=== PATIENT | male | born 1980 | race Caucasian/White ===

== ENCOUNTER 2022-12-18 15:01 | Outpatient (OUT) | payer OTHER, SELFPAY ==
--- NOTE | 2022-12-18 15:08 | CT_ITS ---
The [address] [address] Patient Name: VINCE LUCIANO MRN: [id number] date: 1980 Sex: M Assigned Patient Location: [facility] Current Patient Location: [facility] Accession/Order Number: [id number] Exam Date: 12/18/2022 15:26 Report Date: 12/18/2022 15:49 At the request of: ROXY DRIVER Procedure: CT head/brain wo con EXAM: CT head/brain wo con HISTORY: Concussion S06.0X9A . The patient hit forehead on the pool ladder 3 days ago, now with confusion. COMPARISON: None. TECHNIQUE: Multi slice thin computed tomograms of the head were obtained without contrast enhancement, with sagittal and coronal reconstructions. Radiation reduction technique and algorithms were utilized during the study. FINDINGS: The ventricles are not enlarged, the lateral ventricles are relatively symmetric and the third ventricles in the midline. The sylvian fissures and cortical sulci are unremarkable. There is no evidence of an intracranial hemorrhage, mass lesion or apparent acute infarct. The cerebellum and visualized brainstem are intact. The paranasal sinuses are clear as visualized. The middle ears are aerated. The mastoid sinuses are clear. There is no apparent acute skull fracture. CT/CT head/brain wo con IMPRESSION: There is no evidence of an intracranial hemorrhage, mass lesion or apparent acute infarct. The sinuses are clear. There is no apparent skull fracture. If the patient's symptoms persist then further evaluation with an MRI study may be helpful. Electronically authenticated by: SIXTO SAMUEL Date: 12/18/2022 15:49
== END 2022-12-18 15:02 | disposition home or self-care (01) ==
PROVIDERS: PCP Family Medicine; Visit Provider Family Medicine
DX: S06.0X9A Concussion with loss of consciousness of unspecified duration, initial encounter (principal)
CPT/HCPCS: 70450

== ENCOUNTER 2023-03-14 | Outpatient (REF) | payer OTHER, SELFPAY | END 2023-03-14 00:01 | disposition home or self-care (01) | LOC: LAB | PROVIDERS: PCP Family Medicine; Visit Provider Surgery | DX: D48.5 Neoplasm of uncertain behavior of skin (principal) | CPT/HCPCS: 88305; 88341; 88342; 88360 ==

== ENCOUNTER 2023-11-01 13:50 | Outpatient (OUT) | payer OTHER, SELFPAY ==
--- NOTE | 2023-11-01 07:59 | V.VEINS.HP ---
Vital Signs 11/01/23 14:08 Height 6 ft 3 in Weight 105.233 kg BMI 29.0 BP 120/60 BP Location Left Brachial BP Position Sitting BP Cuff Size Adult BP Source Manual Cuff Respiration 16 Pulse 64 Pulse Source Monitor Pulse Oximetry (%) 98 Oxygen Delivery Method Room Air Comment The patient's blood pressure is elevated. Varicose Veins Patient is a 43 year old male in this day with c/o bilateral leg pain and edema along with a slow healing wound to right mid anterior lower leg lasting approximately 2 months. Patient is a past patient of ours and has been treated for varicose vein disease since the age 20. Patient has multiple treatments involving vein stripping, EVLT, and microfoam chemical ablation. Patient continue use of bilateral leg compression stockings for >10 years. . Jair Julien MD personally performed the services described in this documentation, as scribed by Tex Moralez RN in my presence and it is both accurate and complete. ITex RN, am scribing for, and in the presence of, Dr. Jair Ricardo and in the presence of the patient. . . thigh: bilateral (varicose veins bilateral legs), knee: bilateral, calf: bilateral, ankle: bilateral and shay: bilateral aching, burning and tender 5 1 year Worsened in recent months: Yes standing analgesics (Aleve), elevating extremities, compression stockings and exercise Reports heaviness, limb pain, edema and leg edema History of lower extremity trauma: No Superficial thrombophlebitis: No Family history of varicose veins: yes (family) Has patient had previous lower extremity venous surgery: Yes Patient has previously received the following treatment(s) for lower extremity varicose veins: Reports vein ablation, phlebectomy, sclerotherapy, foam therapy and laser therapy Does patient have a history of : not applicable Has patient had lower extremity venous scan with relux testing: Yes Support hose used: Yes (many years) Problems walking or doing physical activity: Yes How does it affect you: often has to stop, rest, and elevate legs due to pain Do you walk much: Yes Do you stand much: Yes Review of Systems ROS Narrative Jair Julien MD personally performed the services described in this documentation, as scribed by Tex Moralez RN in my presence and it is both accurate and complete. ITex RN, am scribing for, and in the presence of, Dr. Jair Ricardo and in the presence of the patient. Status of ROS 10 or more systems reviewed and unremarkable except as noted in history and below Cardiovascular Reports: edema Integumentary/Breast Reports: itching and changes in skin color Neurological Reports: numbness in extremities and weakness in extremities Hematologic/Lymphatic Reports: easy bruising PFSH PFSH Medical History (Updated 11/01/23 @ 14:30 by Tex Moralez) Varicose veins of bilateral lower extremities with pain ?I83.813 - Varicose veins of bilateral lower extremities with pain (ICD-10) Right hand fracture ?S62.91XA - Unspecified fracture of right wrist and hand, initial encounter for closed fracture (ICD-10) Cervical vertebral fusion ?M43.22 - Fusion of spine, cervical region (ICD-10) Surgical History (Updated 11/01/23 @ 15:11 by Tex Moralez) History of bladder surgery ?Z98.890 - Other specified postprocedural states (ICD-10) H/O varicose vein ligation ?Z98.890 - Other specified postprocedural states (ICD-10) ?Z86.79 - Personal history of other diseases of the circulatory system (ICD-10) Status post phlebectomy ?Z98.890 - Other specified postprocedural states (ICD-10) Family History (Updated 11/01/23 @ 14:41 by Tex Moralez) Mother Varicose veins of bilateral lower extremities with pain Family history of cancer Family history of hypertension Social History (Updated 11/01/23 @ 14:32 by Tex Moralez) Within the past year, how often did you have a drink containing alcohol: 2-4 times a month Smoking status: Never smoker Non-prescribed substance use: denies use Meds Home Medications and Allergies Home Medications ?Medication ?Instructions ?Recorded ?Confirmed ?Type bupropion HCl 150 mg 24 hr tablet, 150 mg PO DAILY 11/01/23 11/01/23 History extended release bupropion HCl 300 mg 24 hr tablet, 300 mg PO DAILY 11/01/23 11/01/23 History extended release calcium carb-ergocalciferol (vit tab PO 11/01/23 History D2) 600 mg calcium-200 unit tablet desvenlafaxine succinate 50 mg 50 mg PO DAILY 11/01/23 11/01/23 History tablet,extended release 24 hr (Pristiq) doxycycline hyclate 100 mg capsule 100 mg PO DAILY 11/01/23 11/01/23 History tamsulosin 0.4 mg capsule (Flomax) 0.4 mg PO Q24H 11/01/23 11/01/23 History topiramate 100 mg capsule,extended 100 mg PO DAILY 11/01/23 11/01/23 History release 24 hr Allergies Allergy/AdvReac Type Severity Reaction Status Date / Time morphine Allergy Seizure Verified 11/01/23 14:41 Exam Constitutional Documenting provider has reviewed patient's vital signs: yes Common normals: oriented x3 Cardio Peripheral pulses: dorsalis pedis pulses present Extremity Common normals: normal capillary refill General: edema Right lower extremity: lower leg Right lower leg: inspection and palpation Left lower extremity: lower leg Left lower leg: inspection and palpation Neuro Common normals: oriented x3 Results Additional Findings Additional findings: Bilateral leg reflux u/s reveals right SSV and AASV along perforating vein venous insufficiency along with associated dilation along with bilateral leg branch saphenous truncal varicosities. Jair Julien MD personally performed the services described in this documentation, as scribed by Tex Moralez RN in my presence and it is both accurate and complete. Tex Julien RN, am scribing for, and in the presence of, Dr. Jair Ricardo and in the presence of the patient. Assessment and Plan Assessment and Plan (1) Varicose veins of bilateral lower extremities with pain: Plan Patient to return for EVLT of right SSV and AASV and perofrating veins near wound right lower leg. Jair Julien MD personally performed the services described in this documentation, as scribed by Tex Moralez RN in my presence and it is both accurate and complete. Tex Julien RN, am scribing for, and in the presence of, Dr. Jair Ricardo and in the presence of the patient.
--- NOTE | 2023-11-01 08:01 | P.DS_ITS ---
Discharge Plan Discharge Disposition: Home, Self-Care Outpatient Diagnostics: VC Endovenous Ablation 1VeinRT (Routine) Timeframe: 1 Month Facility: [facility] - Location[facility] Ordered By: Jair Ricardo Follow Up Appointments: patient to return for EVLT once insurance approval Print Language: Setswana Discharge Date/Time: 11/01/23 16:00
[2023-11-01 14:08] VITALS: BP 120/60; PULSE 64; O2SAT 98; BMI 29.0
--- OUTSIDE RECORDS SUMMARY | 2023-11-01 14:09 | XMS_ITS | CCD ---
Author Organization [facility] Care Team Providers Care Can Cleaner Name Role Phone SHAI PLASENCIAIL Attending Unavailable ROXY DRIVER Referring Unavailable ROXY DRIVER Primary Care Unavailable EBRAHEIM, NEELAM Admitting Unavailable EBRAHEIM, NEELAM Surgeon Unavailable MA Procedure Practitioner Unavailab farnaz DRIVER ., DR RAMSEY Primary Care Unavailable HOY ., DR RAMSEY Admitting Unavailable HOY ., DR RAMSEY Attending Unavailable HOY ., DR RAMSEY Consulting Unavailable LISETH MUNROE Consulting Unavailable HOY ., DR RAMSEY Primary Care Unavailable HOY ., DR RAMSEY Admitting Unavailable HOY ., DR RAMSEY Attending Unavailable HOY ., DR RAMSEY Consulting Unavailable ZIEBER, DR IAN Quevedo Consulting Unavailable HOY ., DR RAMSEY Admitting Unavailable HOY ., DR RAMSEY Attending Unavailable HOY ., DR RAMSEY Consulting Unavailable HOY ., DR RAMSEY Primary Care Unavailable ZIEBER, DR IAN Quevedo Consulting Unavailable ZIEBER, DR IAN Quevedo Consulting Unavailable PAY ., DR WESLEY Admitting Unavailable PAY ., DR WESLEY Attending Unavailable HOY ., DR RAMSEY Primary Care Unavailable PAY ., DR WESLEY Consulting Unavailable ALEX .KIMBERLY Consulting UnavailRoxy Delgadillo Primary Care Physician Unallocated, Noms Provider Primary Care Provider Roxy Driver MD Primary Care Provider EMELY MAGALLANES Attending Unavailable RAFAEL WEEKS Referring Unavailable EMELY MAGALLANES Attending Unavailable MARGEERAFAEL C Referring Unavailable EMELY MAGALLANES Attending Unavailable RAFAEL WEEKS Referring Unavailable EMELY AMGALLANES Attending Unavailable MARGEERAFAEL Referring Unavailable EMELY MAGALLANES Attending Unavailable MARGEERAFAEL C Referring Unavailable EMELY MAGALLANES Attending Unavailable SKIE, RAFAEL C Referring Unavailable BLACKSTON, EMELY Attending Unavailable SKIE, RAFAEL C Referring Unavailable BLACKSTON, EMELY Attending Unavailable SKIE, RAFAEL C Referring Unavailable BLACKSTON, EMELY Attending Unavailable SKIE, RAFAEL C Referring Unavailable BLACKSTON, EMELY Attending Unavailable SKIE, RAFAEL C Referring Unavailable BLACKSTON, EMELY Attending Unavailable SKIE, RAFAEL C Referring Unavailable BLACKSTON, EMELY Attending Unavailable SKIE, RAFAEL C Referring Unavailable BLACKSTON, EMELY Attending Unavailable SKIE, RAFAEL C Referring Unavailable BLACKSTON, EMELY Attending Unavailable SKIE, RAFAEL C Referring Unavailable NILL, Riley Quevedo Attending Unavailable HoyRoxy Referring Unavailable NILL, Riley Quevedo Attending Unavailable NILL, Riley Quevedo Attending Unavailable Lul Zapata Attending Unavailable Laura, Clifford Attending Unavailable SKIE, RAFAEL Attending Unavailable SKIE, RAFAEL Admitting Unavailable SKIE, RAFAEL Attending Unavailable SKIE, RAFAEL Attending Unavailable SKIE, RAFAEL Referring Unavailable SKIE, RAFAEL Referring Unavailable SKIE, RAFAEL Referring Unavailable SKIE, RAFAEL Referring Unavailable SKIE, RAFAEL Referring Unavailable SKIE, RAFAEL Attending Unavailable SKIE, RAFAEL Attending Unavailable SKIE, RAFAEL Attending Unavailable SKIE, RAFAEL Attending Unavailable Roxy Driver MD Primary Care Provider [phone] NANDO PARKER Admitting Unavailable NANDO PARKER Attending Unavailable ROXY DRIVER Primary Care Unavailable ROXY DRIVER Primary Care Unavailable NANDO PARKER Referring Unavailable KEESHA CURTIS Attending Unavailable VILLA ROXY M Primary Care Unavailable ALMASSI, JESSICA Attending Unavailable ROXY DRIVER M Primary Care Unavailable KELLIE MEADOWSA Attending Unavailable ROXY DRIVER Primary Care Unavailable AMITA GEE Referring Unavailable HOROXY Santoyo M Primary Care Unavailable HOShandra ROXY M Primary Care Unavailable HOShandra ROXY M Primary Care Unavailable ROXY DRIVER M Primary Care Unavailable NANDO PARKER Attending Unavailable Allergies Allergy Classification Reported Allergen(s) Allergy Type Date of Onset Reaction(s) Facility (1 source) Ciprofloxacin; Translations: [CIPRO] Drug Allergy 9 [facility] (4 sources) Morphine; Translations: [MORPHINE] Drug Allergy 5 [facility] (15 sources) Cinnamon Preparation; Translations: [Cinnamon] Drug Allergy 2 Swelling [facility] (1 source) Coconut Flavor Allergy to substance 3 [facility] (11 sources) coconut allergenic extract; Translations: [COCONUT] Drug Allergy 2 Swelling [facility] (1 source) No Known Medication Allergies; Translations: [No Known Medication Allergies] Propensity to adverse reactions (disorder) [facility] Repository (1 source) Ciprofloxacin; Translations: [CIPROFLOXACIN] Drug Allergy 3 [facility] Rep[facility] NEGATED: Highlighted row has been ruled out! (1 source) Drug allergy [facility] [place] NEGATED: Highlighted row has been ruled out! (1 source) Drug allergy General [facility] Medications Current Medications Medication Drug Class(es) Dates Sig (Normalized) Sig (Original) acetaminophen 325 mg oral tablet (1 source) Start: 08-13-2023 End: 08-18-2023 take 2 tablets by mouth every six hours acetaminophen (TYLENOL) 325 mg tablet Take 2 tablets by mouth every 6 hours for 5 days. 40 tablet 0 08/13/2023 08/18/2023 Active acetaminophen 325 mg / HYDROcodone bitartrate 5 mg oral tablet (1 source) Opioid Agonist take 1 tablet by mouth every eight hours as needed HYDROcodone-acetami nophen (NORCO) 5-325 mg per tablet Take 1 tablet by mouth every 8 hours as needed for pain. 0 Active 24 hr buPROPion hydrochloride 150 mg extended release oral tablet (20 sources) Aminoketone Start: 02-24-2023 buPROPion XL (WELLBUTRIN XL) 150 mg 24 hr tablet Start: 02-24-2023 buPROPion XL ( WELLBUTRIN XL) 300 mg 24 hr tablet Start: 02-08-2023 take 1 tablet by leonides th once daily buPROPion XL (WELLBUTRIN XL) 150 mg 24 hr tablet Take 150 mg by mouth once daily. 0 02/24/2023 Active Start: 02-08-2023 take 1 tablet by leonides th once daily buPROPion XL (WELLBUTRIN XL) 300 mg 24 hr tablet Take 300 mg by mouth once daily. 0 02/24/2023 Active cephalexin 500 mg oral capsule (1 source) Cephalosporin Antibacterial Start: 08-13-2023 End: 08-15-2023 take 1 capsule by mouth three times daily cephALEXin (KEFLEX) 500 mg capsule Take 1 capsule by mouth three times a day for 2 days. 6 capsule 0 08/13/2023 08/15/2023 Active cetirizine hydrochloride 10 mg oral capsule (9 sources) Histamine-1 Receptor Antagonist take 1 capsule by mouth once daily Cetirizine 10 mg cap Take 10 mg by mouth once daily. 0 Active Comment on above: Take by mouth once d aily. cyclobenzaprine hydrochloride 5 mg oral tablet (1 source) Muscle Relaxant Start: 08-19-2022 cyclobenzaprine (Flexeril) 5 MG tablet Take 5 mg by mouth. 0 08/19/2022 Active 24 hr desvenlafaxine succinate 100 mg extended release oral tablet (1 source) Serotonin and Norepinephrine Reuptake Inhibitor desvenlafaxine (Pristiq) 100 MG 24 hr tablet docusate sodium 100 mg oral capsule (2 sources) Start: 08-13-2023 End: 09-12-2023 take 1 capsule by mouth twice daily docusate sodium (COLACE) 100 mg capsule Take 1 capsule by mouth two times a day. 60 capsule 0 08/13/2023 09/12/2023 Active Start: 05-17-2022 [facility] 1 capsule by [facility] morning docusate sodium (Colace) 100 MG capsule Take 100 mg by mouth in the morning and 100 mg before bedtime. 0 05/17/2022 Active doxycycline monohydrate 100 mg oral capsule (9 sources) Tetracycline-class Drug Start: 05-26-2022 take 1 capsule by mouth once daily doxycycline monohydrate (MONODOX) 100 mg capsule Take 100 mg by mouth once daily. 0 02/24/2023 Active ergocalciferol 1.25 mg oral capsule (8 sources) Provitamin D2 Compound Start: 07-03-2016 take 1 capsule by mouth every week ergocalciferol, vitamin D2, (DRISDOL) 50,000 unit capsule Take 1 capsule by mouth once each week. 4 capsule 3 07/03/2016 Active Comment on above: Take 1 capsule by [facility] once each week. naproxen 500 mg oral tablet (2 sources) Nonsteroidal Anti-inflammatory Drug Start: 08-19-2022 take 1 tablet by mouth twice daily as needed for pain naproxen 500 mg Tab 500 mg = 1 tab(s), Oral, BID, PRN for pain, # 20 tab(s), Refills(s) 0, Pharmacy: [facility]/pharmacy #[id number], 190.5, cm, 08/19/22 14:09:00 EDT, Height/Length Dosing, 105, kg, 08/19/22 14:09:00 EDT, Weight Dosing Start Date: 08/19/22 Status: Ordered phenazopyridine hydrochloride 200 mg oral tablet (1 source) Start: 08-13-2023 End: 08-16-2023 take 1 tablet by mouth three times daily, then take 1 tablet by mouth every hour phenazopyridine (PYRIDIUM) 200 mg tablet Take 1 tablet by mouth three times a day for 3 days. For urinary burning and discomfort. This will turn your urine bright orange. Take first dose 1 hour prior to coe removal. 9 tablet 0 08/13/2023 08/16/2023 Active SUMAtriptan 100 mg oral tablet (4 sources) Serotonin-1b and Serotonin-1d Receptor Agonist Start: 07-16-2023 take 1 tablet by mouth every two hours as needed SUMAtriptan (IMITREX) 100 mg tablet TAKE 1 TABLET BY MOUTH AT LEAST 2 HOURS BETWEEN DOSES NEEDED 0 07/16/2023 Active Start: 12-17-2022 take 1 tablet by leonides once daily Imitrex 100 mg Tab 100 mg = 1 tab(s), Oral, Daily, Refills(s) 0 Start Date: 12/17/22 Status: Ordered tamsulosin hydrochloride 0.4 mg oral capsule (11 sources) alpha-Adrenergic Issa Start: 05-26-2022 take 0.4 mg by mouth once daily tamsulosin (FLOMAX) 0.4 mg Take 0.4 mg by mouth once daily. 0 02/24/2023 Active tiZANidine 4 mg oral tablet (3 sources) Central alpha-2 Adrenergic Agonist Start: 02-08-2023 take 1 tablet by mouth three times daily tiZANidine 4 mg Tab 4 mg = 1 tab(s), Oral, TID, Refills(s) 0 Start Date: 02/08/23 Status: Ordered tiZANidine ([facility] flex) 4 MG tablet every 8 (eight) hours. 0 Active 24 hr topiramate 100 mg extended release oral capsule (10 sources) Start: 04-15-2019 take 1 capsule by mouth once daily Trokendi XR 100 mg oral capsule, extended release 100 mg = 1 cap(s), Oral, Daily Start Date: 04/15/19 Status: Ordered topiramate XR (T ROKENDI XR) 100 mg capsule Take 50 mg by mouth two times a day. 0 Active take 1 tablet by mouth twice frida ly Topiramate (TOPAMAX) 50 mg tablet Take 50 mg by mouth twice daily. 0 Active Comment on above: Take 50 mg by mouth twice daily. vitamin b12 0.5 mg oral tablet (8 sources) Vitamin B12 Start: 07-03-2016 take 1 tablet by mouth once daily cyanocobalamin (VITAMIN B-12) 500 mcg tab Take 1 tablet by mouth once daily. 30 tablet 5 07/03/2016 Active Comment on above: Take 1 tablet by leonides th once daily. Completed/Discontinued Medications Medication Drug Class(es) Dates Sig (Normalized) Sig (Original) [id number] 200 actuat albuterol 0.09 mg/actuat metered dose inhaler (7 sources) beta2-Adrenergic Agonist Start: 04-23-2023 End: 08-01-2023 take 2 puff(s) by inhalation every four hours as needed albuterol HFA (PROVENTIL HFA, VENTOLIN HFA) 90 mcg/actuation inhaler INHALE 2 PUFFS NEEDED EVERY 4 HOURS 0 04/23/2023 08/01/2023 Discontinued Comment on above: INHALE 2 PUFFS NE EDED EVERY 4 HOURS lidocaine hydrochloride 0.02 mg/mg topical gel (2 sources) Antiarrhythmic, Amide Local Anesthetic Start: 06-06-2023 End: 06-06-2023 lidocaine urojet 2 % 11 mL topical gel (GLYDO) phentermine hydrochloride 37.5 mg oral tablet (3 sources) Sympathomimetic Amine Anorectic Start: 06-08-2023 End: 08-01-2023 take 1 tablet by mouth before breakfast Phentermine HCl 37.5 mg tablet TAKE 1 TABLET BY MOUTH BEFORE BREAKFAST FOR 30 DAYS 0 06/08/2023 08/01/2023 Discontinued Start: 01-31-2023 take 1 tablet by leonides th once daily Adipex-P 37.5 mg Tab 37.5 mg = 1 tab(s), Oral, Daily, Refills(s) 0 Start Date: 01/31/23 Status: Ordered sulfamethoxazole 800 mg / trimethoprim 160 mg oral tablet (2 sources) Dihydrofolate Reductase Inhibitor Antibacterial, Sulfonamide Antimicrobial Start: 06-06-2023 End: 06-06-2023 sulfamethoxazole-trimethopri m 800-160 mg 1 tablet (BACTRIM DS) vortioxetine 20 mg oral tablet (7 sources) End: 08-01-2023 take 1 tablet by mouth once daily vortioxetine 20 mg tab Take by mouth once daily. 0 08/01/2023 Discontinued Comment on above: Take by mouth once d aily. Problems Active Problems Problem Classification Problem Date Documented Da te Episodic/Chronic Abdominal pain (4 sources) Left lower quadrant pain; Translations: [LEFT LOWER QUADRANT PAIN] Onset: 07-15-2022 Episodic Anxiety disorders (3 sources) Mixed anxiety and depressive disorder; Translations: [Anxiety disorder, unspecified] Onset: 08-01-2023 08-01-2023 Chronic Crushing injury or internal injury (4 sources) Crushing injury of right hand, initial encounter; Translations: [CRUSHING INJURY RIGHT HAND INITIAL] Onset: 05-05-2022 Episodic E Codes: Machinery (1 source) Contact with metalworking machines, initial encounter; Translations: [CONTACT METALWORKING MACHINES INIT] Onset: 05-09-2022 Episodic Genitourinary symptoms and ill-defined conditions (9 sources) Poor stream of urine; Translations: [Poor urinary stream] Onset: 05-02-2023 05-18-2023 Episodic Headache; including migraine (3 sources) Migraine; Translations: [Migraine, unspecified, not intractable, without status migrainosus] Onset: 08-01-2023 08-01-2023 Chronic Hyperplasia of prostate (7 sources) Benign prostatic hypertrophy with outflow obstruction; Translations: [Benign prostatic hyperplasia with lower urinary tract symptoms] Onset: 06-06-2023 06-06-2023 Chronic Immunizations and screening for infectious disease (1 source) Encounter for immunization; Translations: [ENCOUNTER FOR IMMUNIZATION] Onset: 05-09-2022 Episodic Intestinal obstruction without hernia (2 sources) Small bowel obstruction 04-15-2019 Episodic Neoplasms of unspecified nature or uncertain behavior (3 sources) Neoplasm of uncertain behavior of skin; Translations: [Neoplasm of uncertain behavior of skin] Onset: 02-13-2023 Episodic Noninfectious gastroenteritis (2 sources) Postprandial diarrhea 05-07-2019 Episodic Open wounds of extremities (2 sources) Laceration of upper limb; Translations: [Laceration of extensor muscle, fascia and tendon of right ring finger at wrist and hand level, initial encounter] Onset: 12-21-2022 05-04-2023 Episodic Other diseases of kidney and ureters (2 sources) Other obstructive and reflux uropathy; Translations: [BPH with obstruction/lower urinary tract symptoms] Onset: 06-06-2023 Episodic Other diseases of veins and lymphatics (2 sources) Varicocele 02-08-2023 Episodic Other lower respiratory disease (1 source) Dyspnea; Translations: [Dyspnea, unspecified] Onset: 04-09-2023 Episodic Other nutritional; endocrine; and metabolic disorders (2 sources) Overweight 02-13-2023 Episodic Other nutritional; endocrine; and metabolic disorders (2 sources) Overweight in adulthood with body mass index of 25 or more but less than 30 02-13-2023 Episodic Other upper respiratory disease (2 sources) Seasonal allergic rhinitis 02-08-2023 Chronic Residual codes; unclassified (3 sources) Current drinker; Translations: [Other specified health status] Onset: 08-01-2023 08-01-2023 Episodic Spondylosis; intervertebral disc disorders; other back problems (2 sources) Cervical disc disorder 02-08-2023 Chronic Spondylosis; intervertebral disc disorders; other back problems (2 sources) Cervical radiculopathy 02-08-2023 Episodic Unclassified (2 sources) Diverticulitis 02-08-2023 Urinary tract infections (1 source) Urinary tract infection, site not specified; Translations: [Urinary tract infection without hematuria, site unspecified] Onset: 08-01-2023 Episodic Past or Other Problems Problem Classification Problem Date Documented Da te Episodic/Chronic Fracture of upper limb (9 sources) Displaced fracture of middle phalanx of right ring finger, initial encounter for open fracture; Translations: [Open fracture of middle phalanx of ring finger] Onset: 05-09-2022 05-04-2023 Episodic Fracture of upper limb (2 sources) Displaced fracture of middle phalanx of left ring finger, initial encounter for open fracture; Translations: [Displaced fracture of middle phalanx of left ring finger, initial encounter for open fracture] Onset: 05-16-2022 Episodic Other injuries and conditions due to external causes (8 sources) Hematoma; Translations: [Other injury of unspecified body region, initial encounter] Onset: 05-25-2014 05-25-2014 Episodic Other screening for suspected conditions (not mental disorders or infectious disease) (13 sources) Abnormal radiologic findings on diagnostic imaging of renal pelvis, ureter, or bladder; Translations: [Patient encounter status] Onset: 05-25-2014 Episodic Residual codes; unclassified (2 sources) Pain, unspecified; Translations: [Pain, unspecified] Onset: 02-19-2023 Episodic Varicose veins of lower extremity (20 sources) Varicose veins of lower extremity; Translations: [Varicose veins of bilateral lower extremities with other complications] Onset: 06-11-2013 02-08-2023 Episodic Results Test Name Value Interpretation Reference Range Facility ANES POSTPROC EVALon 024 ANES POSTPROC EVAL HNO ID: [id number] Author: EVERETT JOHNSON IV, DO Service: Anesthesiology Author Type: Anesthesiologist Type: Anesthesia Postprocedure Evaluation Filed: 08/13/2023 15:21 Note Text: POST ANESTHESIA EVALUATION NOTE : 1980 Procedure Summary Date: 08/13/23 Room / Location: [facility] / OR Anesthesia Start: 1338 Anesthesia Stop: 1439 Procedure: LASER PROSTATECTOMY ~ GREEN LIGHT (Prostate) Diagnosis: BPH with obstruction/lower urinary tract symptoms Weak urinary stream (BPH with obstruction/lower urinary tract symptoms [N40.1, N13.8]) (Weak urinary stream [R39.12]) Surgeons: Nando Parker MD Responsible Provider: Everett Johnson IV, DO Anesthesia Type: general ASA Status: 3 Anesthesia Type: general Airway Type: LMA Last Vitals Vitals Value Taken Time BP 109/68 08/13/23 1515 Temp 36.3 ?C (97.3 ?F) 08/13/23 1435 Pulse 67 08/13/23 1519 Resp 14 08/13/23 1519 SpO2 98 % 08/13/23 1519 Vitals shown include unfiled device data. Post Anesthesia Patient Status Patient Evaluation: PACU. PACU/ICU Patient Condition: stable. Anticipated Disposition: inpatient floor planned admission. Neurological Status: aware and responsive. Pulmonary Status: breathing comfortably on room air Airway Control: returned to baseline unsupported. Cardiovascular Status: stable. Pain Management: clinically adequate - multimodal analgesia pain management approach Postoperative Hydration: acceptable. Intraoperative Events: no significant anesthesia events Post Operative Nausea/Vomiting Status: no significant post operative nausea or vomiting Recommendation: continue current plan of care and further care per PACU/ICU/floor team. Anesthesia Observations No Documentation SIGNATURE: Everett Johnson IV, DO PATIENT NAME: Vince Luciano DATE: August 13, 2023 TIME: 3:21 PM CSN: [id number] [facility] ANES PRE-OPon 08-13-2023 ANES PRE-OP HNO ID: [id number] Author: EVERETT JOHNSON IV, DO Service: Anesthesiology Author Type: Anesthesiologist Type: Anesthesia Preprocedure Evaluation Filed: 08/13/2023 10:53 Note Text: ANESTHESIOLOGY DAY OF SURGERY NOTE : 1980 Procedure Information Date/Time: 08/13/23 1215 Procedure: LASER PROSTATECTOMY ~ GREEN LIGHT (Prostate) Location: [facility] / OR Surgeons: Nando Parker MD Estimated body mass index is 29.13 kg/m? as calculated from the following: Height as of 08/01/23: 190.5 cm (6' 3 ). Weight as of this encounter: 105.7 kg (233 lb 0.4 oz). Most recent hematocrit and potassium results: Hematocrit 46.4 08/01/2023 Potassium 4.4 08/01/2023 Relevant Problems CARDIO (+) Migraines (+) Symptomatic spider varicose vein (+) Varicose veins of leg with pain (+) Varicose veins of lower extremities with other complications NEURO-PSYCH (+) Migraines I - PHYSICAL EVALUATION AIRWAY Patient intubated: No. Tracheostomy tube not present Mallampati: I. TM distance: >3 FB. Neck ROM: full ROM without neurological symptoms. Mouth opening: adequate. Short neck: no. Thick neck: no Lerner present: yes DENTAL Dental findings: teeth intact. II - ANESTHESIA PLAN ASA Score: 3 Anesthetic Plan: general Airway type: LMA The patient is not a current smoker. NPO Status: adequate Beta Issa Administration of chronic beta issa medication not planned. Monitoring Plan Monitoring plan: standard ASA. Post Procedure Analgesic Plan Postoperative analgesic plan: multimodal analgesia. Informed Consent Anesthetic risks, benefits, alternatives, personnel and consent discussed: yes. Patient / Responsible [employer] agrees to proceed: yes Patient / Surrogate agrees to blood products: Yes DNR status not reviewed with patient and/or family prior to surgery. Significant changes in the patient condition since the History and Physical, not otherwise documented in primary service progress note: no. Potential Anesthesia issues that may suggest increased risk of complications or contraindication to planned procedure: none. Discussed the possibility of lip / dental damage: yes Vitals Value Taken Time BP 123/74 08/13/23 1045 Pulse 76 08/13/23 1045 Resp 18 08/13/23 1045 Temp 36.5 ?C (97.7 ?F) 08/13/23 1045 SpO2 100 % 08/13/23 1045 Facility-Administered Medications as of 08/13/2023 Medication Dose Route Frequency acetaminophen 1,000 mg tab(s) (TYLENOL) 1,000 mg ORAL ONCE promethazine 12.5 mg tab(s) (PHENERGAN) 12.5 mg ORAL ONCE tobramycin 160 mg in sodium chloride 0.9 % 1,000 mL IRRIGATION ONCE Outpatient Medications as of 08/13/2023 Medication Sig HYDROcodone-acetaminop hen (NORCO) 5-325 mg per tablet Take 1 tablet by mouth every 8 hours as needed for pain. buPROPion XL (WELLBUTRIN XL) 300 mg 24 hr tablet Take 300 mg by mouth once daily. doxycycline monohydrate (MONODOX) 100 mg capsule Take 100 mg by mouth once daily. tamsulosin (FLOMAX) 0.4 mg Take 0.4 mg by mouth once daily. buPROPion XL (WELLBUTRIN XL) 150 mg 24 hr tablet Take 150 mg by mouth once daily. ergocalciferol, vitamin D2, (DRISDOL) 50,000 unit capsule Take 1 capsule by mouth once each week. cyanocobalamin (VITAMIN B-12) 500 mcg tab Take 1 tablet by mouth once daily. Cetirizine 10 mg cap Take 10 mg by mouth once daily. topiramate XR (TROKENDI XR) 100 mg capsule Take 50 mg by mouth two times a day. I have interviewed and examined the patient. I have reviewed the medical record and/or the pre-anesthesia evaluation, pertinent labs, and test results. This contains updated information obtained within 48 hours of Surgery/Procedure. SIGNATURE: Everett Johnson IV, DO PATIENT NAME: Vince Luciano DATE: August 13, 2023 TIME: 10:53 AM CSN: [id number] [facility] 08-13-2023 [facility] Telephone (GLQ) VINCE LUCIANO ([id number]) 1980 M Date Time Provider Department 08/13/23 NANDO PARKER GLQ During your visit today, we recorded the following information about you: Fiona Al 08/13/2023 11:53 AM Signed is calling regarding his [facility] papers, he is having surgery today. Please advise. Thanks Fiona Al 08/14/2023 12:09 PM Signed Paperwork has been faxed to employer. Thanks Patients notified also and patient scheduled for [address] Parker also. Thanks Allergies As of Date: 08/13/2023 Noted Allergy Reaction CINNAMON 08/02/2011 7 - Swelling COCONUT 08/02/2011 7 - Swelling Date Reviewed: 08/13/2023 Reviewed by: Nohelia Eason, RN - Fully Assessed Reason for Visit: [facility] Paperwork [[id number]] Prescriptions as of 08/14/2023 - HYDROcodone-acetaminop hen (NORCO) 5-325 mg per tablet Take 1 tablet by mouth every 8 hours as needed for pain. - acetaminophen (TYLENOL) 325 mg tablet Take 2 tablets by mouth every 6 hours for 5 days. - cephALEXin (KEFLEX) 500 mg capsule Take 1 capsule by mouth three times a day for 2 days. - phenazopyridine (PYRIDIUM) 200 mg tablet Take 1 tablet by mouth three times a day for 3 days. For urinary burning and discomfort. This will turn your urine bright orange. Take first dose 1 hour prior to coe removal. - docusate sodium (COLACE) 100 mg capsule Take 1 capsule by mouth two times a day. - SUMAtriptan (IMITREX) 100 mg tablet TAKE 1 TABLET BY MOUTH AT LEAST 2 HOURS BETWEEN DOSES NEEDED - buPROPion XL (WELLBUTRIN XL) 300 mg 24 hr tablet Take 300 mg by mouth once daily. - doxycycline monohydrate (MONODOX) 100 mg capsule Take 100 mg by mouth once daily. - tamsulosin (FLOMAX) 0.4 mg Take 0.4 mg by mouth once daily. - buPROPion XL (WELLBUTRIN XL) 150 mg 24 hr tablet Take 150 mg by mouth once daily. - ergocalciferol, vitamin D2, (DRISDOL) 50,000 unit capsule Take 1 capsule by mouth once each week. - cyanocobalamin (VITAMIN B-12) 500 mcg tab Take 1 tablet by mouth once daily. - Cetirizine 10 mg cap Take 10 mg by mouth once daily. - topiramate XR (TROKENDI XR) 100 mg capsule Take 50 mg by mouth two times a day. Meds Comments as of 07/24/2011: Patient verbally confirmed current medications. Marianela Griffin LPN 07/24/2011 Problem List As Of Date 08/13/2023 Noted Resolved Varicose veins of lower extremities with other *06/11/2013 Elevated partial thromboplastin time (PTT) [R79*05/25/2014 Hematoma [T14.8XXA] 05/25/2014 Symptomatic spider varicose vein [I83.899] 06/07/2015 Varicose veins of leg with pain [I83.819] 06/07/2015 Migraines [G43.909] 08/01/2023 Alcohol use [Z78.9] 08/01/2023 Anxiety and depression [F41.9, F32.A] 08/01/2023 BPH (benign prostatic hyperplasia) [N40.0] 08/01/2023 BPH with obstruction/lower urinary tract sympto*08/10/2023 Encounter Status:Closed by FIONA AL on 08/14/23 Normal [facility] HISTORY PHYSICALon HISTORY PHYSICAL HNO ID: [id number] Author: NANDO PARKER MD Service: Urology Author Type: Physician Type: H&P Filed: 08/13/2023 11:22 Note Text: UPDATED HISTORY AND PHYSICAL EXAMINATION SERVICE DATE: 08/13/2023 SERVICE TIME: 11:21 AM PHYSICAL EXAM MUST BE COMPLETED ON ADMISSION The History and Physical (completed in the past 30 days) has been reviewed and the patient has been examined. The contents accurately reflect the patient's condition with the following additions or revisions since the HANDP was completed. Examination indicates no changes. This HANDP can be found in the Electronic Medical Record dated 08/01/2023. SIGNATURE: Nando Parker MD, MS PATIENT NAME: Vince Luciano DATE: August 13, 2023 TIME: 11:21 AM [facility] NURSING PROGon 08-13-2023 NURSING PROG HNO ID: [id number] Author: NAHID WILBURN RN Service: ? Author Type: Registered Nurse Type: Nursing Progress Note Filed: 08/13/2023 14:50 Note Text: Other: Patient arrived from OR to PACU. Report done at BS. Assumed care of patient. Patient sedated arouses to verbal stimuli. Lungs clear on SFM 6 liters. Abdomen soft. Coe to traction for 45 minutes.Coe draining clear pink urine VSS. No signs of distress. Continue to monitor patient. [facility] OPERATIVE NOon 08-13-2023 OPERATIVE NO HNO ID: [id number] Author: NANDO PARKER MD Service: Urology Author Type: Physician Type: Operative Report Filed: 08/13/2023 14:35 Note Text: OPERATIVE/PROCEDURE REPORT LOG ID: [id number] SURGERY/PROCEDURE DATE: 08/13/2023 INCISION/PROCEDURE START TIME: 1:52 PM INCISION CLOSE/PROCEDURE END TIME: 2:23 PM SURGEON(S)/PROCEDURALI ST(S) AND REFINING SUPERVISOR(S): Surgeon(s) and Role: * Nando Parker MD - Primary SURGERY/PROCEDURE(S): 1) laser enucleation of the prostate 2) cystourethroscopy with dilation of urethral stricture 2) insertion of indwelling urethral catheter ANESTHESIA: General INDICATION(S): This is a 43 year old male with 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 He elected to pursue endoscopic surgical management of his condition. A fully informed consent for such was obtained. SURGERY/PROCEDURE DETAILS: The patient was brought to the operating room, at which point a preoperative huddle was performed confirming the proper patient, procedure, site, medications, allergies, equipment, and personnel were accounted for. Thereafter, general laryngeal mask airway anesthesia was introduced. The patient was then prepped with betadine solution and draped in the standard sterile fashion. Perioperative Cefazolin was given for antibiotic prophylaxis. A time out was then performed to confirm the information from the preoperative huddle. The urethral meatus was patent and did not require dilation for scope passage. The rigid cystourethroscope with continuous flow sheath was placed atraumatically into the urethra under direct vision and navigated endoscopically into the bladder. The urethra appeared normal with on wide caliber (approximately 20 Fr) thin bulbar stricture noted. This was gently dilated with scope manipulation and traversed easily thereafter. The prostate was inspected and demonstrated trilobar hypertrophy with occlusion of the urethral lumen and no intravesical lobe. The bladder neck was moderately hypertrophied and markedly elevated. There was a notable median bar. The bladder was inspected and no overt pathologies found. There was degenerated trabeculation, no cellules, and no diverticulae. Bilateral solitary ureteral orifices were both noted in orthotopic position. Photovaporization was initiated with low power (setting 80) on the left prostatic lobe and carried posteriorly around the bladder neck. Similar was repeated on the right lobe. The median bar was enucleated. The bladder neck was opened widely with additional vaporization at the 5 o'clock and 7 o'clock positions. Good elimination of prostatic tissue was observed. The anterolateral and posterolateral aspects of the resection bed were addressed with good tissue elimination. The laser was increased to 120 and 160 with further elimination of prostatic tissue achieved. The lateral lobes were enucleated. Finally, areas of residual adenoma were photovaporized and the resection bed given a smooth overall contour. The laser was set to 80 and the distal prostate, lateral to the varumontanum, was carefully vaporized. The tissues adjacent to the sphincter were preserved. Upon conclusion of this, an excellent surgical result was obtained with a clearly visualized lumen from the verumontanum to the trigone achieved. All enucleated tissue was evacuated from the bladder through the scope. Upon withdrawal of the scope, the urethral sphincter was confirmed visually to be intact, uninvolved in the areas of vaporization, and completely close to occlude the urethral lumen. All instilled irrigant remained and no leakage was observed. A Crede maneuver with the bladder filled produced a good urinary stream. A 22 slovenian Coude catheter was placed with return of clear effluent. The balloon was filled with 20 cc sterile water. Mild traction was applied and maintained as the patient was cleansed, placed back in the supine position, and awakened from anesthesia. He tolerated the procedure well. Transfer to the post-anesthesia care unit for further recovery was completed prior to relaxing catheter traction and discharge home. The procedure was performed by Dr. Parker with no resident assisting. PRE-OP/PRE-PROCEDURE DIAGNOSIS: BPH w Obstruction AND LUTS; Bladder Outlet Obstruction; Detrusor Underactivity / Hypotonicity POST-OP/POST-PROCEDURE DIAGNOSIS: Same ESTIMATED BLOOD LOSS: 5 cc SPECIMENS: None IMPLANTABLE DEVICES: None DRAINS: 22 Fr Coude (20 cc in balloon) COMPLICATIONS: None ACCIDENTAL PUNCTURES OR LACERATIONS: None SIGNATURE: Nando Parker MD, MS PATIENT NAME: Vince Luciano DATE: August 13, 2023 TIME: 2:31 PM Normal [facility] Bacteria Ur Culton 4 Bacteria identified Cx Nom (U) ORGANISM ID: 1 <10,000 CFU/ml Normal urogenital enrique Normal [facility] Comment on above: Performed By: #### 6 30-4 ####[facility] LABCLIA [id number] [place] [address] [place] CBC W Auto Differential pane l (Bld)on 08-01-2023 Basophils (Bld) [#/Vol] 10*3/uL Normal <0.11 [facility] Comment on above: Order Comment: Speci men Type: BLOOD SPECIMENOrdering Facility: [facility] Address: [address] [place] [address] Performed By: #### 5 7021-8 ####[facility] LABCLIA [id number] [place] [address] [place] Basophils/100 WBC (Bld) 0.4 % Normal [facility] Comment on above: Order Comment: Speci men Type: BLOOD SPECIMENOrdering Facility: [facility] Address: [address] [place] [address] Performed By: #### 5 7021-8 ####[facility] LABCLIA [id number] [place] [id number] [place] Differential cell count method Nom (Bld) Auto Normal [facility] Comment on above: Order Comment: Speci men Type: BLOOD SPECIMENOrdering Facility: [facility] Address: [address] [place] [address] Performed By: #### 5 7021-8 ####[facility] LABCLIA [id number] [place] [address] [place] Eosinophils (Bld) [#/Vol] 0.10 10*3/uL Normal <0.46 [facility] Comment on above: Order Comment: Speci men Type: BLOOD SPECIMENOrdering Facility: [facility] Address: [address] [place] [address] Performed By: #### 5 7021-8 ####[facility] LABCLIA [id number] [address] [place] Eosinophils/100 WBC (Bld) 1.8 % Normal [facility] Comment on above: Order Comment: Speci men Type: BLOOD SPECIMENOrdering Facility: [facility] Address: [address] [place] [address] Performed By: #### 5 7021-8 ####[facility] LABCLIA [id number] [address] [place] Erythrocyte distribution width (RBC) [Ratio] 11.9 % Normal 11.5-15.0 [facility] Comment on above: Order Comment: Speci men Type: BLOOD SPECIMENOrdering Facility: [facility] Address: [address] [place] [address] Performed By: #### 5 7021-8 ####[facility] LABCLIA [id number] [place] [id number] [place] Hematocrit (Bld) [Volume fraction] 46.4 % Normal 39.0-51.0 [facility] Comment on above: Order Comment: Speci men Type: BLOOD SPECIMENOrdering Facility: [facility] Address: [address] [place] [address] Performed By: #### 5 7021-8 ####[facility] LABCLIA [id number] [place] [address] [place] Hemoglobin (Bld) [Mass/Vol] 16.0 g/dL Normal 13.0-17.0 [facility] Comment on above: Order Comment: Speci men Type: BLOOD SPECIMENOrdering Facility: [facility] Address: [address] [place] [address] Performed By: #### 5 7021-8 ####[facility] LABCLIA [id number] [place] [address] [place] Immature granulocytes (Bld) [#/Vol] 10*3/uL Normal <0.10 [facility] Comment on above: Order Comment: Speci men Type: BLOOD SPECIMENOrdering Facility: [facility] Address: [address] [place] [address] Performed By: #### 5 7021-8 ####[facility] LABCLIA [id number] [place] [address] [place] Immature granulocytes/100 WBC (Bld) 0.2 % Normal [facility] Comment on above: Order Comment: Speci men Type: BLOOD SPECIMENOrdering Facility: [facility] Address: [address] [place] [address] Performed By: #### 5 7021-8 ####[facility] LABCLIA [id number] [place] [address] [place] Lymphocytes (Bld) [#/Vol] 1.01 10*3/uL Normal 1.00-4.00 [facility] Comment on above: Order Comment: Speci men Type: BLOOD SPECIMENOrdering Facility: [facility] Address: [address] [place] [address] Performed By: #### 5 7021-8 ####[facility] LABCLIA [id number] [address] [place] Lymphocytes/100 WBC (Bld) 18.6 % Normal [facility] Comment on above: Order Comment: Speci men Type: BLOOD SPECIMENOrdering Facility: [facility] Address: [address] [place] [address] Performed By: #### 5 7021-8 ####[facility] LABCLIA [id number] [address] MCH (RBC) [Entitic mass] 32.5 pg Normal 26.0-34.0 [facility] Comment on above: Order Comment: Speci men Type: BLOOD SPECIMENOrdering Facility: [facility] Address: [address] [place] [address] Performed By: #### 5 7021-8 ####[facility] LABCLIA [id number] [address] MCHC (RBC) [Mass/Vol] 34.5 g/dL Normal 30.5-36.0 [facility] Comment on above: Order Comment: Speci men Type: BLOOD SPECIMENOrdering Facility: [facility] Address: [address] [place] [address] Performed By: #### 5 7021-8 ####[facility] LABCLIA [id number] [address] [place] MCV (RBC) [Entitic vol] 94.1 fL Normal 80.0-100.0 [facility] Comment on above: Order Comment: Speci men Type: BLOOD SPECIMENOrdering Facility: [facility] Address: [address] [place] [address] Performed By: #### 5 7021-8 ####[facility] LABCLIA [id number] [address] Monocytes (Bld) [#/Vol] 0.44 10*3/uL Normal <0.87 [facility] Comment on above: Order Comment: Speci men Type: BLOOD SPECIMENOrdering Facility: [facility] Address: [address] [place] [address] Performed By: #### 5 7021-8 ####[facility] LABCLIA [id number] [address] [place] Monocytes/100 WBC (Bld) 8.1 % Normal [facility] Comment on above: Order Comment: Speci men Type: BLOOD SPECIMENOrdering Facility: [facility] Address: [address] [place] [address] Performed By: #### 5 7021-8 ####[facility] LABCLIA [id number] [place] [address] [place] Neutrophils (Bld) [#/Vol] 3.86 10*3/uL Normal 1.45-7.50 [facility] Comment on above: Order Comment: Speci men Type: BLOOD SPECIMENOrdering Facility: [facility] Address: [address] [place] [address] Performed By: #### 5 7021-8 ####[facility] LABCLIA [id number] [place] [address] [place] Neutrophils/100 WBC (Bld) 70.9 % Normal [facility] Comment on above: Order Comment: Speci men Type: BLOOD SPECIMENOrdering Facility: [facility] Address: [address] [place] [address] Performed By: #### 5 7021-8 ####[facility] LABCLIA [id number] [place] [address] [place] Nucleated RBC (Bld) [#/Vol] 10*3/uL Normal <0.01 [facility] Comment on above: Order Comment: Speci men Type: BLOOD SPECIMENOrdering Facility: [facility] Address: [address] [place] [address] Performed By: #### 5 7021-8 ####[facility] LABCLIA [id number] [place] [address] [place] Nucleated RBC/100 WBC (Bld) [Ratio] 0.0 /100 WBC Normal [facility] Comment on above: Order Comment: Speci men Type: BLOOD SPECIMENOrdering Facility: [facility] Address: [address] [place] [address] Performed By: #### 5 7021-8 ####[facility] LABCLIA [id number] [place] [address] [place] Platelet mean volume (Bld) [Entitic vol] 10.5 fL Normal 9.0-12.7 [facility] Comment on above: Order Comment: Speci men Type: BLOOD SPECIMENOrdering Facility: [facility] Address: [address] [place] [address] Performed By: #### 5 7021-8 ####[facility] LABCLIA [id number] [address] [place] Platelets (Bld) [#/Vol] 218 10*3/uL Normal 150-400 [facility] Comment on above: Order Comment: Speci men Type: BLOOD SPECIMENOrdering Facility: [facility] Address: [address] [place] [address] Performed By: #### 5 7021-8 ####[facility] LABCLIA [id number] [place] [address] [place] RBC (Bld) [#/Vol] 4.93 10*6/uL Normal 4.20-6.00 [facility] Comment on above: Order Comment: Speci men Type: BLOOD SPECIMENOrdering Facility: [facility] Address: [address] [place] [address] Performed By: #### 5 7021-8 ####[facility] LABCLIA [id number] [address] [place] WBC (Bld) [#/Vol] 5.44 10*3/uL Normal 3.70-11.00 [facility] Comment on above: Order Comment: Speci men Type: BLOOD SPECIMENOrdering Facility: [facility] Address: [address] [place] [address] Performed By: #### 5 7021-8 ####[facility] LABCLIA [id number] [place] [address] [place] Basophils (Bld) [#/Vol] [facility] Basophils/100 WBC (Bld) 0.4 % [facility] Differential cell count method Nom (Bld) Auto [facility] Eosinophils (Bld) [#/Vol] 0.10 10*3/uL [facility] Eosinophils/100 WBC (Bld) 1.8 % [facility] Erythrocyte distribution width (RBC) [Ratio] 11.9 % 11.5 - 15.0 % [facility] Hematocrit (Bld) [Volume fraction] 46.4 % 39.0 - 51.0 % [facility] Hemoglobin (Bld) [Mass/Vol] 16.0 g/dL 13.0 - 17.0 g/dL [facility] Immature granulocytes (Bld) [#/Vol] [facility] Immature granulocytes/100 WBC (Bld) 0.2 % [facility] Lymphocytes (Bld) [#/Vol] 1.01 10*3/uL [facility] Lymphocytes/100 WBC (Bld) 18.6 % [facility] MCH (RBC) [Entitic mass] 32.5 pg 26.0 - 34.0 pg [facility] MCHC (RBC) [Mass/Vol] 34.5 g/dL 30.5 - 36.0 g/dL [facility] MCV (RBC) [Entitic vol] 94.1 fL 80.0 - 100.0 fL [facility] Monocytes (Bld) [#/Vol] 0.44 10*3/uL [facility] Monocytes/100 WBC (Bld) 8.1 % [facility] Neutrophils (Bld) [#/Vol] 3.86 10*3/uL [facility] Neutrophils/100 WBC (Bld) 70.9 % [facility] Nucleated RBC (Bld) [#/Vol] [facility] Nucleated RBC/100 WBC (Bld) [Ratio] 0.0 % /100 WBC [facility] Platelet mean volume (Bld) [Entitic vol] 10.5 fL 9.0 - 12.7 fL [facility] Platelets (Bld) [#/Vol] 218 10*3/uL [facility] RBC (Bld) [#/Vol] 4.93 10*6/uL 4.20 - 6.0 0 m/uL [facility] WBC (Bld) [#/Vol] 5.44 10*3/uL [facility] Comprehensive metabolic 2000 panelon 08-01-2023 Albumin [Mass/Vol] 4.3 g/dL 3.9 - 4.9 g/dL [facility] ALP [Catalytic activity/Vol] 85 U/L 38 - 113 U/L [facility] ALT [Catalytic activity/Vol] 15 U/L 10 - 54 U/L [facility] Anion gap [Moles/Vol] 9 mmol/L 9 - 18 mmol/L [facility] AST [Catalytic activity/Vol] 27 U/L 14 - 40 U/L [facility] Bilirubin [Mass/Vol] 0.5 mg/dL 0.2 - 1 .3 mg/dL [facility] Calcium [Mass/Vol] 9.4 mg/dL 8.5 - 10. 2 mg/dL [facility] Chloride [Moles/Vol] 106 mmol/L High 97 - 10 5 mmol/L [facility] CO2 [Moles/Vol] 24 mmol/L 22 - 30 mmol/L [facility] Creatinine [Mass/Vol] 1.10 mg/dL 0.73 - 1.22 mg/dL [facility] GFR/1.73 sq M.predicted among non-blacks MDRD (S/P/Bld) [Vol rate/Area] 85 mL/min/{1.73_m2} - PINF [facility] Comment on above: Estimated Glomerular Filtration Rate (eGFR) is calculated using the 2020 CKD-EPI creatinine equation. This equation utilizes serum creatinine, sex, and age as parameters. The creatinine assay has traceable calibration to isotope dilution-mass spectrometry. Refer to KDIGO guidelines for clinical interpretation. In patients with unstable renal function, e.g. those with acute kidney injury, the eGFR may not accurately reflect actual GFR. Glucose [Mass/Vol] 94 mg/dL 74 - 99 mg/dL [facility] Comment on above: The [place] Di[employer] [place] Association (ADA) provides guidance for cutoff values for fasting glucose and random glucose. The ADA defines fasting as no caloric intake for at least 8 hours. Fasting plasma glucose results between 100 to 125 mg/dL indicate increased risk for diabetes (prediabetes). Fasting plasma glucose results greater than or equal to 126 mg/dL meet the criteria for diagnosis of diabetes. In the absence of unequivocal hyperglycemia, results should be confirmed by repeat testing. In a patient with classic symptoms of hyperglycemia or hyperglycemic crisis, random plasma glucose results greater than or equal to 200 mg/dL meet the criteria for diagnosis of diabetes. Reference: Standards of Medical Care in Diabetes 2016, [place] [employer]. Diabetes Care. 2016.39(Suppl 1). Interpretation and review of laboratory results Abnormal [facility] Potassium [Moles/Vol] 4.4 mmol/L 3.7 - 5.1 mmol/L [facility] Protein [Mass/Vol] 6.7 g/dL 6.3 - 8.0 g/dL [facility] Sodium [Moles/Vol] 139 mmol/L 136 - 144 mmol/L [facility] Urea nitrogen [Mass/Vol] 22 mg/dL 9 - 24 mg/dL [facility] Albumin [Mass/Vol] 4.3 g/dL Normal 3.9-4.9 [facility] Comment on above: Order Comment: Speci men Type: BLOOD SPECIMENOrdering Facility: [facility] Address: [address] [place] [address] Performed By: #### 2 4323-8 ####[facility] LABCLIA [id number] [place] [address] [place] ALP [Catalytic activity/Vol] 85 U/L Normal 38-113 [facility] Comment on above: Order Comment: Speci men Type: BLOOD SPECIMENOrdering Facility: [facility] Address: [address] [place] [address] Performed By: #### 2 4323-8 ####[facility] LABCLIA [id number] [place] [address] [place] ALT [Catalytic activity/Vol] 15 U/L Normal 10-54 [facility] Comment on above: Order Comment: Speci men Type: BLOOD SPECIMENOrdering Facility: [facility] Address: [address] [place] [id number] Performed By: #### 2 4323-8 ####[facility] LABCLIA [id number] [place] [id number] [place] Anion gap [Moles/Vol] 9 mmol/L Normal 9-18 [facility] Comment on above: Order Comment: Speci men Type: BLOOD SPECIMENOrdering Facility: [facility] Address: [address] [place] [address] Performed By: #### 2 4323-8 ####[facility] LABCLIA [id number] [place] [address] [place] AST [Catalytic activity/Vol] 27 U/L Normal 14-40 [facility] Comment on above: Order Comment: Speci men Type: BLOOD SPECIMENOrdering Facility: [facility] Address: [address] [place] [address] Performed By: #### 2 4323-8 ####[facility] LABCLIA [id number] [place] [address] [place] Bilirubin [Mass/Vol] 0.5 mg/dL Normal 0.2-1.3 [facility] Comment on above: Order Comment: Speci men Type: BLOOD SPECIMENOrdering Facility: [facility] Address: [address] [place], [place] [address] Performed By: #### 2 4323-8 ####[facility] LABCLIA [id number] [place] [id number] [place] Calcium [Mass/Vol] 9.4 mg/dL Normal 8.5-10.2 [facility] Comment on above: Order Comment: Speci men Type: BLOOD SPECIMENOrdering Facility: [facility] Address: [address] [place], [place] [address] Performed By: #### 2 4323-8 ####[facility] LABCLIA [id number] [place] [address] [place] Chloride [Moles/Vol] 106 mmol/L High 97-105 [facility] Comment on above: Order Comment: Speci men Type: BLOOD SPECIMENOrdering Facility: [facility] Address: [address] [place] [address] Performed By: #### 2 4323-8 ####[facility] LABCLIA [id number] [place] [address] [place] CO2 [Moles/Vol] 24 mmol/L Normal 22-30 [facility] Comment on above: Order Comment: Speci men Type: BLOOD SPECIMENOrdering Facility: [facility] Address: [address] [place] [address] Performed By: #### 2 4323-8 ####[facility] LABIA [id number] [place] [address] [place] Creatinine [Mass/Vol] 1.10 mg/dL Normal 0.73-1.22 [facility] Comment on above: Order Comment: Speci men Type: BLOOD SPECIMENOrdering Facility: [facility] Address: [address] [place] [address] Performed By: #### 2 4323-8 ####[facility] LABIA [id number] [place] [address] [place] Creatinine and Glomerular filtration rate.predicted panel (S/P/Bld) 85 mL/min/1.73m??? Normal >=60 [facility] Comment on above: Order Comment: Speci men Type: BLOOD SPECIMENOrdering Facility: [facility] Address: [address] [place] [address] Result Comment: Hanna mated Glomerular Filtration Rate (eGFR) is calculated using the 2020 CKD-EPI creatinine equation. This equation utilizes serum creatinine, sex, and age as parameters. The creatinine assay has traceable calibration to isotope dilution-mass spectrometry. Refer to KDIGO guidelines for clinical interpretation. In patients with unstable renal function, e.g. those with acute kidney injury, the eGFR may not accurately reflect actual GFR. Performed By: #### 2 4323-8 ####[facility] LABCLIA [id number] [address] [address] [place] Glucose [Mass/Vol] 94 mg/dL Normal 74-99 [facility] Comment on above: Order Comment: Speci men Type: BLOOD SPECIMENOrdering Facility: [facility] Address: [address] [place] [address] Result Comment: The [place] Diabetes Association (ADA) provides guidance for cutoff values for fasting glucose and random glucose. The ADA defines fasting as no caloric intake for at least 8 hours. Fasting plasma glucose results between 100 to 125 mg/dL indicate increased risk for diabetes (prediabetes). Fasting plasma glucose results greater than or equal to 126 mg/dL meet the criteria for diagnosis of diabetes. In the absence of unequivocal hyperglycemia, results should be confirmed by repeat testing. In a patient with classic symptoms of hyperglycemia or hyperglycemic crisis, random plasma glucose results greater than or equal to 200 mg/dL meet the criteria for diagnosis of diabetes. Reference: Standards of Medical Care in Diabetes 2016, [place] [employer] Association. Diabetes Care. 2016.39(Suppl 1). Performed By: #### 2 4323-8 ####[facility] LABCLIA [id number] [place] [address] [place] Potassium [Moles/Vol] 4.4 mmol/L Normal 3.7-5.1 [facility] Comment on above: Order Comment: Speci men Type: BLOOD SPECIMENOrdering Facility: [facility] Address: [address] [place], [place] [id number] Performed By: #### 2 4323-8 ####[facility] LABCLIA [id number] [address] [address] [place] Protein [Mass/Vol] 6.7 g/dL Normal 6.3-8.0 [facility] Comment on above: Order Comment: Speci men Type: BLOOD SPECIMENOrdering Facility: [facility] Address: [address] [place], [place] [id number] Performed By: #### 2 4323-8 ####[facility] LABCLIA [id number] [place] [address] [place] Sodium [Moles/Vol] 139 mmol/L Normal 136-144 [facility] Comment on above: Order Comment: Speci men Type: BLOOD SPECIMENOrdering Facility: [facility] Address: [address] [place] [address] Performed By: #### 2 4323-8 ####[facility] LABIA [id number] [place] [address] [place] Urea nitrogen [Mass/Vol] 22 mg/dL Normal 9-24 [facility] Comment on above: Order Comment: Speci men Type: BLOOD SPECIMENOrdering Facility: [facility] Address: [address] [place] [address] Performed By: #### 2 4323-8 ####[facility] [id number] [address] [place] ECG COMPLETEon 08-01-2023 ECG COMPLETE Ventricular Rate : 8 0 BPM Atrial Rate : 80 BPM P-R Interval : 148 ms QRS Duration : 86 ms Q-T Interval : 368 ms QTC Calculation(Bazett) : 424 ms Calculated P Amb[place] : 62 degrees Calculated R Amboy : 65 degrees Calculated T Amboy : 77 degrees NORMAL SINUS RHYTHM WITH SINUS ARRHYTHMIA NORMAL ECG Confirmed by MD BLACK QARAB ([id number]) on 08/02/2023 11:56:16 AM NAME : VINCE LUCIANO PID : [id number] : 1980 Gender : Male Race : ORD : [id number] Procedure Date : Aug 01 2023 10:27:08 Edit Date : Aug 02 2023 11:56:17 Diagnosis: NORMAL SINUS RHYTHM WITH SINUS ARRHYTHMIA NORMAL ECG Confirmed by MD BLACK QARAB ([id number]) on 08/02/2023 11:56:16 AM Test Reason : Location : 135 : [facility] Overread By : MD BLACK QARAB Edited By : MD BLACK QARAB Referred By : , Acquired by : Mitchel ANDREW Normal [facility] HISTORY PHYSICALon HISTORY PHYSICAL HNO ID: [id number] Author: AMITA GEE PA-C Service: ? Author Type: Physician Physical Damage Appraiser Type: H&P Filed: 08/03/2023 09:23 Note Text: HISTORY AND PHYSICAL EXAMINATION SERVICE DATE: 08/01/2023 SERVICE TIME: 11:09 AM PRIMARY CARE PHYSICIAN: Roxy Driver MD Assessment Patient has the following medical conditions which may affect heena-operative course: Migraines Assessment: Stable, managed with Imitrex PRN. Alcohol use Assessment: Drink daily, 3-6 beers/day. Denies withdrawal sx. CMP pending. Anxiety and depression Assessment: Stable, on Wellbutrin and Topamax. Crowder Activity Status Index: METS: Climb a flight of stairs or walk up a hill (5.50 METs) DASI Score: 5.5 Patient denies any chest pain or undue shortness of breath with the above physical activity. Clinical Frailty Scale: 3. Well, with treated comorbid disease STOP-Bang Score: Snores loudly Male patient Denies feeling tired, fatigued, or sleepy during the daytime Has not been observed to stop breathing or choking/gasping during sleep Denies having high blood pressure BMI less than or equal to 35 kg/m2 Patient 50 years old or younger Does not have a large neck STOP-Bang Score: 2 [id number] Score: Age: <65 Sex: male CHF history: No Hypertension history: No Stroke/TIA/thromboembo lism history: No Vascular disease history: No Diabetes history: No [id number] Score: 0 ANESTHESIA FINDINGS: Intubation History: No history of difficult intubation Significant Anesthesia Considerations: none Airway History: No history of difficult airway History of head/neck surgery that distorted airway, including mouth, neck, or their mobility (s/p cervical fusion (C5-6)) I - PHYSICAL EVALUATION AIRWAY Patient intubated: No. Tracheostomy tube not present Mallampati: III. TM distance: >3 FB. Neck ROM: full ROM without neurological symptoms. Mouth opening: adequate. Short neck: no. Thick neck: no Lerner present: yes (+goatee) Lip Bite Test: II Microretrognathia/Micr onagthia/Recessed Chin: No DENTAL Dental findings: teeth intact. II - ANESTHESIA PLAN Anesthetic Plan: other Anesthetic plan additional comments: *PACC/TCI - anesthesia choice. Beta Issa Monitoring Plan Post Procedure Analgesic Plan Prepared for Surgery: optimally prepared for surgery. CONSULTS: Patient does not require consults for optimization at this time Planned Anesthetic: other anesthesia choice The Following Tests/Procedures Have Been Initiated: Orders placed by surgeon/surgical service in [facility]. Orders Placed This Encounter Complete Blood Count and Differential Standing Status: Future Standing Expiration Date: 10/31/2023 BMP Standing Status: Future Standing Expiration Date: 10/31/2023 ECG (IN OFFICE) REASON FOR VISIT: Vince Luciano is a 43 year old male who is scheduled for Procedure(s): LASER PROSTATECTOMY ~ GREEN LIGHT (N/A) at the request of Nando Arechiga MD for consultation. My final recommendation will be communicated back to the requesting physician by way of shared medical record or letter. Subjective The patient has the following: ACTIVE PROBLEM LIST Varicose Veins of Lower Extremities With Other Complications Elevated Partial Thromboplastin Time (Ptt) Hematoma Symptomatic Spider Varicose Vein Varicose Veins of Leg With Pain Migraines Alcohol Use Anxiety and Depression Bph (Benign Prostatic Hyperplasia) COVID-19 Immunization Status Overdue - Covid-19 Vaccine ( season) Overdue since 12/01/2022 03/24/2021 Imm Admin: COVID-19 original vaccine, age 12+ yr, monovalent ([employer] - PURPLE TOP) 07/21/2020 Imm Admin: COVID-19 original vaccine, full dose, monovalent (MODERNA) 06/23/2020 Imm Admin: COVID-19 original vaccine, full dose, monovalent (MODERNA) Only the first 3 history entries have been loaded, but more history exists. CHIEF COMPLAINT: BPH HPI: Vince Luciano is a 43 year old male presenting for pre-anesthesia consultation. Pt has history of BPH and voiding dysfunction. C/o weak stream. Denies dysuria or gross hematuria. Above procedure recommended to manage symptoms. Procedure scheduled on 08/13/2023 at . REVIEW OF SYSTEMS: General: No weight loss, malaise or fevers. Neurological: Positive for: headaches (migraines - Imitrex PRN). Negative for: multiple sclerosis, Parkinson's disease, seizures, TIA and strokes. Respiratory: Positive for: tobacco use (quit 2004). Negative for: asthma, bronchitis, COPD, current cough, home oxygen, pneumonia within 6 weeks, URI < 2 weeks and obstructive sleep apnea. Cardiovascular: No history of HTN requiring medication, no history of angina, CHF, NH, cardiac surgery or stents. Denies rest pain, gangrene or revascularization/ampu tation for PVD. No history of cardiovascular symptoms or problems. GI: Positive for: irritable bowel syndrome (mixed, ?IBD, managed with diet) and ETOH >2 dri (more content not included)... Normal [facility] CNPNon 07-17-2023 CNPN Telephone (GLQ) VINCE LUCIANO ([id number]) 1980 M Date Time Provider Department 07/17/23 NANDO PARKER GLQ During your visit today, we recorded the following information about you: Fiona Al 07/17/2023 1:27 PM Signed The calls stating that he isn't sure if he asked or not when he was in at his last apt but for his surgery -- how long will he need off from work? He is scheduled for surgery on August 12. 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 Please advise. Thanks Rodríguez Allred RN 07/17/2023 2:44 PM Signed The is not listed as a POC in Epic, pts mother Norma Luciano is. Need to confirm with pt if this needs to be updated. Will send a My Chart message to the pt. Rodríguez Allred RN July 17, 2023 2:38 PM Allergies As of Date: 07/17/2023 Noted Allergy Reaction CINNAMON 08/02/2011 7 - Swelling COCONUT 08/02/2011 7 - Swelling Date Reviewed: 06/07/2023 Reviewed by: Nando Parker MD - Fully Assessed Reason for Visit: Patient Question [2347] Prescriptions as of 07/17/2023 - buPROPion XL (WELLBUTRIN XL) 300 mg 24 hr tablet - doxycycline monohydrate (MONODOX) 100 mg capsule - tamsulosin (FLOMAX) 0.4 mg - buPROPion XL (WELLBUTRIN XL) 150 mg 24 hr tablet - albuterol HFA (PROVENTIL HFA, VENTOLIN HFA) 90 mcg/actuation inhaler INHALE 2 PUFFS NEEDED EVERY 4 HOURS - ergocalciferol, vitamin D2, (DRISDOL) 50,000 unit capsule Take 1 capsule by mouth once each week. - cyanocobalamin (VITAMIN B-12) 500 mcg tab Take 1 tablet by mouth once daily. - vortioxetine 20 mg tab Take by mouth once daily. - Cetirizine 10 mg cap Take by mouth once daily. - Topiramate (TOPAMAX) 50 mg tablet Take 50 mg by mouth twice daily. Meds Comments as of 07/24/2011: Patient verbally confirmed current medications. Marianela Griffin LPN 07/24/2011 Problem List As Of Date 07/17/2023 Noted Resolved Varicose veins of lower extremities with other *06/11/2013 Elevated partial thromboplastin time (PTT) [R79*05/25/2014 Hematoma [T14.8XXA] 05/25/2014 Symptomatic spider varicose vein [I83.899] 06/07/2015 Varicose veins of leg with pain [I83.819] 06/07/2015 Encounter Status:Closed by RODRÍGUEZ ALLRED on 07/17/23 Normal [facility] Office Visiton 07-03-2023 Follow-up visit [id number] Vince Luciano 1980 M Date Provider Department Center 07/03/2023 [facility] ORTHO MPORTHO Family History Problem Relation Age of Onset Hypertension Mother Family Status - Relation Status Age at Mother Level of Service:26611 [place] OFFICE/OUTPATIENT ESTABLISHED LOW MDM 20 MIN Reason for Visit and Comments: Follow-up [819546] Normal [facility] CNNURSEon 06-06-2023 CNNURSE Nurse Visit (UROSMN) VINCE LUCIANO ([id number]) 1980 M Date Time Provider Department 06/06/23 2:00 PM [facility] UROSMN During your visit today, we recorded the following information about you: Fiona Patricio RN 06/06/2023 2:40 PM Signed [facility] URODYNAMICS LAB URODYNAMIC PROCEDURE NOTE ID Verified by: Fiona Patricio RN with name and birthdate. Procedure instructions reviewed with patient prior to procedure: Yes Currently experiencing pain: No 0 on a scale of 0 to 10 on a scale of 0-10. Does the patient have any concerns about safety in the home/falls?: Not at risk for falls Has the patient had 2 falls in the last year or 1 fall with injury or currently using assistive device (walker, cane, wheelchair, crutches): No What interventions were put in place to prevent falls during this visit: Increased observations by caregivers Has patient had any history of Mitral Valve prolapse: No MEDS:NONE Has patient had any history of prosthetics: No MEDS: NONE Latex allergy: No Iodine allergy: No Helpdesk Specialist offered:Patient declines B/O UA: YES Negative for leukocytes and negative for nitrates. UROFLOWMETRY Unable to void for uroflow. Cathed for: 300 ml. CYSTOMETROGRAM Subtracted:Yes Video: Yes EMG: Yes First Sensation: 288 ml Strong desire: 377 ml Max. capacity: 500 ml Maximum filling detrusor pressure 3 cm of water Detrusor overactivity associated with urge: No Detrusor overactivity associated with leakage: No Was patient assessed for VLPP / UPP No Leaks urine with valsalva /coughs: NA Lowest Leak point pressure: NA PRESSURE-FLOW VOIDING STUDY Did patient void with catheters in place Yes Voided: 91 ml voluntary Max Voiding Detrusor Pressure 42.7cm H2O P det @ Q max (Max Flow): 38.2 cm H2O Maximum Flow Rate: 5.7 ml/sec Average Flow Rate: 3.5 ml/sec Fluro time: see xray report Comments: Cysto to follow. Patient filled to capacity. Strong desire to void. Permission to void given. Unable to void. Continue to fill to aid void. Unable to void. Offered to stand to aid void - patient always sits to void. Small voluntary void. Pves pulled to aid void. Additional small void. Placed in bathroom for post test uroflow. UROFLOWMETRY post test Voided vol: 490 ml. Flow time: 47 sec. Q max: 16 ml/sec. Q av ml/sec. STUDY DETAILS: Was a uroflow done at some point during the study: No Was a cystometrogram performed: Yes Was a UPP/VLPP done: No Was an EMG done: Yes Was an intraabdominal pressure recorded with urethral catheter in: Yes Where were pressure catheters placed: Bladder and Rectum Was contrast instilled for radiologic evaluation: Yes, Cysto-conray 250 ccs utilized Please use Urodynamic Graph. Pt given verbal home going instructions. Pt states an understanding of instructions given. Nando Parker MD 06/10/2023 12:13 PM Addendum URODYNAMIC RESULTS: - volume: normal (500 cc) - compliance: normal - sensation: early - overactivity: none - incontinence: none - bladder contraction: reduced / absent during test - flow: minimal - void: minimal - residual: majority - emg: synergistic - conclusion: - detrusor underactivity - incomplete emptying - obstruction Radiologic Interpretation Patient Name - Vince Luciano Date - 06/06/23 Imaging exam - cystogram; voiding cystourethrogram Number of images saved - See Films Patient position - Sitting / Recumbent Radiologic Findings: 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 The bony and soft tissue structures are grossly normal. A catheter is in place. The bladder filled with contrast. The bladder is smooth-walled and has no diverticulae. There is no funneling or opening of the bladder neck with permission to void. The procedure is described in detail in the procedural note. Vergara findings - normal bladder, no funneling with voiding Reflux - no Diverticulae - no Extravasation of contrast - no Filling Defects - no Strictures / Narrowing - no / no urethral opacified IMPRESSION: Bladder outlet obstruction / lack of relaxation. Read by - Nando Parker MD, MS Nando Parker MD, MS Staff Department of Urology [facility] June 10, 2023 - 11:59 AM Referring Provider: NANDO PARKER [[id number]] Allergies As of Date: 06/06/2023 Noted Allergy Reaction CINNAMON 08/02/2011 7 - Swelling COCONUT 08/02/2011 7 - Swelling Date Reviewed: 06/06/2023 Reviewed by: Amita Chou RN - Fully Assessed Reason for Visit: Follow Up [171] Primary Visit Diagnosis:BPH with urinary obstruction [N40.1, N13.8] Prescriptions as of 06/10/2023 - buPROPion XL (WELLBUTRIN XL) 300 mg 24 hr tablet - doxycycline monohydrate (MONODOX) 100 mg capsule - tamsulosin (FLOMAX) 0.4 mg - buPROPion XL (WELLBUTRIN XL) 150 mg 24 hr tablet (more content not included)... Normal [facility] CNOVon 06-06-2023 CNOV Office Visit (UROSMN ) VINCE LUCIANO ([id number]) 1980 M Date Time Provider Department 06/06/23 3:00 PM NANDO PARKER During your visit today, we recorded the following information about you: Amita Chou RN 06/06/2023 3:47 PM Signed Actual procedure/procedure scheduled: Yes Performing provider/scheduled provider: Yes Patient was roomed in: Q9- 09 Helpdesk Specialist offered:Patient declines Patient arrived in the room at: 14:33 Patient ready for procedure: 15:12 The procedure started at ( Time Only): 15:18 The procedure ended at: 15:20 Trus: started at 15:22 Trus ended: 15:24 Was the procedure delayed: Yes: Provider late: Provider with other patient on Q9, Patient concerns, and Multi-procedure The patient left the procedure room at: 15:40 Amita Chou RN PRE PROCEDURE ASSESSMENT- Cysto Procedure Indication: Cystoscopy and TRUS Latex Allergy: No Allergies reviewed and updated. Yes Pre-Procedure Vital Signs: BP: 134/84 Pulse: 77 Heart valve replacement: No Joint replacement: No Back Office UA otained: yes PROCEDURE PREP-Cysto Patient ID with two(2)identifiers verified by: Amita Chou RN Pre-Procedure Antibiotics: Bactrim DS 160mg-800mg orally, given during visit: see MAR Patient Prep: Betadine Scrub to perineum and placement of Sterile Drape. COMPLETED Anesthetic Given:10 cc 2% Lidocaine jelly Amita Chou RN UNIVERSAL PROTOCOL / SAFETY CHECKLIST Procedure to be performed: Cystoscopy and TRUS Sign in Communication: Completed Time Out: Team Confirms the Correct Patient, Correct Procedure, Correct Site and Site Marking, Correct Position (if applicable). Sign Out Discussion: Completed Amita Chou RN POST PROCEDURE NURSE ASSESSMENT Present along with physician during procedure exam. Amita Chou RN Instruction sheet given and reviewed and patient verbalizes understanding: yes Post Procedure Antibiotic: none Current pain intensity is 0 on a 0-10 pain scale. 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 PRE PROCEDURE ASSESSMENT- TRUS Bx Procedure/Indication: Cystoscopy and TRUS Latex Allergy: No Allergies reviewed and updated Yes Do you currently have an infection: No Anticoagulant: No Back Office UA obtained: yes Eaten prior to procedure: No PROCEDURE PREP- TRUS BX Patient ID with two(2)identifiers verified by: Amita Chou RN Pre-Procedure Antibiotics: Bactrim DS 160mg-800mg orally, given during visit: see MAR Anesthetic given: Administered by MD - see Procedure Physician Note. UNIVERSAL PROTOCOL / SAFETY CHECKLIST Procedure to be performed: Cystoscopy and TRUS Sign in Communication: Completed Time Out: Team Confirms the Correct Patient, Correct Procedure, Correct Site and Site Marking, Correct Position (if applicable) Sign Out Discussion: Completed Amita Chou RN POST PROCEDURE NURSE ASSESSMENT Present along with physician during procedure exam. Amita Chou RN Instruction sheet given and reviewed and patient verbalizes understanding: yes Current pain intensity is 0 on a 0-10 pain scale. Post-Procedure Medications: none Amita Chou, RN Amita Chou RN 06/06/2023 3:36 PM Signed UNIVERSAL PROTOCOL / SAFETY CHECKLIST Procedure to be Performed: Cystoscopy/TRUS Sign In: A Moment of CARE was completed. Personnel directly involved with the procedure wore the appropriate PPE (Personal Protective Equipment). No special equipment needed. Patient/Surrogate Stated/Verified: PATIENT VERIFIED(optional for EMERGENT procedures): Patient name, Date of , Relevant allergies, and The intended procedure Time Out Communication: Intended patient and procedure match the source documents. Consent documented and matches the intended procedure. Relevant labs, photos, and/or imaging studies have been reviewed. No correct side/site applicable for marking and visibility. Medications required for procedure verified. Fire risk assessed and interventions discussed. No implant(s) inserted. Sign Out: SIGN OUT (optional for EMERGENT procedures): No specimen collected. All instruments, (more content not included)... Normal [facility] Prostate transrectalon [facility] CNPNon 05-23-2023 [facility] Telephone (GLQ) VINCE LUCIANO ([id number]) 1980 M Date Time Provider Department 05/23/23 NANDO PARKER GLJami During your visit today, we recorded the following information about you: Fiona Al 05/23/2023 4:06 PM Signed ----- Message from Nando Parker MD sent at 05/18/2023 5:39 PM EST ----- Regarding: Keesha Visit? Not sure of Keesha's VV capacity but can we get him setup with her for a VV some time in next few weeks? Visit Note: OAB - Bldr Hgne Goal being to assess for OAB and introduce him to bladder hygiene prior to his Urodynamics and Cysto with me at [facility] Gloria, Fiona Osborne 05/23/2023 4:07 PM Signed Message left for patient to call and scheduled virtual visit with Keesha to discuss OAB - Bldr Hgne. Thanks Fiona Al 05/25/2023 2:38 PM Signed Patient is scheduled for in office visit. Thanks Allergies As of Date: 05/23/2023 Noted Allergy Reaction CINNAMON 08/02/2011 7 - Swelling COCONUT 08/02/2011 7 - Swelling Date Reviewed: 05/02/2023 Reviewed by: Amita Chou, RN - Fully Assessed Reason for Visit: Appointment [186] Prescriptions as of 05/25/2023 - buPROPion XL (WELLBUTRIN XL) 300 mg 24 hr tablet - doxycycline monohydrate (MONODOX) 100 mg capsule - tamsulosin (FLOMAX) 0.4 mg - buPROPion XL (WELLBUTRIN XL) 150 mg 24 hr tablet - albuterol HFA (PROVENTIL HFA, VENTOLIN HFA) 90 mcg/actuation inhaler INHALE 2 PUFFS NEEDED EVERY 4 HOURS - ergocalciferol, vitamin D2, (DRISDOL) 50,000 unit capsule Take 1 capsule by mouth once each week. - cyanocobalamin (VITAMIN B-12) 500 mcg tab Take 1 tablet by mouth once daily. - vortioxetine 20 mg tab Take by mouth once daily. - Cetirizine 10 mg cap Take by mouth once daily. - Topiramate (TOPAMAX) 50 mg tablet Take 50 mg by mouth twice daily. Meds Comments as of 07/24/2011: Patient verbally confirmed current medications. Marianela Griffin LPN 07/24/2011 Problem List As Of Date 05/23/2023 Noted Resolved Varicose veins of lower extremities with other *06/11/2013 Elevated partial thromboplastin time (PTT) [R79*05/25/2014 Hematoma [T14.8XXA] 05/25/2014 Symptomatic spider varicose vein [I83.899] 06/07/2015 Varicose veins of leg with pain [I83.819] 06/07/2015 Encounter Status:Closed by FIONA AL on 05/25/23 Normal [facility] Bacteria Ur Culton 4 Bacteria identified Cx Nom (U) CULTURE, URINE: No growth (<100 CFU/ml) Normal [facility] Comment on above: Performed By: #### 6 30-4 ####[facility] LABOLMANIA [id number] [address] [place] CNOVon 05-02-2023 CNOV Office Visit (UROSMN ) VINCE LUCIANO ([id number]) 1980 M Date Time Provider Department 05/02/23 2:30 PM JESSICA MEADOWS UROSMN During your visit today, we recorded the following information about you: Amita Chou RN 05/02/2023 2:54 PM Addendum Actual procedure/procedure scheduled: Yes Performing provider/scheduled provider: Yes Patient was roomed in: Q9- 09 Helpdesk Specialist offered:Patient declines Patient arrived in the room at: 1416 Patient ready for procedure: 1427 The procedure started at ( Time Only): 1438 The procedure ended at: 1442 Was the procedure delayed: No The patient left the procedure room at: 1452 Amita Chou RN PRE PROCEDURE ASSESSMENT- Cysto Procedure Indication: Cystoscopy Latex Allergy: No Allergies reviewed and updated. Yes Pre-Procedure Vital Signs: BP: 132/62 Pulse: 80 Heart valve replacement: No Joint replacement: No Back Office UA otained: completed at office visit with afternoon PROCEDURE PREP-Cysto Patient ID with two(2)identifiers verified by: Amita Chou RN Pre-Procedure Antibiotics: None taken at home nor prior to procedure Patient Prep: Betadine Scrub to perineum and placement of Sterile Drape. COMPLETED Anesthetic Given:10 cc 2% Lidocaine jelly Amita Chou RN UNIVERSAL PROTOCOL / SAFETY CHECKLIST Procedure to be performed: Cystoscopy Sign in Communication: Completed Time Out: Team Confirms the Correct Patient, Correct Procedure, Correct Site and Site Marking, Correct Position (if applicable). Sign Out Discussion: Completed Amita Chou RN POST PROCEDURE NURSE ASSESSMENT Present along with physician during procedure exam. Amita Chou RN Instruction sheet given and reviewed and patient verbalizes understanding: yes Per Dr Meadows, urine collected during scope sent for urine culture Current pain intensity is 0 on a 0-10 pain scale. 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 Amita Chou RN 05/02/2023 2:53 PM Signed UNIVERSAL PROTOCOL / SAFETY CHECKLIST Procedure to be Performed: Cystoscopy Sign In: A Moment of CARE was completed. Personnel directly involved with the procedure wore the appropriate PPE (Personal Protective Equipment). No special equipment needed. Patient/Surrogate Stated/Verified: PATIENT VERIFIED(optional for EMERGENT procedures): Patient name, Date of , Relevant allergies, and The intended procedure Time Out Communication: Intended patient and procedure match the source documents. Consent documented and matches the intended procedure. Relevant labs, photos, and/or imaging studies have been reviewed. No correct side/site applicable for marking and visibility. No medications required for procedure. Fire risk assessed and interventions discussed. No implant(s) inserted. Sign Out: SIGN OUT (optional for EMERGENT procedures): All specimen containers correctly labeled. SASHA Reynaga Nima, MD 05/02/2023 4:17 PM Signed [place] [id number] AMBULATORY PROCEDURE NOTE NAME: Vince Luciano AGE: [age] year old CLINIC #: [id number] DATE: May 02, 2023 SURGEON: Jessica Meadows MD PROCEDURE: Cystoscopy ANESTHESIA: Lidocaine gel per urethra DIAGNOSIS: Obstructive voiding symptoms INDICATION: Initial evaluation for the above diagnosis FINDINGS: Tumor present: No Urethra: Normal Prostate: High bladder neck, ? PBNO Verumontanum: Open Urine cytology: Not sent PROCEDURE: After informed consent was obtained, the patient was taken to the endoscopy suite. A time out was performed where the patient and the procedure were identified in the presence of the Nursing and Surgical Staff. Patient was placed in supine position, prepped and draped in the standard sterile fashion. Lidocaine gel was placed per urethra for local anesthesia. Cystoscopy was then performed using a 17 F flexible cystoscope. Sterile technique was maintained throughout. Please refer to above for specific findings during this part of the procedure. After carefully and atraumatically inspecting the urethra, prostate, and b (more content not included)... Normal [facility] CNOV Office Visit (UROLMN ) VINCE LUCIANO ([id number]) 1980 M Date Time Provider Department 05/02/23 1:00 PM JESSICA MEADOWS UROLMN During your visit today, we recorded the following information about you: Weight 103.2 kg Jessica Meadows MD 05/03/2023 6:10 AM Signed [facility] NEW PATIENT HISTORY AND PHYSICAL EXAM PATIENT INFO: Vince Luciano 42 year old REFERRING M.D.: self PCP: Roxy Driver MD Consultation requested by self for an opinion regarding weak stream and my final recommendations will be communicated back to the requesting physician by way of shared medical record or letter via US mail. HPI 42 year old male w/h/o varicose veins, bowel obstructions, asthma referred for evaluation of weak stream. Had a CT scan locally (do not have records) and reports they commented on something abnormal with his bladder but he is unsure. Ongoing for 20 years, reports split stream that is very weak. Stream is better in the mornings but worsens as the day goes on. Flomax for 4-5 years without much improvement in symptoms. Hesitancy- yes Intermittency- yes Nocturia 1x nightly. Urgency- mostly at night. UTI/STI/prostatitis hx- no Saddle injury- denies Irritants- coffee in AM, diet root beer. SF Koolaid. Minimal water. Urinary retention- no Denies gross hematuria or dysuria. Variocele repair 17 years ago. Reports multiple surgeries requiring catheters but he never required catheter for extended period of time. PATHOLOGY: N/a LAB: Creatinine Date Value Ref Range Status 07/03/2016 1.05 0.73 - 1.22 mg/dL Final No results found for: PSA No results found for: COLOR , CLARITY , UGLUC , UBILI , UKET , SPGR , UHB , UPH , UPROT , UROBILINOGEN , NITRITES , LEUKEST IMAGING: N/a ALLERGIES: ALLERGIES Allergen Reactions Cinnamon Swelling Coconut Swelling Morphine Unknown MEDICATIONS: ergocalciferol, vitamin D2, (DRISDOL) 50,000 unit capsule Take 1 capsule by mouth once each week. cyanocobalamin (VITAMIN B-12) 500 mcg tab Take 1 tablet by mouth once daily. vortioxetine 20 mg tab Take by mouth once daily. Cetirizine 10 mg cap Take by mouth once daily. Topiramate (TOPAMAX) 50 mg tablet Take 50 mg by mouth twice daily. HISTORIES PAST MEDICAL HISTORY Diagnosis Date Bowel obstruction (HCC) 2014 Prolonged hospitalization Chronic cholecystitis Gallbladder sludge Varicose vein of leg FAMILY HISTORY Problem Relation Age of Onset other (pancreatic cancer [Other]) Maternal Grandmother Colon Cancer Paternal Grandmother PAST SURGICAL HISTORY Procedure Laterality Date BOWEL RESECTION HX 2007, 2014 SBO, CARLOS CHOLECYSTECTOMY HX 2014 EXCIS VARICOCEL,ABD APRCH+FIX HERNIA EXCISE VARICOCELE INGUINAL HERNIA REPAIR HX PAST SURGICAL HISTORY OF lasik eye PAST SURGICAL HISTORY OF bilateral vein ligations SOCIAL HISTORY Social History Tobacco Use Smoking status: Former Packs/day: 1.00 Years: 3.00 Additional pack years: 0.00 Total pack years: 3.00 Types: Cigarettes Quit date: 04/02/2004 Years since quittin.0 Smokeless tobacco: Former Types: Chew Quit date: 04/02/2004 Substance Use Topics Alcohol use: Yes Alcohol/week: 2.0 standard drinks of alcohol Types: 2 Cans of Beer (12oz) per week Comment: occasional Drug use: No REVIEW OF SYSTEMS General: No weight loss, malaise or fevers. Gastrointestinal: No nausea, vomiting, or diarrhea Genitourinary: See HPI The remainder of the ROS was reviewed and was negative. PHYSICAL EXAMINATION BP (P) 117/77 (BP Site: Left Arm, BP Position: Sitting, BP Cuff Size: Regular Adult) Wt 103.2 kg (227 lb 8.2 oz) BMI 27.69 kg/m? Constitutional: Well appearing, alert, in no acute distress, and well-hydrated, well nourished Gastrointestinal: non-distended Genitourinary: MALE EXAM: Rectal Exam: Prostate: symmetrical, nontender, w/o nodules. Fiona Alvarez APRN.[facility]YS CODER ASSESSMENT AND PLAN: Chronic obstructive voiding symptoms Recommended cystoscopy for further evaluation, this was performed and showed no evidence of stricture but did show a high, somewhat tight bladder neck raising the question of primary bladder neck obstruction. He has been on flomax for years without benefit. I have recommended video urodynamic testing for further evaluation and follow-up with one of our voiding dysfunction specialists to follow. He had opportunity to ask questions which were answered to his satisfaction and is in agreement with proceeding with the plan as outlined above. I spent a total of 45 minutes on the date of the service which included preparing to see the patient, [id number] patient care, completing clinical documentation, obtaining and/or reviewing separately obtained history, counseling and educating the patient/family/caregiv er, and care coordinati (more content not included)... Normal [facility] URINALYSIS, REFLEX MICROSCOP ICon 05-02-2023 Bilirubin Ql (U) Negative Normal Negative [facility] Comment on above: Order Comment: Speci men Type: URINE SPECIMENOrdering Facility: [facility] Address: [address] [place] [address] Performed By: #### L [id number] ####[facility] LABCLIA [id number] [place] [address] [place] Clarity (Unsp spec) Cloudy Abnormal Clear [facility] Comment on above: Order Comment: Speci men Type: URINE SPECIMENOrdering Facility: [facility] Address: [address] [place] [address] Performed By: #### L [id number] ####[facility] LABCLIA [id number] [place] [address] [place] Color (U) Light Yellow Normal Yellow [facility] Comment on above: Order Comment: Speci men Type: URINE SPECIMENOrdering Facility: [facility] Address: [address] [place] [address] Performed By: #### L [id number] ####[facility] LABCLIA [id number] [place] [address] [place] Glucose Test strip (U) [Mass/Vol] Negative Normal Trace, Negative [facility] Comment on above: Order Comment: Speci men Type: URINE SPECIMENOrdering Facility: [facility] Address: [address] [place] [address] Performed By: #### L [id number] ####[facility] LABCLIA [id number] [place] [address] [place] Hemoglobin Ql (U) Negative Normal Negative, Trace [facility] Comment on above: Order Comment: Speci men Type: URINE SPECIMENOrdering Facility: [facility] Address: [address] [place] [address] Performed By: #### L [id number] ####[facility] LABCLIA [id number] [place] [address] [place] Ketones Ql (U) Negative Normal Negative, Trace [facility] Comment on above: Order Comment: Speci men Type: URINE SPECIMENOrdering Facility: [facility] Address: [address] [place] [address] Performed By: #### L [id number] ####[facility] LABCLIA [id number] [place] [address] [place] Leukocyte esterase Test strip Ql (U) Negative Normal Negative, 25 Bella/uL [facility] Comment on above: Order Comment: Speci men Type: URINE SPECIMENOrdering Facility: [facility] Address: [address] [place] [address] Performed By: #### L [id number] ####[facility] LABCLIA [id number] [place] [address] [place] Nitrite Ql (U) Negative Normal Negative [facility] Comment on above: Order Comment: Speci men Type: URINE SPECIMENOrdering Facility: [facility] Address: [address] [place] [address] Performed By: #### L [id number] ####[facility] LABCLIA [id number] [place] [address] [place] pH (U) 6.5 [pH] Normal 5.0-8.0 [facility] Comment on above: Order Comment: Speci men Type: URINE SPECIMENOrdering Facility: [facility] Address: [address] [place] [address] Performed By: #### L [id number] ####[facility] LABIA [id number] [place] [address] [place] Protein (U) [Mass/Vol] Negative Normal Trace, Negative [facility] Comment on above: Order Comment: Speci men Type: URINE SPECIMENOrdering Facility: [facility] Address: [address] [place] [address] Performed By: #### L [id number] ####[facility] LABIA [id number] [place] [address] [place] Specific gravity (U) [Rel density] 1.016 Normal 1.005-1.030 [facility] Comment on above: Order Comment: Speci men Type: URINE SPECIMENOrdering Facility: [facility] Address: [address] [place] [address] Performed By: #### L [id number] ####[facility] LABIA [id number] [place] [address] [place] Urobilinogen Ql (U) Negative Normal Negative [facility] Comment on above: Order Comment: Speci men Type: URINE SPECIMENOrdering Facility: [facility] Address: [address] [place] [address] Performed By: #### L [id number] ####[facility] LABCLIA [id number] [facility] [id number] [address] [place] Bilirubin Ql (U) Negative Negative [facility] Clarity (Unsp spec) Cloudy Abnormal Clear [facility] Color (U) Light Yellow Yellow [facility] Glucose Test strip (U) [Mass/Vol] Negative Trace, Negative [facility] Hemoglobin Ql (U) Negative Negative, Trace [facility] Ketones Ql (U) Negative Negative, Trace [facility] Leukocyte esterase Test strip Ql (U) Negative Negative, 25 Bella/uL [facility] Nitrite Ql (U) Negative Negative [facility] pH (U) 6.5 [pH] 5.0 - 8.0 [facility] Protein (U) [Mass/Vol] Negative Trace, Negative [facility] Specific gravity (U) [Rel density] 1.016 1.005 - 1.030 [facility] Urobilinogen Ql (U) Negative Negative [facility] Follow-Upon 04-11-2023 Follow-Up [id number] Vince Luciano 1980 M Date Provider Department Center 04/11/2023 RAFAEL MONTANEZ MP ORTHO MPORTHO Family History Problem Relation Age of Onset Hypertension Mother Family Status - Relation Status Age at Mother Level of Service:15434 [place] POSTOP FOLLOW UP VISIT RELATED TO ORIGINAL PX Reason for Visit and Comments: Follow-up [881564] Pain [136] Normal [facility] Discharge Instructionson Discharge Instructions [id number] Normal [facility] XR Chest Single Viewon 04-10 XR Chest Single View Exam Date/Time: 04/09/2023 18:27 EST Reason for Exam: Chest pain Report IMPRESSION: There are no acute cardiopulmonary changes. CLINICAL HISTORY: Chest pain EXAMINATION: XR Chest Single View COMPARISON: FINDINGS: The cardiomediastinal silhouette is unremarkable. The lungs are free of infiltrates effusions or consolidations. There are no acute osseous changes. Ordering Provider: Clifford Sanchez FINAL REPORT Dictated: 04/10/2023 7:52 am Tony Ochoa MD, V. Signed (Electronic Signature): 04/10/2023 7:52 am Signed by: Tony Ochoa MD, V. Transcribed by: RASHID Technologist: ED Technical Comments Radiation Dose: Ka,r in mGy = na DAP = na Normal [facility] Auto Diffon 04-09-2023 Basophils/100 WBC (Bld) 0.7 % Normal 0.0-2.0 [facility] Comment on above: Order Comment: Order Added by Discern Expert. Performed By: #### 2 024887, 38609118, 42749793, 73604253, 38245146, 3465086, 7715229, 83653276, 9510595, 1268610, 6251278 ####[facility] [address] [place] [address] Basophils/Leukocytes Auto (Bld) [Pure # fraction] 0.0 E9/L Normal 0.0-0.2 [facility] Comment on above: Order Comment: Order Added by Discern Expert. Performed By: #### 2 580145, 92491253, 94121763, 20704173, 05348538, 8160369, 8262372, 83232603, 5080887, 5796204, 9940275 ####[place] [address] [place] [address] Eosinophils/100 WBC (Bld) 1.0 % Normal 0.0-8.0 [facility] Comment on above: Order Comment: Order Added by Discern Expert. Performed By: #### 2 664578, 40495982, 91197335, 19664279, 49044181, 2455116, 4874300, 94051614, 7337512, 9260529, 6450915 ####[place] [address] [place] [address] Eosinophils/Leukocyte s Auto (Bld) [Pure # fraction] 0.1 E9/L Normal 0.0-0.5 [facility] Comment on above: Order Comment: Order Added by Discern Expert. Performed By: #### 2 738268, 37280080, 09092132, 99734159, 47185595, 5635998, 2807917, 24666298, 3714533, 5802084, 2113822 ####[facility] [address] [place] [address] Lymphocytes/100 WBC (Bld) 24.5 % Normal 14.0-50.0 [facility] Comment on above: Order Comment: Order Added by Discern Expert. Performed By: #### 2 660252, 18293430, 72613103, 36456017, 24285317, 2070843, 4994733, 19592439, 3532177, 3635463, 9869168 ####[place] [address] [place] [address] Lymphocytes/Leukocyte s Auto (Bld) [Pure # fraction] 1.4 E9/L Normal 1.0-4.0 [facility] Comment on above: Order Comment: Order Added by Discern Expert. Performed By: #### 2 691928, 87801306, 09909430, 94686889, 60124295, 8003378, 4473088, 76351560, 1629526, 2519628, 1861043 ####[place] [address] [place] [address] Monocytes/100 WBC (Bld) 8.2 % Normal 4.0-14.0 [facility] Comment on above: Order Comment: Order Added by Discern Expert. Performed By: #### 2 070325, 30326782, 90822248, 50880585, 42796954, 8088633, 0561804, 33609855, 9847599, 7795935, 4879818 ####[facility] [address] [place] [address] Monocytes/Leukocytes Auto (Bld) [Pure # fraction] 0.5 E9/L Normal 0.2-1.0 [facility] Comment on above: Order Comment: Order Added by Discern Expert. Performed By: #### 2 720641, 64935937, 27959016, 88293094, 70528747, 4110710, 6878696, 10620378, 8603095, 0268656, 6325721 ####[facility] [address] [place] [address] Neutrophils/100 WBC (Bld) 65.6 % Normal 36.0-75.0 [facility] Comment on above: Order Comment: Order Added by Discern Expert. Performed By: #### 2 168586, 24961113, 32752907, 67535232, 58060969, 3956606, 4201877, 77015699, 1006104, 2484449, 6436433 ####[facility] [address] [place] [address] Neutrophils/Leukocyte s Auto (Bld) [Pure # fraction] 3.9 E9/L Normal 2.0-7.5 [facility] Comment on above: Order Comment: Order Added by Discern Expert. Performed By: #### 2 694476, 85838006, 09230423, 18308067, 51637124, 8194457, 6142031, 31390705, 8745837, 5665322, 1539523 ####[facility] [address] [place] [address] BMPon 04-09-2023 Anion gap [Moles/Vol] 13 mmol/L Normal 6-16 [facility] Comment on above: Performed By: #### 2 776478, 11027702, 29742746, 07406839, 97551997, 9652930, 8060627, 91489694, 8118441, 7338089, 9587159 ####[facility] [address] [place] [address] BUN/Creat Ratio 14 No Units Normal 10-20 [facility] Comment on above: Performed By: #### 2 522788, 66701257, 40829727, 77134811, 79127149, 8903985, 6271603, 37654169, 3253452, 1089905, 9409024 ####[facility] [address] [place] [address] Calcium [Mass/Vol] 9.2 mg/dL Normal 8.9-11.1 [facility] Comment on above: Performed By: #### 2 320972, 23163224, 23639807, 95902140, 27735498, 5396697, 9287846, 92375312, 8478374, 4395545, 2130019 ####[facility] [address] [place] [address] Chloride [Moles/Vol] 106 mmol/L Normal 101-111 [facility] Comment on above: Performed By: #### 2 930187, 52922335, 79980172, 56434030, 47612239, 6494665, 8802739, 48892467, 5441310, 0721938, 4781628 ####[facility] [address] [place] [address] CO2 [Moles/Vol] 22 mmol/L Normal 21-31 [facility] Comment on above: Performed By: #### 2 287683, 82710780, 70067464, 68667961, 80820389, 4888879, 3133328, 93394840, 6455618, 9114663, 5476195 ####[facility] [address] [place] [address] Creatinine [Mass/Vol] 1.1 mg/dL Normal 0.5-1.3 [facility] Comment on above: Performed By: #### 2 127916, 62534749, 60880966, 71660504, 75822947, 3544929, 9259786, 55176535, 4016605, 3727123, 8531095 ####[facility] [address] [place] [address] Glucose [Mass/Vol] 86 mg/dL Normal 55-199 [facility] Comment on above: Performed By: #### 2 828458, 77325156, 23051202, 64355018, 92527386, 4790254, 9250943, 42468016, 5193635, 8820907, 4426052 ####[facility] [address] [place] [address] Potassium [Moles/Vol] 3.2 mmol/L Low 3.5-5.3 [facility] Comment on above: Performed By: #### 2 400827, 60481417, 78928718, 53244783, 01268061, 8568081, 6743560, 67686027, 8094496, 9869754, 5765786 ####[facility] [address] [place] [address] Sodium [Moles/Vol] 138 mmol/L Normal 135-145 [facility] Comment on above: Performed By: #### 2 227318, 74716550, 01248002, 65814463, 53028609, 1259127, 4881180, 77901744, 9672525, 0069678, 0375206 ####[facility] [address] [place] [address] Urea nitrogen [Mass/Vol] 15 mg/dL Normal 5-21 [facility] Comment on above: Performed By: #### 2 763092, 17310050, 80931118, 65550668, 55631166, 7680787, 3742079, 74350159, 7635441, 3209526, 9419138 ####[facility] [address] [place] [address] BNPon 04-09-2023 Int Ctr BNP Pass Normal [facility] Comment on above: Performed By: #### 2 459215, 83244162, 21059400, 34392428, 95167898, 6500718, 0530983, 48307764, 5853250, 5098517, 2278997 ####[facility] [address] [place] [address] Natriuretic peptide B (Bld) [Mass/Vol] 9 pg/mL Normal 5-80 [facility] Comment on above: Performed By: #### 2 633566, 24114210, 56725820, 48375199, 08523766, 6550856, 3961626, 31021097, 6714633, 2350434, 8236963 ####[facility] [address] [place] [address] CBC w/ Auto Diffon 4 Erythrocyte distribution width (RBC) [Ratio] 12.9 % Normal 10.9-14.2 [facility] Comment on above: Performed By: #### 2 461748, 35440711, 75294559, 19838330, 92541677, 1050884, 8138973, 92511029, 5475321, 5542659, 4982880 ####[facility] [address] [place] [address] Hematocrit (Bld) [Volume fraction] 43.1 % Normal 37.7-49.0 [facility] Comment on above: Performed By: #### 2 150437, 37511037, 76943852, 51994508, 57300721, 0113252, 0185885, 06740188, 8870336, 2369448, 8753546 ####[facility] [address] [place] [address] Hemoglobin (Bld) [Mass/Vol] 14.7 g/dL Normal 13.5-17.5 [facility] Comment on above: Performed By: #### 2 609118, 56507779, 32388778, 28432333, 34335792, 0260345, 6235440, 81568374, 1099170, 3236975, 6888475 ####[facility] [address] [place] [address] MCH (RBC) [Entitic mass] 32.2 pg Normal 27.0-34.0 [facility] Comment on above: Performed By: #### 2 229082, 81504114, 72944852, 69228730, 82870739, 5065081, 5767269, 59935698, 4579784, 8045030, 2377160 ####[facility] [address] [place] [address] MCHC (RBC) [Mass/Vol] 34.2 g/dL Normal 31.4-36.0 [facility] Comment on above: Performed By: #### 2 376744, 68805558, 76985748, 41208378, 28712967, 1444393, 2442190, 04175191, 9127507, 5810594, 7918670 ####[place] [address] [place] [address] MCV (RBC) [Entitic vol] 94.2 fL Normal 80.0-100.0 [facility] Comment on above: Performed By: #### 2 378654, 14606781, 86301445, 58506868, 40666454, 0702878, [id number], [id number], [id number], [id number], [id number] ####[address] [place] [address] Platelet mean volume (Bld) [Entitic vol] 8.8 fL Normal 6.4-10.8 [facility] Comment on above: Performed By: #### 2 [id number], [id number], [id number], [id number], [id number], 2366519, 9586701, [id number], 6451417, 6745107, [id number] ####[address] [address] Platelets (Bld) [#/Vol] 198.0 E9/L Normal 150.0-500.0 [facility] Comment on above: Performed By: #### 2 [id number], [id number], [id number], [id number], [id number], 9944678, 9788104, [id number], 9049385, 0045925, 1390644 ####[address] [address] RBC (Bld) [#/Vol] 4.6 E12/L Normal 4.3-5.9 [facility] Comment on above: Performed By: #### 2 457393, [id number], [id number], 73499587, [id number], 6198670, 1650589, 53377761, 7105622, 4813967, 8162547 ####[address] [place] [address] WBC corrected for nucl RBC Auto (Bld) [#/Vol] 5.9 E9/L Normal 4.0-11.0 [facility] Comment on above: Performed By: #### 2 135161, [id number], [id number], [id number], [id number], 1088422, 6866738, 25166808, 3052559, 5236206, 5885717 ####[facility] [address] [place] [address] CHEMISTRYOrdered By: SYSTEM SYSTEM on 04-09-2023 Albumin [Mass/Vol] 4.3 g/dL Normal 3.3 - 5.0 gm/dL Remisol Chem Albumin/Globulin [Mass ratio] 2.2 {ratio} Normal 1.1 - 2.2 Remisol Chem Alk Phos 60 [iU]/d Normal 21 - 98 Int._Unit/L Remisol Chem ALT 11 [iU]/d Normal 6 - 46 Int._Unit/L Remisol Chem Anion gap [Moles/Vol] 13 mmol/L Normal 6 - 16 mEq/L R emisol Chem AST 15 [iU]/d Normal 5 - 43 Int._Unit/L Remisol Chem Bili Direct 0.1 mg/dL Normal 0.0 - 0.4 mg/dL Remisol Chem Bili Indirect 0.5 mg/dL Normal 0.1 - 0.9 mg/dL Remisol Chem Bili Total 0.6 mg/dL Normal 0.0 - 1.1 mg/dL Remisol Chem Calcium [Mass/Vol] 9.2 mg/dL Normal 8.9 - 11. 1 mg/dL Remisol Chem Chloride [Moles/Vol] 106 mmol/L Normal 101 - 1 11 mmol/L Remisol Chem CO2 [Moles/Vol] 22 mmol/L Normal 21 - 31 mmol/L Remisol Chem Creatinine [Mass/Vol] 1.1 mg/dL Normal 0.5 - 1.3 mg/dL Remisol Chem eGFR mL/min/1.73 m2 Normal >=59mL/min/1 .73 m2 Remisol Chem Globulin (S) [Mass/Vol] 2.0 g/dL Normal 1.4 - 4.0 gm/dL Remisol Chem Glucose [Mass/Vol] 86 mg/dL Normal 55 - 199 mg/dL Remisol Chem Lipase Lvl 21 unit/L Normal 13 - 58 unit/L Remisol Chem Magnesium [Mass/Vol] 1.9 mg/dL Normal 1.3 - 2 .4 mg/dL Remisol Chem Potassium [Moles/Vol] 3.2 mmol/L Low 3.5 - 5.3 mmol/L Remisol Chem Protein [Mass/Vol] 6.3 g/dL Normal 6.0 - 7.8 gm/dL Remisol Chem Sodium [Moles/Vol] 138 mmol/L Normal 135 - 145 mmol/L Remisol Chem Troponin 2.60 pg/mL Low 15.90 - 38.40 pg/mL [facility] Comment on above: Interpretive Data: T he 95% CI (Confidence Interval) PPV (Positive Predictive Value) for myocardial infarction in females is 38 pg/mL, in males 51 pg/mL. The results should be used in conjunction with clinical conditions of myocardial infarction. (Access High Sensitivity Troponin I Instructions For Use, Lindsay Broadbent, October 2017) TSH Qn 2.67 m[IU]/L Normal 0.34 - 5.60 mcIU/mL Remisol Chem Urea nitrogen [Mass/Vol] 15 mg/dL Normal 5 - 21 mg/dL Remisol Chem Urea nitrogen/Creatinine [Mass ratio] 14 mg/mg Normal 10 - 20 Remisol Chem CHEMISTRYOrdered By: Leticia Morales on 04-09-2023 Natriuretic peptide B (Bld) [Mass/Vol] 9 pg/mL Normal 5 - 80 pg/mL [facility] HemeManSS COAGULATIONOrdered By: Lyndsay Aparicio on 04-09-2023 aPTT Coag (PPP) [Time] 32.3 s Normal 25.1 - 36.5 second(s) [facility] Comment on above: Interpretive Data: P arameter 15 days - 4 weeks 1 - 5 months 6 - 11 months 1 - 5 years 6 - 10 years 11 - 17 years PTT Mean: 35.4 (27.6-45.6) Mean: 33.5 (24.8-40.7) Mean: 32.4 (25.1-40.7) Mean: 31.6 (24.0-39.2) Mean: 31.6 (26.9-38.7) Mean: 31.0 (24.6-38.4) Pediatric Reference ranges were obtained from a study by kale Mcknight al. prepared from 1437 samples obtained at 7 different centers using the same coagulation reagent and instrumentation as [facility]. Currently there are no coagulation studies available worldwide for children to 14 days, and no normal ranges. Heparin therapeutic range (represented by Anti-Factor Xa activity of 0.2 - 0.4 U/mL) corresponds to PTT of 56.6 - 109.0 sec. INR Coag (PPP) [Relative time] 1.0 {INR} Invalid Interpretation Code [facility] Comment on above: Interpretive Data: I NR results are specifically intended to assess patients stabilized on long-term Anticoagulation therapy suggested INR s Less Intensive Anticoagulation 2.0 3.0 Conventional Range 3.0 4.5 PT Coag (PPP) [Time] 10.9 s Normal 9.4 - 1 2.5 second(s) [facility] Comment on above: Interpretive Data: 1 5 days - 4 weeks 1 - 5 months 6 -11 months 1 5 years 6 10 years 11 -17 years Mean: 11.2 (9.5 12.6) Mean: 11.0 (9.7 12.8) Mean: 11.0 (9.8 13.0) Mean: 11.3 (9.9 13.4) Mean: 11.7 (10.0 14.6) Mean: 11.8 (10.0 - 14.1) Pediatric Reference ranges were obtained from a study by Galen Macias et al. prepared from 1437 samples obtained at 7 different centers using the same coagulation reagent and instrumentation as [facility]. Currently there are no coagulation studies available worldwide for children to 14 days, and no normal ranges. CT Abdomen/Pelvis w/ Contras ton 04-09-2023 CT Abdomen/Pelvis w/ Contrast Exam Date/Time: 04/09/2023 19:14 EST Reason for Exam: Abdominal pain, acute, nonlocalized;Other (please specify) Report IMPRESSION: No acute process in the abdomen/pelvis. EXAMINATION: CT Abdomen/Pelvis w/ Contrast HISTORY: Abdominal pain, acute, nonlocalized. TECHNIQUE: CT of the abdomen and pelvis was performed using standard technique with intravenous contrast, scanning from just above the dome of the diaphragm to the symphysis pubis. Including delayed images through the kidneys. Including sagittal and coronal reconstructions on both phases. All CT scans at this facility use dose modulation, iterative reconstruction, and/or weight based dosing when appropriate to reduce radiation dose to as low as reasonably achievable. COMPARISON: None. RESULT: Liver: Diffuse hepatic steatosis without focal hepatic lesion. Biliary: Cholecystectomy. Pancreas: No mass or duct dilation. Spleen: No mass or splenomegaly. Adrenals: No mass. Kidneys: No calculus or hydronephrosis. No suspicious renal lesions. Subcentimeter lesion(s) that are too small to characterize but likely benign. Delayed phase imaging with normal excreted contrast in the renal collecting system, ureters, and bladder. GI tract: No bowel dilation. Feces throughout the colon, limiting evaluation. No evidence for diverticulitis or appendicitis. Lymph nodes: No abdominal or pelvic lymphadenopathy. Mesentery/Peritoneum/R etroperitoneum: No ascites or mass. Vasculature: The celiac axis and SMA are patent. The portal vein and branches, Report splenic vein, SMV, and hepatic veins are patent. No abdominal aortic or iliac artery aneurysm. Pelvis: No significant free fluid. Bladder unremarkable. Surgical clips bilateral inguinal regions. Bones: No acute osseous findings. Soft tissues: Unremarkable. Lower thorax: A chest CT performed will be reported separately. Ordering Provider: Clifford Sanchez FINAL REPORT Dictated: 04/09/2023 7:22 pm Oscar Salinas MD Signed (Electronic Signature): 04/09/2023 7:22 pm Signed by: Oscar Salinas MD Transcribed by: RASHID Technologist: ED Technical Comments GFR (mL/min/1/73m2) >60 Contrast: Isovue 370 Contrast amount in ml's: 100 Rectal Contrast Given? No Normal [facility] CTA Cheston 04-09-2023 CTA Chest Exam Date/Time: 04/09/2023 19:14 EST Reason for Exam: Pulmonary embolism (PE) suspected, high prob;Other (please specify) Report IMPRESSION: No CT evidence of acute pulmonary embolism or other acute process in the thorax. EXAMINATION: CHEST CT WITH CONTRAST (PULMONARY EMBOLISM PROTOCOL) CLINICAL HISTORY: Pulmonary embolism (PE) suspected, high prob source of breath for a couple weeks. Technique: Spiral CTA acquisition of the chest from the thoracic inlet to the upper abdomen following IV contrast. Including MIP reconstructions in coronal plane. Other sagittal and coronal reconstructions. Contrast: IV administration of 100 ml Isovue [address] scans at this facility use dose modulation, iterative reconstruction, and/or weight based dosing when appropriate to reduce radiation dose to as low as reasonably achievable. Comparison: CT chest 08/19/2022. RESULT: Evaluation for thromboembolic disease: No evidence for thromboembolic disease in the main, lobar, segmental, and visualized subsegmental pulmonary arteries. No evidence for right heart strain. Lung parenchyma and pleura: Central airways are patent. No consolidation. No suspicious pulmonary nodules. No pleural effusion. No pneumothorax. Dependent atelectasis. Thoracic inlet, heart, and mediastinum: Visualized thyroid unremarkable. No axillary, mediastinal, or hilar lymphadenopathy. Normal thoracic aorta. Normal pulmonary artery size. Normal heart size. No coronary artery calcifications. No pericardial effusion or thickening. Esophagus nondilated. Bones: No acute osseous findings. No destructive osseous lesions. Soft tissues: Unremarkable. Upper abdomen: See concurrently performed and separately dictated CT. Report Ordering Provider: Clifford Sanchez FINAL REPORT Dictated: 04/09/2023 7:18 pm Oscar Salinas MD Signed (Electronic Signature): 04/09/2023 7:18 pm Signed by: Oscar Salinas MD Transcribed by: RASHID Technologist: ED Technical Comments GFR (mL/min/1/73m2) >60 Contrast: Isovue 370 Contrast amount in ml's: 100 Normal [facility] Consent for Treatmenton Consent for Treatment [id number] Normal [facility] ED Clinical Summaryon 2023 ED Clinical Summary [id number] ED Clinical Summary Person Information Name: VINCE LUCIANO/New_Kayden Age: 42 Years : 1980 Sex: Male Language: Kittitian PCP: Roxy Driver MD Marital Status: Visit Id: Visit Reason: Shortness of breath; SOB Speciality: Acuity: 3 Enc Type: Emergency Med Service: Emergency Arrival: 04/09/2023 17:49:59 Discharge: 04/09/2023 19:45:37 LOS: 000 01:56 Checkin: 04/09/2023 17:49:59 Checkout: 04/09/2023 19:45:37 Dispo Type: Home (Routine DC) EVENTS: Event Name Event Status Request Date/Time Start Date/Time Complete Date/Time Arrive Complete 04/09/2023 17:49:59 04/09/2023 17:49:59 04/09/2023 17:49:59 Document Home Meds Request 04/09/2023 17:49:59 Triage Complete 04/09/2023 17:49:59 04/09/2023 17:58:58 04/09/2023 17:58:58 EKG Complete 04/09/2023 17:55:18 04/09/2023 17:59:46 Bed Assign Complete 04/09/2023 17:55:27 04/09/2023 17:55:27 04/09/2023 17:55:27 Dr Exam Complete 04/09/2023 17:55:27 04/09/2023 18:01:52 04/09/2023 18:01:52 RN Exam Complete 04/09/2023 17:55:27 04/09/2023 18:04:12 04/09/2023 18:04:12 Registration Complete 04/09/2023 17:56:52 04/09/2023 17:56:52 04/09/2023 17:56:52 Reg Complete Request 04/09/2023 17:56:52 Reg Bed Request Complete 04/09/2023 17:56:52 04/09/2023 17:56:52 04/09/2023 17:56:52 Registration Request 04/09/2023 18:01:52 Pending Labs Request 04/09/2023 18:10:10 Lab Complete 04/09/2023 18:10:10 04/09/2023 18:50:24 Urine Collect Complete 04/09/2023 18:10:10 04/09/2023 18:37:18 Patient Care Request 04/09/2023 18:10:10 RT Request 04/09/2023 18:10:10 X-Ray Complete 04/09/2023 18:10:10 04/09/2023 18:16:27 04/09/2023 18:27:35 Pending Labs Complete 04/09/2023 18:18:13 04/09/2023 18:18:13 04/09/2023 18:40:06 Lab Complete 04/09/2023 18:18:13 04/09/2023 18:18:13 04/09/2023 18:40:06 Pending Labs Complete 04/09/2023 18:18:49 04/09/2023 18:18:49 04/09/2023 18:18:50 Pending Labs Complete 04/09/2023 18:25:08 04/09/2023 18:25:08 04/09/2023 18:25:17 Lab Complete 04/09/2023 18:25:08 04/09/2023 18:25:08 04/09/2023 18:25:17 Wet Read Complete 04/09/2023 18:27:35 04/09/2023 18:35:39 04/09/2023 18:35:39 CT Complete 04/09/2023 18:47:34 04/09/2023 18:53:04 04/09/2023 19:14:41 Dr Exam Complete 04/09/2023 19:00:38 04/09/2023 19:00:38 04/09/2023 19:00:38 Discharge Complete 04/09/2023 19:35:18 04/09/2023 19:45:42 04/09/2023 19:45:42 Transfer Complete 04/09/2023 19:45:42 04/09/2023 19:45:42 04/09/2023 19:45:42 ADDRESS: [address] [place] [id number] [facility] DOC NOTES: Addendum by Weston Smith DO on April 09, 2023 19:37:22 EST MEDICAL INFORMATION: Prescriptions Given: Medications to Continue with No Changes Other Medications buPROPion (buPROPion 300 mg/24 hours ER Tab) 1 Tablets By Mouth every day. 1 Unknown, 0 Refill(s). buPROPion (Wellbutrin XL 150 mg/24 hours Tab-ER) 1 Tablets By Mouth every day. with 300mg tab. naproxen (naproxen 500 mg Tab) 1 Tablets By Mouth 2 times a day as needed for pain. Refills: 0. phentermine (Adipex-P 37.5 mg Tab) 1 Tablets By Mouth every day. sumatriptan (Imitrex 100 mg Tab) 1 Tablets By Mouth every day. tamsulosin (tamsulosin 0.4 mg Cap) 1 Capsules By Mouth every day. 1 Unknown, 0 Refill(s). tizanidine (tiZANidine 4 mg Tab) 1 Tablets By Mouth 3 times a day. topiramate (Trokendi XR 100 mg oral capsule, extended release) 1 Capsules By Mouth every day. PATIENT EDUCATION INFORMATION: Instructions: Shortness of Breath, Adult, Boui-ea-Dgjk Follow up: With: Address: When: Roxy Driver [address] [place] [address], [facility] [address] [place] [id number] Business () In 3 days 04/12/2023 Comments: Keep a log of when you get short of breath and follow-up with your doctor. Continue taking your medications as prescribed. Please return to the ED for any new or worsening symptoms. DIAGNOSIS: Dyspnea Normal [facility] ED Note-Physicianon 04-09-19 ED Note-Physician Basic Information Time Seen: Clifford Sanchez DO 04/09/2023 18:01 Chief Complaint pt presents with SOB for 1 to 2 weeks that increases with ambualtion and activity. History of Present Illness 42 male presents emergency department with shortness of breath. Patient states that he has been having exertional dyspnea over the last 1 to 2 weeks getting progressively worse. He denies any chest pain with this he is never had anything like this before denies any cardiac or pulmonary history. He denies any pain with this no pain in the chest or abdomen no pain or swelling into his legs. He does have a feeling of some generalized malaise. He also states has been having a little bit of urinary frequency he does take Flomax on a daily basis and states that when he is urinating he feels even just urination can make him short of breath. He also does state that he has this exertional shortness of breath. He has had prior surgery in his abdomen including appendectomy cholecystectomy and exploratory surgery for obstruction but reports no difficulty with nausea vomiting diarrhea or constipation. No other aggravating or relieving factors no other associated symptoms no other prior treatments or complaints. Family: Reviewed and noncontributory Social: lives at home Review of systems negative unless otherwise specified in the HPI. Physical Exam Vitals & Measurements T: 36.8 ?C(Oral) HR: 85(Peripheral) RR: 16 BP: 132/89 SpO2: 96% HT: 190 cm WT: 104.7 kg BMI: 29 General: The patient appears well and in no apparent distress. Patient is resting comfortably on cart. Skin: Warm, dry, no pallor noted. Head: Normocephalic, atraumatic Neck: No JVD Eye: PERRLA, EOMI ENT: Moist mucus membranes Cardiovascular: Regular rate normal peripheral perfusion Respiratory: No respiratory distress no accessory muscle use no obvious audible wheezing Chest Wall: no deformity Musculoskeletal: normal ROM, no deformity, no swelling GI: Soft no obvious distention. No rebound or rigidity. No guarding. No tenderness. Neurological: A&O moves all extremities equal strength and symmetry Psychiatric: Cooperative and appropriate Medical Decision Making Workup in the ER has been ordered and results are pending. Ultimately patient is signed out to the oncoming physician for final disposition and treatment plan. Assessment/Plan Dyspnea (R06.00: Dyspnea, unspecified) Orders: Automated Diff B-Type Natriuretic Peptide Basic Metabolic Panel CBC w/ Auto Diff ECG 12 Lead Adult ED Cardiac Monitoring eGFR Extra SST Tube Hepatic Function Panel Lipase Level Magnesium Level Oxygen Saturation Oxygen Therapy PT & PTT Saline Lock Insert Troponin 0 Hr. Troponin 3 Hr. Troponin 6 Hr. Troponin 9 Hr. 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 Medications Inpatient No active inpatient medications Home Adipex-P 37.5 mg Tab, 37.5 mg= 1 tab(s), Oral, Daily buPROPion 300 mg/24 hours ER Tab, 300 mg= 1 tab(s), Oral, Daily Imitrex 100 mg Tab, 100 mg= 1 tab(s), Oral, Daily naproxen 500 mg Tab, 500 mg= 1 tab(s), Oral, BID, PRN tamsulosin 0.4 mg Cap, 0.4 mg= 1 cap(s), Oral, Daily tiZANidine 4 mg Tab, 4 mg= 1 tab(s), Oral, TID Trokendi XR 100 mg oral capsule, extended release, 100 mg= 1 cap(s), Oral, Daily Wellbutrin XL 150 mg/24 hours Tab-ER, 150 mg= 1 tab(s), Oral, Daily Allergies Cinnamon No Known Medication Allergies Social History Alcohol - Denies Alcohol Use, 04/15/2019 Substance Abuse - Denies Substance Abuse, 04/15/2019 Tobacco Never (less than 100 in lifetime) Tobacco Use:. Never Smokeless Tobacco Use:., 05/07/2019 Family History Family history is negative Lab Results No qualifying data available. Diagnostic Results No qualifying data available. EKG Results EC04/09/23: SINUS RHYTHM MODERATE INTRAVENTRICULAR CONDUCTION DELAY [110+ ms QRS DURATION] BORDERLINE ECG Signed By: Clifford Sanchez DO 04/09/2023 18:01:47 Patient signed out to me pending CT imaging. Patient CT imaging unremarkable. Discussed findings with patient with recommendation to follow-up with his primary care doctor. He is understanding with this is comfortable with this plan. He is to return to the ED for any new or worsening symptoms. Normal [facility] Comment on above: Result Comment: Elec tronically Signed By: Weston Smith DO\.lucas\Date and Time Signed: 04/09/23 19:38 EST ED Patient Education Noteon 04-09-2023 ED Patient Education Note Pulmonary Medicine Shortness of Breath, Adult Shortness of breath means you have trouble breathing. Shortness of breath could be a sign of a medical problem. Follow these instructions at home: Pollution ? Do not smoke or use any products that contain nicotine or tobacco. If you need help quitting, ask your doctor. ? Avoid things that can make it harder to breathe, such as: ? Smoke of all kinds. This includes smoke from campfires or forest fires. Do not smoke or allow others to smoke in your home. ? Mold. ? Dust. ? Air pollution. ? Chemical smells. ? Things that can give you an allergic reaction (allergens) if you have allergies. ? Keep your living space clean. Use products that help remove mold and dust. General instructions ? Watch for any changes in your symptoms. ? Take hfte-kwl-rfrqlci and prescription medicines only as told by your doctor. This includes oxygen therapy and inhaled medicines. ? Rest as needed. ? Return to your normal activities when your doctor says that it is safe. ? Keep all follow-up visits. Contact a doctor if: ? Your condition does not get better as soon as expected. ? You have a hard time doing your normal activities, even after you rest. ? You have new symptoms. ? You cannot walk up stairs. ? You cannot exercise the way you normally do. Get help right away if: ? Your shortness of breath gets worse. ? You have trouble breathing when you are resting. ? You feel light-headed or you faint. ? You have a cough that is not helped by medicines. ? You cough up blood. ? You have pain with breathing. ? You have pain in your chest, arms, shoulders, or belly (abdomen). ? You have a fever. These symptoms may be an emergency. Get help right away. Call 911. ? Do not wait to see if the symptoms will go away. ? Do not drive yourself to the hospital. Summary ? Shortness of breath is when you have trouble breathing enough air. It can be a sign of a medical problem. ? Avoid things that make it hard for you to breathe, such as smoking, pollution, mold, and dust. ? Watch for any changes in your symptoms. Contact your doctor if you do not get better or you get worse. This information is not intended to replace advice given to you by your health care provider. Make sure you discuss any questions you have with your health care provider. Document Revised: 11/05/2021 Document Reviewed: 11/05/2021 [employer] Patient Education ? 2022 [employer] Normal [facility] ED Patient Summaryon 024 ED Patient Summary (Inserted Image. Unable to display[address] [address] Patient Discharge Instructions Person Information Name: VINCE LUCIANO Age: 42 Years Arrival Date: 04/09/2023 17:49:59 Discharge Diagnosis: Dyspnea Primary Care Physician: Roxy Driver MD Provider Information Primary Provider: Clifford Sanchez DO Advanced Supervisor Poultry Processing:None The exam and treatment you received in the Emergency Department were for an urgent problem and are not intended as complete care. It is important that you follow up with a doctor, nurse practitioner, or physician?s assistant plant control operator for ongoing care. If your symptoms become worse or you do not improve as expected and you are unable to reach your usual health care provider, you should return to the Emergency Department. We are available 24 hours a day. VINCE LUCIANO has been given the following list of patient education materials, prescriptions and follow-up instructions: Follow-up Instructions: With: Address: When: Roxy Mclainshandra [address] [place] [address], [facility] [place] [address] Business (1) In 3 days 04/12/2023 Comments: Keep a log of when you get short of breath and follow-up with your doctor. Continue taking your medications as prescribed. Please return to the ED for any new or worsening symptoms. In the event that this physician does not participate in your insurance network, please consult with your insurance company to find a nearby participating provider. Patient Education Materials: Shortness of Breath, Adult, Emcc-bs-Jqix A MESSAGE TO ALL PATIENTS REGARDING OPIOIDS PRESCRIPTION OPIOIDS: WHAT YOU NEED TO KNOW Prescription opioids can be used to help relieve cdjjlnxy-bs-ddkcib pain and are often prescribed following a surgery or injury, or for certain health conditions. These medications can be an important part of the treatment but also come with serious risks. It is important to work with your healthcare provider to make sure you are getting the safest, most effective care. WHAT ARE THE RISKS AND SIDE EFFECTS OF OPIOID USE? Prescription opioids carry serious risks of addiction and overdose, especially with prolonged use. An opioid overdose, often marked by slowed breathing, can cause sudden . The use of prescription opioids can have a number of side effects as well, even when taken as directed: ? Tolerance?meaning you might need to take more of the medication for the same pain relief ? Physical dependence?meaning you have symptoms of withdrawal when a medication is stopped ? Increased sensitivity to pain ? Constipation ? Nausea, vomiting, and dry mouth ? Sleepiness and dizziness ? Confusion ? Depression ? Low levels of testosterone that can result in lower sex drive, energy, and strength ? Itching and sweating RISKS ARE GREATER WITH: ? History of drug misuse, substance use disorder, or overdose ? Mental health conditions (such as depression or anxiety) ? Sleep apnea ? Older age (65 years and older) ? Avoid alcohol while taking prescription opioids. Also, unless specifically advised by your health care provider, medications to avoid include: ? Benzodiazepines (such as Xanax or Valium) ? Muscle relaxants (such as Soma or Flexeril) ? Hypnotics (such as Ambien or Lunesta) ? Other prescription opioids KNOW YOUR OPTIONS Talk to your health care provider about ways to manage your pain that don?t involve prescription opioids. Some of these options may actually work better and have fewer risks and side effects. Options may include: ? Pain relievers such as acetaminophen, ibuprofen, and naproxen ? Some medication that are also used for depression or seizures ? Physical therapy and exercise ? Cognitive behavioral therapy, a psychological, goal-directed approach, in which patients learn how to modify physical, behavioral, and emotional triggers of pain and stress. IF YOU ARE PRESCRIBED OPIOIDS FOR PAIN: ? Never take opioids in greater amounts or more often than prescribed. ? Follow up with your primary health care provider. o Work together to create a plan on how to manage your pain. o Talk about ways to help manage your pain that don?t involve prescription opioids. o Talk about any and all concerns and side effects. ? Help prevent misuse and abuse o Never sell or share prescription opioids. o Never use another person?s prescription opioids. ? Store prescription opioids in a secure place and out of reach of others (this may include visitors, children, friends, and family). ? Safely dispose of unused prescription opioids: Find your community drug take-back program or your pharmacy mail-back program, or flush them down the toilet, following guidance from the Food and Drug Administration (www.fda.gov/Drugs/Res ourcesForYou). ? Visit www.cdc.gov/drugoverdo se to learn about the risks of opioids abuse and overdose. ? (more content not included)... Normal [facility] HEMATOLOGYOrdered By: SYSTEM SYSTEM on 04-09-2023 Basophils/100 WBC (Bld) 0.7 % Normal 0.0 - 2.0 % [facility] HemeAutoSS Basophils/Leukocytes Auto (Bld) [Pure # fraction] 0.0 E9/L Normal 0.0 - 0.2 E9/L [facility] HemeAutoSS Eosinophils/100 WBC (Bld) 1.0 % Normal 0.0 - 8.0 % [facility] HemeAutoSS Eosinophils/Leukocyte s Auto (Bld) [Pure # fraction] 0.1 E9/L Normal 0.0 - 0.5 E9/L [facility] HemeAutoSS Lymphocytes/100 WBC (Bld) 24.5 % Normal 14.0 - 50.0 % [facility] HemeAutoSS Lymphocytes/Leukocyte s Auto (Bld) [Pure # fraction] 1.4 E9/L Normal 1.0 - 4.0 E9/L [facility] HemeAutoSS Monocytes/100 WBC (Bld) 8.2 % Normal 4.0 - 14.0 % [facility] HemeAutoSS Monocytes/Leukocytes Auto (Bld) [Pure # fraction] 0.5 E9/L Normal 0.2 - 1.0 E9/L [facility] HemeAutoSS Neutrophils/100 WBC (Bld) 65.6 % Normal 36.0 - 75.0 % [facility] HemeAutoSS Neutrophils/Leukocyte s Auto (Bld) [Pure # fraction] 3.9 E9/L Normal 2.0 - 7.5 E9/L [facility] HemeAutoSS HEMATOLOGYOrdered By: Naseem See on 04-09-2023 Erythrocyte distribution width (RBC) [Ratio] 12.9 % Normal 10.9 - 14.2 % [facility] HemeAutoSS Hematocrit (Bld) [Volume fraction] 43.1 % Normal 37.7 - 49.0 % [facility] HemeAutoSS Hemoglobin (Bld) [Mass/Vol] 14.7 g/dL Normal 13.5 - 17.5 gm/dL [facility] HemeAutoSS MCH (RBC) [Entitic mass] 32.2 pg Normal 27.0 - 34.0 pg [facility] HemeAutoSS MCHC (RBC) [Mass/Vol] 34.2 g/dL Normal 31.4 - 36.0 gm/dL [facility] HemeAutoSS MCV (RBC) [Entitic vol] 94.2 fL Normal 80.0 - 100.0 fL [facility] HemeAutoSS Platelet mean volume (Bld) [Entitic vol] 8.8 fL Normal 6.4 - 10.8 fL [facility] HemeAutoSS Platelets (Bld) [#/Vol] 198.0 E9/L Normal 150.0 - 500.0 E9/L [facility] HemeAutoSS RBC (Bld) [#/Vol] 4.6 E12/L Normal 4.3 - 5.9 E12/L [facility] HemeAutoSS WBC corrected for nucl RBC Auto (Bld) [#/Vol] 5.9 E9/L Normal 4.0 - 11.0 E9/L [facility] HemeAutoSS Hep Func Panelon 04-09-2023 Albumin [Mass/Vol] 4.3 g/dL Normal 3.3-5.0 [facility] Comment on above: Performed By: #### 2 005388, [id number], 59065770, 09667369, 66419460, 8834205, 2501015, 72859209, 6312101, 9598437, 6071141 ####[facility] [address] [place] [address] Albumin/Globulin [Mass ratio] 2.2 {ratio} Normal 1.1-2.2 [facility] Comment on above: Performed By: #### 2 049604, 81764560, 99618443, 16702522, 81114830, 5819331, 0178229, 44541474, 7150032, 6599309, 7641770 ####[facility] [address] [place] [address] Alk Phos 60 Int._Unit/L Normal 21-98 [facility] Comment on above: Performed By: #### 2 129362, 33133880, 61012058, 14560104, 14834957, 6261404, 0433671, 15071345, 2338381, 4246037, 1790458 ####[facility] [address] [place] [address] ALT 11 Int._Unit/L Normal 6-46 [facility] Comment on above: Performed By: #### 2 483263, 43520424, 69246115, 80326987, 96968500, 1037549, 5302847, 41914333, 8032136, 6746907, 7089553 ####[facility] [address] [place] [address] AST 15 Int._Unit/L Normal 5-43 [facility] Comment on above: Performed By: #### 2 904886, 00552424, 97011932, 86710121, 19983783, 3756660, 7851702, 49887125, 2716879, 1347728, 5786014 ####[address] [place] [address] Bili Direct 0.1 mg/dL Normal 0.0-0.4 [facility] Comment on above: Performed By: #### 2 446303, 95536109, 37442849, 69897870, 27860377, 8381541, 1098068, 86290697, 9644287, 2546646, 2600831 ####[facility] [address] [place] [address] Bili Indirect 0.5 mg/dL Normal 0.1-0.9 [facility] Comment on above: Performed By: #### 2 405407, 36466745, 42258757, 23834454, 32851935, 7799135, 4492734, 14509913, 7434833, 1620560, 8348415 ####[facility] [address] [place] [address] Bili Total 0.6 mg/dL Normal 0.0-1.1 [facility] Comment on above: Performed By: #### 2 570035, 71004159, 93431730, 77311834, 88450502, 8344185, 6161509, 61644028, 4658878, 1279141, 8399255 ####[facility] [address] [place] [address] Globulin (S) [Mass/Vol] 2.0 g/dL Normal 1.4-4.0 [facility] Comment on above: Performed By: #### 2 430392, 75450130, 77646060, 53164345, 26603018, 1157528, 3996439, 12332434, 5315136, 5000912, 3784006 ####[facility] [address] [place] [address] Protein [Mass/Vol] 6.3 g/dL Normal 6.0-7.8 [facility] Comment on above: Performed By: #### 2 319398, 14187679, 34410523, 51088848, 97137000, 1208727, 9582530, 71780432, 8140555, 0780785, 2193514 ####[facility] [address] [place] [address] Lipase Levelon 04-09-2023 Lipase Lvl 21 unit/L Normal 13-58 [facility] Comment on above: Performed By: #### 2 064594, 44133254, 63476408, 02768202, 04533129, 6606207, 1344404, 68620680, 3482934, 0948359, 3961688 ####[facility] [address] [place] [address] Magnesiumon 04-09-2023 Magnesium [Mass/Vol] 1.9 mg/dL Normal 1.3-2.4 [facility] Comment on above: Performed By: #### 2 846570, 89354212, 65674424, 52421263, 49664954, 6822538, 9177324, 25457029, 6343565, 5460505, 3296047 ####[facility] [address] [place] [address] PT & PTTon 04-09-2023 aPTT Coag (PPP) [Time] 32.3 second(s) Normal 25.1-36.5 [facility] Comment on above: Result Comment: Para meter 15 days - 4 weeks 1 - 5 months 6 - 11 months 1 - 5 years 6 - 10 years 11 - 17 years PTT Mean: 35.4 (27.6-45.6) Mean: 33.5 (24.8-40.7) Mean: 32.4 (25.1-40.7) Mean: 31.6 (24.0-39.2) Mean: 31.6 (26.9-38.7) Mean: 31.0 (24.6-38.4) Pediatric Reference ranges were obtained from a study by Galen Macias et al. prepared from 1437 samples obtained at 7 different centers using the same coagulation reagent and instrumentation as [facility]. Currently there are no coagulation studies available worldwide for children to 14 days, and no normal ranges. Heparin therapeutic range (represented by Anti-Factor Xa activity of 0.2 - 0.4 U/mL) corresponds to PTT of 56.6 - 109.0 sec. Performed By: #### 2 275094, 31869097, 82922489, 62860666, 45829314, 5252758, 5839693, 60890275, 9238535, 6856527, 8155355 ####[facility] [address] [place] [address] INR Coag (PPP) [Relative time] 1.0 {INR} Invalid Interpretation Code [facility] Comment on above: Result Comment: INR results are specifically intended to assess patients stabilized on long-term Anticoagulation therapy suggested INR?s ?Less Intensive Anticoagulation? 2.0 ? 3.0 Conventional Range 3.0 ? 4.5 Performed By: #### 2 041390, 42748067, 89727928, 78472849, 07015831, 6974402, 3086015, 79228675, 6505419, 2876144, 2663362 ####[facility] [address] [place] [address] PT Coag (PPP) [Time] 10.9 second(s) Normal 9.4-12.5 [facility] Comment on above: Result Comment: 15 d ays - 4 weeks 1 - 5 months 6 -11 months 1 ? 5 years 6 ? 10 years 11 -17 years Mean: 11.2 (9.5 ? 12.6) Mean: 11.0 (9.7 ? 12.8) Mean: 11.0 (9.8 ? 13.0) Mean: 11.3 (9.9 ? 13.4) Mean: 11.7 (10.0 ? 14.6) Mean: 11.8 (10.0 - 14.1) Pediatric Reference ranges were obtained from a study by Galen Macias et al. prepared from 1437 samples obtained at 7 different centers using the same coagulation reagent and instrumentation as [facility]. Currently there are no coagulation studies available worldwide for children to 14 days, and no normal ranges. Performed By: #### 2 076194, 22788020, 04236422, 18544845, 72694085, 3233763, 7641507, 56058491, 3090317, 8066840, 9770426 ####[facility] [address] [place] [address] TSH With T4fr Reflexon 04-09 TSH Qn 2.67 m[IU]/L Normal 0.34-5.60 [facility] Comment on above: Performed By: #### 2 301443, 89761816, 55549202, 44565476, 37168062, 2771951, 9830139, 13309288, 6193013, 8973786, 6302305 ####[facility] [address] [place] [address] Troponin 0 Hr.on 04-09-2023 Troponin 2.60 pg/mL Low 15.90-38.40 [facility] Comment on above: Result Comment: The 95% CI (Confidence Interval) PPV (Positive Predictive Value) for myocardial infarction in females is 38 pg/mL, in males 51 pg/mL. The results should be used in conjunction with clinical conditions of myocardial infarction. (Access High Sensitivity Troponin I Instructions For Use, Lindsay Broadbent, October 2017) Performed By: #### 2 381974, 82409382, 88325568, 19434295, 90780671, 0710665, 4730603, 65363969, 4984315, 2280079, 3219351 ####[facility] [address] [place] [address] UA With Cult Reflexon 2023 Bilirubin Ql (U) Negative Normal Negative [facility] Comment on above: Performed By: #### 1 1497270 ####[address] [place] [address] Clarity (U) CLEAR Normal Clear [facility] Comment on above: Performed By: #### 1 6512477 ####[address] [address] Color (U) YELLOW Normal Yellow [facility] Comment on above: Performed By: #### 1 5093377 ####[address] [address] Epithelial cells.squamous LM.HPF (Urine sed) [#/Area] 0-2 Normal 0-2 [facility] Comment on above: Performed By: #### 1 5791197 ####[address] [address] Glucose Test strip (U) [Mass/Vol] Negative Normal Negative [facility] Comment on above: Performed By: #### 1 3135945 ####[address] [address] Hemoglobin Ql (U) Negative Normal Negative [facility] Comment on above: Performed By: #### 1 5820930 ####[address] [address] Ketones (U) [Mass/Vol] Negative Normal Negative [facility] Comment on above: Performed By: #### 1 8747461 ####[address] [address] [place].plasma/Lithiu m.RBC (Bld) [Mass ratio] 0-3 Normal 0-3 [facility] Comment on above: Performed By: #### 1 3034844 ####[address] [address] Nitrite Ql (U) Negative Normal Negative [facility] Comment on above: Performed By: #### 1 4738630 ####[address] [address] pH (U) 5.5 [pH] Invalid Interpretation Code 5.0-9.0 [facility] Comment on above: Performed By: #### 1 5343034 ####[facility] [address] [place] [address] Protein (U) [Mass/Vol] Negative Normal Negative [facility] Comment on above: Performed By: #### 1 7566748 ####[address] [address] Specific gravity (U) [Rel density] <=1.005 Invalid Interpretation Code 1.005-1.030 [facility] Comment on above: Performed By: #### 1 8175864 ####[address] [address] Type of Urine collection method Clean Catch Normal [facility] Comment on above: Performed By: #### 1 8341397 ####[address] [address] Urobilinogen Qn (U) 0.2 {Rachel'U}/dL Normal 0.0-1.0 [facility] Comment on above: Performed By: #### 1 0235436 ####[facility] [address] [place] [address] WBC Auto Ql (U) Negative Normal Negative [facility] Comment on above: Performed By: #### 1 0268937 ####[facility] [address] [place] [address] WBC LM.HPF (Urine sed) [#/Area] 0-5 Normal 0-5 [facility] Comment on above: Performed By: #### 1 0088325 ####[facility] [address] [place] [address] URINALYSISOrdered By: Farhana Aparicio on 04-09-2023 Bilirubin Ql (U) Negative (04/09/23 6:20 PM) Normal Negative [facility] UA Auto SS Clarity (U) Clear (04/09/23 6:20 PM) Normal Clear [facility] UA Auto SS Color (U) Yellow (04/09/23 6:20 PM) Normal Yellow [facility] UA Auto SS Epithelial cells.squamous LM.HPF (Urine sed) [#/Area] 0-2 /HPF Normal 0-2/HPF [facility] UA Aut o SS Glucose Test strip (U) [Mass/Vol] Negative (04/09/23 6:20 PM) Normal Negative [facility] UA Auto SS Hemoglobin Ql (U) Negative (04/09/23 6:20 PM) Normal Negative [facility] UA Auto SS Ketones (U) [Mass/Vol] Negative (04/09/23 6:20 PM) Normal Negative [facility] UA Auto SS [place].plasma/Lithiu m.RBC (Bld) [Mass ratio] 0-3 /HPF Normal 0-3/HPF [facility] UA Auto SS Nitrite Ql (U) Negative (04/09/23 6:20 PM) Normal Negative [facility] UA Auto SS pH (U) 5.5 *NA* (04/09/23 6:20 PM) Invalid Interpretation Code 5.0 - 9.0 [facility] UA Auto SS Protein (U) [Mass/Vol] Negative (04/09/23 6:20 PM) Normal Negative [facility] UA Auto SS Specific gravity (U) [Rel density] <=1.005 *NA* (04/09/23 6:20 PM) Invalid Interpretation Code 1.005 - 1.030 [facility] UA Auto SS UA Spec Desc Clean Catch (04/09/23 6:20 PM) Normal [facility] UA Auto SS Urobilinogen Qn (U) 0.1726800 {Rachel'U}/dL Normal 0.0 - 1.0 EU/dL [facility] UA Auto SS WBC Auto Ql (U) Negative (04/09/23 6:20 PM) Normal Negative [facility] UA Auto SS WBC LM.HPF (Urine sed) [#/Area] 0-5 /HPF Normal 0-5/HPF [facility] UA Auto SS eGFRon 04-09-2023 GFR/1.73 sq M.predicted among non-blacks MDRD (S/P/Bld) [Vol rate/Area] mL/min/{1.73_m2} Normal >=59 [facility] Comment on above: Order Comment: Order added by Discern Expert. 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 Your Care Team Attending Physician - JENNIFER YOU, Riley Quevedo Primary Care Physician - Villa YOU, Roxy This Is Your Medications List buPROPion (Wellbutrin XL 150 mg/24 hours Tab-ER) buPROPion (buPROPion 300 mg/24 hours ER Tab) naproxen (naproxen 500 mg Tab) phentermine (Adipex-P 37.5 mg Tab) sumatriptan (Imitrex 100 mg Tab) tamsulosin (tamsulosin 0.4 mg Cap) tizanidine (tiZANidine 4 mg Tab) topiramate (Trokendi XR 100 mg oral capsule, extended release) Procedures Performed Excision of lesion of skin (03/14/2023), Colonoscopy (04/30/2019), Appendectomy, Cholecystectomy, Exploratory laparotomy, Fracture of hand, History of cervical spine fusion, History of vein surgery. Medications What How Much When Instructions Unchanged buPROPion (buPROPion 300 mg/ 24 hours ER Tab) 1 Tablets By Mouth Every day 1 Unknown, 0 Refill(s) Unchanged buPROPion (Wellbutrin XL 150 mg/ 24 hours Tab-ER) 1 Tablets By Mouth Every day with 300mg tab Unchanged naproxen (naproxen 500 mg Tab) 1 Tablets By Mouth 2 times a day as needed for for pain Unchanged phentermine (Adipex-P 37.5 mg Tab) 1 Tablets By Mouth Every day Unchanged sumatriptan (Imitrex 100 mg Tab) 1 Tablets By Mouth Every day Unchanged tamsulosin (tamsulosin 0.4 mg Cap) 1 Capsules By Mouth Every day 1 Unknown, 0 Refill(s) Unchanged tizanidine (tiZANidine 4 mg Tab) 1 Tablets By Mouth 3 times a day Unchanged topiramate (Trokendi XR 100 mg oral capsule, extended release) 1 Capsules By Mouth Every day Allergies Cinnamon No Known Medication Allergies Problems Ongoing - Any problem that you are currently receiving treatment for. 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 Small bowel obstruction Patient Survey You may receive a survey via text or e-mail asking about your office visit. Please share your experience with us by completing your survey. We appreciate your feedback and thank you for choosing us for your care. Normal [facility] General Surgery Office/Clini c Noteon 03-20-2023 General Surgery Office/Clinic Note Chief Complaint f/u in office excisional biopsy HPI Staff 6 day post operative follow up post in-office excisional biopsy forehead. Denies discomfort, bleeding or drainage. Sutures intact. History of Present Illness 6 days s/p excisional biopsy right forehead nodule; pathology pending. doing well, denies pain or drainage from incision. Review of Systems ROS - Provider Constitutional: no fever, no sweats, no weight loss. Eyes: no glasses, no blurred vision, no visual loss. ENMT: no dentures, no hoarseness, no swallowing difficulties, no hearing loss, no ear infection(s), no nose bleeds. Cardiovascular: normal blood pressure, no chest pain, regular heartbeat, no heart murmur. Respiratory: no shortness of breath, no cough, no asthma, no wheezing. Gastrointestinal: no nausea, no vomiting, no diarrhea, no constipation, no blood in stool, no change in bowel habits, no abdominal pain, no hepatitis. Genitourinary: no kidney stones, no urine infection, no dysuria. Musculoskeletal: no pain, no weakness. Skin: no changing moles, no rash, no skin lumps. Neurologic: no seizures, no epilepsy, no headache. Psychiatric: no emotional or psychiatric problem. Heme/Lymph: no bleeding problems, no anemia, no blood clots, no transfusions. Allergy/Immunologic: no swollen lymph nodes/glands, no IV drug abuse. Other: Additional ROS info: Except as noted in the above Review of Systems and in the History of Present Illness, all other systems have been reviewed and are negative or noncontributory. Physical Exam skin: incision healing well, no erythema or drainage, no ecchymosis. Assessment/Plan 1. 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 Medications Adipex-P 37.5 mg Tab, 37.5 mg= 1 tab(s), Oral, Daily buPROPion 300 mg/24 hours ER Tab, 300 mg= 1 tab(s), Oral, Daily Imitrex 100 mg Tab, 100 mg= 1 tab(s), Oral, Daily naproxen 500 mg Tab, 500 mg= 1 tab(s), Oral, BID, PRN tamsulosin 0.4 mg Cap, 0.4 mg= 1 cap(s), Oral, Daily tiZANidine 4 mg Tab, 4 mg= 1 tab(s), Oral, TID Trokendi XR 100 mg oral capsule, extended release, 100 mg= 1 cap(s), Oral, Daily Wellbutrin XL 150 mg/24 hours Tab-ER, 150 mg= 1 tab(s), Oral, Daily Allergies Cinnamon No Known Medication Allergies Social History Alcohol - Denies Alcohol Use, 04/15/2019 Substance Abuse - Denies Substance Abuse, 04/15/2019 Tobacco Never (less than 100 in lifetime) Tobacco Use:. Never Smokeless Tobacco Use:., 05/07/2019 Family History Family history is negative Immunizations Vaccine Date Status Comments influenza virus vaccine, inactivated - Not Given Patient Refuses influenza, unspecified formulation 01/04/2022 Recorded SARS-CoV-2 (COVID-19) mRNA BNT-162b2 vax 03/24/2021 Recorded SARS-CoV-2 (COVID-19) mRNA-1273 vaccine 07/21/2020 Recorded SARS-CoV-2 (COVID-19) mRNA-1273 vaccine 06/23/2020 Recorded influenza virus vaccine, live, trivalent - Not Given Patient Refuses Normal [facility] Comment on above: Result Comment: Elec tronically Signed By: Riley RODRIGUEZ MD\.br\Date and Time Signed: 03/20/23 16:33 EST Ambulatory Visit Summaryon 1 05-15-2022 Ambulatory Visit Summary VINCE LUCIANO :1980 Visit Date:03/14/2023 Ambulatory Visit Instructions Your Diagnosis 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 Your Care Team Attending Physician - Riley RODRIGUEZ MD Primary Care Physician - Roxy Driver MD This Is Your Medications List Contact prescribing physician if questions or concerns buPROPion (Wellbutrin XL 150 mg/24 hours Tab-ER) buPROPion (buPROPion 300 mg/24 hours ER Tab) naproxen (naproxen 500 mg Tab) phentermine (Adipex-P 37.5 mg Tab) sumatriptan (Imitrex 100 mg Tab) tamsulosin (tamsulosin 0.4 mg Cap) tizanidine (tiZANidine 4 mg Tab) topiramate (Trokendi XR 100 mg oral capsule, extended release) Procedures Performed Colonoscopy (04/30/2019), Appendectomy, Cholecystectomy, Exploratory laparotomy, Fracture of hand, History of cervical spine fusion, History of vein surgery. What to do next Scheduled Follow-Up Appointments Sunday 4:00 PM EST With: Riley RODRIGUEZ MD Where: General Surgery Jennifer/Parker Rincon Normal [facility] General Surgery Office/Clini c Noteon 03-14-2023 General Surgery Office/Clinic Note Chief Complaint in-office excisional biopsy HPI Staff Presents for in-office excisional biopsy forehead. History of Present Illness here for excisional biopsy right forehead lesion; no change since recent evaluation. Review of Systems ROS - Provider Constitutional: no fever, no sweats, no weight loss. Eyes: no glasses, no blurred vision, no visual loss. ENMT: no dentures, no hoarseness, no swallowing difficulties, no hearing loss, no ear infection(s), no nose bleeds. Cardiovascular: normal blood pressure, no chest pain, regular heartbeat, no heart murmur. Respiratory: no shortness of breath, no cough, no asthma, no wheezing. Gastrointestinal: no nausea, no vomiting, no diarrhea, no constipation, no blood in stool, no change in bowel habits, no abdominal pain, no hepatitis. Genitourinary: no kidney stones, no urine infection, no dysuria. Musculoskeletal: no pain, no weakness. Skin: no changing moles, no rash, yes skin lumps. Neurologic: no seizures, no epilepsy, no headache. Psychiatric: no emotional or psychiatric problem. Heme/Lymph: no bleeding problems, no anemia, no blood clots, no transfusions. Allergy/Immunologic: no swollen lymph nodes/glands, no IV drug abuse. Other: Additional ROS info: Except as noted in the above Review of Systems and in the History of Present Illness, all other systems have been reviewed and are negative or noncontributory. Physical Exam skin: 4 mm raised lesion right mid forehead. Procedure patient brought to the procedure room, placed in supine position, area prepped and draped in sterile fashion; anesthetized with 1 % lidocaine; lesion excised in elliptical fashion down to subcutaneous fat; closed with interrupted 5-0 nylon sutures, total length 5 mm; tolerated well; ebl < 3 ml; sterile dressing applied. Assessment/Plan 1. 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 Medications Adipex-P 37.5 mg Tab, 37.5 mg= 1 tab(s), Oral, Daily buPROPion 300 mg/24 hours ER Tab, 300 mg= 1 tab(s), Oral, Daily Imitrex 100 mg Tab, 100 mg= 1 tab(s), Oral, Daily naproxen 500 mg Tab, 500 mg= 1 tab(s), Oral, BID, PRN tamsulosin 0.4 mg Cap, 0.4 mg= 1 cap(s), Oral, Daily tiZANidine 4 mg Tab, 4 mg= 1 tab(s), Oral, TID Trokendi XR 100 mg oral capsule, extended release, 100 mg= 1 cap(s), Oral, Daily Wellbutrin XL 150 mg/24 hours Tab-ER, 150 mg= 1 tab(s), Oral, Daily Allergies Cinnamon No Known Medication Allergies Social History Alcohol - Denies Alcohol Use, 04/15/2019 Substance Abuse - Denies Substance Abuse, 04/15/2019 Tobacco Never (less than 100 in lifetime) Tobacco Use:. Never Smokeless Tobacco Use:., 05/07/2019 Family History Family history is negative Immunizations Vaccine Date Status Comments influenza virus vaccine, inactivated - Not Given Patient Refuses influenza, unspecified formulation 01/04/2022 Recorded SARS-CoV-2 (COVID-19) mRNA BNT-162b2 vax 03/24/2021 Recorded SARS-CoV-2 (COVID-19) mRNA-1273 vaccine 07/21/2020 Recorded SARS-CoV-2 (COVID-19) mRNA-1273 vaccine 06/23/2020 Recorded influenza virus vaccine, live, trivalent - Not Given Patient Refuses [facility] Comment on above: Result Comment: Elec tronically Signed By: JENNIFER YOU, Riley Quevedo\gina\Date and Time Signed: 03/14/23 15:23 EST Office Visiton 03-07-2023 Follow-up visit [id number] [place],Vince 1980 M Date Provider Department Center 03/07/2023 RAFAEL MONTANEZ MP ORTHO MPORTHO Family History Problem Relation Age of Onset Hypertension Mother Family Status - Relation Status Age at Mother Level of Service:67214 MA POSTOP FOLLOW UP VISIT RELATED TO ORIGINAL PX Reason for Visit and Comments: Follow-up [[id number]] [facility] 36on 03-05-2023 36 We will address this when patient comes into office this week. [facility] 36on 03-01-2023 36 Please let me know what you would like to have the patient start on therapy and I will get the new order sent over [facility] 36on 02-27-2023 36 Physical therapist stated that they have occupational therapy available. If the doctor wants it can he resubmit for it. Also referral stated requested treatment was per protocol. If dr has specific protocol can that be faxed as well. Fax number [phone] [facility] [place], [facility] Telephoneon 02-20-2023 Telephone [phone] Vince Lucinao 1980 M Date Provider Department Center 02/20/2023 Carlos Alberto6-MARY WALLACE MP ORTHO MPORTHO Family History Problem Relation Age of Onset Hypertension Mother Family Status - Relation Status Age at Mother [facility] HPon 02-19-2023 HP H&P reviewed. The patient was examined and there are no changes to the H&P. [facility] NURSNOTEon 02-19-2023 NURSNOTE 50ml propofol pulled by francisco Kwan rn and given to SHERRY Cuevas. 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 He had a very comminuted open fracture of the middle phalanx from a crush injury. This was treated with a reduction and pinning. After healed he has a deformity where the ring finger crosses over the small. This was bothersome to him. I thought that a rotational osteotomy was indicated to correct the deformity. He is brought to the operating room today for that purpose. The risks and benefits of the procedure were explained prior to surgery, and with good understanding it is agreed to proceed. Procedure: the patient was brought to the operating room and placed on the table in the supine position. An axillary block had been administered per the anesthesia service in the holding area. A tourniquet is placed around the proximal right arm. He is given preoperative antibiotics and the right upper extremity is prepped and draped out in a sterile fashion. To begin the procedure, after standard timeout, the arm is exsanguinated with an Esmarch bandage and the tourniquet is inflated to 250 mmHg. Using a 15 blade, I made a dorsal longitudinal incision over the middle phalanx. He has a previous scar which we incorporated. Skin flaps were sharply elevated off of the extensor mechanism. Once we have the skin mobilized the extensor was opened up longitudinally in the midline. We retracted both directions to expose the middle phalanx. I selected a plate from the [employer] hand set that fit the best. This is the plate that is designed for rotational deformities. I marked out the level of our contact. 2 mini Hohmann retractors were placed around the middle phalanx to protect the soft tissues and a transverse osteotomy was made with a saw. Bony edges were cleaned up a bit. We positioned our plate by placing a cortical screw in the distal end of first plate in place. We then rotated the finger so is pretty close to where I thought it needed me and put 1 cortical screw transverse sliding proximal. We then brought C-arm in and checked the plate position. I checked the rotation and the finger comes down so that its the distal pole of the scaphoid and when I made a fist passively there is no deformity and perfectly between the long and small fingers. We went back dorsally and filled the remaining holes with locking of cortical screws. Final AP and lateral x-rays were obtained. It looks like 1 screw was long but I cannot feel it volarly with a freer elevator and I do not feel it at all but I passively flex the DIP joint. I elected to leave the screw. Wound was irrigated thoroughly with normal saline solution. The extensor is closed with [id number] sutures of 4-0 Vicryl and the skin with 5-0 Novafil. A sterile dressing of Xeroform gauze, 4 x 4 2 inch Evie and an Mauricio bandage was applied. We wrapped the long and ring fingers together to allow for early protected range of motion. The tourniquet is released and the drapes are removed. His arm is placed into a sling because of the regional block. He is brought to the recovery area in stable condition, having tolerated the procedure well. Estimate Blood Loss: Minimal Total IV Fluids: Per anesthesia record Specimens: No specimens collected Implants: Implants Type Name Action Serial No. 1.2/1.5 TRILOCK ROTATION PLATE Implanted 1.5X7MM CORTICAL SCREW Implanted [id number] COERTICAL SCREW Implanted 1.5X11MM LOCKING SCREW Implanted 1.5X12MM LOCKING SCREW Implanted 1.5X13MM LOCKING SCREW Used, Not Implanted 1.5X 14MM LOCKING SCREW Used, Not Implanted Complications: None Disposition: PACU Condition: stable Rafael Weeks MD Normal [facility] POCT GLUCOSE METER UNSOLICIT ED RESULTSon 02-19-2023 Glucose [Mass/Vol] 85 mg/dL Normal 70-105 [facility] Comment on above: Order Comment: Waive d Testing in the ED is performed under the ED CLIA certificate #[id number]. Result Comment: dhol as Performed By: #### L [id number] ####[facility] ([facility])[address] [place] [address] Facesheeton 02-14-2023 Facesheet [id number]. 00TIFF [facility] Ambulatory Visit Summaryon 04-15-2022 Ambulatory Visit Summary VINCE LUCIANO :1980 Visit Date:02/13/2023 Ambulatory Visit Instructions Your Care Team Attending Physician - Riley RODRIGUEZ MD Primary Care Physician - Roxy Driver MD Referring Physician - Roxy Driver MD This Is Your Medications List Contact prescribing physician if questions or concerns buPROPion (Wellbutrin XL 150 mg/24 hours Tab-ER) buPROPion (buPROPion 300 mg/24 hours ER Tab) naproxen (naproxen 500 mg Tab) phentermine (Adipex-P 37.5 mg Tab) sumatriptan (Imitrex 100 mg Tab) tamsulosin (tamsulosin 0.4 mg Cap) tizanidine (tiZANidine 4 mg Tab) topiramate (Trokendi XR 100 mg oral capsule, extended release) Procedures Performed Colonoscopy (04/30/2019), Appendectomy, Cholecystectomy, Exploratory laparotomy, Fracture of hand, History of cervical spine fusion, History of vein surgery. Discharge Vitals Heart Rate (Peripheral) 70 Respiratory Rate 16 Blood Pressure 124/80 Height 190 cm Height 75 in Weight 105 kg Weight 231 lb BMI 29.09 What to do next Scheduled Follow-Up Appointments Sunday 3:00 PM EST With: Riley RODRIGUEZ MD Where: General Surgery Jennifer/Parker Rincon [facility] Orders Onlyon 02-05-2023 Orders Only [id number] [place] 1980 M Date Provider Department Center 02/05/2023 803-SHANDA THOMAS MP [facility] Family History Problem Relation Age of Onset Hypertension Mother Family Status - Relation Status Age at Mother [facility] Physician Referralon 023 Physician Referral [id number] 0TIFF [facility] Physician Referral [id number] 0TIFF [facility] Follow-Upon 01-30-2023 Follow-Up [id number] Vince Luciano 1980 M Date Provider Department Center 01/30/2023 RAFAEL MONTANEZ MP [facility] Family History Problem Relation Age of Onset Hypertension Mother Family Status - Relation Status Age at Mother Level of Service:43645 MA OFFICE/OUTPATIENT ESTABLISHED LOW MDM 20-29 MIN Reason for Visit and Comments: Follow-up [[id number]] Normal [facility] HPon 01-30-2023 HP Orthopedic Surgery Subjective 05/17/2022 Ring Finger Irrigation and Debridement - Right and Open reduction percutaneous fixation of proximal phalanx, ring finger - Right 01/30/23 Since his last visit patient's been participating in physical therapy and feels his range of motion has not improved. 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 Patient has some decrease sensation both radial and ulnar aspects of the digit. 11/07/22 42-year-old male who presents for follow-up of of right open reduction and pin fixation of ring finger P2. In the interim, patient reports that he has been doing overall well. However, he states that he still lacks the ability to make a complete full fist. 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 Denies any pain. Denies any erythema or drainage from surgical site. No numbness or tingling to the right hand. 08/02/22 42-year-old male presenting today roughly 10 weeks status post surgery as noted above. Patient reports minimal pain to his right hand ring finger. He is able to use his right hand for different activities, although he does say it is slightly weaker. Patient History Past Surgical History: Procedure Laterality Date FINGER FRACTURE SURGERY NECK SURGERY Past Medical History: Diagnosis Date Known health problems: none Objective Exam: - Incision clean, dry, and intact. No drainage or erythema -At rest, in regards to his right hand ring finger, he is able to fully extend his PIP he has good flexion of the PIP joint of about 90 degrees with flexion of the DIP is only 5 to 10 degrees. His passive range of motion is slightly better than his active motion but his cascade is altered as his ring finger deviates laterally and scissors with his small finger. -With active range of motion of his fingers the patient has roughly 1 cm from the tip of his ring finger to his palm. with passive flexion, he is able to reach the tip of his ring finger to his palm. - Sensation grossly intact distally - Brisk capillary refill Assessment/Plan Vince Luciano is a 42 y.o. RHD male s/p Ring Finger Irrigation and Debridement - Right and Open reduction percutaneous fixation of middle phalanx, ring finger - Right (05/17/2022) -C9 for osteotomy of his right ring finger middle phalanx to correct his deformity as a sequelae of his fracture of his right ring finger middle phalanx Mian Long MD Orthopedic Surgery Resident Orthopedic Surgery Pager: [phone] 01/30/23 3:29 PM By using the attestations below, the signing clinician agrees that I have read and verify that the documentation has been personally reviewed by me and ensure that the documentation accurately reflects the encounter. GC: I personally saw this patient on the day of the encounter, performed the vergara portion(s) of the service and participated in the management and confirm the resident's documentation. Please note there may be an additional personal documentation from me. Normal [facility] 36on 12-06-2022 36 Order was put in and is going to be faxed not Normal [facility] Follow-Upon 11-07-2022 Follow-Up [id number] Vince Luciano 1980 M Date Provider Department Center 11/07/2022 RAFAEL MONTANEZ MP ORTHO MPORTHO Family History Problem Relation Age of Onset Hypertension Mother Family Status - Relation Status Age at Mother Level of Service:65853 MA OFFICE/OUTPATIENT ESTABLISHED LOW [facility] 20-29 MIN Reason for Visit and Comments: Follow-up [[id number]] [facility] ED Note-Physicianon 08-21-19 23 ED Note-Physician Basic Information Time Seen: Lul Zapata DO 08/19/2022 14:11 Chief Complaint Pt was helping shovel, felt a pop in his right front rib/abdomen. Hard to breathe. No s/s distess noted. History of Present Illness 42-year-old male to the emergency department chief complaint of right-sided lower rib pain. Patient reports that he was helping shovel felt a click/pop in his right sided lateral ribs. He reports significant pain in the area. He reports it hurts to take a deep breath. Denies any other injuries. He reports he is otherwise healthy. Review of Systems A 10 point review of systems is negative except as noted above. Medical and Surgical History: Reviewed and noted Social history: Lives at home Tobacco: Denies Physical Exam Vitals & Measurements T: 36.6 ?C(Oral) HR: 80(Peripheral) RR: 16 BP: 123/75 SpO2: 98% HT: 190.5 cm WT: 105 kg BMI: 28.93 VITALS: I have reviewed the triage vital signs. GENERAL: Well developed, well appearing adult in no acute distress. NEURO: Alert and oriented. Moves all extremities. Face is symmetric and expressive. EYES: PERRL. No scleral icterus or conjunctival injection. No discharge. HENT: Normocephalic, atraumatic. Hearing is grossly intact. Nares grossly patent and without discharge. Mucous membranes moist. NECK: No JVD. Patient moves neck without restriction. CARDIO: Rhythm regular. Normal rate. No murmur, rub, or gallop. Pulses equal bilaterally in the upper and lower extremity. No lower extremity edema. Mild tenderness to the right lower lateral ribs. PULM: Lungs clear to auscultation in all beltran. No wheezes, rales, or rhonchi. No conversational dyspnea. No splinting, stridor, or accessory muscle use. GI/: Abdomen is soft and non-tender. Normoactive bowel sounds. EXTREMITIES: Symmetric muscle bulk. No joint swelling. No clubbing, cyanosis, or deformity. SKIN: Warm and dry. Normal turgor. No rash or lesions appreciated. PSYCH: Mood, affect, and interaction is appropriate to the setting. Medical Decision Making Well-appearing 42-year-old male to the emergency department chief complaint of right-sided rib pain after feeling a pop while shoveling. Vital stable, the patient is afebrile. CT scan of the chest is ordered to evaluate for rib fracture, pneumothorax. We will also obtain an EKG. Pain medication is ordered for the patient. CT scan is without acute findings. Patient's pain is moderately controlled. Second round of pain control is ordered and the patient did have some relief. Discussed expected course of suspected intercostal muscle strain/costochondritis . Prescription were sent to the patient's pharmacy. Return precautions were discussed. All questions were answered. The patient was discharged home. Assessment/Plan Rib pain (R07.81: Pleurodynia) Ordered: oxycodone, 5 mg = 1 cap(s), Oral, q6hr, PRN Pain 8-10, # 16 cap(s), Refills(s) 0, Pharmacy: [facility]/pharmacy #[id number], 190.5, cm, 08/19/22 14:09:00 EDT, Height/Length Dosing, 105, kg, 08/19/22 14:09:00 EDT, Weight Dosing Orders: acetaminophen, 650 mg = 2 tab(s), Tab, Oral, Once, Stop date 08/19/22 14:19:00 EDT, STAT, Start date 08/19/22 14:19:00 EDT, 08/19/22 14:19:00 EDT cyclobenzaprine, 5 mg = 1 tab(s), Oral, TID, PRN Muscle pain, # 15 tab(s), Refills(s) 0, Pharmacy: [facility]/pharmacy #[id number], 190.5, cm, 08/19/22 14:09:00 EDT, Height/Length Dosing, 105, kg, 08/19/22 14:09:00 EDT, Weight Dosing ibuprofen, 600 mg = 1 tab(s), Tab, Oral, Once, Stop date 08/19/22 14:18:00 EDT, STAT, Start date 08/19/22 14:18:00 EDT, 08/19/22 14:18:00 EDT ketorolac, 30 mg = 1 mL, Injection, IntraMuscular, Once, Stop date 08/19/22 15:33:00 EDT, STAT, Start date 08/19/22 15:33:00 EDT, 08/19/22 15:33:00 EDT lidocaine topical, 1 patch(es), Patch, TransDermal, Once, Stop date 08/19/22 15:34:00 EDT, STAT, Start date 08/19/22 15:34:00 EDT lidocaine topical, 1 patch(es), Topical, Daily Pain, 7 pad(s), Refill(s) 0, apply 12 hours on and 12 hours off daily, [facility]/pharmacy #[id number], 190.5, cm, 08/19/22 14:09:00 EDT, Height/Length Dosing, 105, kg, 08/19/22 14:09:00 EDT, Weight Dosing morphine, 2 mg = 1 mL, Injection, IntraMuscular, Once, Stop date 08/19/22 15:33:00 EDT, STAT, Start date 08/19/22 15:33:00 EDT, 08/19/22 15:33:00 EDT naproxen, 500 mg = 1 tab(s), Oral, BID, PRN for pain, # 20 tab(s), Refills(s) 0, Pharmacy: [facility]/pharmacy #[id number], 190.5, cm, 08/19/22 14:09:00 EDT, Height/Length Dosing, 105, kg, 08/19/22 14:09:00 EDT, Weight Dosing oxycodone, 10 mg = 2 tab(s), Tab, Oral, Once, Stop date 08/19/22 14:18:00 EDT, STAT, Start date 08/19/22 14:18:00 EDT, 08/19/22 14:18:[address] Chest w/o Contrast ECG 12 Lead Adult Medications Administered Given ketorolac 30 mg/mL Inj 1 mL, 30 mg, IntraMuscular Lidoderm 5% Patch, 1 patch(es), TransDermal morphine 2 mg/mL Inj, 2 mg, IntraMuscular oxyCODONE 5 mg Tab, 10 mg, Oral Tylenol 325 mg Tab, 650 mg, Oral Disposition Plan Patient Discharge Condition Stable Discharge Disposition Home Discharge Prescription (more content not included)... [facility] Comment on above: Result Comment: Elec tronically Signed By: Lul Zapata DO\.br\Date and Time Signed: 08/20/22 07:[address] Chest w/o Contraston 05-2 CT Chest w/o Contrast Exam Date/Time: 08/19/2022 14:42 EDT Reason for Exam: pain, trauma, right lowe ribs;Other (please specify) Report IMPRESSION: No acute osseous findings or other acute process in the thorax. EXAMINATION: CT Chest w/o Contrast HISTORY: [place] popping sensation while shoveling. Difficulty breathing. TECHNIQUE: Spiral CT acquisition of the chest from the thoracic inlet to the upper abdomen. Dedicated sagittal and coronal reconstructions. Contrast: None. All CT scans at this facility use dose modulation, iterative reconstruction, and/or weight based dosing when appropriate to reduce radiation dose to as low as reasonably achievable. COMPARISON: None. RESULT: Lung parenchyma and pleura: Central airways grossly patent. No focal consolidation. No pleural effusion. No pneumothorax. Dependent atelectasis. Thoracic inlet, heart, and mediastinum: Visualized thyroid unremarkable. No axillary, mediastinal, or hilar lymphadenopathy. Normal thoracic aorta. Normal pulmonary artery size. Normal heart size. No coronary artery calcifications. No pericardial effusion or thickening. Esophagus nondilated. Bones: No acute osseous findings. No destructive osseous lesions. No evidence for acute displaced rib fracture. Partially imaged postsurgical changes within the cervical spine. Soft tissues: Unremarkable. Upper abdomen: No acute abnormality in the imaged upper abdomen. Cholecystectomy. Ordering Provider: Lul Zapata FINAL REPORT Dictated: 08/19/2022 2:48 pm Oscar Salinas MD Signed (Electronic Signature): 08/19/2022 2:48 pm Signed by: Oscar Salinas MD Transcribed by: RASHID Technologist: CORY [facility] Consent for Treatmenton 08-01 Consent for Treatment [id number] 0CD:127 [facility] Discharge Instructionson Discharge Instructions [id number]. [id number]:127 [facility] ED Clinical Summaryon 2022 ED Clinical Summary [place] [id number] ED Clinical Summary Person Information Name: VINCE LUCIANO/[facility] Age: 42 Years : 1980 Sex: Male Language: Kittitian PCP: Roxy Driver MD Marital Status: Phone: [phone] Visit Id: Visit Reason: Rib/trunk pain-swelling; BACK PAIN Speciality: Acuity: 4 Enc Type: Emergency Med Service: Emergency Arrival: 08/19/2022 14:00:20 Discharge: 08/19/2022 16:14:37 LOS: 000 02:14 Checkin: 08/19/2022 14:00:20 Checkout: 08/19/2022 16:14:37 Dispo Type: Home (Routine DC) EVENTS: Event Name Event Status Request Date/Time Start Date/Time Complete Date/Time Arrive Complete 08/19/2022 14:00:20 08/19/2022 14:00:20 08/19/2022 14:00:20 Document Home Meds Request 08/19/2022 14:00:20 Triage Complete 08/19/2022 14:00:20 08/19/2022 14:09:37 08/19/2022 14:09:37 Bed Assign Complete 08/19/2022 14:02:40 08/19/2022 14:02:40 08/19/2022 14:02:40 Dr Exam Complete 08/19/2022 14:02:40 08/19/2022 14:11:41 08/19/2022 14:11:41 RN Exam Complete 08/19/2022 14:02:40 08/19/2022 14:10:43 08/19/2022 14:10:43 Registration Complete 08/19/2022 14:11:41 08/19/2022 14:58:32 08/19/2022 14:58:32 CT Complete 08/19/2022 14:15:14 08/19/2022 14:30:44 08/19/2022 14:42:40 EKG Complete 08/19/2022 14:15:14 08/19/2022 14:33:02 Meds Admin Complete 08/19/2022 14:19:01 08/19/2022 14:26:55 Meds Admin Complete 08/19/2022 14:19:22 08/19/2022 14:25:36 Reg Complete Request 08/19/2022 14:58:32 Discharge Complete 08/19/2022 15:29:52 08/19/2022 16:14:43 08/19/2022 16:14:43 Meds Admin Complete 08/19/2022 15:34:32 08/19/2022 15:59:53 Transfer Complete 08/19/2022 16:14:43 08/19/2022 16:14:43 08/19/2022 16:14:43 ADDRESS: [address] [place] [phone] PHYS DOC NOTES: MEDICAL INFORMATION: Prescriptions Given: New Medications [facility]/pharmacy #[id number], [address] [place], [place] [phone], [phone] cyclobenzaprine (cyclobenzaprine 5 mg Tab) 1 Tablets By Mouth 3 times a day as needed Muscle pain. Refills: 0. lidocaine topical (Lidoderm 5% Patch) 1 Patches Topical every day as needed Pain. apply 12 hours on and 12 hours off daily. Refills: 0. naproxen (naproxen 500 mg Tab) 1 Tablets By Mouth 2 times a day as needed for pain. Refills: 0. oxycodone (oxyCODONE 5 mg Cap) 1 Capsules By Mouth every 6 hours as needed Pain 8-10. Refills: 0. Medications to Continue with No Changes Other Medications cetirizine (cetirizine 10 mg oral capsule) 1 Capsules By Mouth every day as needed for allergy symptoms. desvenlafaxine (Pristiq 100 mg Tab-ER) 1 Tablets By Mouth every day. topiramate (Trokendi XR 100 mg oral capsule, extended release) 1 Capsules By Mouth every day. PATIENT EDUCATION INFORMATION: Instructions: Rib Contusion Follow up: With: Address: When: Roxy Driver [address] [place] [address], [address] [place] [id number] Flutter (1) In 3 days 08/22/2022 Comments: Call the office of your primary care doctor to arrange for follow-up within the above-stated timeframe. Follow-up with your primary care doctor about this ED visit. You should review your labs, imaging, and diagnoses from this ED visit with your primary care physician. There are occasionally non-emergent findings that require additional follow-up after your ED visit. If you were prescribed medications you should discuss possible side-effects and drug interactions with your pharmacist. Call 911 or go to the nearest Emergency Department if you develop any new or worsening symptoms. Seek immediate medical attention if you develop: worsening chest pain, new chest pain, nausea, vomiting, weakness, numbness, tingling, excessive sweating, shortness of breath, difficulty breathing, loss of motion in your arms or legs, or any new or worsening symptoms. DIAGNOSIS: Rib pain Normal [facility] ED Patient Education Noteon 08-19-2022 ED Patient Education Note Orthopedics Rib Contusion A rib contusion is a deep bruise on the rib area. Contusions are the result of a blunt trauma that causes bleeding and injury to the tissues under the skin. A rib contusion may involve bruising of the ribs and of the skin and muscles in the area. The skin over the contusion may turn blue, purple, or yellow. Minor injuries result in a painless contusion. More severe contusions may be painful and swollen for a few weeks. What are the causes? This condition is usually caused by a hard, direct hit to an area of the body. This often occurs while playing contact sports. What are the signs or symptoms? Symptoms of this condition include: ? Swelling and redness of the injured area. ? Discoloration of the injured area. ? Tenderness and soreness of the injured area. ? Pain with or without movement. ? Pain when breathing in. How is this diagnosed? This condition may be diagnosed based on: ? Your symptoms and medical history. ? A physical exam. ? Imaging tests?such as an X-ray, CT scan, or MRI?to determine if there were internal injuries or broken bones (fractures). How is this treated? This condition may be treated with: ? Rest. This is often the best treatment for a rib contusion. ? Ice packs. This reduces swelling and inflammation. ? Deep-breathing exercises. These may be recommended to reduce the risk for lung collapse and pneumonia. ? Medicines. Yrzk-hpa-gmdyria or prescription medicines may be given to control pain. ? Injection of a numbing medicine around the nerve near your injury (nerve block). Follow these instructions at home: Medicines ? Take fius-tnk-ywvzlfv and prescription medicines only as told by your health care provider. ? Ask your health care provider if the medicine prescribed to you: ? Requires you to avoid driving or using machinery. ? Can cause constipation. You may need to take these actions to prevent or treat constipation: ? Drink enough fluid to keep your urine pale yellow. ? Take nzlz-qur-cdcozkf or prescription medicines. ? Eat foods that are high in fiber, such as beans, whole grains, and fresh fruits and vegetables. ? Limit foods that are high in fat and processed sugars, such as fried or sweet foods. Managing pain, stiffness, and swelling If directed, put ice on the injured area. To do this: ? Put ice in a plastic bag. ? Place a towel between your skin and the bag. ? Leave the ice on for 20 minutes, 2?3 times a day. ? Remove the ice if your skin turns bright red. This is very important. If you cannot feel pain, heat, or cold, you have a greater risk of damage to the area. Activity ? Rest the injured area. ? Avoid strenuous activity and any activities or movements that cause pain. Be careful during activities, and avoid bumping the injured area. ? Do not lift anything that is heavier than 5 lb (2.3 kg), or the limit that you are told, until your health care provider says that it is safe. General instructions ? Do not use any products that contain nicotine or tobacco, such as cigarettes, e-cigarettes, and chewing tobacco. These can delay healing. If you need help quitting, ask your health care provider. ? Do deep-breathing exercises as told by your health care provider. ? If you were given an incentive spirometer, use it every 1?2 hours while you are awake, or as recommended by your health care provider. This device measures how well you are filling your lungs with each breath. ? Keep all follow-up visits. This is important. Contact a health care provider if you have: ? Increased bruising or swelling. ? Pain that is not controlled with treatment. ? A fever. Get help right away if you: ? Have difficulty breathing or shortness of breath. ? Develop a continual cough, or you cough up thick or bloody mucus from your lungs (sputum). ? Feel nauseous or you vomit. ? Have pain in your abdomen. These symptoms may represent a serious problem that is an emergency. Do not wait to see if the symptoms will go away. Get medical help right away. Call your local emergency services (911 in the [place] Do not drive yourself to the hospital. Summary ? A rib contusion is a deep bruise on your rib area. Contusions are the result of a blunt trauma that causes bleeding and injury to the tissues under the skin. ? The skin over the contusion may turn blue, purple, or yellow. Minor injuries may cause a painless contusion. More severe contusions may be painful and swollen for a few weeks. ? Rest the injured area. Avoid strenuous activity and any activities or movements that cause pain. This information is not intended to replace advice given to you by your health care provider. Make sure you discuss any questions you have with your health care provider. Document Revised: 06/23/2020 Document Reviewed: 06/23/2020 Elsevier Patient Education ? 2022 [employer] Normal [facility] ED Patient Summaryon 023 ED Patient Summary [place] [id number] Patient Discharge Instructions Person Information Name: VINCE LUCIANO Age: 42 Years Arrival Date: 08/19/2022 14:00:20 Discharge Diagnosis: Rib pain Primary Care Physician: Roxy Driver MD Provider Information Primary Provider: Lul Zapata DO Advanced Supervisor Poultry Processing:None The exam and treatment you received in the Emergency Department were for an urgent problem and are not intended as complete care. It is important that you follow up with a doctor, nurse practitioner, or physician?s assistant plant control operator for ongoing care. If your symptoms become worse or you do not improve as expected and you are unable to reach your usual health care provider, you should return to the Emergency Department. We are available 24 hours a day. MUSTAPHA VINCE Clifton has been given the following list of patient education materials, prescriptions and follow-up instructions: Follow-up Instructions: With: Address: When: Roxy Driver [facility] [place] [id number] Business (1) In 3 days 08/22/2022 Comments: Call the office of your primary care doctor to arrange for follow-up within the above-stated timeframe. Follow-up with your primary care doctor about this ED visit. You should review your labs, imaging, and diagnoses from this ED visit with your primary care physician. There are occasionally non-emergent findings that require additional follow-up after your ED visit. If you were prescribed medications you should discuss possible side-effects and drug interactions with your pharmacist. Call 911 or go to the nearest Emergency Department if you develop any new or worsening symptoms. Seek immediate medical attention if you develop: worsening chest pain, new chest pain, nausea, vomiting, weakness, numbness, tingling, excessive sweating, shortness of breath, difficulty breathing, loss of motion in your arms or legs, or any new or worsening symptoms. In the event that this physician does not participate in your insurance network, please consult with your insurance company to find a nearby participating provider. Patient Education Materials: Rib Contusion A MESSAGE TO ALL PATIENTS REGARDING OPIOIDS PRESCRIPTION OPIOIDS: WHAT YOU NEED TO KNOW Prescription opioids can be used to help relieve wnamoygq-uz-lozmej pain and are often prescribed following a surgery or injury, or for certain health conditions. These medications can be an important part of the treatment but also come with serious risks. It is important to work with your healthcare provider to make sure you are getting the safest, most effective care. WHAT ARE THE RISKS AND SIDE EFFECTS OF OPIOID USE? Prescription opioids carry serious risks of addiction and overdose, especially with prolonged use. An opioid overdose, often marked by slowed breathing, can cause sudden . The use of prescription opioids can have a number of side effects as well, even when taken as directed: ? Tolerance?meaning you might need to take more of the medication for the same pain relief ? Physical dependence?meaning you have symptoms of withdrawal when a medication is stopped ? Increased sensitivity to pain ? Constipation ? Nausea, vomiting, and dry mouth ? Sleepiness and dizziness ? Confusion ? Depression ? Low levels of testosterone that can result in lower sex drive, energy, and strength ? Itching and sweating RISKS ARE GREATER WITH: ? History of drug misuse, substance use disorder, or overdose ? Mental health conditions (such as depression or anxiety) ? Sleep apnea ? Older age (65 years and older) ? Avoid alcohol while taking prescription opioids. Also, unless specifically advised by your health care provider, medications to avoid include: ? Benzodiazepines (such as Xanax or Valium) ? Muscle relaxants (such as Soma or Flexeril) ? Hypnotics (such as Ambien or Lunesta) ? Other prescription opioids KNOW YOUR OPTIONS Talk to your health care provider about ways to manage your pain that don?t involve prescription opioids. Some of these options may actually work better and have fewer risks and side effects. Options may include: ? Pain relievers such as acetaminophen, ibuprofen, and naproxen ? Some medication that are also used for depression or seizures ? Physical therapy and exercise ? Cognitive behavioral therapy, a psychological, goal-directed approach, in which patients learn how to modify physical, behavioral, and emotional triggers of pain and stress. IF YOU ARE PRESCRIBED OPIOIDS FOR PAIN: ? Never take opioids in greater amounts or more often than prescribed. ? Follow up with your primary health care provider. o Work together to create a plan on how to manage your pain. o Talk about ways to help manage your pain that don?t involve prescription opioids. o Talk about any (more content not included)... Normal [facility] Follow-Upon 08-02-2022 Follow-Up [id number] Vince Luciano 1980 M Date Provider Department Center 08/02/2022 RAFAEL MONTANEZ MP ORTHO MPORTHO Family History Problem Relation Age of Onset Hypertension Mother Family Status - Relation Status Age at Mother Level of Service:20642 [place] OFFICE/OUTPATIENT ESTABLISHED LOW MDM 20-29 MIN (GC) Reason for Visit and Comments: Follow-up [684122] Normal [facility] US KIDNEYS BLADDERon 07-25- 023 US KIDNEYS BLADDER EXAMINATION: US KIDNEYS BLADDER HISTORY: Structure of wall of urinary bladder COMPARISON: CT abdomen pelvis 07/15/2022 TECHNIQUE: Ultrasound examination was performed of the kidneys and urinary bladder. FINDINGS: RIGHT KIDNEY: No evidence of pelvocaliectasis, mass, or calculi. Normal renal cortical parenchymal echogenicity. Color Doppler demonstrates blood flow within the kidney. Kidney: 10.9 x 6.4 x 6.7 cm LEFT KIDNEY: No evidence of pelvocaliectasis, mass, or calculi. Normal renal cortical parenchymal echogenicity. Color Doppler demonstrates blood flow within the kidney. Kidney: 11.2 x 6.4 x 6.1 cm BLADDER: No visible wall thickening, mass, or calculi. Post void residual: 17 mL URETERAL JETS: Visualized bilaterally. IMPRESSION: 1. Normal ultrasound appearance of the kidneys. 2. Normal ultrasound appearance of the urinary bladder. 3. Small amount of residual urine following voiding, 17 mL. Electronically authenticated by: IAN ROMAN Date: 2022-07-25 17:41 Normal [facility] CT ABD/PELV W CONon 07-16-[address] ABD/PELV W CON EXAM: CT scan of the abdomen and pelvis using 100 mL of IV iodinated contrast. Oral contrast. Dose reduction technique used: Automated exposure control and/or adjustment of the mA and/or kV according to patient size and/or use of iterative reconstruction technique. REASON FOR EXAM: Left lower quadrant pain COMPARISON: None FINDINGS: Cholecystectomy. Diffuse bladder wall thickening. Negative appendix. No free intraperitoneal air. No free fluid in the abdomen or pelvis. No dilated or thickened loops of small bowel or colon. No hydronephrosis or obstructing renal or ureteral calculi. Liver, pancreas, spleen, bilateral kidneys, and bilateral adrenal glands are otherwise unremarkable. No lymphadenopathy in the abdomen or pelvis. Remainder unremarkable. IMPRESSION: 1. Bladder wall thickening may represent chronic outlet obstruction versus cystitis, correlate clinically. 2. Otherwise, no acute abnormalities in the abdomen or pelvis. Electronically authenticated by: LISETH MUNROE Date: 2022-07-15 08:54 Normal [facility] XR ABD FLAT UP_PA [place] 06-20 XR ABD FLAT UP_PA CH EXAMINATION: XR ABD FLAT UP_PA CH HISTORY: Left lower quadrant pain COMPARISON: XR chest 03/28/2019 FINDINGS: LUNGS: No infiltrate, pneumothorax, or pleural effusion. MEDIASTINUM: No abnormal widening. BOWEL GAS PATTERN: Non-obstructed. FREE AIR: None. CALCIFICATIONS: Left pelvic calcifications favoring phleboliths. BONES: No fracture or visible bone lesion. OTHER: Right upper quadrant surgical clips from cholecystectomy. Bilateral inguinal surgical clips suggesting hernia repairs. IMPRESSION: 1. No acute cardiopulmonary process. 2. Normal bowel gas pattern. No suspicious abdominal findings. Electronically authenticated by: IAN ROMAN Date: 2022-06-20 10:28 Normal [facility] CERVICAL SP AP&LT OR 2-3 VWS on 06-02-2020 CERVICAL SP AP&LT OR 2-3 VWS STUDY: CERVICAL SP AP LT OR 2-3 VWS; 06/02/2020 9:49 am INDICATION: PAIN. COMPARISON: 05/12/2020 ACCESSION NUMBER(S): [id number] ORDERING CLINICIAN: Kalyan Torres FINDINGS: Anterior metallic fusion hardware with metallic interbody grafts extending from C5-C7 appear unchanged. No new fracture, subluxation, or disc height loss. IMPRESSION: Unchanged postoperative appearance of the cervical spine. Normal [facility] CERVICAL SP AP&LT OR 2-3 VWS on 05-12-2020 CERVICAL SP AP&LT OR 2-3 VWS STUDY: CERVICAL SP AP LT OR 2-3 VWS; 05/12/2020 10:14 am INDICATION: PAIN. COMPARISON: 04/14/2020 ACCESSION NUMBER(S): [id number] ORDERING CLINICIAN: Kalyan Torres FINDINGS: Anterior metallic fusion hardware with interbody grafts extending from C5-C7 appear unchanged. No new fracture, subluxation, or disc height loss. IMPRESSION: Unchanged postoperative appearance of the cervical spine. Normal [facility] CERVICAL SP AP&LT OR 2-3 VWS on 04-14-2020 CERVICAL SP AP&LT OR 2-3 VWS STUDY: CERVICAL SP AP LT OR 2-3 VWS; 04/14/2020 10:33 am INDICATION: PAIN. COMPARISON: 01/13/2020 ACCESSION NUMBER(S): [id number] ORDERING CLINICIAN: Kalyan Torres FINDINGS: Interval placement of anterior metallic fusion hardware with metallic interbody grafts from C5-C7. No new fracture, subluxation, or disc height loss otherwise seen. No spondylolisthesis. Slight reversal the cervical lordosis. Mild prevertebral soft tissue swelling. IMPRESSION: Interval anterior fusion C5-C7. Mild postoperative prevertebral soft tissue swelling. Normal [facility] Anesthesia Noteon 04-02-2020 Anesthesia Note [facility] Patient: VINCE LUCIANO [address] [place] [address] MR#: [id number] ANESTHESIA NOTE : Service Date: 04/02/20921 Post-anesthesia Note Note Patient assessed post operatively for the following: [x ] Respiratory function, including respiratory rate, airway patency and oxygen saturation [x ] Cardiovascular function, including pulse rate and blood pressure [x ] Mental status [x ] Temperature [x ] Pain [x ] Nausea and vomiting [x ] Postoperative hydration [x ] No Visual Changes Due to the following condition(s) additional monitoring may be necessary: [ ] [x ] No apparent anesthesia complications noted. [ ] Status as per pre-op Electronically Signed eSign Date and Time Richard Mayfield 04/02/20922 Ian Giordano MD Normal [facility] BASIC MET PANELon 04-02-2020 Anion gap [Moles/Vol] 11 mmol/L Normal 6-18 [facility] Comment on above: Order Comment: CBN: [place]: MAIN Performed By: #### L 500.95712, L500.85663 ####Test performed at: [place] [address] Calcium [Mass/Vol] 9.0 mg/dL Normal 8.5-10.1 [facility] Comment on above: Order Comment: CBN: [facility]: MAIN Performed By: #### L 500.99940, L500.97144 ####Test performed at: [place] [address] Chloride [Moles/Vol] 108 mmol/L High 98-107 [facility] Comment on above: Order Comment: CBN: [place]: MAIN Performed By: #### L 500.99301, L500.54252 ####Test performed at: [address] [address] CO2 [Moles/Vol] 24 mmol/L Normal 21-32 [facility] Comment on above: Order Comment: CBN: [place]: MAIN Performed By: #### L 500.48515, L500.02370 ####Test performed at: [address] [address] Creatinine [Mass/Vol] 0.934 mg/dL Normal 0.700-1.300 [facility] Comment on above: Order Comment: CBN: [place]: MAIN Performed By: #### L 500.72772, L500.04156 ####Test performed at: [address] [address] Glucose [Mass/Vol] 121 mg/dL High 70-99 [facility] Comment on above: Order Comment: CBN: [facility]: MAIN Result Comment: Fast ing GLUCOSE reference range has been updated per (ADA) [place] [employer]'s recommendation. 06/25/2018 Performed By: #### L 500.17668, L500.53877 ####Test performed at: [address] [address] OSM 289 mosm/kg Normal 270-300 [facility] Comment on above: Order Comment: CBN: [place]: MAIN Performed By: #### L 500.28646, L500.18454 ####Test performed at: [address] [address] Potassium [Moles/Vol] 4.2 mmol/L Normal 3.5-5.1 [facility] Comment on above: Order Comment: CBN: [facility]: MAIN Performed By: #### L 500.63389, L500.79089 ####Test performed at: [address] [address] Sodium [Moles/Vol] 139 mmol/L Normal 136-145 [facility] Comment on above: Order Comment: CBN: [place]: MAIN Performed By: #### L 500.72985, L500.20736 ####Test performed at: [address] [address] Urea nitrogen [Mass/Vol] 11 mg/dL Normal 7-18 [facility] Comment on above: Order Comment: CBN: [facility]: MAIN Performed By: #### L 500.48969, L500.00188 ####Test performed at: [address] [address] CBC W/DIFFon 04-02-2020 BASO ABS 0.0 K/uL Normal 0.0-0.2 [facility] Comment on above: Order Comment: CBN: [facility]: MAIN Performed By: #### L 200.52286 ####Test performed at: [address] [address] Basophils/100 WBC (Bld) 0.1 % Normal [facility] Comment on above: Order Comment: CBN: [facility]: MAIN Performed By: #### L 200.39383 ####Test performed at: [address] [address] EOS ABS 0.0 K/uL Normal 0.0-0.5 [facility] Comment on above: Order Comment: CBN: [facility]: MAIN Performed By: #### L 200.35996 ####Test performed at: [address] [address] Eosinophils/100 WBC (Bld) 0.0 % Normal [facility] Comment on above: Order Comment: CBN: [facility]: MAIN Performed By: #### L 200.96850 ####Test performed at: [address] [address] Erythrocyte distribution width (RBC) [Ratio] 11.7 % Normal 11.5-14.5 [facility] Comment on above: Order Comment: CBN: [facility]: MAIN Performed By: #### L 200.81144 ####Test performed at: [place] [address] Hematocrit (Bld) [Volume fraction] 42.8 % Normal 39.0-55.0 [facility] Comment on above: Order Comment: CBN: [facility]: MAIN Performed By: #### L 200.41874 ####Test performed at: [place] [address] Hemoglobin (Bld) [Mass/Vol] 14.7 g/dL Normal 14.0-16.5 [facility] Comment on above: Order Comment: CBN: [facility]: MAIN Performed By: #### L 200.97493 ####Test performed at: [place] [address] IG % 0.3 % Normal [facility] Comment on above: Order Comment: CBN: [facility]: MAIN Performed By: #### L 200.05396 ####Test performed at: [place] [address] IG ABS 0.03 K/uL Normal 0-0.05 [facility] Comment on above: Order Comment: CBN: [facility]: MAIN Performed By: #### L 200.92489 ####Test performed at: [place] [address] Lymphocytes (Bld) [#/Vol] 0.7 10*3/uL Low 1.2-3.5 [facility] Comment on above: Order Comment: CBN: [facility]: MAIN Performed By: #### L 200.26275 ####Test performed at: [address] [address] Lymphocytes/100 WBC (Bld) 7.2 % Normal [facility] Comment on above: Order Comment: CBN: [place]: MAIN Performed By: #### L 200.08852 ####Test performed at: [address] [address] MCH (RBC) [Entitic mass] 31.8 pg Normal 25.4-34.6 [facility] Comment on above: Order Comment: CBN: [place]: MAIN Performed By: #### L 200.29045 ####Test performed at: [address] [address] MCHC (RBC) [Mass/Vol] 34.3 g/dL Normal 31.5-36.5 [facility] Comment on above: Order Comment: CBN: [place]: MAIN Performed By: #### L 200.33470 ####Test performed at: [address] [address] MCV (RBC) [Entitic vol] 92.6 fL Normal 80.0-100.0 [facility] Comment on above: Order Comment: CBN: [place]: MAIN Performed By: #### L 200.22452 ####Test performed at: [address] [address] MONO ABS 0.4 K/uL Normal 0.0-1.0 [facility] Comment on above: Order Comment: CBN: [facility]: MAIN Performed By: #### L 200.43986 ####Test performed at: [address] [address] Monocytes/100 WBC (Bld) 4.3 % Normal [facility] Comment on above: Order Comment: CBN: [place]: MAIN Performed By: #### L 200.88790 ####Test performed at: [address] [address] NEUTROPHIL ABS 8.1 K/uL High 1.4-6.6 [facility] Comment on above: Order Comment: CBN: [place]: MAIN Performed By: #### L 200.26152 ####Test performed at: [address] [address] Neutrophils/100 WBC (Bld) 88.1 % Normal [facility] Comment on above: Order Comment: CBN: [facility]: MAIN Performed By: #### L 200.03536 ####Test performed at: [place] [address] NRBC # 0.000 K/uL Normal 0-0.012 [facility] Comment on above: Order Comment: CBN: [facility]: MAIN Performed By: #### L 200.69859 ####Test performed at: [address] [address] NRBC % 0.0 /100 WBC Normal 0-0.2 [facility] Comment on above: Order Comment: CBN: [place]: MAIN Performed By: #### L 200.80639 ####Test performed at: [address] [address] Platelet mean volume (Bld) [Entitic vol] 11.3 fL Normal 8.7-12.4 [facility] Comment on above: Order Comment: CBN: [facility]: MAIN Performed By: #### L 200.13691 ####Test performed at: [address] [address] Platelets (Bld) [#/Vol] 209 10*3/uL Normal 140-440 [facility] Comment on above: Order Comment: CBN: [facility]: MAIN Performed By: #### L 200.50343 ####Test performed at: [address] [address] RBC (Bld) [#/Vol] 4.62 10*6/uL Normal 3.5-5.5 [facility] Comment on above: Order Comment: CBN: [place]: MAIN Performed By: #### L 200.91829 ####Test performed at: [address] [address] WBC (Bld) [#/Vol] 9.2 10*3/uL Normal 3.9-11.0 [facility] Comment on above: Order Comment: CBN: [place]: MAIN Performed By: #### L 200.99345 ####Test performed at: [place] [address] GFR ESTIMATEon 04-02-2020 IF AMER > 60 Normal > 60 [facility] Comment on above: Order Comment: CBN: [place]: MAIN Result Comment: eGFR (Estimated GFR) Units of measure:mL/min/1.73 meters sq. *CALCULATION REVISED 01/19/2015;IDMS-traceable MDRD equation eGFR is derived from the reexpressed MDRD Study equation using the following parameters: serum creatinine, age, gender and race. An eGFR<60 mL/min/1.73m2 for >3 months is consistent with chronic kidney disease. Refer to KDOQI guidelines for clinical interpretation. Performed By: #### L 500.78196, L500.39381 ####Test performed at: [place] [address] IF non-AFR AMER > 60 Normal > 60 [facility] Comment on above: Order Comment: CBN: [place]: MAIN Performed By: #### L 500.09839, L500.69994 ####Test performed at: [place] [address] Internal Med Progress Noteon 04-02-2020 Internal Med Progress Note [facility] Patient: VINCE LUCIANO [address] [place] [address] [id number] [id number] PROGRESS NOTE - Internal Medicine : 79 Service Date: 04/02/20 0657 Subjective Primary Resident: Heather Mack After Hours Call: [phone] Red Team Summary of Stay 39 yr old gentleman POD1 C5,6 and C6,C7 with PMHx of Depression, chronic neck pain, and acne. Patient is seen and examined this morning. He is ambulating and using the incentive spirometry, with 5/5 motor power upper extremities no numbness. He denies chest pain, dyspnea, and pain is 5-6/10. Events since last encounter uneventful Subjective Patient is seen and examined this morning. He is doing very well. His pain is less, and he inquired about possibility of discharge. General Denies Chills, Denies Night sweats, Denies Fatigue, Denies Malaise HEENT Denies Head Aches, Denies Visual Changes, Denies Ear Pain, Denies Dysphasia, Denies Sinus Congestion, Denies Post Nasal Drip, Denies Sore Throat Pulmonary Denies Dyspnea, Denies Cough, Denies Pleuritic Chest Pain Cardiovascular Denies Chest Pain, Denies Palpitations, Denies Orthnopnea, Denies Paroxysmal Noc. Dyspnea, Denies Edema, Denies Lt Headedness Gastrointestinal Denies Nausea, Denies Vomiting, Denies Abdominal Pain, Denies Diarrhea, Denies Constipation Genitourinary Denies Dysuria, Denies Frequency, Denies Incontinence, Denies Hematuria Musculoskeletal Neck Pain, Denies Back Pain, Denies Hand Pain, Denies Leg Pain Neurological Denies Weakness, Denies Numbness, Denies Incoordination, Denies Change in Speech, Denies Confusion, Denies Seizures Objective Exam Vitals and I/O Vital Signs Verdana 4d Result Date Time Pulse Ox 94 04/02 08 B/P 121/71 04/02 08 O2 Delivery ROOM AIR 04/02 804 Temp 36.6 04/02 804 Pulse 84 04/02 08 Resp 20 04/02 08 Intake AND Output Verdana 4d 04/02 2300 04/01 2300 Intake Total 1480 480 Output Total 3 1630 Balance 1477 -1150 Intake, IV 650 Intake, Oral 830 480 Number 0 owel ovements Output, 30 rainage put, Urine 3 1600 atient 118 kg eight Weight PREADMISSION TESTING WGT easurement ethod General Appearance Alert, Oriented X3, Cooperative, No Acute Distress HEENT Atraumatic, PERRLA, EOMI, Mucous Membr. 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 Plan: Incentive spirometry Ambulation and PT Pain control; no longer requiring #Depression Pristiq 100 mg PO OD (still unavailable) Topamax 100mg PO OD Plan: resume #OA, chronic neck pain prn lioresal #Hx Acne Doxycycline prn #DVT prophylaxis PCDs Ambulation #Disposition Likely discharge today Will follow up on labs this morning and will reconvene with surgery Be sure to note changes Be sure to note changes DVT Prophylaxis PCDs *Attending Attestation Attending Attestation Attending Attestation All pertinent elements of history and physical exam were confirmed by me. Agree with above documentation. The [resident's, PA's, OCC THERAPY ASST's] assessment and plan reflect my input. Discussed with documenting provider and patient. Plan is as outlined above. [address]. Electronically Signed eSign Date and Time Kortney Mack RES, Donald E. MD 04/02/20 1311 Normal [facility] OT Therapy Recommendationson 04-02-2020 OT Therapy Recommendations [facility] Patient: VINCE LUCIANO [address] [place] [address] MR#: [id number] OT THERAPY RECOMMENDATIONS : 79 Service Date: 04/02/20 1257 Therapy Recommendations Therapy Recommendations Recommendations Occupational therapy eval complete. No skilled OT indicated. Recommend home with family assist. D/C OT services. Electronically Signed eSign Date and Time FeeCherelle OT 04/02/20 1257 Normal [facility] Orthopedic Progress Noteon 0 - Orthopedic Progress Note [facility] Patient: VINCE LUCIANO [address] [place] [address] MR#: [id number] PROGRESS NOTE - Orthopedic : 79 Service Date: 04/02/20 1218 Objective Exam General Appearance Alert, Oriented X3, Cooperative, No Acute Distress HEENT PERRLA Lungs Clear to Auscultation Neck Supple Cardiovascular Regular Rate Abdomen Normal Bowel Sounds, Soft, No Tenderness Extremities No Edema, Normal Pulses Skin No Rashes, No Breakdown, No Significant Lesion Neurological Normal Gait, Normal Speech, Strength at 5/5 X4 Ext, Normal Tone, Sensation Intact Psych/Mental Status Mental Status NL Other Physical Findings Laboratory Tests Last 24 Hrs 04/02 0818 Chemistry Sodium (136 - 145 mmol/L) 139 Potassium (3.5 - 5.1 mmol/L) 4.2 Chloride (98 - 107 mmol/L) 108 H Carbon Dioxide (21 - 32 mmol/L) 24 Anion Gap (6 - 18) 11 mg/dL) 11 Creatinine (0.700 - 1.300 mg/dL) 0.934 Est GFR ( Amer) (> 60) > 60 Est GFR (Non-Af Amer) (> 60) > 60 Glucose (70 - 99 mg/dL) 121 H Calculated Osmolality (270 - 300 mosm/kg) 289 Calcium (8.5 - 10.1 mg/dL) 9.0 ematology WBC (3.9 - 11.0 K/uL) 9.2 RBC (3.5 - 5.5 M/uL) 4.62 Hgb (14.0 - 16.5 g/dL) 14.7 Hct (39.0 - 55.0 %) 42.8 MCV (80.0 - 100.0 fL) 92.6 MCH (25.4 - 34.6 pg) 31.8 (31.5 - 36.5 g/dL) 34.3 RDW (11.5 - 14.5 %) 11.7 Plt Count (140 - 440 K/uL) 209 MPV (8.7 - 12.4 fL) 11.3 Immature Gran % (Auto) (%) 0.3 Neut % (Auto) (%) 88.1 Lymph % (Auto) (%) 7.2 [place] % (Auto) (%) 4.3 Eos % (Auto) (%) 0.0 Baso % (Auto) (%) 0.1 Neut # (Auto) (1.4 - 6.6 K/uL) 8.1 H Lymph # (Auto) (1.2 - 3.5 K/uL) 0.7 L [place] # (Auto) (0.0 - 1.0 K/uL) 0.4 Eos # (Auto) (0.0 - 0.5 K/uL) 0.0 0.2 K/uL) 0.0 Immature Gran # (Auto) (0 - 0.05 K/uL) 0.03 Nucleated RBC % (0 - 0.2 /100 WBC) 0.0 Nucleated RBCs # (0 - 0.012 K/uL) 0.000 Vital Signs Verdana 4d Result Date Time B/P 121/71 04/02 0853 Pulse 84 04/02 0853 Pulse Ox 94 04/02 0805 O2 Delivery ROOM AIR 04/02 0805 Temp 36.6 04/02 0805 Resp 20 04/02 0805 Intake AND Output Verdana 4d 04/02 2300 04/01 2300 Intake Total 1480 480 Total 3 1630 alance 1477 -1150 Intake, IV 650 Intake, Oral 830 480 Number 0 owel ovements Output, 30 rainage Output, Urine 3 1600 Patient 118 kg eight Weight PREADMISSION TESTING WGT easurement ethod MINIMAL POST OP PAIN. DENIES NUMBNESS AND TINGLING. PATIENT STATES IMPROVEMENT TO PAIN IN NECK. STRENGTH WNL. DRESSING TO ANTERIOR NECK REMOVED INCISION WELL APPROXIMATED WITH DERMABOND GLUE. NO DRAINAGE. DRAIN WAS ACCIDENTLY PULLED OUT LAST NIGHT BY PATIENT. CERVICAL COLLAR MAINTAINED. DISCHARGE INSTRUCTIONS DISCUSSED PATIENT STATED UNDERSTANDING. Assessment and Plan - ICD10 Assessment D/C HOME TODAY FOLLOW UP WITH DR TORRES IN 2 WEEKS Electronically Signed eSign Date and Time Fawn Alegria RN 04/02/20 1221 Kalyan Torres MD Normal [facility] PT Therapy Recommendationson 04-02-2020 aPTT Coag (Sapna) [Time] [facility] Patient: VINCE LUCIANO [address] [id number] MR#: [id number] PT THERAPY RECOMMENDATIONS : 79 Service Date: 04/02/20 0848 Therapy Recommendations Therapy Recommendations Recommendations PT evaluation completed. Recommend d/c home with family assist. No further acute PT needs at this time. Electronically Signed eSign Date and Time Clara Montague PT 04/02/20 0849 Normal [facility] z OT Inpatient Discharge Not jarret 04-02-2020 z OT Inpatient Discharge Note [facility] Patient: VINCE LUCIANO [address] [id number] MR#: [id number] OT INPATIENT DISCHARGE NOTE : 79 Service Date: 04/02/20 1319 z OT HPI Discharge Note Total number of visits 1 Date of Discharge 04/02/20 Start of Care Date 04/02/20 z OT Inpatient AP Discharge Treatment Neuromuscular Reeducation, Therapeutic Exercise, Therapeutic Activity, Patient Education, Self Care/ADL Training, HEP Equipment Issued None Treatment Goals Achieved: Yes Plan Discharge from OT DC Recommendations Home-No Home Health Care, Family Assistance OT Status: DISCHARGED Electronically Signed eSign Date and Time Cherelle Manzanares OT 04/02/20 1320 Normal [facility] z OT Inpatient Evaluationon 04-02-2020 z OT Inpatient Evaluation [facility] Patient: VINCE LUCIANO [address] [address] MR#: [id number] OT INPATIENT EVALUATION : 79 Inpatient OT HPI Date of Service 04/02/20 Time In: 1048 Time Out: 1110 Total Treatment Time (Mins) 22 Visit Reason HERNIATED CERVICAL DISC W/ RADICULOPATHY Surgery Type/Date ACDF C5-7, 04/01/2020. Referral Date 04/01/20 Tx Diagnosis: CERVICALGIA Insurance Name [facility] Hospital Course POD#1. RN cleared pt. to participate. Pt. supine in bed and agreeable to participate. 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 Past Medical/Social History Problem List Medical Problems Cervical radiculopathy Herniated cervical intervertebral disc Living Arrangements Home Lives With Family Steps to Enter House 2 Stairs Inside House 0 Bedroom Location 1st Floor Bathroom Location 1st Floor Shower Walk in, Tub Functional Level Mod I-I ADLs, IADLs, AND mobility. Denies falls. 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 Objective Vital Signs Comments Precautions Cervical Collar, Cervical spine precautions Vital Signs Comments VSS Pain Scale 4 Pain Character Ache, Sore Pain Location surgical site Comments RN aware and pt. being medicated as per MD orders Equipment Peripheral IV Orientation Person, Place, Time, Situation Behavior Cooperative Sensation Intact to Light Touch Tone Within Functional Limits Hand Dominance Right Coordination Fine Motor Coordination Within Functional Limits Gross Motor Coordination Within Functional Limits Coordination Within Functional Limits Opposition Intact Proprioception Within Normal Limits ROM RUE ROM Within Functional Limits LUE ROM Within Functional Limits Comments Good return post op UE HEP 10x1 all planes. Strength RUE Strength Within Normal Limits LUE Strength Within Normal Limits Comments Bilateral upper extremities WFLs for participation in management of ADLs and functional mobility tasks. 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 Outcome Measures Lew Score Lew Score Response Value Feeding Independent 10 Bathing Independent 5 Grooming Independent 5 Dressing Independent 10 Bowels Continent 10 Bladder Continent 10 Toilet Independent 10 Back) Independent 15 obility (On Level Surfaces) Independent 15 Stairs Independent 10 Total 100 AM-PAC Inpt Daily Activity AM-PAC Inpt Daily Activity Response Value Lower Body Clothing None 4 Bathing None 4 Toileting None 4 Upper Body Clothing None 4 Personal Grooming None 4 Eating Meals None 4 Total 24 Comments 0% disability based on the Lew Index ADL Function ADL Function Upper Body Dressing Modified Independent Lower Body Dressing Modified Independent Toileting Modified Independent Feeding Independent Grooming Independent Comments Patient instructed in and performed lower body dressing/ADLs via modified techniques: good return demo'd. 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 ambulating in room without device >50'. Good safety and balance throughout. Static Sitting Balance Good Dynamic Sitting Balance Good Static Standing Balance Good Dynamic Standing Balance Good Treatment Additional Minutes of Tx Performed 10 Remained in Bed All Needs Within Reach Yes Assessment/Plan for Inpt OT DC Recommendations Home-No Home Health Care, Family Assistance Topic #1 Rehabilitation Techniques Teaching Method: WRITTEN MATERIALS Teaching Method: VERBAL EXPLANATION Teaching Method: TEACHBACK Outcome: VERBALIZED/ADEQ TEACHBACK Rehab Potential Excellent Treatment Tolerance Excellent Assessment Patient does not demonstrate additional need for skilled OT services at this time. Patient Stated Goal: n/a Goals discussed with: Patient Frequency of Therapy Eval Only Patient Status DISCHARGED Eval Completed Yes Eval Complexity Low Complexity Treatment Performed Yes Electronically Signed eSign Date and Time Cherelle Manzanares OT 04/02/20 1319 Normal [facility] z PT Inpatient Discharge Not jarret 04-02-2020 z PT Inpatient Discharge Note [facility] Patient: VINCE LUCIANO [address] [id number] MR#: [id number] PT INPATIENT DISCHARGE NOTE : 79 Service Date: 04/02/20 0902 z PT Inpt. HPI Discharge Note Discharge Time 0902 Total number of visits 1 Medical Diagnosis/ICD Code herniated cervical disc with radiculopathy Date of Discharge 04/02/20 Start of Care Date 04/02/20 Final Date of Care 04/02/20 z PT Inpatient AP Discharge Treatment: Therapeutic Activity, Patient Education, Therapeutic Exercise, HEP Plan Follow up w/ Physician, Discharge from PT Discharge Recommendations Home-No Home Health Care (family A) PT Status: DISCHARGED Electronically Signed eSign Date and Time Clara Montague PT 04/02/20 0903 Normal [facility] z PT Inpatient Evaluationon 04-02-2020 z PT Inpatient Evaluation [facility] Patient: VINCE LUCIANO [address] [id number] MR#: [id number] PT INPATIENT EVALUATION : 79 Service Date: 04/02/20 0850 Inpatient PT HPI Date of Service 04/02/20 Time In: 0755 Time Out: 0823 Total Treatment Time (Mins) 28 Room Number 614 Visit Reason HERNIATED CERVICAL DISC W/ RADICULOPATHY Surgery Type: ACDF C5-6, 6-7 with cages and plate Surgery Date: 04/01/20 Referral Date 04/01/20 Tx Diagnosis: CERVICALGIA Insurance Name [employer] Hospital Course Patient is a 39 y/o male s/p above procedure. PT consulted for eval/treat. Hard cervical collar on throughout session. Patient up ad lissette ambulating in hallway upon arrival to floor, agreeable to eval. Past Medical/Social History Living Arrangements Home ([place] 2 steps to enter, R Rail) Lives With Family Mobility Aids None Functional Level Patient reports Chang with adls/iadls as tolerated due to high pain level prior to procedure. Patient denies use of assistive device or falls. 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 Spouse available to assist upon d/c. Objective Vital Signs HR 82 BP 121/71 Pain Pain Scale 5 Pain Character Ache, Throbbing Pain Location Neck Precautions Cervical (hard collar) Static Sitting Balance Within Functional Limits Dynamic Sitting Balance Within Functional Limits Static Standing Balance Within Functional Limits Dynamic Standing Balance Within Functional Limits Orientation Person, Place, Time, Situation Behavior Cooperative Sensation Within Functional Limits (denies numbness/tingling) Endurance Good Posture Within Functional Limits, Rounded Shoulders, 6'3 260# Wound/Skin Visible skin and dressing clean, dry and intact, small ulceration on R toe addressed by RN while in room Gross Motor Coordination Within Functional Limits ROM RUE ROM: WITHIN FUNCTIONAL LIMITS LUE ROM: WITHIN FUNCTIONAL LIMITS RLE ROM: WITHIN FUNCTIONAL LIMITS LLE ROM: WITHIN FUNCTIONAL LIMITS Strength RUE Strength: WITHIN FUNCTIONAL LIMITS LUE Strength: WITHIN FUNCTIONAL LIMITS RLE Strength: WITHIN FUNCTIONAL LIMITS LLE Strength: WITHIN FUNCTIONAL LIMITS Comments as demonstrated with functional mobility Outcome Measures AM-PAC Inpatient Mobility AM-PAC Inpatient Mobility Response Value Turn Back/Side While Flat WO Bedrails None 4 Move From Lying to Side of Bed WO Bedrails None 4 Move To/From Bed to Chair None 4 Stand Up From Chair Using Arms None 4 Walk in Hospital Room None 4 limb 3-5 Steps W Railing None 4 otal 24 Mobility Transfers Supine to Sit Modified Independent Sit to Supine Modified Independent Sit to Stand Modified Independent Stand to Sit Modified Independent Weight Bearing Full Weight Bearing Comments Patient demos good log roll technique with head of bed elevated. STS completed with min UE assist and good form. Patient has an adjustable bed at home to replicate. Gait Patient ambulated Modified Independently With Assistive Device None For (Feet) 100 x 2 Comments Patient demonstrates steady recipropcal pattern with good B heeel strike, decreased arm swing and upright posture. No unsteadiness or instability noted. Stairs Steps Up 2 Inch Steps 7 Steps Down 2 Inch Steps 7 Device Right Handrail Pattern Non-Reciprocating Assistance Required With Supervision Comments Good form noted. Demo and verbal instruction provided prior to attempt with good return demo. Treatment Additional Minutes of Tx Performed 10 Remained in Edge of Bed (eating breakfast) All Needs Within Reach Yes Comments Education on precautions, importance of mobility, antiemoblics, stair management therex x 10 BLE: ankle pumps, quad sets, heel sides, glute sets Assessment/Plan for Inpt PT Discharge Recommendations Home-No Home Health Care (family A prn) Topic #1 See above / role of PT, d/c rec Teaching Method: TEACHBACK Teaching Method: RETURN DEMONSTRATION Outcome: VERBALIZED/ADEQ TEACHBACK Problems Decreased ROM, Pain Treatment Tolerance Good Assessment Patient has no acute physical therapy needs at this time, DC from acute physical therapy. Performing all transfers, gait, and stair navigation at MOD I level or greater. Verbalizing understanding of HEP/Precautions. Patient Stated Goal: n/a Patient Status DISCHARGED Eval Completed Yes Eval Complexity Low Treatment Performed Yes Electronically Signed eSign Date and Time Clara Montague PT 04/02/20 0902 Normal [facility] Internal Medicine Consultati onon 04-01-2020 Internal Medicine Consultation [facility] Patient: VINCE LUCIANO [address] [place] [address] MR#: [id number] CONSULTATION - Internal Medicine : 79 Service Date: 04/01/20 1134 History of Present Illness HPI 39 yr old gentleman POD0 C5,6 and C6,C7 with PMHx of Depression. chronic neck pain, and acne. Patient is seen and examined in PACU, vitally stable with 5/5 motor power upper extremities, clear lungs. He denies discomfort, chest pain, and dyspnea. Patient denies numbness as well. Her is conversing comfortably. Medical/Surgical History Past Medical History Transfusion Status CONSERVATION Allergies/Home Medications Allergies Coded Allergies: CINNAMON (Severe, MOUTH SWELLS 04/01/20) COCONUT (Severe, MOUTH SWELLS 04/01/20) MORPHINE (03/05/20) Reconcile Medications Scheduled Medications Baclofen * (Lioresal *) 10 MG TABLET 10 MG PO DAILY, Ref 0 (Reported) TAKE TOMORROW Entered as Reported by MARIANA BERMUDEZ on 04/01/20621 Last Action: Edited on 04/02/20 1230 by DEMETRIUS PATEL Cetirizine HCl (Zyrtec) 10 MG CAPSULE 10 MG PO DAILY, Ref 0 (Reported) NEXT DOSE TOMORROW Entered as Reported by MARIANA BERMUDEZ on 04/01/20622 Last Action: Edited on 04/02/20 1229 by DEMETRIUS PATEL Desvenlafaxine Succinate * (Pristiq *) 100 MG TAB.SR.24H 100 MG PO DAILY, Ref 0 ( Reported) NEXT DOSE TOMORROW Entered as Reported by MARIANA BERMUDEZ on 04/01/20622 Last Action: Edited on 04/02/20 1230 by DEMETRIUS PATEL Docusate Sodium * (Colace *) 100 MG CAPSULE 100 MG PO BID STOOL SOFTNER, Ref 0 ( Reported) OVER THE COUNTER Entered as Reported by FAWN ALEGRIA on 04/02/20 1032 Last Action: Edited on 04/02/20 1230 by DEMETRIUS PATEL Topiramate (Trokendi XR) 100 MG CAP.ER.24H 100 MG PO DAILY, Ref 0 (Reported) NEXT DOSE TOMORROW Entered as Reported by MARIANA BERMUDEZ on 04/01/20621 Last Action: Edited on 04/02/20 1230 by DEMETRIUS PATEL Scheduled PRN Medications Doxycycline Hyclate * (Vibramycin *) 100 MG CAPSULE 100 MG PO PRN PRN SKIN, Ref 0 ( Reported) Entered as Reported by MARIANA BERMUDEZ on 04/01/20622 Last Action: No Recorded Action oxyCODONE HCl 5mg AND Acetaminophen 325mg * (Percocet 5mg/325mg Tablet *) 1 EACH TABLET 1 EACH PO Q4PRN PRN Moderate Pain #42, Ref 0 (Reported) Entered as Reported by FAWN ALEGRIA on 04/02/20 1032 Last Action: No Recorded Action Review of Systems Review of Systems Constitutional Denies: Fever, Fatigue, Chills, Malaise, Sick Contacts, Sweats, Weight Loss, Recent Illness. EENT Denies: Sore Throat, Dental Problems, Dysphagia, Odynophagia, Nasal Congestion, Nasal Drainage, Hearing Loss. Cardiovascular Denies: Chest Pain, Pain on Exertion, Dyspnea on Exertion, Orthopnea, Paroxysmal Nocturnal Dsyp, Palpitations, Syncope, Leg Swelling, Nocturia. Pulmonary Denies: Pleuritic Chest Pain, Dyspnea, Cough, Sputum, Hemoptysis, Wheezing. GI Denies: Abdominal Pain, Nausea, Vomiting, Diarrhea, Constipation, Loss of Appetite, Melena , Tenesmus. Denies: Dysuria, Hematuria, Hesitancy, Urgency, Urinary Incontinence. Physical Exam Vital Signs Vital Signs Vital Signs Verdana 4d Result Date Time Pulse Ox 100 04/01 618 B/P 120/66 04/01 618 Temp 37.7 04/01 618 Pulse 77 04/01 618 Resp 20 04/01 618 Appearance Appearance Appears well, Awake Cm: 190.50 [id number] BMI 32.6 Patient is Obese Pain Scale 0 Neck Neck Normal inspection, No JVD, Supple, Neck collar in place HEENT HEENT Head atraumatic, Eyes normal inspection, PERRLA, Hearing grossly normal Respiratory Respiratory Lungs sound clear, Respirations non-labored, Symmetrical expansion CVS Cardiovascular Rate WNL, Rhythm regular, Normal heart sounds Neuro * Document results of Cranial Nerve Asmt for all pts. Neurological Alert, Oriented x 3, No motor deficit, No sensory deficit Abdomen/Pelvis Abdomen Bowel sounds present, Abdomen soft, Non-tender, No distension Extremity Extremity Normal appearance, Full ROM, Sensation intact, Motor Intact, PCDs in place Assessment/Plan Assessment and Plan #POD 0 ACDF C5-6, C6-7 Surgery was uncomplicated Drain in place No coe VSS, CCO3 CTA GBAE, RRR nl S1S2 no rubs no murmurs, 5/5 motor exam, +pp Patient denies pain. Plan: Incentive spirometry Ambulation and PT Pain control: prn dilaudid for now #Depression Pristiq 100 mg PO OD (unavailable at pharmacy, willinform to get it with her) Topamax 100mg PO OD Plan: resume #OA, chronic neck pain prn lioresal #Hx Acne Doxycycline prn #DVT prophylaxis PCDs *Attending Attestation Attending Attestation Attending Attestation All pertinent elements of history and physical exam were confirmed by me. Agree with above documentation. The [resident's, PA's, OCC THERAPY ASST's] assessment and plan reflect my input. Discussed with documenting provider and patient. Plan is as outlined above. Electronically Signed eSign Date and Time Kortney Mack RES, Abdul Res Eghobamien, Donald E. MD 04/02/20 1311 Normal [facility] OPERATIVE REPORTon 0 OPERATIVE REPORT NAME: VINCE LUCIANO MR#: [id number] SURGEON: Kalyan Torres MD DATE OF SURGERY: 04/01/2020 OPERATIVE REPORT PREOPERATIVE DIAGNOSIS: Herniated cervical disk with radiculopathy. POSTOPERATIVE DIAGNOSIS: Herniated cervical disk with radiculopathy. PROCEDURE: Anterior cervical diskectomy and interbody fusion, C5-C6 and C6-7 with trabecular metal cages and plate and neuromonitoring. DESCRIPTION OF PROCEDURE: The patient were supine after anesthesia, the patient was positioned with the neck gently extended over a roll. Pre and post positioning neuromonitoring were performed with no change. Multimodality intraoperative neurophysiological monitoring was continuously carried out with an on-upstream biomanufacturing technician and remote physician and never to safeguard the patient. All intraoperative monitoring studies were performed under real-time position supervision via Internet communication allowing continuous or immediate contact between the interpreting physician and the surgeon. Intraoperative monitoring included the following modalities, SSEP, MEP, EMG, EEG, TEMG, and train of 4. No significant changes were seen. No sustained EMG changes were seen and all data was within normal limits throughout the case. The neck was prepped and draped in the usual fashion. The incision was planned using C-arm. A transverse incision was made on the right in the skin folds with sharp dissection subcutaneous tissues. Flaps were elevated above the platysma. The platysma was opened longitudinally and dissection was carried down between the sternocleidomastoid and the strap muscles and between the trachea, esophagus, the carotid sheath. The prespinous fascia was dissected and a needle was placed in the center between the longus colli muscles at the C6-C7 disk and x-ray confirmed. This was marked for rotation and distraction pins were placed in the bodies of C6 and C7 using C-arm as guidance. The medial border of the longus colli muscles were coagulated and retracted. The anterior anulus was sharply excised. Thorough diskectomy was performed with curettes and pituitary rongeurs. The bony endplates were taken down with a bur to punctate bleeding bone. The anterior osteophytes were removed with a bur as well. Posteriorly, the osteophytes were removed with cup curettes and #1 Kerrison rongeur. The PLL and posterior osteophytes were taken down with a #1 Kerrison rongeur. Bilateral foraminotomies were performed with a #1 Kerrison rongeur. After thorough posterior decompression, the epidural space was palpated with a micro nerve hook. The foramina were patent and appeared that all posterior compressive pathology had been removed. Final shaping was performed with the ginger. This was a trial to the 7 mm high x 15 x 15, which gave excellent [facility] PT NAME: VINCE LUCIANO MR#: [id number] [address] [place] [address] ACCT: [id number] : 78 OPERATIVE REPORT fit and fill. The implant was then selected packed with OsteoAMP and the interspace was irrigated with saline Betadine solution and a thin layer of FloSeal was left posteriorly for coagulation. The implant was gently tapped into position and checked using C-arm in AP and lateral planes and found to be in excellent position. The distraction pin was then removed from from the C7 body. The hole filled with FloSeal. This was then placed into the C5 body in the center for rotation and x-ray confirmed position. The medial borders of the longus colli muscles at the C5-6 disk were coagulated and retracted. The anterior anulus was excised and thorough diskectomy performed with curettes and pituitary rongeurs. The anterior osteophytes were taken down with a bur as were the bony endplates to punctate bleeding bone. Posteriorly, the osteophytes were removed with cup curettes and #1 Kerrison rongeur. The posterior anulus was taken down with a #1 Kerrison rongeurs and bilateral foraminotomies performed with a #1 Kerrison rongeur. After thorough decompression, the epidural space was palpated with a micro nerve hook. Both foramina were quite patent and appeared that all posterior compressive pathology had been removed. Final endplate shaping was then performed and this was trialed to the same 7 x 15 x 15 with which gave excellent fit and fill. The interspace was irrigated saline Betadine solution and a thin layer of FloSeal was left posteriorly for coagulation. The implant was packed with the osteo and gently tapped into position using C-arm as guidance. X-ray confirmed excellent position. The distraction pins were removed and the holes filled with FloSeal. The plate was then selected and contoured and applied to the anterior spine. The holes were drilled and filled with appropriate length screws. Final x-ray confirmed excellent alignment of the all implants and excellent position of all implants. The screw lengths were good. The spine was then irrigated with saline Betadine solution. A thin layer of FloSeal was left anterior to the plate for coagulation. A silastic drain was left deep in the wound exiting through separate stab incision. The platysma was loosely tacked together with Vicryl suture. The skin and subcutaneous tissues were closed in the usual manner. Dressings were applied. The patient was woken taken recovery room in excellent condition. There were no complications and again there were no changes on the neuro monitoring. KALYAN TORRES MD [facility]/[id number] CC: National neuromonitoring services E/S: Kalyan Torres MD 04/08/[address] [facility] PT NAME: VINCE LUCIANO MR#: [id number] [address] [place] [address] ACCT: [id number] : 78 OPERATIVE REPORT Normal [facility] CERVICAL SP AP&LAT OR 2-3 VW Son 03-31-2020 CERVICAL SP AP&LAT OR 2-3 VWS Exam: Fluoroscopy cervical spine Clinical History: ACDF C5-C6,C6-C7 Comparison: None. Findings: Intraoperative fluoroscopic images demonstrate placement of anterior fusion hardware from C5-C7. Impression: As above Dictated: 04/01/20 1231 REPORT SIGNATURE ON FILE04/01/20(1231) Reported By: SHELLEY KITCHEN Signed By: SHELLEY KITCHEN Normal [facility] CORONAVIRUSon 03-29-2020 CORONAVIRUS Methodology: PCR Negative results do not preclude SARS-CoV-2 infection and should not be used as the sole basis for patient management decisions. Negative results must be combined with clinical observations, patient history, and epidemiological information. False-negative results may occur if the viruses are present at a level that is below the analytical sensitivity of the assay or if the virus has genomic mutations, insertions, deletions, or rearrangements or if performed very early in the course of illness. Results may be affected by the quality of the sample collected. Simplexa COVID-19 Direct is only for use under the Food and Drug Administration's Emergency Use Authorization. The Simplexa COVID-19 Direct Letter of Authorization, along with the authorized Fact Sheet for Healthcare Providers, the authorized Fact Sheet for Patients, and authorized labeling are available on the FDA website: https://www.fda.gov/Oh dicalDevices/Safety/ EmergencySituations/uc t223161.htm COVID-19 Negative for COVID-19 (SARS-CoV-2 RNA) Normal [facility] Comment on above: Order Comment: CBN: YES Mildred: MAIN COVID Testing: PRE-OP/PROCEDURE SCREEN Comment: 04/01 AGE at Spec MAXWELL 39 Report age at specimen MAXWELL? Y First test: UNKNOWN Employed in Healthcare: NO Symptomatic as defined by CDC: NO Hospitalized for COVID-19? NO ICU: NO Resident in a Congregated Care Setting: NO Order Date: 03/29/20 : Not Performed By: #### M 400.08182 #### Test performed at: [place] [address] CONSULTATION REPORTon 2019 CONSULTATION REPORT NAME: VINCE LUCIANO Elodia MR#: [id number] WIRE COMMUNICATIONS ENGINEER: Nayan Ham MD DATE OF CONSULTATION: 03/15/2020 CONSULTATION HISTORY OF PRESENT ILLNESS: Mr. Luciano is a 39-year-old gentleman and I have been consulted by Dr. Torres for preop clearance before undergoing surgery for C5-C6 and C6-C7 disk herniation. I had seen him actually on February 16 for the same thing and cleared him for surgery, but unfortunately the surgeon had to postpone the surgery and the surgery is being done on March 23 and nothing has changed in the last month. He has had a small bowel obstruction 3 years ago. He has had vein strippings. He has no problems with anesthesia. He has good functional capacity. He denies fevers, chills, nausea, vomiting, diarrhea, or constipation. No blood in the stools or black stools. All the blood work was done on February 16, which is within acceptable limits. PAST HISTORY: Significant for depression and chronic neck pain. SOCIAL HISTORY: Denies smoking no major use of alcohol or drugs. ALLERGIES: To morphine, coconut, and cinnamon MEDICATION: Pristiq 100 mg daily, Topamax 100 mg daily, doxycycline as needed gabapentin and baclofen. PHYSICAL EXAMINATION: VITAL SIGNS: He is 6 feet 4 inches tall, 269 pounds 97.3, 75, 16, 120/80. HEENT: Atraumatic head pupils are equal, reactive. Oral mucosa is normal. NECK: Supple. He has chronic neck pain. LUNGS: Clear. HEART: S1, S2 present. Regular rate and rhythm. ABDOMEN: Soft, nontender. Bowel sounds are present. BACK: He has C5-C7 disk herniation radiating to the right upper extremity. NEURO: He is awake, alert, oriented x3. Cranial nerves, motor, sensory, reflexes are within normal limits. Lab data are within acceptable limits. IMPRESSION: 1. Preop clearance for C5-C7 disk herniation surgery. 2. History of depression and acne. PLANS: I reviewed his labs. They are within acceptable limits and he has good functional capacity. Surgical risk is mild to moderate and he is cleared. His functional capacity is good. He has had blood work done recently which [facility] PT NAME: VINCE LUCIANO MR#: [id number] [address] [place] [address] ACCT: [id number] : 78 CONSULTATION are within acceptable limits. The only thing he needs it is another COVID test which he is going for it on March 19. He is cleared for anesthesia with acceptable risk without any further workup. Thank you for the courtesy of this consultation. NAYAN HAM MD MS/MODL/[id number] E/S: Nayan Ham MD 03/16/[address] [facility] PT NAME: VINCE LUCIANO MR#: [id number] [address] [place] [address] ACCT: [id number] : 78 CONSULTATION Normal [facility] CORONAVIRUSon 03-05-2020 CORONAVIRUS Methodology: PCR Negative results do not preclude SARS-CoV-2 infection and should not be used as the sole basis for patient management decisions. Negative results must be combined with clinical observations, patient history, and epidemiological information. False-negative results may occur if the viruses are present at a level that is below the analytical sensitivity of the assay or if the virus has genomic mutations, insertions, deletions, or rearrangements or if performed very early in the course of illness. Results may be affected by the quality of the sample collected. Simplexa COVID-19 Direct is only for use under the Food and Drug Administration's Emergency Use Authorization. The Simplexa COVID-19 Direct Letter of Authorization, along with the authorized Fact Sheet for Healthcare Providers, the authorized Fact Sheet for Patients, and authorized labeling are available on the FDA website: https://www.fda.gov/Me dicalDevices/Safety/ EmergencySituations/uc e617477.htm COVID-19 Negative for COVID-19 (SARS-CoV-2 RNA) Normal [facility] Comment on above: Order Comment: CBN: YES Mildred: MAIN AGE at Spec MAXWELL 39 First test: UNKNOWN Employed in Healthcare: NO Symptomatic as defined by CDC: NO Hospitalized for COVID-19? NO ICU: NO Resident in a Congregated Care Setting: NO Order Date: 03/05/20 : Not Comment: 03/08 COVID Testing: PRE-OP/PROCEDURE SCREEN Performed By: #### M 400.65605 #### Test performed at: [address] [address] BASIC MET PANELon 02-17-2020 Anion gap [Moles/Vol] 10 mmol/L Normal 6-18 [facility] Comment on above: Order Comment: CBN: YES Mildred: MAIN Performed By: #### L 500.59527, L500.21007 #### Test performed at: [address] [address] Calcium [Mass/Vol] 9.3 mg/dL Normal 8.5-10.1 [facility] Comment on above: Order Comment: CBN: YES Mildred: MAIN Performed By: #### L 500.12760, L500.59976 #### Test performed at: [address] [address] Chloride [Moles/Vol] 112 mmol/L High 98-107 [facility] Comment on above: Order Comment: CBN: YES [place]: MAIN Performed By: #### L 500.87564, L500.75549 #### Test performed at: [address] [address] CO2 [Moles/Vol] 24 mmol/L Normal 21-32 [facility] Comment on above: Order Comment: CBN: YES Mildred: MAIN Performed By: #### L 500.99895, L500.48166 #### Test performed at: [address] [address] Creatinine [Mass/Vol] 1.090 mg/dL Normal 0.700-1.300 [facility] Comment on above: Order Comment: CBN: YES Mildred: MAIN Performed By: #### L 500.37945, L500.06640 #### Test performed at: [address] [address] Glucose [Mass/Vol] 86 mg/dL Normal 70-99 [facility] Comment on above: Order Comment: CBN: YES Mildred: MAIN Result Comment: Fast ing GLUCOSE reference range has been updated per (ADA) [place] [employer]'s recommendation. 06/25/2018 Performed By: #### L 500.31398, L500.90807 #### Test performed at: [address] [address] OSM 297 mosm/kg Normal 270-300 [facility] Comment on above: Order Comment: CBN: YES Mildred: MAIN Performed By: #### L 500.67145, L500.42296 #### Test performed at: [address] [address] Potassium [Moles/Vol] 4.4 mmol/L Normal 3.5-5.1 [facility] Comment on above: Order Comment: CBN: YES Mild[place]: MAIN Performed By: #### L 500.87602, L500.69599 #### Test performed at: [address] [address] Sodium [Moles/Vol] 142 mmol/L Normal 136-145 [facility] Comment on above: Order Comment: CBN: YES [place]: MAIN Performed By: #### L 500.75478, L500.36121 #### Test performed at: [address] [address] Urea nitrogen [Mass/Vol] 22 mg/dL High 7-18 [facility] Comment on above: Order Comment: CBN: YES [place]: MAIN Performed By: #### L 500.65952, L500.17906 #### Test performed at: [address] [address] CBC W/DIFFon 02-17-2020 BASO ABS 0.0 K/uL Normal 0.0-0.2 [facility] Comment on above: Order Comment: CBN: YES Mild[place]: MAIN Performed By: #### L 200.24829 #### Test performed at: [address] [address] Basophils/100 WBC (Bld) 0.6 % Normal [facility] Comment on above: Order Comment: CBN: YES [place]: MAIN Performed By: #### L 200.21132 #### Test performed at: [address] [address] EOS ABS 0.2 K/uL Normal 0.0-0.5 [facility] Comment on above: Order Comment: CBN: YES [place]: MAIN Performed By: #### L 200.58705 #### Test performed at: [address] [address] Eosinophils/100 WBC (Bld) 3.6 % Normal [facility] Comment on above: Order Comment: CBN: YES Mildred: MAIN Performed By: #### L 200.37915 #### Test performed at: [address] [address] Erythrocyte distribution width (RBC) [Ratio] 12.6 % Normal 11.5-14.5 [facility] Comment on above: Order Comment: CBN: YES Mildred: MAIN Performed By: #### L 200.11487 #### Test performed at: [address] [address] Hematocrit (Bld) [Volume fraction] 45.4 % Normal 39.0-55.0 [facility] Comment on above: Order Comment: CBN: YES Mildred: MAIN Performed By: #### L 200.56383 #### Test performed at: [address] [address] Hemoglobin (Bld) [Mass/Vol] 15.4 g/dL Normal 14.0-16.5 [facility] Comment on above: Order Comment: CBN: YES Mild[facility]: MAIN Performed By: #### L 200.42912 #### Test performed at: [address] [address] IG % 0.5 % Normal [facility] Comment on above: Order Comment: CBN: YES [place]: MAIN Performed By: #### L 200.36641 #### Test performed at: [address] [address] IG ABS 0.03 K/uL Normal 0-0.05 [facility] Comment on above: Order Comment: CBN: YES Mild[place]: MAIN Performed By: #### L 200.14760 #### Test performed at: [address] [address] Lymphocytes (Bld) [#/Vol] 1.1 10*3/uL Low 1.2-3.5 [facility] Comment on above: Order Comment: CBN: YES Mildred: MAIN Performed By: #### L 200.07564 #### Test performed at: [address] [address] Lymphocytes/100 WBC (Bld) 17.2 % Normal [facility] Comment on above: Order Comment: CBN: YES Mildred: MAIN Performed By: #### L 200.64773 #### Test performed at: [address] [address] MCH (RBC) [Entitic mass] 32.0 pg Normal 25.4-34.6 [facility] Comment on above: Order Comment: CBN: YES Mildred: MAIN Performed By: #### L 200.29450 #### Test performed at: [address] [address] MCHC (RBC) [Mass/Vol] 33.9 g/dL Normal 31.5-36.5 [facility] Comment on above: Order Comment: CBN: YES Mildred: MAIN Performed By: #### L 200.56351 #### Test performed at: [address] [address] MCV (RBC) [Entitic vol] 94.4 fL Normal 80.0-100.0 [facility] Comment on above: Order Comment: CBN: YES Mildred: MAIN Performed By: #### L 200.80887 #### Test performed at: [address] [address] MONO ABS 0.5 K/uL Normal 0.0-1.0 [facility] Comment on above: Order Comment: CBN: YES Mild[facility]: MAIN Performed By: #### L 200.15742 #### Test performed at: [address] [address] Monocytes/100 WBC (Bld) 7.6 % Normal [facility] Comment on above: Order Comment: CBN: YES Mildred: MAIN Performed By: #### L 200.74416 #### Test performed at: [address] [address] NEUTROPHIL ABS 4.3 K/uL Normal 1.4-6.6 [facility] Comment on above: Order Comment: CBN: YES Mildred: MAIN Performed By: #### L 200.44917 #### Test performed at: [address] [address] Neutrophils/100 WBC (Bld) 70.5 % Normal [facility] Comment on above: Order Comment: CBN: YES Mildred: MAIN Performed By: #### L 200.30041 #### Test performed at: [address] [address] NRBC # 0.000 K/uL Normal 0-0.012 [facility] Comment on above: Order Comment: CBN: YES Mildred: MAIN Performed By: #### L 200.84180 #### Test performed at: [address] [address] NRBC % 0.0 /100 WBC Normal 0-0.2 [facility] Comment on above: Order Comment: CBN: YES Mildred: MAIN Performed By: #### L 200.06946 #### Test performed at: [address] [address] Platelet mean volume (Bld) [Entitic vol] 11.7 fL Normal 8.7-12.4 [facility] Comment on above: Order Comment: CBN: YES Mildred: MAIN Performed By: #### L 200.03921 #### Test performed at: [address] [address] Platelets (Bld) [#/Vol] 213 10*3/uL Normal 140-440 [facility] Comment on above: Order Comment: CBN: YES Mildred: MAIN Performed By: #### L 200.23541 #### Test performed at: [address] [address] RBC (Bld) [#/Vol] 4.81 10*6/uL Normal 3.5-5.5 [facility] Comment on above: Order Comment: CBN: YES Mildred: MAIN Performed By: #### L 200.45155 #### Test performed at: [address] [address] WBC (Bld) [#/Vol] 6.2 10*3/uL Normal 3.9-11.0 [facility] Comment on above: Order Comment: CBN: YES Mildred: MAIN Performed By: #### L 200.27602 #### Test performed at: [address] [address] CONSULTATION REPORTon 2019 CONSULTATION REPORT NAME: VINCE LUCIANO MR#: [id number] WIRE COMMUNICATIONS ENGINEER: Nayan Ham MD DATE OF CONSULTATION: 02/17/2020 CONSULTATION HISTORY OF PRESENT ILLNESS: Mr. Luciano is a 39-year-old gentleman and I have been consulted by Dr. Ta for preop clearance before undergoing surgery for C5-C6 and C6-C7 disk herniation. He had a small bowel obstruction 3 years ago and he has had a lot of vein strippings. No problems with anesthesia and good functional capacity. No fevers, chills, nausea, vomiting, diarrhea, or constipation. No blood in the stools or black stools. PAST HISTORY: Significant for depression, some acne and chronic neck pain. SOCIAL HISTORY: Denies smoking. No major use of alcohol or drugs. ALLERGIES: To morphine, coconut, and cinnamon. MEDICATION LIST: Pristiq 100 mg daily, Topamax XR 100 mg daily, doxycycline for acne whenever it breaks out, gabapentin and baclofen for pain. PHYSICAL EXAMINATION: VITAL SIGNS: He is 6 feet 3 inches tall, 260 pounds pulse ox is 98% on room air, 97.3, 75, 16, 126/80. HEENT: Atraumatic head. Pupils are equal, reactive. Oral mucosa is normal. No pallor. NECK: Supple. BACK: He has C5-C6 and C6-C7 disk herniation radiating to the right hand. LUNGS: Clear. HEART: S1, S2 present. Regular rate and rhythm. No murmurs. ABDOMEN: Soft. He has had bowel obstruction surgery done. Bowel sounds are present. NEURO: He is awake, alert, oriented x3. Cranial nerves, motor, sensory, reflexes are normal. He has had stripping of the veins in the legs. No major edema noted. LAB DATA: Pending. IMPRESSION: 1. Preop clearance for C-spine 5 to C7 disk herniation surgery. 2. Depression. 3. Acne. PLANS: I am going to do a CBC and a BMP and his functional capacity is good. Surgical risk is mild to minimal and he is cleared for anesthesia pending [facility] PT NAME: VINCE LUCIANO MR#: [id number] [address] [place] [address] ACCT: [id number] : 78 CONSULTATION these labs with acceptable risk. Thank you for the courtesy of this consultation. NAYAN HAM MD MS/MODL/[id number] E/S: Nayan Ham MD 02/17/[address] [facility] PT NAME: VINCE LUCIANO MR#: [id number] [address] [place] [address] ACCT: [id number] : 78 CONSULTATION Normal [facility] GFR ESTIMATEon 02-17-2020 IF AMER > 60 Normal > 60 [facility] Comment on above: Order Comment: CBN: YES Mildred: MAIN Result Comment: eGFR (Estimated GFR) Units of measure:mL/min/1.73 meters sq. *CALCULATION REVISED 01/19/2015;IDMS-traceable MDRD equation eGFR is derived from the reexpressed MDRD Study equation using the following parameters: serum creatinine, age, gender and race. An eGFR<60 mL/min/1.73m2 for >3 months is consistent with chronic kidney disease. Refer to KDOQI guidelines for clinical interpretation. Performed By: #### L 500.67149, L500.88189 #### Test performed at: [place] [address] IF non-AFR AMER > 60 Normal > 60 [facility] Comment on above: Order Comment: CBN: YES Mildred: MAIN Performed By: #### L 500.02754, L500.13252 #### Test performed at: [place] [address] PROTIMEon 02-17-2020 INR Coag (PPP) [Relative time] 0.96 {INR} Normal 0.00-1.20 [facility] Comment on above: Order Comment: CBN: YES Mildred: MAIN List patient's anticoagulants for PT: NONE SPECIFIED Result Comment: Kevin mmended therapeutic range is an INR of 2.0-3.0 except for prevention of recurrent acute NH and mechanical prosthetic heart valve where an INR of 2.5-3.5 is recommended. Performed By: #### L 300.70276 #### Test performed at: [address] [address] PT Coag (PPP) [Time] 10.3 s Normal 9.0-12.7 [facility] Comment on above: Order Comment: CBN: YES Mildred: MAIN List patient's anticoagulants for PT: NONE SPECIFIED Performed By: #### L 300.68126 #### Test performed at: [address] [address] CERV SP W OBL/FLEX/EXT 6 OR >on 01-13-2020 CERV SP W OBL/FLEX/EXT 6 OR > STUDY: CERV SP W OBL/FLEX/EXT 6 OR > ; 01/13/2020 9:48 am INDICATION: PAIN. COMPARISON: None. ACCESSION NUMBER(S): [id number] ORDERING CLINICIAN: Kalyan Torrse FINDINGS: Mild disc height loss C5-6. The remaining disc heights are maintained. No fracture or subluxation. No spondylolisthesis. No instability on flexion or extension. Disc height loss anteriorly increases at C5-6 and C6-7 on flexion. No significant osseous foraminal stenosis is seen. IMPRESSION: Lower cervical degenerative disc disease without dynamic instability. Normal [facility] FINGER RIGHT MIN 2 VWSon FINGER RIGHT MIN 2 VWS [facility] Department of Radiology [address] [place] [id number] ======== Patient Name: VINCE LUCIANO : 1980 Sex: M Age: Race: White Pt. Location: Patient Status: O Ordered Date: 09/09/2018 10:40:00 AM Completed Date: 09/09/2018 10:49 AM Requesting Provider: JONATHAN RHODES Attending Provider: JONATHAN RHODES Report Copy To: ROXY DRIVER Signs & Symptoms: S62.634B Disp fx of distal phalanx of r rng fngr, init for opn fx I10 History: [facility] Comments: , , , Ordering Provider - JONATHAN RHODES PA-C , Exam: FINGER RIGHT MIN 2 VWS ======== FINGER RIGHT MIN 2 VWS 09/09/2018 10:49 AM EDT SIGNS AND SYMPTOMS: S62.634B Disp fx of distal phalanx of r rng fngr, init for opn fx I10 TECHNOLOGIST COMMENTS: surgery to right fourth digit 1 week ago. ortho follow up QUESTION FOR THE RADIOLOGIST: , , , Ordering Provider - JONATHAN RHODES PA-C , PROTOCOL: AP,Lateral and Oblique views were obtained. COMPARISON: September 02, 2018 FINDINGS: Soft tissues: Soft tissue injury and metallic densities along the fingertip of the fourth finger Bones: Comminuted tuft fracture Joints: DIP joint is intact IMPRESSION: Fingertip injury including comminuted tuft fracture and metallic densities of ring finger Electronically signed by:Xochilt Oliveira. Transcribed by: [email or web address], User Resident: Electronically Signed by: XOCHILT OLIVEIRA @ 09/09/2018 02:22 PM Normal [facility] Comment on above: Order Comment: , , = ========= , Ordering Provider - JONATHAN RHODES PA-C , Operative Reporton 9 Operative Report MR#: [id number] S [facility] Pt. Name: Vince Luciano Room #: 6AB Discharge Date: Birthdate: 1980 OPERATIVE REPORT DATE OF SURGERY: 09/02/2018 SURGEON: Neelam Plasencia M.D. ASSISTANTS: 1. Lani Hannah M.D. 2. Radha Cannon M.D. PREOPERATIVE DIAGNOSIS: Right ring finger open fracture with nail bed injury. POSTOPERATIVE DIAGNOSIS: Right ring finger open fracture with nail bed injury. PROCEDURE PERFORMED: 1. Irrigation and debridement of open fracture. 2. Removal of nail plate. 3. Repair of nail bed. DRAINS: None. SPECIMENS: None. IMPLANTS: None. INDICATIONS FOR PROCEDURE: The patient is a 38-year-old male, who presented to the clinic today after sustaining a work-related injury in which his right ring finger was crushed by a 100-pound press at work. The patient was initially seen by the Occupational Health at his facility and was transferred to the [facility] for further management of his injuries. Risks, benefits, and alternatives were discussed with the patient in clinic, who elected to proceed with surgical intervention. PROCEDURE IN DETAIL: The patient was met in the preoperative holding area where the operative site was marked by the attending physician. Informed consent was reviewed and appropriate. The patient was taken back to the operating room where he was placed supine on the operating table. Preoperative antibiotics were administered in the form of IV Ancef. MAC anesthesia was induced. We began by administering a digital block to the right ring finger consisting of a 50:50 mix of 1% lidocaine without epinephrine and 0.5% bupivacaine. The right upper extremity was then sterilely prepped and draped in the usual fashion. Operative time-out was performed. We began by removal of the nail plate. It was noted that there was significant adherence of the distal nail bed to the nail plate, which was unable to be salvaged. We began by removing the 4 previous sutures that had been placed at the outside facility. We then thoroughly irrigated the wounds with Betadine as well as normal saline. We then used a 3-0 Vicryl in order to suture the volar pulp to a proper position more radially. We used Metzenbaum scissors to debride any unhealthy tissue and did make a small cut in the tissue between the 2 wounds in order to further advance the underlying pulp. We placed several sutures in the pulp in order to tack this down and then began repair of the skin and the nail bed using 5-0 chromic suture in an interrupted fashion. After completion of the nailbed repair, we then placed Adaptic under the nail fold using the chromic gut. The wounds and the nail were dressed with bacitracin ointment, followed by Xeroform, 4x4s, Kerlix, and an Mauricio bandage. The patient was awoken from anesthesia and was transferred to the PACU in stable condition. POSTOPERATIVE INSTRUCTIONS: The patient will keep his dressing on, clean, dry, and intact until followup in clinic approximately 1 week. He may use his right hand for everyday activities such as eating and dressing. However, should avoid lifting, pushing, pulling with his right hand. He should remain off work until followup in clinic. He will be given script for antibiotics to take until followup. He will follow up in clinic in [address] Plasencia was present for all critical portions of the case and was otherwise immediately available to assist. Electronically Signed by: Neelam Plasencia M.D. 09/05/2018 12:59 P Neelam Plasencia M.D. I was present for the vergara and critical portions and I was otherwise immediately available to assist. Date Dict: 09/02/2018/09:12 P/Radha Cannon MD Date Trans: 09/03/2018 04:40 A/joselin PIKE_JN:[id number] cc: Roxy Driver M.D. [address], [facility] [address] Normal [facility] FINGER RIGHT MIN 2 Son FINGER RIGHT MIN 2 VWS [facility] Department of Radiology [address] [place] [address] ======== Patient Name: VINCE LUCIANO : 1980 Sex: M Age: Race: White Pt. Location: OUTP Patient Status: O Ordered Date: 09/02/2018 5:20:00 PM Completed Date: 09/02/2018 08:17 PM Requesting Provider: NEELAM PLASENCIA Attending Provider: NEELAM PLASENCIA Report Copy To: Signs & Symptoms: RT RING FINGER POSSIBLE PINNING History: RT RING FINGER POSSIBLE PINNING Comments: RT RING FINGER POSSIBLE PINNING Exam: FINGER RIGHT MIN 2 VWS ======== FINGER RIGHT MIN 2 VWS 09/02/2018 8:17 PM EDT SIGNS AND SYMPTOMS: RT RING FINGER POSSIBLE PINNING TECHNOLOGIST COMMENTS: 2 secs of fluoro used by Dr Plasencia QUESTION FOR THE RADIOLOGIST: RT RING FINGER POSSIBLE PINNING PROTOCOL: AP,Lateral and Oblique views were obtained. COMPARISON: None FINDINGS: Soft tissues: Bones: Joints: IMPRESSION: Documentation Electronically signed by:Xochilt Oliveira. Transcribed by: [email or web address], User Resident: Electronically Signed by: XOCHILT OLIVEIRA @ 09/03/2018 01:00 PM Normal [facility] Comment on above: Order Comment: RT RI NG FINGER POSSIBLE PINNING POC GLUCOSE LABon 09-02-2018 Glucose [Mass/Vol] 75 mg/dL Normal 70-100 [facility] Comment on above: Performed By: #### 8 [id number] #### [address] Vital Signs Date Time Vital Sign Value Performing Clinician Facility 08-01-2023 11:18040 Body height 190.5 cm Pacc 2 Work Phone: [facility] 08-01-2023 11:18040 Body mass index (BMI) [Ratio] 28.38 kg/m2 Pacc 2 Work Phone: [facility] 08-01-2023 11:180400 Body temperature 97.9 [degF] Pacc 2 Work Phone: [facility] 08-01-2023 11:18-0400 Body weight 103 kg Pacc 2 Work Phone: [facility] 08-01-2023 11:18-0400 Diastolic blood pressure 74 mm[Hg] Pacc 2 Work Phone: [facility] 08-01-2023 11:18-0400 Heart rate 85 /min Pacc 2 Work Phone: [facility] 08-01-2023 11:18-0400 SaO2% (BldA) [Mass fraction] 98 % Pacc 2 Work Phone: [facility] 08-01-2023 11:18-0400 Systolic blood pressure 112 mm[Hg] Pacc 2 Work Phone: [facility] 04-09-2023 19:44-0500 Body temperature 97.88 [degF] Clifford Sanchez [facility] 04-09-2023 19:44-0500 Diastolic blood pressure 85 mm[Hg] Clifford Sanchez [facility] 04-09-2023 19:44-0500 Heart rate 85 /min Clifford Sanchez [facility] 04-09-2023 19:44-0500 Mean blood pressure 95 mm[Hg] Clifford Sanchez [facility] 04-09-2023 19:44-0500 Respiratory rate 17 /min Clifford Sanchez [facility] 04-09-2023 19:44-0500 SaO2% (BldA) [Mass fraction] 97 % Clifford Sanchez [facility] 04-09-2023 19:44-0500 Systolic blood pressure 115 mm[Hg] Clifford Sanchez [facility] 04-09-2023 18:41-0500 Diastolic blood pressure 82 mm[Hg] Clifford Sanchez [facility] 04-09-2023 18:41-0500 Heart rate 81 /min Clifford Sanchez [facility] 04-09-2023 18:41-0500 Mean blood pressure 94 mm[Hg] Clifford Sanchez [facility] 04-09-2023 18:41-0500 Respiratory rate 18 /min Clifford Collazoe [facility] 04-09-2023 18:41-0500 SaO2% (BldA) [Mass fraction] 96 % Clifford Sanchez [facility] 04-09-2023 18:41-0500 Systolic blood pressure 117 mm[Hg] Clifford Sanchez [facility] 04-09-2023 17:56-0500 Body temperature 98.24 [degF] Clifford Sanchez [facility] 04-09-2023 17:56-0500 Diastolic blood pressure 89 mm[Hg] Clifford Sacnhez [facility] 04-09-2023 17:56-0500 Heart rate 85 /min Clifford Sanchez [facility] 04-09-2023 17:56-0500 Respiratory rate 16 /min Clifford Sanchez [facility] 04-09-2023 17:56-0500 SaO2% (BldA) [Mass fraction] 96 % Clifford Sanchez [facility] 04-09-2023 17:56-0500 Systolic blood pressure 132 mm[Hg] Clifford Sanchez [facility] 02-13-2023 15:50-0500 Blood Pressure Location Riley NAMRATAL [facility] [place] 02-13-2023 15:50-0500 Diastolic blood pressure 80 mm[Hg] Riley OTTL [facility] 02-13-2023 15:50-0500 Heart rate 70 /min Riley NILL [facility] [place] 02-13-2023 15:50-0500 Respiratory rate 16 /min Riley NILL [facility] [place] 02-13-2023 15:50-0500 Systolic blood pressure 124 mm[Hg] Riley NILL [facility] [place] Encounters Encounter Date Encounter Type Care Provider Facility Start: 08-13-2023 Telephone encounter [facility] on above[facility] F[facility]A Paperwork Start: 08-13-2023 End: 08-13-2023 ambulatory NANDO PARKER Facility:[facility] Start: 08-01-2023 Encounter for other preprocedural examination [facility]Y [facility] Start: 08-01-2023 End: 08-02-2023 ambulatory AMITA GERARD Facility:[facility] Start: 08-01-2023 End: 08-01-2023 Admission to establishment [place] [id number] Work Phone: Pre Anesthesia Start: 08-01-2023 End: 08-01-2023 Anesthesia consultation [place] [address] Work Phone: Pre Anesthesia Comment on above: Preoperative examina tion (Primary Dx); Migraine without status migrainosus, not intractable, unspecified migraine type; Alcohol use; Anxiety and depression Start: 08-01-2023 End: 08-01-2023 Preprocedural examination done [place] [id number] Work Phone: [facility] Work Phone: Start: 07-31-2023 End: 07-31-2023 ambulatory ROXY DRIVER Facility:[facility] Start: 07-17-2023 Telephone encounter Nando sandhu MD Work Phone: [facility] Urological & Comment on above: Patient Question Start: 07-03-2023 End: 07-04-2023 ambulatory [facility] Start: 06-06-2023 End: 06-07-2023 ambulatory ROXY DRIVER Facility:[facility] Start: 06-06-2023 End: 06-06-2023 Patient encounter procedure Nando Parker MD Work Phone: Urology Comment on above: Weak urinary stream (Primary Dx); BPH with obstruction/lower urinary tract symptoms; Urinary frequency; Voiding dysfunction Start: 06-06-2023 End: 06-06-2023 Nursing evaluation of patient and report [facility] Comment on above: BPH with urinary obs truction (Primary Dx) Start: 06-05-2023 End: 06-05-2023 ambulatory KEESHA CURTIS Facility:[facility] Start: 05-23-2023 Telephone encounter Nando sandhu MD Work Phone: [facility] Urological & Comment on above: Appointment Start: 05-18-2023 Orders Only Nando Grullon Work Phone: Urology Comment on above: Weak urinary stream (Primary Dx) Start: 05-04-2023 End: 05-05-2023 ambulatory EMELY MAGALLANES Not Available Start: 05-04-2023 End: 05-04-2023 ambulatory Emely Magallanes OT Work Phone: [facility] Comment on above: Laceration of extens or muscle, fascia and tendon of right ring finger at wrist and hand level, initial encounter (Primary Dx); Open displaced fracture of middle phalanx of right ring finger, initial encounter Start: 05-02-2023 End: 05-03-2023 ambulatory Jessica Meadows MD Work Phone: Urology Start: 04-30-2023 End: 04-30-2023 ambulatory EMELY MAGALLANES Not Available Start: 04-26-2023 End: 04-26-2023 ambulatory EMELY MAGALLANES Not Available Start: 04-23-2023 End: 04-23-2023 ambulatory EMELY MAGALLANES Not Available Start: 04-20-2023 End: 04-21-2023 ambulatory EMELY MAGALLANES Not Available Start: 04-13-2023 End: 04-14-2023 ambulatory EMELY MAGALLANES Not Available Start: 04-11-2023 End: 04-12-2023 ambulatory [facility] Start: 04-10-2023 End: 04-11-2023 ambulatory EMELY MAGALLANES Not Available Start: 04-09-2023 End: 04-09-2023 Emergency department patient visit Clifford Sanchez Facility:[facility] Start: 04-09-2023 End: 04-09-2023 Emergency department patient visit Clifford Sanchez [facility] Start: 04-06-2023 End: 04-07-2023 ambulatory EMELY MAGALLANES Not Available Start: 04-03-2023 End: 04-03-2023 ambulatory EMELY MAGALLANES Not Available Start: 03-21-2023 End: 03-21-2023 ambulatory EMELY MAGALLANES Not Available Start: 03-20-2023 End: 03-21-2023 ambulatory Riley RODRIGUEZ Facility:[facility] Start: 03-19-2023 End: 03-19-2023 ambulatory EMELY MAGALLANES Not Available Start: 03-14-2023 End: 03-15-2023 ambulatory EMELY MAGALLANES Not Available Start: 03-12-2023 End: 03-12-2023 ambulatory MEELY MAGALLANES Not Available Start: 03-08-2023 End: 03-08-2023 ambulatory EMELY MAGALLANES Not Available Start: 03-07-2023 ambulatory [facility] Start: 02-19-2023 End: 02-20-2023 ambulatory [facility] Start: 02-13-2023 End: 02-14-2023 ambulatory Roxy Driver Facility:[facility] Start: 02-13-2023 End: 02-13-2023 Patient encounter procedure Riley RODRIGUEZ [facility] Start: 01-30-2023 End: 01-31-2023 ambulatory [facility] Start: 11-07-2022 End: 11-07-2022 ambulatory [facility] Start: 08-19-2022 End: 08-19-2022 Emergency department patient visit Lul Zapata Facility:[facility] Start: 08-02-2022 End: 08-03-2022 ambulatory [facility] Start: 07-25-2022 End: 07-26-[address] ROXY DRIVER . Facility: Start: 07-15-2022 End: 07-16-[address] ROXY DRIVER . Facility: Start: 06-19-2022 End: 06-20-[address] ROXY DRIVER . Facility: Start: 05-05-2022 End: 05-05-[address] IAN ROMAN Facility: Start: 09-02-2018 End: 09-03-2018 Patient encounter procedure NEELAM EBZAID Facility:[facility] Procedures Date Procedure Procedure Detail Performing Clinician Start: 06-06-2023 Us transrct prstate vol brachytx plnning spx Nando Parker MD Work Phone: Start: 05-02-2023 Urnls dip stick/tabl et rgnt auto w/o microscopy Bulk Order Provider Start: 03-14-2023 Excision of lesion of skin Clifford Sanchez Comment on above: forehead Start: 11-07-2022 Follow-up visit Follow-up RAFAEL WEEKS Start: 04-30-2019 Colonoscopy Riley SANDHU Start: 09-02-2018 ANESTH LOWER ARM SURGERY NEELAM PLASENCIA Start: 09-02-2018 KESHIA SKIN BONE AT FX SITE NEELAM EBRAHEIM Start: 09-02-2018 Repair nail bed NEELAM GIL Appendectomy Riley OTTL Cholecystectomy Riley RODRIGUEZ Exploratory laparotomy Arnoldo brenda RODRIGUEZ Fracture of hand (disorder) Riley RODRIGUEZ History of cervical spine fusion Riley RODRIGUEZ History of surgical procedure on vein Riley RODRIGUEZ Plan of Treatment Date Care Activity Detail Author Start: 05-05-2032 Urine microalbumin profile DTaP,Tdap,Td Vaccine (2 - Tdap) [facility] Start: 12-27-2023 End: 12-27-2023 Patient encounter procedure 12/27/2023 8:15 AM EDT Office Visit Urology [address] [address] Nando Parker MD [address] [place] [address] UroFlow & PVR - 08/13/2023 [facility] Urology Comment on above: UroFlow & PVR - 08/13/2023 PVP Start: 12-02-2023 Influenza vaccination Influenza Vaccine (Season Ended) [facility] Start: 08-23-2023 End: 08-23-2023 Follow-up encounter 08/23/2023 7:15 AM EDT [facility] [address] [address] Nando Parker MD [address] [place] [address] follow up after UDS per cc chart Urology Comment on above: follow up after UDS per cc chart Start: 08-13-2023 End: 08-13-2023 Admission to same day surgery center 08/13/2023 11:30 AM EDT - 08/13/2023 1:00 PM EDT Surgery [facility] [address] [place] [address] Nando Parker MD [address] [place] [address] LASER PROSTATECTOMY ~ GREEN LIGHT [facility] Comment on above: LASER PROSTATECTOMY ~ GREEN LIGHT Start: 08-13-2023 End: 08-13-2023 Laser vaporization of prostate for urine flow LASER PROSTATECTOMY ~ GREEN LIGHT BPH with obstruction/lower urinary tract symptoms Weak urinary stream 08/13/2023 11:30 AM EDT [facility] OR Start: 08-13-2023 Subsequent hospital visit by physician 08/13/2023 11:30 AM EDT Hospital Encounter [facility] [address] [place] [address] Nando Parker MD [address] [place] [address] BPH with obstruction/lower urinary tract symptoms [N40.1, N13.8], Weak urinary stream [R39.12] [facility] Comment on above: BPH with obstruction/lower urinary tract symptoms [N40.1, N13.8], Weak urinary stream [R39.12] Start: 04-02-2023 Behavioral Health Screening Behavioral Health Screening [facility] Start: 04-02-2023 Depression Assessment Depression Assessment [facility] Start: 12-01-2022 Covid-19 Vaccine ( season) Covid-19 Vaccine ( season) [facility] Start: 12-01-2022 Influenza vaccination Influenza Vaccine (#1) [facility] Start: 06-30-2014 Lipid panel Lipid Screening [facility] Start: 06-30-1998 Hepatitis B Vaccine (1 of 3 - 19+ 3-dose series) Hepatitis B Vaccine (1 of 3 - 19+ 3-dose series) [facility] Start: 06-30-1997 Hepatitis C screening Hepatitis C Screening [facility] Start: 06-30-1997 HIV screening HIV Screening [facility] Start: 1980 Hepatitis B Vaccine (1 of 3 - 3-dose series) Hepatitis B Vaccine (1 of 3 - 3-dose series) [facility] CYSTO DIAGNOSTIC CYSTO DIAGNOSTI C Procedures Routine Weak urinary stream Ordered: 05/18/2023 [facility] Work Phone: Comment on above: Ordered: 05/18/2023 ECG COMPLETE ECG COMPLETE ECG Routine Preoperative examination Ordered: 08/01/2023 [facility] Work Phone: Comment on above: Ordered: 08/01/2023 FLUROURODYNAMICS WITH EMG FLUROU RODYNAMICS WITH EMG Procedures Routine Weak urinary stream Ordered: 05/18/2023 [facility] Work Phone: Comment on above: Ordered: 05/18/2023 [facility] Immunizations Immunization Date Immunization Notes Care Provider Fa andersonemil 01-04-2022 influenza, unspecified formulation Riley OTTL [facility] [place] 01-04-2022 influenza virus vaccine, unspecified formulation Emely Magallanes OT Work Phone: [facility] 03-24-2021 SARS-CoV-2 (COVID-19 ) mRNA BNT-162b2 vax Riley OTTL [facility] [place] 07-21-2020 SARS-CoV-2 (COVID-19 ) mRNA-1273 vaccine Riley OTTL [facility] [place] 06-23-2020 SARS-CoV-2 (COVID-19 ) mRNA-1273 vaccine Riley OTTL [facility] NEGATED: Highlighted row has not occurred!02-13-2023 influenza virus vaccine, unspecified formulation Riley OTTL [facility] [place] NEGATED: Highlighted row has not occurred!04-15-2019 influenza virus vaccine, live, attenuated, for intranasal use Riley RODRIGUEZ [facility] [place] Payers Date Payer Category Payer Unknown [id number] 2021 Unknown [id number] 2021 Unknown [id number] 1979 Unknown [id number] 2.16.8 40.1.414046.3.579.2.647 1979 Unknown [id number] 2.16.84 0.1.609168.3.579.2.593 1979 Unknown [id number] 2.16.84 0.1.996938.3.579.2.593 1979 Unknown [id number] 2.16.84 0.1.303116.3.579.2.593 1979 Unknown [id number] 2.16.84 0.1.132734.3.579.2.593 1979 Unknown [id number] 2.16.84 0.1.824629.3.579.2.1258 1979 Unknown [id number] 2.16.84 0.1.164257.3.579.2.9 1979 Unknown [id number] 2.16.84 0.1.037106.3.579.2.1258 1979 Unknown [id number] 2.16.84 0.1.109154.3.579.2.1258 1979 Unknown [id number] 2.16.84 0.1.326985.3.579.2.1258 1979 Unknown [id number] 2.16.84 0.1.189562.3.579.2.1258 1979 Unknown [id number] 2.16.84 0.1.032315.3.579.2.1258 1979 Unknown [id number] 2.16.84 0.1.897491.3.579.2.1258 1979 Unknown [id number] 2.16.84 0.1.134074.3.579.2.1258 1979 Unknown [id number] 2.16.84 0.1.508420.3.579.2.1258 1979 Unknown [id number] 2.16.84 0.1.586547.3.579.2.1258 1979 Unknown [id number] 2.16.84 0.1.417379.3.579.2.1258 1979 Unknown [id number] 2.16.84 0.1.534237.3.579.2.1258 1979 Unknown [id number] 2.16.84 0.1.230202.3.579.2.1258 1979 Unknown [id number] 2.16.84 0.1.134026.3.579.2.1258 1979 Unknown [id number] 2.16.84 0.1.204872.3.579.2.9 1979 Unknown [id number] 2.16.84 0.1.743149.3.579.2.1258 1979 Unknown [id number] 2.16.84 0.1.321668.3.579.2.1258 1979 Unknown [id number] 2.16.84 0.1.959963.3.579.2.1258 1979 Unknown [id number] 2.16.84 0.1.383817.3.579.2.1258 1979 Unknown [id number] 2.16.84 0.1.220473.3.579.2.1258 1979 Unknown [id number] 2.16.84 0.1.305168.3.579.2.1258 1979 Unknown [id number] 2.16840 .1.624402.3.579.2.1258 1979 Unknown [id number] 2.16.840 .1.498199.3.579.2.1258 1979 Unknown [id number] 2.16.840 .1.761763.3.579.2.1258 1979 Unknown [id number] 2.16.840 .1.015755.3.579.2.1258 1979 Unknown [id number] 2.16840 .1.406321.3.579.2.1258 1979 Unknown [id number] 2.16.840 .1.740416.3.579.2.1258 1979 Unknown [id number] 2.16.840 .1.370724.3.579.2.1258 1979 Unknown [id number] 2.16.840 .1.019286.3.579.2.1258 1979 Unknown [id number] 2.16.840 .1.786736.3.579.2.1258 1979 Unknown [id number] 2.16.840 .1.440408.3.579.2.9 1979 Unknown [id number] 2.16.840 .1.386961.3.579.2.1258 1979 Unknown [id number] 2.16.840 .1.691602.3.579.2.9 1979 Unknown [id number] 2.16.840 .1.284834.3.579.2.1258 1979 Unknown [id number] 2.16.840 .1.866063.3.579.2.1258 1979 Unknown [id number] 2.16.840 .1.199651.3.579.2.1258 1979 Unknown [id number] 2.16.840 .1.095586.3.579.2.9 1979 Unknown [id number] 2.16.8 40.1.898021.3.579.2.7 1979 Unknown [id number] 2.16.8 40.1.488830.3.579.2.7 1979 Unknown [id number] 2.16.8 40.1.339511.3.579.2.7 1979 Unknown [id number] 2.16.8 40.1.757718.3.579.2.7 1979 Unknown [id number] 2.16.8 40.1.461293.3.579.2.727 1959 Unknown [id number] 1959 Unknown [id number] Worker's Compensation [id number] Social History Date Type Detail Facility Start: 05-07-2019 End: 01-15-2023 Tobacco smoking status Never smoked tobacco (finding) [facility] Tobacco smoking status Never [facility] Start: 01-15-2023 End: 05-02-2023 Sex Assigned At Male [facility] Start: 01-15-2023 Tobacco use and exposure Smokeless tobacco non-user [facility] Start: 06-19-2016 End: 01-15-2023 Alcohol intake Current drinker of alcohol (finding) [facility] Start: 01-15-2023 End: 05-02-2023 History of Social function [facility] Start: 12-21-2022 Alcohol Comment caffeine: 2-3 cups per day [facility] Start: 1980 Sex Assigned At Male [facility] Start: 12-19-2022 Gender identity Identifies as male gender (finding) [facility] Start: 12-19-2022 Sexual orientation Heterosexual (finding) [facility] Start: 07-24-2011 Tobacco smoking status NHIS Ex-smoker [facility] End: 04-02-2004 History of tobacco use Current smoker [facility] End: 04-02-2004 History of tobacco use Cigarette Smoker [facility] Start: 07-24-2011 Tobacco use and exposure Former smokeless tobacco user [facility] End: 04-02-2004 History of tobacco use Chews Tobacco [facility] Start: 1980 Sex Assigned At Not on file [facility] Start: 08-01-2023 Alcohol intake Ex-drinker (finding) [facility] Start: 08-01-2023 Alcohol Comment daily - 3-6 beers/night [facility] Functional Status Date Assessment Result Facility 04-09-2023 Functional Status N/A [facility] 02-13-2023 Functional Status N/A [facility] Clinical Notes 05-05-2022 to 08-14-2023 Telephone Encounter - Fiona Al - 08/14/2023 12:06 PM EDTTelephone Encounter - Fiona Al - 08/14/2023 12:06 PM EDTPatient Amita Rubio PA-C - 08/01/2023 11:10 AM EDT Note Date & Type Note Facility 08-14-2023 Telephone encounter Note Paperwork has been faxed to employer. Thanks Patients notified also and patient scheduled for [address] Elena vences. Thanks [facility] 08-14-2023 Miscellaneous Notes Paperwork has been faxed to employer. Thanks Patients notified also and patient scheduled for [address] Parker also. Thanks is calling regarding his FMLA papers, he is having surgery today. Please advise. Thanks documented in this encounter 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 and patient Staffing CAA: Naomy Amador AA Performed by: anesthesiologist and CAA Indications and Patient Condition Indications for airway management: anesthesia Preoxygenated: yes anesthesia circuit Method: asleep Cricoid Pressure: No Manual In-Line Stabilization: No Difficult Mask: No Final Airway Details Final airway type: supraglottic airway Number of attempts at approach: 1 Ventilation between attempts: none Final Supraglottic Airway: i-gel Size 5 Seal Adequate: yes Failed airway: no Unrecognized esophageal intubation: no Airway not difficult SIGNATURE: CARA Chong PATIENT NAME: Vince Luciano DATE: August 13, 2023 TIME: 2:13 PM CSN: [id number] [facility] 08-13-2023 Telephone encounter Note is calling regarding his FMLA papers, he is having surgery today. Please advise. Thanks [facility] 08-01-2023 Instructions Amita Gee PA-C - 08/01/2023 11:15 AM EDT PATIENT PREOPERATIVE INSTRUCTIONS [facility]: [phone] -- [address] [address]. Please read below carefully for your personalized instructions. Arrival Time for Surgery: -You will receive a call from [facility] the afternoon before surgery after 2:30 pm (or Sunday for Sunday surgery) for a scheduled arrival time. - If you have not heard by 4 pm, please contact [facility] at [phone]. Dietary Restrictions: - No solid food after midnight. - You may have 12 ounces of clear liquids (water, clear juices such as apple juice or gatorade, carbonated beverages, clear tea, black coffee, jello) until 2 hours before scheduled arrival at facility. - Do not drink any alcohol after midnight the night before your surgery. Medications: Unless instructed differently below, stay on all of your medications until your surgery. If you start any new medications after today's visit, please contact your surgeon. Pre-Surgery Med Instructions Medication Instructions SUMAtriptan (IMITREX) 100 mg tablet Do not take the day of surgery buPROPion XL (WELLBUTRIN XL) 300 mg 24 hr tablet Take the day of surgery with a small sip of water doxycycline monohydrate (MONODOX) 100 mg capsule Do not take the day of surgery tamsulosin (FLOMAX) 0.4 mg Take the day of surgery with a small sip of water buPROPion XL (WELLBUTRIN XL) 150 mg 24 hr tablet Take the day of surgery with a small sip of water albuterol HFA (PROVENTIL HFA, VENTOLIN HFA) 90 mcg/actuation inhaler Use inhaler day of surgery if needed. Cetirizine 10 mg cap Do not take the day of surgery Topiramate (TOPAMAX) 50 mg tablet Take the day of surgery with a small sip of water If you take any medications for erectile dysfunction-Cialis (Tadalafil), Levitra, Staxyn (Vardenafil) Viagra (Sildenenafil please do not take these for 48 hours before surgery. Blood Thinning Medications: - Stop NSAIDS (Ibuprofen, Advil, Aleve, Motrin, Celebrex, Mobic, etc.) 7 days before surgery, as directed by your surgeon. - Stop Aspirin 7 days before surgery, as directed by your surgeon. - Stop Vitamin E, ALL multi-vitamins, herbals and dietary supplements 7 days before surgery. - You may take Tylenol (Acetaminophen) or any of your pain medications that do not contain aspirin or NSAIDS as needed. Important Reminders: - If you use CPAP/BIPAP, bring the machine with you to the surgery center. - If you are prescribed inhalers for breathing, continue using them. - Candy, mints, and tobacco products are NOT permitted the morning of surgery. - Hearing aids, dentures and glasses may be worn the morning of surgery. - NO jewelry, body piercings, makeup, hairpins or contacts are to be worn the day of surgery. If you develop symptoms such as a fever, cold, or flu, or have other changes to your health within TWO DAYS of scheduled surgery or the morning of surgery, please contact the surgery center above. Personal Belongings: -Please have photo ID and insurance cards. -If you do not have a copy of advance directives on file with us, please bring a copy with you on the day of surgery. - Leave ALL valuables and money at home or with family members. For Outpatient Procedures: - YOU MUST HAVE A RESPONSIBLE DOPE HOUSE OPERATOR HELPER TAKE YOU HOME. A WAREHOUSE PULLER OR PERFORMANCE MANAGER CANNOT BE MADE A RESPONSIBLE DOPE HOUSE OPERATOR HELPER. - We recommend that a responsible person stays with you overnight to take care of you. - You cannot stay in a hotel alone after outpatient surgery. You will not be permitted to have your surgery, if you do not have someone to take care of you. Please be aware that emergency situations arise, which may delay or change your surgical time. If this happens, we will notify you as soon as possible and regret any inconvenience. If you already have an Advance Directive, please fax a copy to [phone] or email to for it to be added to your chart. If you do not have an Advance Directive, you can find the appropriate form and more information at [email or web address]. We recommend that you complete the Advance Directive form found on the website and bring it with you the day of your surgery. It can be witnessed and scanned into your chart that day. documented in this encounter [facility] 08-01-2023 History and physical note HISTORY AND PHYSICAL EXAMINATION SERVICE DATE: 08/01/2023 SERVICE TIME: 11:09 AM PRIMARY CARE PHYSICIAN: Roxy Driver MD Assessment Patient has the following medical conditions which may affect heena-operative course: Migraines Assessment: Stable, managed with Imitrex PRN. Alcohol use Assessment: Drink daily, 3-6 beers/day. Denies withdrawal sx. CMP pending. Anxiety and depression Assessment: Stable, on Wellbutrin and Topamax. Crowder Activity Status Index: METS: Climb a flight of stairs or walk up a hill (5.50 METs) DASI Score: 5.5 Patient denies any chest pain or undue shortness of breath with the above physical activity. Clinical Frailty Scale: 3. Well, with treated comorbid disease STOP-Bang Score: Snores loudly Male patient Denies feeling tired, fatigued, or sleepy during the daytime Has not been observed to stop breathing or choking/gasping during sleep Denies having high blood pressure BMI less than or equal to 35 kg/m^2 Patient 50 years old or younger Does not have a large neck STOP-Bang Score: 2 [id number] Score: Age: <65 Sex: male CHF history: No Hypertension history: No Stroke/TIA/thromboembolism history: No Vascular disease history: No Diabetes history: No [id number] Score: 0 ANESTHESIA FINDINGS: Intubation History: No history of difficult intubation Significant Anesthesia Considerations: none Airway History: No history of difficult airway History of head/neck surgery that distorted airway, including mouth, neck, or their mobility (s/p cervical fusion (C5-6)) I - PHYSICAL EVALUATION AIRWAY Patient intubated: No. Tracheostomy tube not present Mallampati: III. TM distance: >3 FB. Neck ROM: full ROM without neurological symptoms. Mouth opening: adequate. Short neck: no. Thick neck: no Lerner present: yes (+goatee) Lip Bite Test: II Microretrognathia/Micronagthia/R ecessed Chin: No DENTAL Dental findings: teeth intact. II - ANESTHESIA PLAN Anesthetic Plan: other Anesthetic plan additional comments: *PACC/TCI - anesthesia choice. Beta Issa Monitoring Plan Post Procedure Analgesic Plan Prepared for Surgery: optimally prepared for surgery, pending [see comment]. LABS and ECG. CONSULTS: Patient does not require consults for optimization at this time Planned Anesthetic: other anesthesia choice The Following Tests/Procedures Have Been Initiated: Orders placed by surgeon/surgical service in [facility]. Orders Placed This Encounter Complete Blood Count and Differential Standing Status: Future Standing Expiration Date: 10/31/2023 BMP Standing Status: Future Standing Expiration Date: 10/31/2023 ECG (IN OFFICE) REASON FOR VISIT: Vince Luciano is a 43 year old male who is scheduled for Procedure(s): LASER PROSTATECTOMY ~ GREEN LIGHT (N/A) at the request of Nando Arechiga MD for consultation. My final recommendation will be communicated back to the requesting physician by way of shared medical record or letter. Subjective The patient has the following: ACTIVE PROBLEM LIST Varicose Veins of Lower Extremities With Other Complications Elevated Partial Thromboplastin Time (Ptt) Hematoma Symptomatic Spider Varicose Vein Varicose Veins of Leg With Pain Migraines Alcohol Use Anxiety and Depression Bph (Benign Prostatic Hyperplasia) COVID-19 Immunization Status Overdue - Covid-19 Vaccine () Overdue since 12/01/2022 03/24/2021 Imm Admin: COVID-19 original vaccine, age 12+ yr, monovalent ([employer] - PURPLE TOP) 07/21/2020 Imm Admin: COVID-19 original vaccine, full dose, monovalent (MODERNA) 06/23/2020 Imm Admin: COVID-19 original vaccine, full dose, monovalent (MODERNA) Only the first 3 history entries have been loaded, but more history exists. CHIEF COMPLAINT: BPH HPI: Vince Luciano is a 43 year old male presenting for pre-anesthesia consultation. Pt has history of BPH and voiding dysfunction. C/o weak stream. Denies dysuria or gross hematuria. Above procedure recommended to manage symptoms. Procedure scheduled on 08/13/2023 at . REVIEW OF SYSTEMS: General: No weight loss, malaise or fevers. Neurological: Positive for: headaches (migraines - Imitrex PRN). Negative for: multiple sclerosis, Parkinson's disease, seizures, TIA and strokes. Respiratory: Positive for: tobacco use (quit 2004). Negative for: asthma, bronchitis, COPD, current cough, home oxygen, pneumonia within 6 weeks, URI < 2 weeks and obstructive sleep apnea. Cardiovascular: No history of HTN requiring medication, no history of angina, CHF, NH, cardiac surgery or stents. Denies rest pain, gangrene or revascularization/amputation for PVD. No history of cardiovascular symptoms or problems. GI: Positive for: irritable bowel syndrome (mixed, ?IBD, managed with diet) and ETOH >2 drinks/day (3-6 beers daily, denies withdrawal sx) Negative for: hepatitis, inflammatory bowel disease and liver disease. : See HPI. Negative for: dysuria, frequent urination, hematuria, renal failure and urinary tract infection. Endocrine: No history of diabetes. Has not taken steroids within the past 30 days. No history of endocrinological symptoms or problems. Hematology: No history of bleeding or clotting disorder. Patient is not taking anti-coagulation or platelet medications. No history of hematological symptoms or problems. Oncology: No history of CA metastasis, chemo within 30 days, or radiotherapy within 90 days. No history of oncological symptoms or problems. Psych: Positive for: anxiety and depression. Musculoskeletal: +Neck pain Negative for: swelling. Skin: +Chronic folliculitis - on doxycycline Negative for: lesions and rash. PAST MEDICAL HISTORY Diagnosis Date Bowel obstruction (HCC) 2015 Prolonged hospitalization Chronic cholecystitis Gallbladder sludge Varicose vein of leg PAST SURGICAL HISTORY Procedure Laterality Date BOWEL RESECTION HX 2007, 2014 SBO, CARLOS CHOLECYSTECTOMY HX 04/02/2014 EXC VARICOCELE/LIGATION SPERMATIC VEINS SPX EXC VARICOCELE/LIGATION VEINS W/HERNIA RPR INGUINAL HERNIA REPAIR HX PAST SURGICAL HISTORY OF lasik eye PAST SURGICAL HISTORY OF bilateral vein ligations PAST SURGICAL HISTORY OF 2019 cervical fusion PAST SURGICAL HISTORY OF R hand ring finger - multiple surgeries for fracture and tendon laceration 2022 & 2023 FAMILY HISTORY Problem Relation Age of Onset other (pancreatic cancer [Other]) Maternal Grandmother Colon Cancer Paternal Grandmother Anesthesia Problems No Family History Social History Tobacco Use Smoking status: Former Packs/day: 1.00 Years: 3.00 Additional pack years: 0.00 Total pack years: 3.00 Types: Cigarettes Quit date: 04/02/2004 Years since quittin.3 Smokeless tobacco: Former Types: Chew Quit date: 04/02/2004 Substance Use Topics Alcohol use: Not Currently Comment: daily - 3-6 beers/night Drug use: Not Currently Prior to Admission medications as of 08/01/23 1134 Medication Sig Last Dose Taking SUMAtriptan (IMITREX) 100 mg tablet TAKE 1 TABLET BY MOUTH AT LEAST 2 HOURS BETWEEN DOSES NEEDED Taking Yes buPROPion XL (WELLBUTRIN XL) 300 mg 24 hr tablet Take 300 mg by mouth once daily. Taking Yes doxycycline monohydrate (MONODOX) 100 mg capsule Take 100 mg by mouth once daily. Taking Yes tamsulosin (FLOMAX) 0.4 mg Take 0.4 mg by mouth once daily. Taking Yes buPROPion XL (WELLBUTRIN XL) 150 mg 24 hr tablet Take 150 mg by mouth once daily. Taking Yes ergocalciferol, vitamin D2, (DRISDOL) 50,000 unit capsule Take 1 capsule by mouth once each week. Taking Yes cyanocobalamin (VITAMIN B-12) 500 mcg tab Take 1 tablet by mouth once daily. Taking Yes Cetirizine 10 mg cap Take 10 mg by mouth once daily. Taking Yes topiramate XR (TROKENDI XR) 100 mg capsule Take 50 mg by mouth two times a day. Taking Yes Medication Comments documented by Marianela Griffin LPN on 07/24/2011 at 1200. Patient verbally confirmed current medications. Marianela Griffin LPN 07/24/2011 ALLERGIES Allergen Reactions Cinnamon Swelling Coconut Swelling Objective PHYSICAL EXAM: General: alert and oriented and healthy appearance. Pertinent negatives noted - not distressed. Skin: normal color, no rash or lesions. HEENT: EOM intact and pupils equal round. Pertinent negatives noted - no carotid bruit. Cardiovascular: regular rate and rhythm, normal S1 and S2, no rub, murmurs, or gallop. Pulse characterized as regular.No radial pulse abnormalities. Respiratory: normal breath sounds, no wheezes or crackles. Abdomen: bowel sounds present. Pertinent negatives noted - not distended. Extremities: no deformity, no edema or tenderness, no joint swelling or clubbing. Neurological: normal cognition and motor skills. Gait normal. No weakness or sensory deficit. PAIN ASSESSMENT: VITALS: BP 112/74 Pulse 85 Temp (Src) 97.9 (Temporal) Ht 6' 3 (1.91m) Wt 227 lb 1.2 oz (103.0kg) SpO2 98% BMI 28.38 kg/(m^2). Diagnostic tests reviewed for today's visit: Lab Value Units Date High Low HB No results within date range. HCT No results within date range. WBC No results within date range. PLT No results within date range. NA No results within date range. K No results within date range. GLUC No results within date range. BUN No results within date range. CREAT No results within date range. PTSEC No results within date range. INR No results within date range. APTT No results within date range. ALT No results within date range. AST No results within date range. TBILI No results within date range. TSH No results within date range. Lab Value Units Date High Low HCGQT No results within date range. UHCG No results within date range. HCG, BODY* No results within date range. Lab Value Units Date High Low ABORHD No results within date range. ABSCREEN No results within date range. Hemoglobin A1C (%) Date Value 07/03/2016 5.4 No results found for this or any previous visit (from the past 8760 hour(s)). No results found for this or any previous visit (from the past 76685 hour(s)). Instructions Given to Patient: Instructions located in the after visit summary. Patient given verbal and written preop instructions and voices comprehension and compliance. SIGNATURE: Amita Gee PA-C PATIENT NAME: Vince Luciano DATE: 08/01/2023 TIME: 11:09 AM PAGER/CONTACT #: T [facility] 08-01-2023 History and physical note HISTORY AND PHYSICAL EXAMINATION SERVICE DATE: 08/01/2023 SERVICE TIME: 11:09 AM PRIMARY CARE PHYSICIAN: Roxy Driver MD Assessment Patient has the following medical conditions which may affect heena-operative course: Migraines Assessment: Stable, managed with Imitrex PRN. Alcohol use Assessment: Drink daily, 3-6 beers/day. Denies withdrawal sx. CMP pending. Anxiety and depression Assessment: Stable, on Wellbutrin and Topamax. Crowder Activity Status Index: METS: Climb a flight of stairs or walk up a hill (5.50 METs) DASI Score: 5.5 Patient denies any chest pain or undue shortness of breath with the above physical activity. Clinical Frailty Scale: 3. Well, with treated comorbid disease STOP-Bang Score: Snores loudly Male patient Denies feeling tired, fatigued, or sleepy during the daytime Has not been observed to stop breathing or choking/gasping during sleep Denies having high blood pressure BMI less than or equal to 35 kg/m^2 Patient 50 years old or younger Does not have a large neck STOP-Bang Score: 2 [id number] Score: Age: <65 Sex: male CHF history: No Hypertension history: No Stroke/TIA/thromboembolism history: No Vascular disease history: No Diabetes history: No [id number] Score: 0 ANESTHESIA FINDINGS: Intubation History: No history of difficult intubation Significant Anesthesia Considerations: none Airway History: No history of difficult airway History of head/neck surgery that distorted airway, including mouth, neck, or their mobility (s/p cervical fusion (C5-6)) I - PHYSICAL EVALUATION AIRWAY Patient intubated: No. Tracheostomy tube not present Mallampati: III. TM distance: >3 FB. Neck ROM: full ROM without neurological symptoms. Mouth opening: adequate. Short neck: no. Thick neck: no Lerner present: yes (+goatee) Lip Bite Test: II Microretrognathia/Micronagthia/R ecessed Chin: No DENTAL Dental findings: teeth intact. II - ANESTHESIA PLAN Anesthetic Plan: other Anesthetic plan additional comments: *PACC/TCI - anesthesia choice. Beta Issa Monitoring Plan Post Procedure Analgesic Plan Prepared for Surgery: optimally prepared for surgery, pending [see comment]. LABS and ECG. CONSULTS: Patient does not require consults for optimization at this time Planned Anesthetic: other anesthesia choice The Following Tests/Procedures Have Been Initiated: Orders placed by surgeon/surgical service in [facility]. Orders Placed This Encounter Complete Blood Count and Differential Standing Status: Future Standing Expiration Date: 10/31/2023 BMP Standing Status: Future Standing Expiration Date: 10/31/2023 ECG (IN OFFICE) REASON FOR VISIT: Vince Luciano is a 43 year old male who is scheduled for Procedure(s): LASER PROSTATECTOMY ~ GREEN LIGHT (N/A) at the request of Nando Arechiga MD for consultation. My final recommendation will be communicated back to the requesting physician by way of shared medical record or letter. Subjective The patient has the following: ACTIVE PROBLEM LIST Varicose Veins of Lower Extremities With Other Complications Elevated Partial Thromboplastin Time (Ptt) Hematoma Symptomatic Spider Varicose Vein Varicose Veins of Leg With Pain Migraines Alcohol Use Anxiety and Depression Bph (Benign Prostatic Hyperplasia) COVID-19 Immunization Status Overdue - Covid-19 Vaccine () Overdue since 12/01/2022 03/24/2021 Imm Admin: COVID-19 original vaccine, age 12+ yr, monovalent ([employer] - PURPLE TOP) 07/21/2020 Imm Admin: COVID-19 original vaccine, full dose, monovalent (MODERNA) 06/23/2020 Imm Admin: COVID-19 original vaccine, full dose, monovalent (MODERNA) Only the first 3 history entries have been loaded, but more history exists. CHIEF COMPLAINT: BPH HPI: Vince Luciano is a 43 year old male presenting for pre-anesthesia consultation. Pt has history of BPH and voiding dysfunction. C/o weak stream. Denies dysuria or gross hematuria. Above procedure recommended to manage symptoms. Procedure scheduled on 08/13/2023 at . REVIEW OF SYSTEMS: General: No weight loss, malaise or fevers. Neurological: Positive for: headaches (migraines - Imitrex PRN). Negative for: multiple sclerosis, Parkinson's disease, seizures, TIA and strokes. Respiratory: Positive for: tobacco use (quit 2004). Negative for: asthma, bronchitis, COPD, current cough, home oxygen, pneumonia within 6 weeks, URI < 2 weeks and obstructive sleep apnea. Cardiovascular: No history of HTN requiring medication, no history of angina, CHF, NH, cardiac surgery or stents. Denies rest pain, gangrene or revascularization/amputation for PVD. No history of cardiovascular symptoms or problems. GI: Positive for: irritable bowel syndrome (mixed, ?IBD, managed with diet) and ETOH >2 drinks/day (3-6 beers daily, denies withdrawal sx) Negative for: hepatitis, inflammatory bowel disease and liver disease. : See HPI. Negative for: dysuria, frequent urination, hematuria, renal failure and urinary tract infection. Endocrine: No history of diabetes. Has not taken steroids within the past 30 days. No history of endocrinological symptoms or problems. Hematology: No history of bleeding or clotting disorder. Patient is not taking anti-coagulation or platelet medications. No history of hematological symptoms or problems. Oncology: No history of CA metastasis, chemo within 30 days, or radiotherapy within 90 days. No history of oncological symptoms or problems. Psych: Positive for: anxiety and depression. Musculoskeletal: +Neck pain Negative for: swelling. Skin: +Chronic folliculitis - on doxycycline Negative for: lesions and rash. PAST MEDICAL HISTORY Diagnosis Date Bowel obstruction (HCC) 2014 Prolonged hospitalization Chronic cholecystitis Gallbladder sludge Varicose vein of leg PAST SURGICAL HISTORY Procedure Laterality Date BOWEL RESECTION HX 2007, 2014 SBO, CARLOS CHOLECYSTECTOMY HX 04/02/2014 EXC VARICOCELE/LIGATION SPERMATIC VEINS SPX EXC VARICOCELE/LIGATION VEINS W/HERNIA RPR INGUINAL HERNIA REPAIR HX PAST SURGICAL HISTORY OF lasik eye PAST SURGICAL HISTORY OF bilateral vein ligations PAST SURGICAL HISTORY OF 2019 cervical fusion PAST SURGICAL HISTORY OF R hand ring finger - multiple surgeries for fracture and tendon laceration 2022 & 2023 FAMILY HISTORY Problem Relation Age of Onset other (pancreatic cancer [Other]) Maternal Grandmother Colon Cancer Paternal Grandmother Anesthesia Problems No Family History Social History Tobacco Use Smoking status: Former Packs/day: 1.00 Years: 3.00 Additional pack years: 0.00 Total pack years: 3.00 Types: Cigarettes Quit date: 04/02/2004 Years since quittin.3 Smokeless tobacco: Former Types: Chew Quit date: 04/02/2004 Substance Use Topics Alcohol use: Not Currently Comment: daily - 3-6 beers/night Drug use: Not Currently Prior to Admission medications as of 08/01/23 1134 Medication Sig Last Dose Taking SUMAtriptan (IMITREX) 100 mg tablet TAKE 1 TABLET BY MOUTH AT LEAST 2 HOURS BETWEEN DOSES NEEDED Taking Yes buPROPion XL (WELLBUTRIN XL) 300 mg 24 hr tablet Take 300 mg by mouth once daily. Taking Yes doxycycline monohydrate (MONODOX) 100 mg capsule Take 100 mg by mouth once daily. Taking Yes tamsulosin (FLOMAX) 0.4 mg Take 0.4 mg by mouth once daily. Taking Yes buPROPion XL (WELLBUTRIN XL) 150 mg 24 hr tablet Take 150 mg by mouth once daily. Taking Yes ergocalciferol, vitamin D2, (DRISDOL) 50,000 unit capsule Take 1 capsule by mouth once each week. Taking Yes cyanocobalamin (VITAMIN B-12) 500 mcg tab Take 1 tablet by mouth once daily. Taking Yes Cetirizine 10 mg cap Take 10 mg by mouth once daily. Taking Yes topiramate XR (TROKENDI XR) 100 mg capsule Take 50 mg by mouth two times a day. Taking Yes Medication Comments documented by Marianela Griffin LPN on 07/24/2011 at 1200. Patient verbally confirmed current medications. Marianela Griffin LPN 07/24/2011 ALLERGIES Allergen Reactions Cinnamon Swelling Coconut Swelling Objective PHYSICAL EXAM: General: alert and oriented and healthy appearance. Pertinent negatives noted - not distressed. Skin: normal color, no rash or lesions. HEENT: EOM intact and pupils equal round. Pertinent negatives noted - no carotid bruit. Cardiovascular: regular rate and rhythm, normal S1 and S2, no rub, murmurs, or gallop. Pulse characterized as regular.No radial pulse abnormalities. Respiratory: normal breath sounds, no wheezes or crackles. Abdomen: bowel sounds present. Pertinent negatives noted - not distended. Extremities: no deformity, no edema or tenderness, no joint swelling or clubbing. Neurological: normal cognition and motor skills. Gait normal. No weakness or sensory deficit. PAIN ASSESSMENT: VITALS: BP 112/74 Pulse 85 Temp (Src) 97.9 (Temporal) Ht 6' 3 (1.91m) Wt 227 lb 1.2 oz (103.0kg) SpO2 98% BMI 28.38 kg/(m^2). Diagnostic tests reviewed for today's visit: Lab Value Units Date High Low HB No results within date range. HCT No results within date range. WBC No results within date range. PLT No results within date range. NA No results within date range. K No results within date range. GLUC No results within date range. BUN No results within date range. CREAT No results within date range. PTSEC No results within date range. INR No results within date range. APTT No results within date range. ALT No results within date range. AST No results within date range. TBILI No results within date range. TSH No results within date range. Lab Value Units Date High Low HCGQT No results within date range. UHCG No results within date range. HCG, BODY* No results within date range. Lab Value Units Date High Low ABORHD No results within date range. ABSCREEN No results within date range. Hemoglobin A1C (%) Date Value 07/03/2016 5.4 No results found for this or any previous visit (from the past 8760 hour(s)). No results found for this or any previous visit (from the past 45889 hour(s)). Instructions Given to Patient: Instructions located in the after visit summary. Patient given verbal and written preop instructions and voices comprehension and compliance. SIGNATURE: Amita Gee PA-C PATIENT NAME: Vince Luciano DATE: 08/01/2023 TIME: 11:09 AM PAGER/CONTACT #: documented in this encounter [facility] 07-17-2023 Miscellaneous Notes The is not listed as a POC in [employer], pts mother Norma Luciano is. Need to confirm with pt if this needs to be updated. Will send a [employer] Chart message to the pt. Rodríguez Allred RN July 17, 2023 2:38 PM The calls stating that he isn't sure if he asked or not when he was in at his last apt but for his surgery -- how long will he need off from work? He is scheduled for surgery on August 12. 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 Please advise. Thanks documented in this encounter [facility] 07-03-2023 Note Orthopedic Surgery 02/19/2023 Ring Finger Middle Phalanx Osteotomy - Right Vince Luciano comes in for a post-operative visit after having a right ring P2 osteotomy done on 02/19/2023. Today he is doing well and has no unexpected complaints. He is working and doing well. Physical Exam: The incision site is healing well. There is no erythema, drainage or signs of infection. Tenderness is mild and localized to the surgical site. Sensation is present to light touch. Range of motion is appropriate for this time. He has 0 to 80 degrees at the PIP joint of the ring finger and 0-20 at the DIP joint. There is no active extension at the DIP but only passive motion. She he is able to reach his fingertips to the palm, but is while short of a clenched fist. Assessment: Vince Luciano is a 43 y.o. year old male with Open displaced fracture of middle phalanx of right ring finger with malunion, subsequent encounter Plan: I think he is doing really well at this point in time. Organ to let him go for about 4 months. He is working full duty currently. In 4 months we will repeat an x-ray and if his motion is not significantly improved we may discuss taking the plate out to gain DIP flexion. [facility] 06-10-2023 Note HNO ID: [id number] Author: NANDO PARKER MD Service: ? Author Type: Physician Type: Progress Notes Filed: 06/10/2023 12:13 Note Text: URODYNAMIC RESULTS: - volume: normal (500 cc) - compliance: normal - sensation: early - overactivity: none - incontinence: none - bladder contraction: reduced / absent during test - flow: minimal - void: minimal - residual: majority - emg: synergistic - conclusion: - detrusor underactivity - incomplete emptying - obstruction Radiologic Interpretation Patient Name - Vince Luciano Date - 06/06/23 Imaging exam - cystogram; voiding cystourethrogram Number of images saved - See Films Patient position - Sitting / Recumbent Radiologic Findings: 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 The bony and soft tissue structures are grossly normal. A catheter is in place. The bladder filled with contrast. The bladder is smooth-walled and has no diverticulae. There is no funneling or opening of the bladder neck with permission to void. The procedure is described in detail in the procedural note. Vergara findings - normal bladder, no funneling with voiding Reflux - no Diverticulae - no Extravasation of contrast - no Filling Defects - no Strictures / Narrowing - no / no urethral opacified IMPRESSION: Bladder outlet obstruction / lack of relaxation. Read by - Nando Parker MD, MS Nando Parker MD, MS Staff Department of Urology [facility] June 10, 2023 - 11:59 AM [facility] 06-07-2023 Note HNO ID: [id number] Author: NANDO PARKER MD Service: ? Author Type: Physician Type: Progress Notes Filed: 06/07/2023 08:13 Note Text: NEW PATIENT Here for BPH assessment. Had visit yesterday regarding bladder hygiene. Lifelong weaker stream, now very bothersome. Suspect bladder neck obstruction versus dysfunctional voiding and/or pelvic floor dysfunction. FLEXIBLE CYSTOURETHROSCOPY UROLOGY OUTPATIENT PROCEDURE NOTE UNIVERSAL PROTOCOL AND SAFETY CHECKLIST Sign In The History and Physical Exam was reviewed and is unchanged from the last office visit. Primary Diagnosis: BPH w Obstruction AND LUTS; Weak Urinary Stream; Urinary Frequency Informed Consent Discussed: Yes - Risks, benefits, alternatives and personnel discussed with patient who consents to proceed. Sign in Communication: Completed Time Out Team Confirms the Correct Patient, Correct Procedure (Cystoscopy), Correct Site (Site Marking Not Applicable), and Correct Position. Audible Time Out: YES Affirmation of Time Out: YES PHYSICIAN NOTE: FLEXIBLE CYSTOURETHROSCOPY PROCEDURE DATE: June 07, 2023 FINDINGS Urethra: Normal Sphincter: Normal / Coapted Prostate: Enlarged Occlusive Lateral Lobes / Moderate Median Bar Bladder Neck: Circumferential Protrusion Urothelium: normal appearing, no evidence of tumor, no erythema, no foreign body Trabeculation: Mild Inflammation: None Diverticulum: None Ureteral Orifices: normal appearing, orthotopic position, clear efflux bilaterally Trigone: normal appearing Procedure: Flexible cystoscopy Surgeon/Proceduralist: Nando Parker Anesthesia: Lidocaine Gel Procedure Details: In the cystoscopy suite, the patient was placed in the supine position, prepped, and draped in the usual manner. Lidocaine gel was placed per urethra for local anasthesia. Bactrim heena-procedural antibiotics were given. Cystourethroscopy was performed using a flexible scope. Sterile technique was maintained throughout. The urethra, prostate, and bladder were inspected in their entirety. Specific findings from the procedure are detailed in the corresponding section of this note. The cystoscope was carefully removed. The patient tolerated the procedure well. He was subsequently discharged in good condition. Complications: None Estimated Blood Loss: None Preoperative diagnosis: BPH w Obstruction AND LUTS; Weak Urinary Stream; Urinary Frequency Postoperative diagnosis: Same Disposition / Plan: proceed to TRUS sizing TRANSRECTAL ULTRASOUND OF PROSTATE UROLOGY OUTPATIENT PROCEDURE NOTE UNIVERSAL PROTOCOL AND SAFETY CHECKLIST Sign In The History and Physical Exam was reviewed and is unchanged from the last office visit. Primary Diagnosis: BPH w Obstruction AND LUTS Informed Consent Discussed: Yes. Risks, benefits, alternatives and personnel discussed with patient who consents to proceed. Sign in Communication: Completed Time Out Team Confirms the Correct Patient, Correct Procedure (TRUS Only), Correct Site (Site Marking Not Applicable), and Correct Position. Audible Time Out: YES Affirmation of Time Out: YES PHYSICIAN NOTE: TRANSRECTAL ULTRASOUND OF THE PROSTATE PROCEDURE DATE: June 07, 2023 The patient was placed in the lateral decubitus position. Digital rectal exam showed increased rectal / pelvic floor tone but no trigger points. The prostate was benign. The ultrasound probe was placed into the rectum and the prostate visualized. The prostate was visualized in sagittal and transverse planes and no hypoechoic lesion identified. The total prostate volume was 44 cc Complications: None Sign Out Details of Procedure: Listed Above Sign Out Discussion: Completed Follow-up: - urodynamics with no bladder neck funneling - enlarged occlusive prostate - recommend BPH option that can help bladder neck: TURP or PVP - will proceed with PVP and reviewed RBAOC and recovery - likely need to focus on bladder hygiene afterward for frequency - may need PFPT after surgery pending response - all questions answered, will schedule Nando Parker MD, MS Staff Department of Urology [facility] June 07, 2023 - 8:09 AM [facility] 06-07-2023 History of Present illness Narrative NEW PATIENT Here for BPH assessment. Had visit yesterday regarding bladder hygiene. Lifelong weaker stream, now very bothersome. Suspect bladder neck obstruction versus dysfunctional voiding and/or pelvic floor dysfunction. FLEXIBLE CYSTOURETHROSCOPY UROLOGY OUTPATIENT PROCEDURE NOTE UNIVERSAL PROTOCOL AND SAFETY CHECKLIST Sign In The History and Physical Exam was reviewed and is unchanged from the last office visit. Primary Diagnosis: BPH w Obstruction & LUTS; Weak Urinary Stream; Urinary Frequency Informed Consent Discussed: Yes - Risks, benefits, alternatives and personnel discussed with patient who consents to proceed. Sign in Communication: Completed Time Out Team Confirms the Correct Patient, Correct Procedure (Cystoscopy), Correct Site (Site Marking Not Applicable), and Correct Position. Audible Time Out: YES Affirmation of Time Out: YES PHYSICIAN NOTE: FLEXIBLE CYSTOURETHROSCOPY PROCEDURE DATE: June 07, 2023 FINDINGS Urethra: Normal Sphincter: Normal / Coapted Prostate: Enlarged Occlusive Lateral Lobes / Moderate Median Bar Bladder Neck: Circumferential Protrusion Urothelium: normal appearing, no evidence of tumor, no erythema, no foreign body Trabeculation: Mild Inflammation: None Diverticulum: None Ureteral Orifices: normal appearing, orthotopic position, clear efflux bilaterally Trigone: normal appearing Procedure: Flexible cystoscopy Surgeon/Proceduralist: Nando Parker Anesthesia: Lidocaine Gel Procedure Details: In the cystoscopy suite, the patient was placed in the supine position, prepped, and draped in the usual manner. Lidocaine gel was placed per urethra for local anasthesia. Bactrim heena-procedural antibiotics were given. Cystourethroscopy was performed using a flexible scope. Sterile technique was maintained throughout. The urethra, prostate, and bladder were inspected in their entirety. Specific findings from the procedure are detailed in the corresponding section of this note. The cystoscope was carefully removed. The patient tolerated the procedure well. He was subsequently discharged in good condition. Complications: None Estimated Blood Loss: None Preoperative diagnosis: BPH w Obstruction & LUTS; Weak Urinary Stream; Urinary Frequency Postoperative diagnosis: Same Disposition / Plan: proceed to TRUS sizing TRANSRECTAL ULTRASOUND OF PROSTATE UROLOGY OUTPATIENT PROCEDURE NOTE UNIVERSAL PROTOCOL AND SAFETY CHECKLIST Sign In The History and Physical Exam was reviewed and is unchanged from the last office visit. Primary Diagnosis: BPH w Obstruction & LUTS Informed Consent Discussed: Yes. Risks, benefits, alternatives and personnel discussed with patient who consents to proceed. Sign in Communication: Completed Time Out Team Confirms the Correct Patient, Correct Procedure (TRUS Only), Correct Site (Site Marking Not Applicable), and Correct Position. Audible Time Out: YES Affirmation of Time Out: YES PHYSICIAN NOTE: TRANSRECTAL ULTRASOUND OF THE PROSTATE PROCEDURE DATE: June 07, 2023 The patient was placed in the lateral decubitus position. Digital rectal exam showed increased rectal / pelvic floor tone but no trigger points. The prostate was benign. The ultrasound probe was placed into the rectum and the prostate visualized. The prostate was visualized in sagittal and transverse planes and no hypoechoic lesion identified. The total prostate volume was 44 cc Complications: None Sign Out Details of Procedure: Listed Above Sign Out Discussion: Completed Follow-up: - urodynamics with no bladder neck funneling - enlarged occlusive prostate - recommend BPH option that can help bladder neck: TURP or PVP - will proceed with PVP and reviewed RBAOC and recovery - likely need to focus on bladder hygiene afterward for frequency - may need PFPT after surgery pending response - all questions answered, will schedule Nando Parker MD, MS Staff Department of Urology [facility] June 07, 2023 - 8:09 AM UNIVERSAL PROTOCOL / SAFETY CHECKLIST Procedure to be Performed: Cystoscopy/TRUS Sign In: A Moment of CARE was completed. Personnel directly involved with the procedure wore the appropriate PPE (Personal Protective Equipment). No special equipment needed. Patient/Surrogate Stated/Verified: PATIENT VERIFIED(optional for EMERGENT procedures): Patient name, Date of , Relevant allergies, and The intended procedure Time Out Communication: Intended patient and procedure match the source documents. Consent documented and matches the intended procedure. Relevant labs, photos, and/or imaging studies have been reviewed. No correct side/site applicable for marking and visibility. Medications required for procedure verified. Fire risk assessed and interventions discussed. No implant(s) inserted. Sign Out: SIGN OUT (optional for EMERGENT procedures): No specimen collected. All instruments, equipment, possible retained foreign bodies accounted for. Post-procedure follow-up management communicated and Plan of Care Visit completed when applicable. Amita Chou RN documented in this encounter [facility] 06-06-2023 Note HNO ID: [id number] Author: AMITA CHOU RN Service: ? Author Type: Registered Nurse Type: Progress Notes Filed: 06/06/2023 15:36 Note Text: UNIVERSAL PROTOCOL / SAFETY CHECKLIST Procedure to be Performed: Cystoscopy/TRUS Sign In: A Moment of CARE was completed. Personnel directly involved with the procedure wore the appropriate PPE (Personal Protective Equipment). No special equipment needed. Patient/Surrogate Stated/Verified: PATIENT VERIFIED(optional for EMERGENT procedures): Patient name, Date of , Relevant allergies, and The intended procedure Time Out Communication: Intended patient and procedure match the source documents. Consent documented and matches the intended procedure. Relevant labs, photos, and/or imaging studies have been reviewed. No correct side/site applicable for marking and visibility. Medications required for procedure verified. Fire risk assessed and interventions discussed. No implant(s) inserted. Sign Out: SIGN OUT (optional for EMERGENT procedures): No specimen collected. All instruments, equipment, possible retained foreign bodies accounted for. Post-procedure follow-up management communicated and Plan of Care Visit completed when applicable. Amita Chou RN [facility] 06-06-2023 Nurse Note Actual procedure/procedure scheduled: Yes Performing provider/scheduled provider: Yes Patient was roomed in: Q9- 09 Helpdesk Specialist offered:Patient declines Patient arrived in the room at: 14:33 Patient ready for procedure: 15:12 The procedure started at ( Time Only): 15:18 The procedure ended at: 15:20 Trus: started at 15:22 Trus ended: 15:24 Was the procedure delayed: Yes: Provider late: Provider with other patient on Q9, Patient concerns, and Multi-procedure The patient left the procedure room at: 15:40 Amita Chou RN PRE PROCEDURE ASSESSMENT- Cysto Procedure Indication: Cystoscopy and TRUS Latex Allergy: No Allergies reviewed and updated. Yes Pre-Procedure Vital Signs: BP: 134/84 Pulse: 77 Heart valve replacement: No Joint replacement: No Back Office UA otained: yes PROCEDURE PREP-Cysto Patient ID with two(2)identifiers verified by: Amita Chou RN Pre-Procedure Antibiotics: Bactrim DS 160mg-800mg orally, given during visit: see MAR Patient Prep: Betadine Scrub to perineum and placement of Sterile Drape. COMPLETED Anesthetic Given:10 cc 2% Lidocaine jelly Amita Chou RN UNIVERSAL PROTOCOL / SAFETY CHECKLIST Procedure to be performed: Cystoscopy and TRUS Sign in Communication: Completed Time Out: Team Confirms the Correct Patient, Correct Procedure, Correct Site and Site Marking, Correct Position (if applicable). Sign Out Discussion: Completed Amita Chou RN POST PROCEDURE NURSE ASSESSMENT Present along with physician during procedure exam. Amita Chou RN Instruction sheet given and reviewed and patient verbalizes understanding: yes Post Procedure Antibiotic: none Current pain intensity is 0 on a 0-10 pain scale. 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 PRE PROCEDURE ASSESSMENT- TRUS Bx Procedure/Indication: Cystoscopy and TRUS Latex Allergy: No Allergies reviewed and updated Yes Do you currently have an infection: No Anticoagulant: No Back Office UA obtained: yes Eaten prior to procedure: No PROCEDURE PREP- TRUS BX Patient ID with two(2)identifiers verified by: Amita Chou RN Pre-Procedure Antibiotics: Bactrim DS 160mg-800mg orally, given during visit: see MAR Anesthetic given: Administered by MD - see Procedure Physician Note. UNIVERSAL PROTOCOL / SAFETY CHECKLIST Procedure to be performed: Cystoscopy and TRUS Sign in Communication: Completed Time Out: Team Confirms the Correct Patient, Correct Procedure, Correct Site and Site Marking, Correct Position (if applicable) Sign Out Discussion: Completed Amita Chou RN POST PROCEDURE NURSE ASSESSMENT Present along with physician during procedure exam. Amita Chou RN Instruction sheet given and reviewed and patient verbalizes understanding: yes Current pain intensity is 0 on a 0-10 pain scale. Post-Procedure Medications: none Amita Chou RN documented in this encounter [facility] 06-06-2023 Nurse Note [facility] URODYNAMICS LAB URODYNAMIC PROCEDURE NOTE ID Verified by: Fiona Patricio RN with name and birthdate. Procedure instructions reviewed with patient prior to procedure: Yes Currently experiencing pain: No 0 on a scale of 0 to 10 on a scale of 0-10. Does the patient have any concerns about safety in the home/falls?: Not at risk for falls Has the patient had 2 falls in the last year or 1 fall with injury or currently using assistive device (walker, cane, wheelchair, crutches): No What interventions were put in place to prevent falls during this visit: Increased observations by caregivers Has patient had any history of Mitral Valve prolapse: No MEDS:NONE Has patient had any history of prosthetics: No MEDS: NONE Latex allergy: No Iodine allergy: No Helpdesk Specialist offered:Patient declines B/O UA: YES Negative for leukocytes and negative for nitrates. UROFLOWMETRY Unable to void for uroflow. Cathed for: 300 ml. CYSTOMETROGRAM Subtracted:Yes Video: Yes EMG: Yes First Sensation: 288 ml Strong desire: 377 ml Max. capacity: 500 ml Maximum filling detrusor pressure 3 cm of water Detrusor overactivity associated with urge: No Detrusor overactivity associated with leakage: No Was patient assessed for VLPP / UPP No Leaks urine with valsalva /coughs: NA Lowest Leak point pressure: NA PRESSURE-FLOW VOIDING STUDY Did patient void with catheters in place Yes Voided: 91 ml voluntary Max Voiding Detrusor Pressure 42.7cm H2O P det @ Q max (Max Flow): 38.2 cm H2O Maximum Flow Rate: 5.7 ml/sec Average Flow Rate: 3.5 ml/sec Fluro time: see xray report Comments: Cysto to follow. Patient filled to capacity. Strong desire to void. Permission to void given. Unable to void. Continue to fill to aid void. Unable to void. Offered to stand to aid void - patient always sits to void. Small voluntary void. Pves pulled to aid void. Additional small void. Placed in bathroom for post test uroflow. UROFLOWMETRY post test Voided vol: 490 ml. Flow time: 47 sec. Q max: 16 ml/sec. Q av ml/sec. STUDY DETAILS: Was a uroflow done at some point during the study: No Was a cystometrogram performed: Yes Was a UPP/VLPP done: No Was an EMG done: Yes Was an intraabdominal pressure recorded with urethral catheter in: Yes Where were pressure catheters placed: Bladder and Rectum Was contrast instilled for radiologic evaluation: Yes, Cysto-conray 250 ccs utilized Please use Urodynamic Graph. Pt given verbal home going instructions. Pt states an understanding of instructions given. documented in this encounter [facility] 06-05-2023 Note HNO ID: [id number] Author: KEESHA CURTIS APRN.MIGNON Service: ? Author Type: Nurse Practitioner Type: Progress Notes Filed: 06/05/2023 13:06 Note Text: [facility] VIRTUAL VISIT PROGRESS NOTE This is a virtual visit using HIPAA compliant video platform. It required patient-provider interaction for the medical decision making as documented below. Encounter today via virtual visit with video and patient consent. I have communicated my name and active licensure. The patient's identity and physical location were verified at the time of this visit. Either the patient or their legal hospital sales representative has been informed of the risks and benefits of -- and alternatives to -- treatment through a remote evaluation and consents to proceed with the evaluation remotely. PATIENT: Vince Luciano (42 year old) PCP: Roxy Driver MD CHIEF COMPLAINT: Voiding Dysfunction HISTORY OF PRESENT ILLNESS: Vince Luciano is a 42 year old year old male presenting today for voiding dysfunction. Patient saw and completed cystoscopy that showed high bladder neck raining a question for possible primary bladder neck obstruction. He was referred to and I for voiding dysfunction. He is scheduled for UDS 06/06/2023 (tomorrow). Reports voiding Q1 hr during the day, more frequent in the evening but he is not bothered by this. No leakage/no urge incontinence NF 1 His main complaint is weaker stream . Fluids: MD 1 can and Coffee (1/2 pot regular), Coolaid (1 pitcher a day/sugar), diet pop, alcohol (beer/heavy alcohol). Some water. REVIEW OF SYSTEMS: pertinent in HPI PAST MEDICAL HISTORY: PAST MEDICAL HISTORY Diagnosis Date Bowel obstruction (HCC) 2014 Prolonged hospitalization Chronic cholecystitis Gallbladder sludge Varicose vein of leg PAST SURGICAL HISTORY Procedure Laterality Date BOWEL RESECTION HX 2007, 2014 SBO, CARLOS CHOLECYSTECTOMY HX 2014 EXCIS VARICOCEL,ABD APRCH+FIX HERNIA EXCISE VARICOCELE INGUINAL HERNIA REPAIR HX PAST SURGICAL HISTORY OF lasik eye PAST SURGICAL HISTORY OF bilateral vein ligations Social History Tobacco Use Smoking status: Former Packs/day: 1.00 Years: 3.00 Additional pack years: 0.00 Total pack years: 3.00 Types: Cigarettes Quit date: 04/02/2004 Years since quittin.1 Smokeless tobacco: Former Types: Chew Quit date: 04/02/2004 Substance Use Topics Alcohol use: Yes Alcohol/week: 2.0 standard drinks of alcohol Types: 2 Cans of Beer (12oz) per week Comment: occasional Drug use: No FAMILY HISTORY Problem Relation Age of Onset other (pancreatic cancer [Other]) Maternal Grandmother Colon Cancer Paternal Grandmother MEDICATIONS: Current Outpatient Medications Medication Sig buPROPion XL (WELLBUTRIN XL) 300 mg 24 hr tablet doxycycline monohydrate (MONODOX) 100 mg capsule tamsulosin (FLOMAX) 0.4 mg buPROPion XL (WELLBUTRIN XL) 150 mg 24 hr tablet albuterol HFA (PROVENTIL HFA, VENTOLIN HFA) 90 mcg/actuation inhaler INHALE 2 PUFFS NEEDED EVERY 4 HOURS ergocalciferol, vitamin D2, (DRISDOL) 50,000 unit capsule Take 1 capsule by mouth once each week. cyanocobalamin (VITAMIN B-12) 500 mcg tab Take 1 tablet by mouth once daily. vortioxetine 20 mg tab Take by mouth once daily. Cetirizine 10 mg cap Take by mouth once daily. Topiramate (TOPAMAX) 50 mg tablet Take 50 mg by mouth twice daily. No current facility-administered medications for this visit. OTHER DATA: Labs reviewed No results found for: PSA Creatinine Date Value Ref Range Status 07/03/2016 1.05 0.73 - 1.22 mg/dL Final 04/01/2015 0.97 0.70 - 1.40 mg/dL Final 07/24/2011 0.89 0.70 - 1.40 mg/dL Final VIDEO EXAMINATION: GENERAL: alert, no distress, normal affect EYES: no icterus, no discharge, conjugate gaze NOSE: no trauma, no discharge, no bleeding RESPIRATORY: normal effort, regular rate, no audible wheeze EXTREMITIES: intact, no apparent edema, no malformations SKIN: no abnormal bruising, no rashes, no cyanosis NEUROLOGIC: grossly normal cranial nerves, grossly normal manual dexterity, no apparent paralysis ASSESSMENT: 1. Voiding dysfunction - ICD9: 599.9, ICD10: N39.8 (primary diagnosis) 2. Weak urinary stream - ICD9: 788.62, ICD10: R39.12 PLAN: 1. Voiding dysfunction -scheduled for UDS tomorrow with -reviewed fluid diary - heavy consumption of bladder irritants. Patient does not agree that this is an issue -detailed discussion on bladder hygiene. Explained how reducing bladder irritants can improve bladder storage capacity and improve stream (and reduce voiding frequency which he insists is not an issue). 2. Weak urinary stream -05/02/2023 Cysto - high bladder neck raising question of possible primary bladder neck obstruction. -on Flomax in the past with no improvement -UDS scheduled tomorrow Keesha Curtis APRN.DEATH SURVEYS CODER Time: 20 min [facility] 05-25-2023 Miscellaneous Notes Patient is scheduled for in office visit. Thanks Message left for patient to call and scheduled virtual visit with Keesha to discuss OAB - Bldr Hgne. Thanks ----- Message from Nando Parker MD sent at 05/18/2023 5:39 PM EST ----- Regarding: Keesha Visit? Not sure of Keesha's VV capacity but can we get him setup with her for a VV some time in next few weeks? Visit Note: OAB - Bldr Hgne Goal being to assess for OAB and introduce him to bladder hygiene prior to his Urodynamics and Cysto with me at [facility] Thx, BG documented in this encounter [facility] 05-04-2023 History of Present illness Narrative Occupational Therapy Occupational Therapy Discharge Visit Patient Name: Vince Luciano Today's Date: 05/04/2023 Linked Episodes Type: Episode: Status: Noted: Resolved: Last update: Updated by: Occupational Therapy R RF osteotomy Active 03/08/2023 05/04/2023 3:42 PM Emely Magallanes OT Comments: Visit number: 14 Supervised time:53 Total time: 02:23-03:16 Precautions: Subjective Pain: Reports Everything is good. . Agreeable to Discharge. Overall progress:improving Objective 30'MT for scar mobilization and PROM to digits 1-5 1x20. AROM digits 1-5 x20 and wrist. All ROM LLPS to R wrist with 5# handweight x2 minutes, STM/DTM with use of ISTM for scar tissue mobilization to the volar hand with special focus at the PIP joint of the 4th digit. 30' Assessed all goals. See goal section for updates. GAYATRI 10 minutes supervised GAYATRI in fluido for tissue preconditioning. Treatment: Manual: for scar/ joint mobilization of the 4th digit. Therapeutic Exercise:for strengthening of the R hand Therapeutic Activity: Modalities: Neuro Re-Ed: Gait Training: Assessment: Short Term Goals: I with HEP for ROM, strengthening, and scar/edema management at discharge. Nip Wrapper Goals: PRWHE Pain Score < 5/50 (IE: 14/50) GOAL MET: 0/50. PRWHE Functional Score < 5/100 (IE: 12/100) GOAL MET 0/100. Improve 4th digit PINEDA to at least 90% pain free at discharge. ( IE: 50%). GOAL MET: IP joint flexion increasing to 80 degrees. PINEDA: 97% Increase R hand general magistrate strength by at least 10# in order to complete work related tasks at discharge. (IE: 90#). GOAL MET: R general magistrate 130# no pain. Pt tolerated session well. Has met all goals. Maximum progress made. No pain reported. Full composite general magistrate present. No concerns/ issues with work related tasks. Plan [facility]charge to [facility]. Pt in agreement. documented in this encounter [facility] 05-02-2023 Note HNO ID: [id number] Author: JESSICA MEADOWS MD Service: ? Author Type: Physician Type: Progress Notes Filed: 05/02/2023 16:17 Note Text: [place] [id number] AMBULATORY PROCEDURE NOTE NAME: Vince Luciano AGE: [age] year old CLINIC #: [id number] DATE: May 02, 2023 SURGEON: Jessica Meadows MD PROCEDURE: Cystoscopy ANESTHESIA: Lidocaine gel per urethra DIAGNOSIS: Obstructive voiding symptoms INDICATION: Initial evaluation for the above diagnosis FINDINGS: Tumor present: No Urethra: Normal Prostate: High bladder neck, ? PBNO Verumontanum: Open Urine cytology: Not sent PROCEDURE: After informed consent was obtained, the patient was taken to the endoscopy suite. A time out was performed where the patient and the procedure were identified in the presence of the Nursing and Surgical Staff. Patient was placed in supine position, prepped and draped in the standard sterile fashion. Lidocaine gel was placed per urethra for local anesthesia. Cystoscopy was then performed using a 17 F flexible cystoscope. Sterile technique was maintained throughout. Please refer to above for specific findings during this part of the procedure. After carefully and atraumatically inspecting the urethra, prostate, and bladder, the bladder was emptied and the cystoscope was removed. The patient tolerated the procedure well and there were no complications. ASSESSMENT/PLAN: Cystoscopy without evidence of stricture but does show high bladder neck raising question of possible primary bladder neck obstruction. Recommend video urodynamics to further evaluate, will schedule this and follow-up with one of our voiding dysfunction specialists. By signing my name below, I, Angelito Bennett, attest that this documentation has been prepared under the direction and in the presence of Dr. Meadows Electronically signed, Angelito Bennett Scribe STAFF PHYSICIAN NOTE OF PERSONAL INVOLVEMENT IN CARE The above noted history, physical, assessment and plan were reviewed with the provider and critical portions of the HANDP were confirmed. I evaluated and examined the patient and agree with the plan above and provided direct supervision of the above provider during this patient's care. Jessica Meadows MD [facility] 05-02-2023 Note HNO ID: [id number] Author: AMITA CHOU RN Service: ? Author Type: Registered Nurse Type: Progress Notes Filed: 05/02/2023 14:53 Note Text: UNIVERSAL PROTOCOL / SAFETY CHECKLIST Procedure to be Performed: Cystoscopy Sign In: A Moment of CARE was completed. Personnel directly involved with the procedure wore the appropriate PPE (Personal Protective Equipment). No special equipment needed. Patient/Surrogate Stated/Verified: PATIENT VERIFIED(optional for EMERGENT procedures): Patient name, Date of , Relevant allergies, and The intended procedure Time Out Communication: Intended patient and procedure match the source documents. Consent documented and matches the intended procedure. Relevant labs, photos, and/or imaging studies have been reviewed. No correct side/site applicable for marking and visibility. No medications required for procedure. Fire risk assessed and interventions discussed. No implant(s) inserted. Sign Out: SIGN OUT (optional for EMERGENT procedures): All specimen containers correctly labeled. Amita Chou RN [facility] 05-02-2023 Note HNO ID: [id number] Author: JESSICA MEADOWS MD Service: ? Author Type: Physician Type: Progress Notes Filed: 05/03/2023 06:10 Note Text: [facility] NEW PATIENT HISTORY AND PHYSICAL EXAM PATIENT INFO: Vince Luciano 42 year old REFERRING M.D.: self PCP: Roxy Driver MD Consultation requested by self for an opinion regarding weak stream and my final recommendations will be communicated back to the requesting physician by way of shared medical record or letter via US mail. HPI 42 year old male w/h/o varicose veins, bowel obstructions, asthma referred for evaluation of weak stream. Had a CT scan locally (do not have records) and reports they commented on something abnormal with his bladder but he is unsure. Ongoing for 20 years, reports split stream that is very weak. Stream is better in the mornings but worsens as the day goes on. Flomax for 4-5 years without much improvement in symptoms. Hesitancy- yes Intermittency- yes Nocturia 1x nightly. Urgency- mostly at night. UTI/STI/prostatitis hx- no Saddle injury- denies Irritants- coffee in AM, diet root beer. SF Koolaid. Minimal water. Urinary retention- no Denies gross hematuria or dysuria. Variocele repair 17 years ago. Reports multiple surgeries requiring catheters but he never required catheter for extended period of time. PATHOLOGY: N/a LAB: Creatinine Date Value Ref Range Status 07/03/2016 1.05 0.73 - 1.22 mg/dL Final No results found for: PSA No results found for: COLOR , CLARITY , UGLUC , UBILI , UKET , SPGR , UHB , UPH , UPROT , UROBILINOGEN , NITRITES , LEUKEST IMAGING: N/a ALLERGIES: ALLERGIES Allergen Reactions Cinnamon Swelling Coconut Swelling Morphine Unknown MEDICATIONS: ergocalciferol, vitamin D2, (DRISDOL) 50,000 unit capsule Take 1 capsule by mouth once each week. cyanocobalamin (VITAMIN B-12) 500 mcg tab Take 1 tablet by mouth once daily. vortioxetine 20 mg tab Take by mouth once daily. Cetirizine 10 mg cap Take by mouth once daily. Topiramate (TOPAMAX) 50 mg tablet Take 50 mg by mouth twice daily. HISTORIES PAST MEDICAL HISTORY Diagnosis Date Bowel obstruction (HCC) 2014 Prolonged hospitalization Chronic cholecystitis Gallbladder sludge Varicose vein of leg FAMILY HISTORY Problem Relation Age of Onset other (pancreatic cancer [Other]) Maternal Grandmother Colon Cancer Paternal Grandmother PAST SURGICAL HISTORY Procedure Laterality Date BOWEL RESECTION HX 2007, 2014 SBO, CARLOS CHOLECYSTECTOMY HX 2015 EXCIS VARICOCEL,ABD APRCH+FIX HERNIA EXCISE VARICOCELE INGUINAL HERNIA REPAIR HX PAST SURGICAL HISTORY OF lasik eye PAST SURGICAL HISTORY OF bilateral vein ligations SOCIAL HISTORY Social History Tobacco Use Smoking status: Former Packs/day: 1.00 Years: 3.00 Additional pack years: 0.00 Total pack years: 3.00 Types: Cigarettes Quit date: 04/02/2004 Years since quittin.0 Smokeless tobacco: Former Types: Chew Quit date: 04/02/2004 Substance Use Topics Alcohol use: Yes Alcohol/week: 2.0 standard drinks of alcohol Types: 2 Cans of Beer (12oz) per week Comment: occasional Drug use: No REVIEW OF SYSTEMS General: No weight loss, malaise or fevers. Gastrointestinal: No nausea, vomiting, or diarrhea Genitourinary: See HPI The remainder of the ROS was reviewed and was negative. PHYSICAL EXAMINATION BP (P) 117/77 (BP Site: Left Arm, BP Position: Sitting, BP Cuff Size: Regular Adult) Wt 103.2 kg (227 lb 8.2 oz) BMI 27.69 kg/m? Constitutional: Well appearing, alert, in no acute distress, and well-hydrated, well nourished Gastrointestinal: non-distended Genitourinary: MALE EXAM: Rectal Exam: Prostate: symmetrical, nontender, w/o nodules. Fiona Alvarez APRN.DEATH SURVEYS CODER ASSESSMENT AND PLAN: Chronic obstructive voiding symptoms Recommended cystoscopy for further evaluation, this was performed and showed no evidence of stricture but did show a high, somewhat tight bladder neck raising the question of primary bladder neck obstruction. He has been on flomax for years without benefit. I have recommended video urodynamic testing for further evaluation and follow-up with one of our voiding dysfunction specialists to follow. He had opportunity to ask questions which were answered to his satisfaction and is in agreement with proceeding with the plan as outlined above. I spent a total of 45 minutes on the date of the service which included preparing to see the patient, [id number] patient care, completing clinical documentation, obtaining and/or reviewing separately obtained history, counseling and educating the patient/family/caregiver, and care coordination (not separately reported). By signing my name below, I, Angelito Bennett, attest that this documentation has been prepared under the direction and in the presence of Dr. Meadows Electronically signed, (more content not included)... [facility] 05-02-2023 Note Patient Outreach (UR OLMN) VINEC LUCIANO ([id number]) 1980 M Date Time Provider Department 05/02/23 JESSICA MEADOWS During your visit today, we recorded the following information about you: Allergies As of Date: 05/02/2023 Noted Allergy Reaction CINNAMON 08/02/2011 7 - Swelling COCONUT 08/02/2011 7 - Swelling Date Reviewed: 05/02/2023 Reviewed by: Amita Chou, SASHA - Fully Assessed Visit Diagnosis:Screening for genitourinary condition [Z13.89] Order(s):URINALYSIS, REFLEX MICROSCOPIC [[id number]] Order #: [id number]. #:[id number] Prescriptions as of 05/07/2023 - buPROPion XL (WELLBUTRIN XL) 300 mg 24 hr tablet - doxycycline monohydrate (MONODOX) 100 mg capsule - tamsulosin (FLOMAX) 0.4 mg - buPROPion XL (WELLBUTRIN XL) 150 mg 24 hr tablet - albuterol HFA (PROVENTIL HFA, VENTOLIN HFA) 90 mcg/actuation inhaler INHALE 2 PUFFS NEEDED EVERY 4 HOURS - ergocalciferol, vitamin D2, (DRISDOL) 50,000 unit capsule Take 1 capsule by mouth once each week. - cyanocobalamin (VITAMIN B-12) 500 mcg tab Take 1 tablet by mouth once daily. - vortioxetine 20 mg tab Take by mouth once daily. - Cetirizine 10 mg cap Take by mouth once daily. - Topiramate (TOPAMAX) 50 mg tablet Take 50 mg by mouth twice daily. Meds Comments as of 07/24/2011: Patient verbally confirmed current medications. Marianela Grfifin MATEUS 07/24/2011 Problem List As Of Date 05/02/2023 Noted Resolved Varicose veins of lower extremities with other *06/11/2013 Elevated partial thromboplastin time (PTT) [R79*05/25/2014 Hematoma [T14.8XXA] 05/25/2014 Symptomatic spider varicose vein [I83.899] 06/07/2015 Varicose veins of leg with pain [I83.819] 06/07/2015 Encounter Status:Closed by EPIC, PRODUSER on 05/07/23 [facility] 04-11-2023 Note Orthopedic Surgery 02/19/2023 Ring Finger Middle Phalanx Osteotomy - Right Vince Luciano comes in for a post-operative visit after having a right Ring finger corrective osteotomy done on 02/19/2023. Today he is doing well and has no unexpected complaints. Physical Exam: The incision site is healing well. There is no erythema, drainage or signs of infection. Tenderness is pretty much resolved at the surgical site. Sensation is present to light touch. Range of motion is appropriate for this time. he has 0 to 90 degrees at the PIP joint and 20 to 45 degrees at the DIP joint. Passively his motion is near full. There is no crossing over or rotational deformity. Imaging: AP and lateral x-rays of the ring finger were repeated today. The hardware is still intact. The osteotomy site is visible but the edges are fuzzy and there is some healing present. Assessment: Vince Luciano is a 42 y.o. year old male with Open displaced fracture of middle phalanx of right ring finger with malunion, subsequent encounter Plan: I think he is doing okay at this point in time. I would like to repeat an x-ray in about 6 weeks to make sure the osteotomy site is completely healed. His motion is already functional and that should continue to improve. He can begin using the hand as tolerated for activities. [facility] 04-09-2023 Hospital Discharge instructions Patient Education 04/09/2023 19:45:42 Shortness of Breath, Adult, Apye-hb-Akre Shortness of Breath, Adult Shortness of breath means you have trouble breathing. Shortness of breath could be a sign of a medical problem. Follow these instructions at home: Pollution Do not smoke or use any products that contain nicotine or tobacco. If you need help quitting, ask your doctor. Avoid things that can make it harder to breathe, such as: ?Smoke of all kinds. This includes smoke from campfires or forest fires. Do not smoke or allow others to smoke in your home. ?Mold. ?Dust. ?Air pollution. ?Chemical smells. ?Things that can give you an allergic reaction (allergens) if you have allergies. Keep your living space clean. Use products that help remove mold and dust. General instructions Watch for any changes in your symptoms. Take qkfu-btz-raxcuum and prescription medicines only as told by your doctor. This includes oxygen therapy and inhaled medicines. Rest as needed. Return to your normal activities when your doctor says that it is safe. Keep all follow-up visits. Contact a doctor if: Your condition does not get better as soon as expected. You have a hard time doing your normal activities, even after you rest. You have new symptoms. You cannot walk up stairs. You cannot exercise the way you normally do. Get help right away if: Your shortness of breath gets worse. You have trouble breathing when you are resting. You feel light-headed or you faint. You have a cough that is not helped by medicines. You cough up blood. You have pain with breathing. You have pain in your chest, arms, shoulders, or belly (abdomen). You have a fever. These symptoms may be an emergency. Get help right away. Call 911. Do not wait to see if the symptoms will go away. Do not drive yourself to the hospital. Summary Shortness of breath is when you have trouble breathing enough air. It can be a sign of a medical problem. Avoid things that make it hard for you to breathe, such as smoking, pollution, mold, and dust. Watch for any changes in your symptoms. Contact your doctor if you do not get better or you get worse. This information is not intended to replace advice given to you by your health care provider. Make sure you discuss any questions you have with your health care provider. Document Revised: 11/05/2021 Document Reviewed: 11/05/2021 [employer] Patient Education 2022 [employer]. Follow Up Care 04/09/2023 17:52:18 With:Roxy Driver Address: [address] [place] [phone] (1) When:04/12/2023 19:34:33 Comments:Keep a log of when you get short of breath and follow-up with your doctor. Continue taking your medications as prescribed. Please return to the ED for any new or worsening symptoms. [facility] 04-09-2023 Evaluation + Plan note Extrac guanako from: Title:ED Note Author:Laura DO Clifford Date:04/09 Dyspnea (R06.00: Dyspnea, un specified) Orders: Automated Diff B-Type Natriuretic Peptide Basic Metabolic Panel CBC w/ Auto Diff ECG 12 Lead Adult ED Cardiac Monitoring eGFR Extra SST Tube Hepatic Function Panel Lipase Level Magnesium Level Oxygen Saturation Oxygen Therapy PT & PTT Saline Lock Insert Troponin 0 Hr. Troponin 3 Hr. Troponin 6 Hr. Troponin 9 Hr. TSH With T4fr Reflex UA With Cult Reflex XR Chest Single View Addendum by Zaira Smith DO on April 09, 2023 19:37:22 EST Patient signed out to me pending CT imaging. Patient CT imaging unremarkable. Discussed findings with patient with recommendation to follow-up with his primary care doctor. He is understanding with this is comfortable with this plan. He is to return to the ED for any new or worsening symptoms. [facility]12-06-2023 NoteOrthopedic Surgery 02/19/2023 Ring Finger Middle Phalanx Osteotomy - Right Vince Luciano comes in for a post-operative visit after having a right ring finger middle phalanx osteotomy done on 02/19/2023. Today he is doing well and has no unexpected complaints. He is happy with the appearance of the finger and the correction of the rotational deformity. Physical Exam: The incision site is healing well. There is no erythema, drainage or signs of infection. Tenderness is mild and localized to the surgical site. Sensation is present to light touch. Range of motion is appropriate for this time. Assessment: Vince Luciano is a 42 y.o. year old male with correction of the malunion of the middle phalanx of his right ring finger. Plan: The sutures were removed in the clinic today. I instructed the patient on how to do scar massage, and then apply lotion to the incisional site. I am going to have him work on gentle range of motion. He is scheduled to start some occupational therapy. We will see him back in the clinic 4 weeks with x-rays of his right ring finger..[facility]11-20-2023 Note Patient: Vince Luciano Procedure Summary Date: 02/19/23 Room / Location: [facility] OR [address] [place] [address] [facility]ISC OR Anesthesia Start: 0800 Anesthesia Stop: 917 Procedure: RING FINGER MIDDLE PHALANX OSTEOTOMY (Right: Ring Finger) Diagnosis: Finger pain, right (Finger pain, right [M79.644]) Surgeons: Rafael Weeks MD Responsible Provider: Joaquim Hu MD Anesthesia Type: MAC, regional ASA Status: 2 Anesthesia Type: MAC, regional Vitals Value Taken Time BP 139/80 02/19/23 0945 Temp 36 ???C (96.8 ???F) 02/19/23 0916 Pulse 72 02/19/23 0945 Resp 16 02/19/23 0945 SpO2 100 % 02/19/2345 Anesthesia Post Evaluation Patient location during evaluation: PACU Patient participation: complete - patient participated Level of consciousness: awake Pain management: adequate Cardiovascular status: acceptable Respiratory status: acceptable Hydration status: acceptable Comments: Patient was evaluated for PACU discharge prior to leaving. Note was inputted later. Patient is hemodynamically stable and is able to be discharged from PACU per anesthesia protocol. No notable events documented.[facility]11-20-2023 Note Patient: Vince Luciano Procedure Summary Date: 02/19/23 Room / Location: [facility] OR [address] [place] [address] OR Anesthesia Start: 0800 Anesthesia Stop: Procedure: RING FINGER MIDDLE PHALANX OSTEOTOMY (Right: Ring Finger) Diagnosis: Finger pain, right (Finger pain, right [M79.644]) Surgeons: Rafael Weeks MD Responsible Provider: Joaquim Hu MD Anesthesia Type: MAC, regional ASA Status: 2 Anesthesia Post Transport [facility]: room air Patient Monitor: direct observation Transport: uneventful [facility] Peripheral Block Patient location during procedure: pre-op Start time: 02/19/2023 7:50 AM End time: 02/19/2023 7:55 AM Reason for block: primary anesthetic and at surgeon's request Staffing Performed: resident/SHEET ROCK APPLICATOR/CAA Anesthesiologist: Joaquim Hu MD Resident/SHEET ROCK APPLICATOR: Ivan Martinez MD Preanesthetic Checklist Completed: patient identified, IV checked, site marked, risks and benefits discussed, surgical consent, monitors and equipment checked, pre-op evaluation and timeout performed Peripheral Block Patient position: supine Prep: ChloraPrep Patient monitoring: heart rate and continuous pulse ox Block type: axillary Laterality: right Injection technique: single-shot Guidance: ultrasound guided Needle Needle type: short-bevel Needle gauge: 22 G Needle length: 2 in Needle localization: ultrasound guidance Medications Administered bupivacaine HCl (Marcaine) 0.5 % (5 mg/mL) injection - injection 100 mg - 02/19/2023 7:50:00 AM fentaNYL (SUBLIMAZE) IV - intravenous 100 mcg - 02/19/2023 7:50:00 AM midazolam (VERSED) IV - intravenous 2 mg - 02/19/2023 7:50:00 AM Assessment Injection assessment: negative aspiration for heme, no paresthesia on injection, incremental injection and local visualized surrounding nerve on ultrasound Paresthesia pain: none Heart rate change: no Slow fractionated [facility] NotePatient: Vince Luciano Procedure Information Date/Time: 02/19/23814 Procedure: RING FINGER MIDDLE PHALANX OSTEOTOMY (Right: Ring Finger) - C-Arm, MEDARTIS NOTIFIED 02/12 NAYLA, DO NOT MOVE Location: [facility] OR [address] [place] [address] OR Surgeons: Rafael Weeks MD Relevant Problems Cardio (+) Varicose veins of bilateral lower extremities with other complications Clinical information reviewed: Tobacco Allergies Meds Med Hx Surg Hx Fam Hx Soc Hx Physical Exam Airway Mallampati: II TM distance: >3 FB Neck ROM: full Cardiovascular - normal exam Dental - normal exam Pulmonary - normal exam Abdominal - normal exam Anesthesia Plan ASA 2 regional (Axillary block) The patient is not a current smoker. Patient was not previously instructed to abstain from smoking on day of procedure. Patient did not smoke on day of procedure. Education provided regarding risk of obstructive sleep apnea. intravenous induction Postoperative administration of opioids is intended. Anesthetic plan and risks discussed with patient. Use of blood products discussed with patient who consented to blood products. Plan discussed with attending. [facility] Chief Complaint consultation for nevus HPI Staff 42 year old male presents on consultation from Dr. Driver for forehead skin lesion. Reports he noted small flesh colored nodule on forehead several years ago. Denies change in size since first noted. Denies this being painful or tender. This has never been red or drained. History of Present Illness 42yo male with several year h/o raised lesion right forehead, some increase in size, no pigmentation change, no pain or ulceration; no h/o skin cancer; no asa or NSAID use. Review of Systems PHQ Score Initial Depression Screen Score: 0 SCORE ROS - Provider Constitutional: no fever, no sweats, no weight loss. Eyes: no glasses, no blurred vision, no visual loss. ENMT: no dentures, no hoarseness, no swallowing difficulties, no hearing loss, no ear infection(s),no nose bleeds. Cardiovascular: normal blood pressure, no chest pain, regular heartbeat, no heart murmur. Respiratory: no shortness of breath, no cough, no asthma, no wheezing. Gastrointestinal: no nausea, no vomiting, no diarrhea, no constipation, no blood in stool, no change in bowel habits, no abdominal pain, no hepatitis. Genitourinary: no kidney stones, no urine infection, no dysuria. Musculoskeletal: no pain, no weakness. Skin: yes changing moles, no rash, no skin lumps. Neurologic: no seizures, no epilepsy, no headache. Psychiatric: no emotional or psychiatric problem. Heme/Lymph: no bleeding problems, no anemia, no blood clots, no transfusions. Allergy/Immunologic: no swollen lymph nodes/glands, no IV drug abuse. Other: Additional ROS info: Except as noted in the above Review of Systems and in the History of Present Illness, all other systems have been reviewed and are negative or noncontributory. Physical Exam Vitals & Measurements HR: 70(Peripheral) RR: 16 BP: 124/80 HT: 75 in HT: 190 cm WT: 105 kg WT: 231 lb BMI: 29.09 HEENT: normal conjunctiva, sclera clear, no scleral icterus, EOM intact, PERRLA, oral mucosa moist without lesions. Neck: trachea midline, no mass, symmetric, no thyromegaly or nodules, no adenopathy Lymphatic: no cervical adenopathy, no supraclavicular adenopathy. Musculoskeletal: normal gait, digits and nails without infection, nodes, cyanosis, clubbing. Skin: no rashes, no lesions, no ulcers, right mid forehead with 5 mm raised lesion with nodular component; nontender, no ulceration or bleeding. Psychiatric/Neuro: oriented to time, place, person, judgement normal, affect appropriate for age, insight intact, no focal deficits. Tests: , review of old records completed , Discussed surgical options, risks, and possible complications with patient. Assessment/Plan 1. 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 Medications Adipex-P 37.5 mg Tab, 37.5 mg= 1 tab(s), Oral, Daily buPROPion 300 mg/24 hours ER Tab, 300 mg= 1 tab(s), Oral, Daily Imitrex 100 mg Tab, 100 mg= 1 tab(s), Oral, Daily naproxen 500 mg Tab, 500 mg= 1 tab(s), Oral, BID, PRN tamsulosin 0.4 mg Cap, 0.4 mg= 1 cap(s), Oral, Daily tiZANidine 4 mg Tab, 4 mg= 1 tab(s), Oral, TID Trokendi XR 100 mg oral capsule, extended release, 100 mg= 1 cap(s), Oral, Daily Wellbutrin XL 150 mg/24 hours Tab-ER, 150 mg= 1 tab(s), Oral, Daily Allergies Cinnamon No Known Medication Allergies Social History Alcohol - Denies Alcohol Use, 04/15/2019 Substance Abuse - Denies Substance Abuse, 04/15/2019 Tobacco Never (less than 100 in lifetime) Tobacco Use:. Never Smokeless Tobacco Use:., 05/07/2019 Family History Family history is negative Immunizations Vaccine Date Status Comments influenza virus vaccine, inactivated - Not Given Patient Refuses influenza, unspecified formulation 01/04/2022 Recorded SARS-CoV-2 (COVID-19) mRNA BNT-162b2 vax 03/24/2021 Recorded SARS-CoV-2 (COVID-19) mRNA-1273 vaccine 07/21/2020 Recorded SARS-CoV-2 (COVID-19) mRNA-1273 vaccine 06/23/2020 Recorded influenza virus vaccine, live, trivalent - Not Given [facility] RefusesGreen [facility] HospitalComment on above:Result Comment: Electronically Signed By: JENNIFER YOU, Riley Jason.lucas\Date and Time Signed: 02/13/23 16:15 [id number] NoteIF YOU ARE GOING HOME AFTER YOUR SURGERY OR PROCEDURE, FOR YOUR SAFETY, YOUR SURGERY WILL BE CANCELLED IF BOTH OF THE FOLLOWING ARE NOT AVAILABLE: An adult cdl flatbed truck driver over the age of 18, that can receive information about your care after surgery, and drive you home. A responsible adult to stay with you for 24 hours in case of an emergency. Can be same as above. The highest risk of complications is within the first 24 hours after sedation/anesthesia. Nothing to eat or drink after midnight the night before surgery. This includes gum, candy, mints, and lozenges. No alcohol, marijuana, or tobacco products including vaping for 24 hours. Please brush your teeth; don't swallow the toothpaste or water. If you use dentures, wear them but do not use paste. Please leave any other removable dental hardware at home. Do not put in contact lenses. Do not wear perfume, make-up, nail urdu, or lotions on the day of your surgery or procedure. Follow skin-prep/wipe instructions as below if required. HOLD VITAMINS AND SUPPLEMENTS STARTING -16. TAKE BUPROPION, DOXYCYLINE, FLOMAX, TOPIRAMATE DAY OF SURGERY. Bring with you: *Insurance card *Photo ID *Medication list *Co-pay for visit/prescriptions If applicable: *Rescue inhalers *Green bracelet from lab *CPAP or BiPAP machine, if staying overnight *Any braces, splints, or equipment ordered preoperatively *Remote controls for implanted devices Leave at home: *Purse/Wallet/[place]- unless needed for co-pay *Cell phone (can leave with family/friend or place in locker if needed) *Jewelry (including piercings and wedding bands) *If not possible, ask the person who is waiting with you to keep them Children under the age of 12 will not be allowed into patient care areas. We will call you between 3pm and 4pm the day before your surgery to give you an arrival time. If you do not receive this call, have any questions, or need to make any changes, please call [phone]. Notify your surgeon if you develop any illness such as a cold, cough, fever, sore throat or vomiting between now and your surgery. Thank you for entrusting us with your care. [facility] Note Orthopedic Surgery Subjective 05/17/2022 Ring Finger Irrigation and Debridement - Right and Open reduction percutaneous fixation of proximal phalanx, ring finger - Right 01/30/23 Since his last visit patient's been participating in physical therapy and feels his range of motion has not improved. 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 Patient has some decrease sensation both radial and ulnar aspects of the digit. 11/07/22 42-year-old male who presents for follow-up of of right open reduction and pin fixation of ring finger P2. In the interim, patient reports that he has been doing overall well. However, he states that he still lacks the ability to make a complete full fist. 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 Denies any pain. Denies any erythema or drainage from surgical site. No numbness or tingling to the right hand. 08/02/22 42-year-old male presenting today roughly 10 weeks status post surgery as noted above. Patient reports minimal pain to his right hand ring finger. He is able to use his right hand for different activities, although he does say it is slightly weaker. Patient History Past Surgical History: Procedure Laterality Date FINGER FRACTURE SURGERY NECK SURGERY Past Medical History: Diagnosis Date Known health problems: none Objective Exam: - Incision clean, dry, and intact. No drainage or erythema -At rest, in regards to his right hand ring finger, he is able to fully extend his PIP he has good flexion of the PIP joint of about 90 degrees with flexion of the DIP is only 5 to 10 degrees. His passive range of motion is slightly better than his active motion but his cascade is altered as his ring finger deviates laterally and scissors with his small finger. -With active range of motion of his fingers the patient has roughly 1 cm from the tip of his ring finger to his palm. with passive flexion, he is able to reach the tip of his ring finger to his palm. - Sensation grossly intact distally - Brisk capillary refill Assessment/Plan Vince Luciano is a 42 y.o. RHD male s/p Ring Finger Irrigation and Debridement - Right and Open reduction percutaneous fixation of middle phalanx, ring finger - Right (05/17/2022) -C9 for osteotomy of his right ring finger middle phalanx to correct his deformity as a sequelae of his fracture of his right ring finger middle phalanx Mian Long MD Orthopedic Surgery Resident Orthopedic Surgery Pager: [phone] 01/30/23 3:29 PM By using the attestations below, the signing clinician agrees that I have read and verify that the documentation has been personally reviewed by me and ensure that the documentation accurately reflects the encounter. GC: I personally saw this patient on the day of the encounter, performed the vergara portion(s) of the service and participated in the management and confirm the resident's documentation. Please note there may be an additional personal documentation from me.[facility] Note Attestation signed by Rafael Weeks MD at 11/07/2022 8:11 PM I personally saw and examined the patient on the same date of service as resident/fellow . I discussed the findings and therapeutic plan with the resident/fellow . I agree with the documentation, except for any edits/updates below. Teaching Physician's Revisions: none. I think he will still benefit from a short course of OT. Orthopedic Surgery Subjective 05/17/2022 Ring Finger Irrigation and Debridement - Right and Open reduction percutaneous fixation of proximal phalanx, ring finger - Right 11/07/22 42-year-old male who presents for follow-up of of right open reduction and pin fixation of ring finger P2. In the interim, patient reports that he has been doing overall well. However, he states that he still lacks the ability to make a complete full fist. 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 Denies any pain. Denies any erythema or drainage from surgical site. No numbness or tingling to the right hand. 08/02/22 42-year-old male presenting today roughly 10 weeks status post surgery as noted above. Patient reports minimal pain to his right hand ring finger. He is able to use his right hand for different activities, although he does say it is slightly weaker. Patient History Past Surgical History: Procedure Laterality Date FINGER FRACTURE SURGERY NECK SURGERY Past Medical History: Diagnosis Date Known health problems: none Objective Exam: - Incision clean, dry, and intact. No drainage or erythema -At rest, in regards to his right hand ring finger, he is able to fully extend his PIP and has near full flexion of the PIP. He lacks approximately 5-10 degrees of DIP flexion. -With active range of motion of his fingers the patient has roughly 1 cm from the tip of his ring finger to his palm. with passive flexion, he is able to reach the tip of his ring finger to his palm. - Sensation grossly intact distally - Brisk capillary refill Assessment/Plan Vince Luciano is a 42 y.o. RHD male s/p Ring Finger Irrigation and Debridement - Right and Open reduction percutaneous fixation of middle phalanx, ring finger - Right (05/17/2022) who is doing well overall. We believe he will benefit from continuing home exercises to help increase the flexion and extension of his right hand ring finger. -C9 for formal hand OT: ROM of right ring finger - RTC 6 weeks for reevaluation and assessment Darin Sosa MD Orthopedic Surgery, PGY-2 Pager: [phone] 11/07/22 1:26 PM By using the attestations below, the signing clinician agrees that I have read and verify that the documentation has been personally reviewed by me and ensure that the documentation accurately reflects the encounter. GC: I personally saw this patient on the day of the encounter, performed the vergara portion(s) of the service and participated in the management and confirm the resident's documentation. Please note there may be an additional personal documentation from me.[facility] Note Orthopedic Surgery Subjective 05/17/2022 Ring Finger Irrigation and Debridement - Right and Open reduction percutaneous fixation of proximal phalanx, ring finger - Right 08/02/22 42-year-old male presenting today roughly 10 weeks status post surgery as noted above. Patient reports minimal pain to his right hand ring finger. He is able to use his right hand for different activities, although he does say it is slightly weaker. Patient History Past Surgical History: Procedure Laterality Date FINGER FRACTURE SURGERY NECK SURGERY Past Medical History: Diagnosis Date Known health problems: none Objective Exam: - Incision clean, dry, and intact. No drainage or erythema -At rest, in regards to his right hand ring finger, he is able to nearly completely extend his PIP and has 30 degrees of DIP flexion. -With active range of motion of his fingers the patient has roughly 2 cm from the tip of his ring finger to his palm but with passive flexion, he is able to reach the tip of his ring finger to his palm. - Sensation grossly intact distally - Brisk capillary refill Assessment/Plan Vince Luciano is a 42 y.o. year old male s/p Ring Finger Irrigation and Debridement - Right and Open reduction percutaneous fixation of proximal phalanx, ring finger - Right (05/17/2022) who is doing well overall. We believe he will benefit from continuing home exercises to help increase the flexion and extension of his right hand ring finger. Should follow-up in 3 months time. Rome Rivera MD PGY-3 Orthopedic Surgery [facility] By using the attestations below, the signing clinician agrees that I have read and verify that the documentation has been personally reviewed by me and ensure that the documentation accurately reflects the encounter. GC: I personally saw this patient on the day of the encounter, performed the vergara portion(s) of the service and participated in the management and confirm the resident's documentation. Please note there may be an additional personal documentation from me.[facility] Note PROCEDURE: XR HAND RT MIN 3V HISTORY: Injury of finger of right hand COMPARISON: None. FINDINGS: BONES:Markedly comminuted, minimally displaced fractures of the fourth digits middle phalanx with extension into the proximal articular surface. Portion of the tuft of the fourth distal phalanx is absent. SOFT TISSUES:Soft tissue swelling of proximal and mid fourth digit. EFFUSION:None visible. OTHER: Negative. IMPRESSION: 1. Acute, markedly comminuted fractures of right fourth middle phalanx with only mild displacement. 2. A portion of the tuft of the fourth distal phalanx is absent, but there is no appreciable soft tissue defect suggesting this may be sequela of remote injury. Correlate with clinical history. Electronically authenticated by: IAN ROMAN Date: 2022-05-05 15:36[facility] + Plan note Future Appointments Appointment Date:03/07/2023 03:00:00 PM Scheduled Provider:Riley RODRIGUEZ MD Location:[facility] Appointment Type: Procedure 30 General Surgery [place] Evaluation note* Diagnosis Laceration of extensor muscle, fascia and tendon of right ring finger at wrist and hand level, initial encounter- Primary Open displaced fracture of middle phalanx of right ring finger, initial encounter documented in this encounter [facility]* Diagnosis Screening for genitourinary condition Screening for other and unspecified genitourinary condition [facility] [place] [facility] Diagnosis Weak urinary stream- Primary Slowing of urinary stream [facility] Diagnosis BPH with urinary obstruction- Primary Hypertrophy of prostate with urinary obstruction and other lower urinary tract symptoms (LUTS) documented in this [facility] [place] [facility]* Diagnosis Weak urinary stream- Primary Slowing of urinary stream BPH with obstruction/lower urinary tract symptoms Hypertrophy of prostate with urinary obstruction and other lower urinary tract symptoms (LUTS) Urinary frequency Voiding dysfunction Unspecified disorder of urethra and urinary tract documented in this encounter [facility] [place] [facility]* Diagnosis Preoperative examination- Primary Preoperative examination, unspecified Migraine without status migrainosus, not intractable, unspecified migraine type Alcohol use Anxiety and depression Dysthymic disorder BPH with obstruction/lower urinary tract symptoms Hypertrophy of prostate with urinary obstruction and other lower urinary tract symptoms (LUTS) Weak urinary stream Slowing of urinary stream * Assessment & Plan Note - Amita Gee PA-C - 08/01/2023 11:56 AM EDT Associated Problem(s): Anxiety and depression Assessment: Stable, on Wellbutrin and Topamax. * Assessment & Plan Note - Amita Gee PA-C - 08/01/2023 11:55 AM EDT Associated Problem(s): Alcohol use Assessment: Drink daily, 3-6 beers/day. Denies withdrawal sx. CMP pending. * Assessment & Plan Note - Amita Gee PA-C - 08/01/2023 11:55 AM EDT Associated Problem(s): Migraines Assessment: Stable, managed with Imitrex PRN. documented in this encounter [facility] course Narrative No data available for this section General [facility] [place] [facility] Discharge instructions No data available for this section General Surgery [place] Progress note No data available for this section General Surgery [place] Reason for referral (narrative)* Outpatient Procedure (Routine) - Pending Review Specialty Diagnoses / Procedures Referred By Yeny bowden Referred To Contact [facility] Diagnoses Weak urinary stream Procedures FLUROURODYNAMICS WITH EMG EMG STDS ANAL/URTL SPHNCTR OTH/THN NDL Nando Parker MD [address] [place] [address] [facility] [address] [place] [address] Referral ID Status Reason Start Date Expiration Date Visits Requested Visits Authorized [id number] Pending Review Auto-Generat ed Referral 05/18/2023 05/18/2024 1 1 [facility] Outpatient Procedure (Routine) - Pending Review Specialty Diagnoses / Procedures Referred By Yeny t Referred To Contact [facility] Diagnoses Preoperative examination Procedures ECG COMPLETE ECG ROUTINE ECG W/LEAST 12 LDS W/I&R Amita Gee PA-C [address] [address] Referral ID Status Reason Start Date Expiration Date Visits Requested Visits Authorized [id number] Pending Review Auto-Generat ed Referral 08/01/2023 07/31/2024 1 1 [facility] Summary Purpose Family History No Family History Records FoundNo Family History Records FoundNo Family History Records Found No data available for this section No data available for this section No Family History Records FoundNo Family History Records FoundNo Family History Records FoundNo Family History Records FoundNo Family History Records Found Advance Directives No Advanced Directives Records FoundNo Advanced Directives Records FoundNo Advanced Directives Records FoundNo Advanced Directives Records FoundNo Advanced Directives Records FoundNo Advanced Directives Records FoundNo Advanced Directives Records FoundNo Advanced Directives Records Found Additional Source Comments (unrecognized sect ion and content) No Status Records FoundNo Status Records FoundNo Status Records FoundNo Status Records FoundNo Status Records FoundNo Status Records FoundNo Status Records FoundNo Status Records Found INFORMATION SOURCE (unrecogn ized section and content) DATE CREATED AUTHOR 11/23/2018 [facility] DATE CREATED AUTHOR AUTHOR'S ORGANIZ ATION 06/12/2020 [facility] DATE CREATED AUTHOR AUTHOR'S ORGANIZ ATION 07/29/2022 [facility] DATE CREATED AUTHOR AUTHOR'S ORGANIZ ATION 05/08/2023 [facility] EPIC DATE CREATED AUTHOR AUTHOR'S ORGANIZ ATION 07/04/2023 [facility] DATE CREATED AUTHOR AUTHOR'S ORGANIZ ATION 07/07/2023 [facility] DATE CREATED AUTHOR AUTHOR'S ORGANIZ ATION 08/14/2023 [facility] DATE CREATED AUTHOR AUTHOR'S ORGANIZ ATION 08/16/2023 [facility] Patient Care team informatio n (unrecognized section and content) Can Cleaner Relationship Specialty Start Date End Date Unallocated, [place] Provider [address] [place] [address] PCP - General 01/09/23 Can Cleaner Relationship Specialty Start Date End Date Roxy Driver MD PCP - General 02/03/05 Can Cleaner Relationship Specialty Start Date End Date Roxy Driver MD PCP - General 02/03/05 Can Cleaner Relationship Specialty Start Date End Date Roxy Driver MD PCP - General 02/03/05 Can Cleaner Relationship Specialty Start Date End Date Roxy Driver MD PCP - General 02/03/05 Can Cleaner Relationship Specialty Start Date End Date Roxy Driver MD PCP - General 02/03/05 Can Cleaner Relationship Specialty Start Date End Date Roxy Driver MD PCP - General 02/03/05 Can Cleaner Relationship Specialty Start Date End Date Roxy Driver MD PCP - General 02/03/05 Reason for Visit (unrecogniz ed section and content) Specialty Diagnoses / Procedures Referred By Contjuan carlos t Referred To Contact Occupational Therapy / Physical Therapy Diagnoses Displaced fracture of middle phalanx of right ring finger, initial encounter for open fracture Laceration of extensor muscle, fascia and tendon of right ring finger at wrist and hand level, initial encounter Procedures MA OCCUPATIONAL THERAPY EVALUATION Rafael Weeks MD [address] [place] [address] Emely Magallanes, OT [address] [place] [address] Referral ID Status Reason Start Date Expiration Date V isits Requested Visits Authorized [id number] Authorized 02/01/2023 05/04/2023 1 27 Reason Comments Appointment Reason Comments Follow Up Reason Comments Cystoscopy-1 Trus Procedure Reason Comments Patient Question Reason Comments Pre-Op Visit Reason Comments FMLA Paperwork Source Comments (unrecognize d section and content) In the event this informatio n is protected by the Federal Confidentiality of Alcohol and Drug Abuse Patient Records regulations: The Federal rules restrict any use of the information to criminally investigate or prosecute any alcohol or drug abuse patient.[facility] the event this information is protected by the Federal Confidentiality of Alcohol and Drug Abuse Patient Records regulations: The Federal rules restrict any use of the information to criminally investigate or prosecute any alcohol or drug abuse patient.[facility] the event this information is protected by the Federal Confidentiality of Alcohol and Drug Abuse Patient Records regulations: The Federal rules restrict any use of the information to criminally investigate or prosecute any alcohol or drug abuse patient.[facility] the event this information is protected by the Federal Confidentiality of Alcohol and Drug Abuse Patient Records regulations: The Federal rules restrict any use of the information to criminally investigate or prosecute any alcohol or drug abuse patient.[facility] the event this information is protected by the Federal Confidentiality of Alcohol and Drug Abuse Patient Records regulations: The Federal rules restrict any use of the information to criminally investigate or prosecute any alcohol or drug abuse patient.[facility] the event this information is protected by the Federal Confidentiality of Alcohol and Drug Abuse Patient Records regulations: The Federal rules restrict any use of the information to criminally investigate or prosecute any alcohol or drug abuse patient.[facility] the event this information is protected by the Federal Confidentiality of Alcohol and Drug Abuse Patient Records regulations: The Federal rules restrict any use of the information to criminally investigate or prosecute any alcohol or drug abuse patient.[facility] Hospital[facility] the event this information is protected by the Federal Confidentiality of Alcohol and Drug Abuse Patient Records regulations: The Federal rules restrict any use of the information to criminally investigate or prosecute any alcohol or drug abuse patient.[facility] Inactive Administered Medications - up to 3 most recent administrations Administered Medications (un recognized section and content) Medication Order MAR Action Action Date Dose Rate Site lidocaine urojet 2 % 11 mL topical gel (GLYDO) 11 mL, URETHRAL, ONCE, 1 dose, On Sun06/06/23 at 1400, FOR EXTERNAL USE ONLY APPLY TO: Urethral Given 06/06/2023 3:10 PM EST 11 mL sulfamethoxazole-trimethoprim 800-160 mg 1 tablet (BACTRIM DS) 1 tablet, ORAL, ONCE, 1 dose, On Sun06/06/23 at 1400, Prior to outpatient procedure., Antimicrobial indication: Prophylaxis Given 06/06/2023 3:02 PM EST 1 tablet FOR RECORDS PERTAINING TO PATIENTS WHO ARE OR HAVE BEEN ENROLLED IN A CHEMICAL DEPENDENCY/SUBSTANCEABUSE PROGRAM, SOME INFORMATION MAY BE OMITTED. This clinical summary was aggregated from multiple sources. Caution should be exercised in using it in the provision of clinical care. This summary normalizes information from multiple sources, and as a consequence, information in this document may materially change the coding, format and clinical context of patient data. In addition, data may be omitted in some cases. CLINICAL DECISIONS SHOULD BE BASED ON THE PRIMARY CLINICAL RECORDS. [facility]. provides no warranty or guarantee of the accuracy or completeness of information in this document.
--- NOTE | 2023-11-01 14:14 | VEIN_ITS ---
Patient Name: VINCE LUCIANO MR#: [id number] : 1980 Exam Date: 11/01/2023 Ordering Doctor: DR NAOMY VILLALPANDO M.D. RADIOLOGY REPORT PROCEDURE: VC EXT VENOUS REFLUX ALLYSSA LMTD COMPARISON: None. INDICATIONS: I83.813 TECHNIQUE: Duplex imaging of the lower extremity to assess the deep and superficial venous system for the presence of deep or superficial venous incompetence and to document the location and severity of disease. The study includes evaluation of the great saphenous vein (GSV), anterior accessory saphenous vein (AASV) and small saphenous vein (SSV). Patient scanned in reverse Trendelenburg and standing. FINDINGS: RIGHT LOWER EXTREMITY: Saphenofemoral Junction Reflux: YesNo mm sec GSV: Diam (mm) Reflux/ Time (sec) Proximal Thigh N/A Mid Thigh N/A Distal Thigh N/A Prox Calf N/A Mid Calf N/A Saphenopopliteal Junction Reflux: 7.2mm Yes 3.6 SSV: Proximal Calf 7.6 Yes 3.5 Mid Calf 3.4 Yes 2.8 AASV: Proximal Thigh 6.6 Yes 2.2 Mid Thigh 5.9 Yes 0.9 Distal Thigh Thrombi: No acute or chronic thrombus visualized Compressibility: Normal Flow: 0.7s reflux visualized in CFV. 3.4s reflux visualized in FV. 3.3s reflux visualized in Pop V. Preforator: Dist/med calf 4.5mm with 1.1s reflux. Dist/med thigh 8.8mm with 2.8s reflux. Tech Note: GSV previously treated. Mid-distal SSV is tortuous, but SSV is a thigh extension. Patent varicose vein prox/posterior calf off SSV 6.8mm with 3.5s reflux. Large patent varicose veins arising off of perf connecting to gastroc veins measuring up to 9.2mm with 1.0s reflux. Patent varicose vein off of dist/med thigh perf measuring 7.5mm with 2.4s reflux. LEFT LOWER EXTREMITY: Saphenofemoral Junction Reflux: No mm sec GSV: Diam (mm) Reflux/Time (sec) Proximal Thigh NoN/A Mid Thigh N/A Distal Thigh N/A Prox Calf N/A Mid Calf N/A Saphenopopliteal Junction Relux: mm N/A SSV: Proximal Calf N/A Mid Calf N/A AASV: Not present Proximal Thigh Mid Thigh Distal Thigh Thrombi: No acute or chronic thrombus visualized Compressibility: Normal Flow: 1.3s reflux in CFV. 1.6s reflux visualized in FV. 2.9s reflux visualized in Pop V. Pin Sorter And Bagger: Dist/med calf 5.4mm with 1.6s reflux. Tech Note: GSV and SSV were previously treated. Patent tortuous varicose veins arising at SFJ and extending to mid thigh, measures up to 11.1 mm with 2.7s reflux. CONCLUSION: 1. Abnormally dilated and incompetent right small saphenous vein, anterior accessory saphenous vein, and large incompetent communications systems engineer vein within calf and distal thigh. 2. Abnormally dilated and incompetent branch saphenous varicosities bilaterally. Dictated by: Jair Ricardo M.D. on 11/01/2023 at 15:20 Approved by: Jair Ricardo M.D. on 11/01/2023 at 15:45
--- NOTE | 2023-11-01 14:14 | VEIN_ITS ---
Patient Name: VINCE LUCIANO MR#: [id number] : 1980 Exam Date: 11/01/2023 Ordering Doctor: DR NAOMY VILLALPANDO M.D. RADIOLOGY REPORT PROCEDURE: VC FACILITY EST COMPREHENSIVE VEIN CENTER - OFFICE VISIT INITIAL COMPARISON: None. PROGRESS NOTES: [age] year old male who presents with a 1 year history of bilateral leg pain and edema. The patient's right leg symptoms are worse than the left. There has been a progression of symptoms over past year. This increases with prolonged dependency. The patient describes an improvement with rest, elevation, compression stockings, exercise, and analgesics. The patient denies any signs and symptoms to suggest arterial ischemia. The patient describes a family history of varicose veins. The patient has drinking and smoking history of occasional alcohol consumption; no tobacco use. Patient has a past medical history significant for extensive history of varicose vein disease. The patient denies a history of deep venous thrombus or pulmonary embolus. See separate history and physical for medication list. Multiple prior treatments for varicose veins. Chronic use of compression stockings. After review of nurse notes, history and physical exam I discussed at length the pathophysiology of venous hypertension and possible treatments, therapies and strategies available. We discussed at length the importance of elevating the lower extremities above the level of the heart, increased physical activity and compression stocking use. Ultrasound venous reflux study performed today was discussed at length with the patient. The report demonstrates: Right leg: abnormally dilated incompetent right small saphenous and anterior accessory saphenous veins. Very large in incompetent bar and filler assembler veins within distal thigh and mid calf. Multiple dilated incompetent branch saphenous varicosities Left leg: Multiple dilated incompetent branch saphenous varicosities. PHYSICAL EXAM: The right leg demonstrates a few visible varicosities, scattered spider veins, small incompletely healed wound/ ulceration, moderate edema, no skin discoloration. The left leg demonstrates a few visible varicosities, scattered spider veins, no ulceration, moderate edema, no skin discoloration. Both thighs, legs and feet were symmetrically warm to the touch. Good posterior tibial and dorsalis pedis pulses were present bilaterally. VEIN/VC Facility EST Comprehensive IMPRESSION: 1. Bilateral extremity venous insufficiency 2. Bilateral lower extremity varicose veins 3. Moderate bilateral lower extremity subcutaneous edema 4. No flow significant arterial disease 5. CEAP: C6, EC, AD, VT PLAN: 1. Continued use of compression stockings 2. Elevated legs and increased physical activity symptomatic relief 3. Endovenous laser ablation of right small saphenous vein, anterior accessory saphenous vein, and bar and filler assembler veins. 4. Microfoam chemical ablation of incompetent branch saphenous varicosities bilaterally. Nurse notes, history and physical were reviewed and confirmed, see attached forms. The nurse was present throughout the physical exam and consultation Dictated by: Jair Ricardo M.D. on 11/01/2023 at 15:45 Approved by: Jair Ricardo M.D. on 11/01/2023 at 15:54
== END 2023-11-01 16:00 | disposition home or self-care (01) ==
PROVIDERS: PCP Radiology Diagnostic Radiology; Visit Provider Radiology Diagnostic Radiology
DX: I83.813 Varicose veins of bilateral lower extremities with pain (principal)
CPT/HCPCS: 93970; G0463

== ENCOUNTER 2023-11-20 14:35 | Outpatient (OUT) | payer OTHER, SELFPAY ==
--- NOTE | 2023-11-19 12:46 | V.VEINS.HP ---
Vital Signs 11/19/23 13:05 11/20/23 15:09 Height 6 ft 3 in Weight 105 kg BP 120/70 BP Location Left Brachial BP Position Sitting BP Cuff Size Adult BP Source Manual Cuff Respiration 16 Pulse 83 Pulse Oximetry (%) 98 Oxygen Delivery Method Room Air Comment The patient's blood pressure is elevated. Varicose Veins Patient in this day for EVLT of right SSV Asaf Julien MD personally performed the services described in this documentation, as scribed by Tex Moralez RN in my presence and it is both accurate and complete. I, Tex Moralez RN, am scribing for, and in the presence of, Dr. Asaf Marte and in the presence of the patient. thigh: bilateral (varicose veins bilateral legs), knee: bilateral, calf: bilateral, ankle: bilateral and shay: bilateral aching, burning and tender 5 1 year Worsened in recent months: Yes standing analgesics (Aleve), elevating extremities, compression stockings and exercise Reports heaviness, limb pain, edema and leg edema History of lower extremity trauma: No Superficial thrombophlebitis: No Family history of varicose veins: yes (family) Has patient had previous lower extremity venous surgery: Yes Patient has previously received the following treatment(s) for lower extremity varicose veins: Reports vein ablation, phlebectomy, sclerotherapy, foam therapy and laser therapy Does patient have a history of : not applicable Has patient had lower extremity venous scan with relux testing: Yes Support hose used: Yes (many years) Problems walking or doing physical activity: Yes How does it affect you: often has to stop, rest, and elevate legs due to pain Do you walk much: Yes Do you stand much: Yes Review of Systems ROS Narrative Asaf Julien MD personally performed the services described in this documentation, as scribed by Tex Moralez RN in my presence and it is both accurate and complete. ITex RN, am scribing for, and in the presence of, Dr. Asaf Marte and in the presence of the patient. [facility] Medical History (Updated 11/01/23 @ 14:30 by Tex Moralez) Varicose veins of bilateral lower extremities with pain ?I83.813 - Varicose veins of bilateral lower extremities with pain (ICD-10) Right hand fracture ?S62.91XA - Unspecified fracture of right wrist and hand, initial encounter for closed fracture (ICD-10) Cervical vertebral fusion ?M43.22 - Fusion of spine, cervical region (ICD-10) Surgical History (Updated 11/01/23 @ 15:11 by Tex Moralez) History of bladder surgery ?Z98.890 - Other specified postprocedural states (ICD-10) H/O varicose vein ligation ?Z98.890 - Other specified postprocedural states (ICD-10) ?Z86.79 - Personal history of other diseases of the circulatory system (ICD-10) Status post phlebectomy ?Z98.890 - Other specified postprocedural states (ICD-10) Family History (Updated 11/01/23 @ 14:41 by Tex Moralez) Mother Varicose veins of bilateral lower extremities with pain Family history of cancer Family history of hypertension Social History (Updated 11/01/23 @ 14:32 by Tex Moralez) Within the past year, how often did you have a drink containing alcohol: 2-4 times a month Smoking status: Never smoker Non-prescribed substance use: denies use Meds Home Medications and Allergies Home Medications ?Medication ?Instructions ?Recorded ?Confirmed ?Type bupropion HCl 150 mg 24 hr tablet, 150 mg PO DAILY 11/01/23 11/01/23 History extended release bupropion HCl 300 mg 24 hr tablet, 300 mg PO DAILY 11/01/23 11/01/23 History extended release calcium carb-ergocalciferol (vit tab PO 11/01/23 History D2) 600 mg calcium-200 unit tablet desvenlafaxine succinate 50 mg 50 mg PO DAILY 11/01/23 11/01/23 History tablet,extended release 24 hr (Pristiq) doxycycline hyclate 100 mg capsule 100 mg PO DAILY 11/01/23 11/01/23 History tamsulosin 0.4 mg capsule (Flomax) 0.4 mg PO Q24H 11/01/23 11/01/23 History topiramate 100 mg capsule,extended 100 mg PO DAILY 11/01/23 11/01/23 History release 24 hr Allergies Allergy/AdvReac Type Severity Reaction Status Date / Time morphine Allergy Seizure Verified 11/01/23 14:41 Exam Narrative Exam Narrative: I, Asaf Marte MD personally performed the services described in this documentation, as scribed by Tex Moralez RN in my presence and it is both accurate and complete. I, Tex Moralez RN, am scribing for, and in the presence of, Dr. Asaf Marte and in the presence of the patient. Assessment and Plan Assessment and Plan (1) Varicose veins of bilateral lower extremities with pain: Plan f/u evaluation with physician along with right leg limited u/s Asaf Julien MD personally performed the services described in this documentation, as scribed by Tex Moralez RN in my presence and it is both accurate and complete. I, Tex Moralez RN, am scribing for, and in the presence of, Dr. Asaf Marte and in the presence of the patient. Procedures Procedure Instructions Procedures Plan of care: Risks and benefits of the procedure were discussed at length and informed written consent was obtained.? Time-out completed for verification of correct patient, procedure and site.? Staff present during time-out: Tex Moralez RN,? Asaf Marte MD, [facility],T. Time Out Time___1446____ Patient prepped and procedure performed in usual sterile fashion. Risk of injury related to use of Diode laser and/or laser devices__CR___ ? Serial number of laser used :? [id number] Control panel self test performed, electrical cords in good condition, floor is dry, basin of water available, fire extinguisher in close proximity_CR__ Polycarbonate goggles available and Laser warning signs outside of doors___CR__ Eye protection provided to patient and staff in room_CR___ Use of laser retardant drapes and dull blackened instruments as directed__CR___ Use of nonflammable prep solutions and use of saline soaked sponges to protect tissues as indicated _CR___ Length __14__ cm Laser operated by _Dr. Marte__ Physician verbal confirmation laser locked in place__CR__ Laser start time (date and time) _11/19/2023@_1455 Laser stop time(date and time) _11/19/2023@_1456 Herman _8.0___ Average laser use _721 Joules Average laser use___90 seconds Pulse continuous ___CR_? Pulse intermittent ___ Amount of Tumescent used __100cc____ Evaluated patient for signs and symptoms of electrical injury __CR___ ? Skin clear at insertion site __CR___ Patient tolerated procedure well.? Left leg Coban dressing applied to access site.? Applied Left thigh high leg compression stocking. Will return on 11/27/2023 for Left leg limited venous ultrasound and exam. I, Asaf Marte MD personally performed the services described in this documentation, as scribed by Tex Moralez RN in my presence and it is both accurate and complete. I, Tex Moralez RN, am scribing for, and in the presence of, Dr. Asaf Marte and in the presence of the patient.
--- NOTE | 2023-11-19 12:52 | W.VEIN ---
Discharge Plan Discharge Disposition: Home, Self-Care Discharge Medications: No Action desvenlafaxine succinate [Pristiq] 50 mg tablet extended release 24 hr 50 mg PO DAILY bupropion HCl 300 mg tablet extended release 24 hr 300 mg PO DAILY bupropion HCl 150 mg tablet extended release 24 hr 150 mg PO DAILY doxycycline hyclate 100 mg capsule 100 mg PO DAILY tamsulosin [Flomax] 0.4 mg capsule 0.4 mg PO Q24H calcium carbonate-vitamin D2 600 mg calcium- 200 unit tablet PO topiramate 100 mg capsule,extended release 24hr 100 mg PO DAILY Plan of Treatment: f/u evaluation with physician along with right leg limited u/s Print Language: Australian
--- NOTE | 2023-11-19 13:02 | P.DS_ITS ---
Discharge Plan Discharge Disposition: Home, Self-Care Outpatient Diagnostics: VC Facility EST LMTD (Routine) Timeframe: 2 Weeks Facility: [facility] - Location: Vein Center Ordered By: Asaf Marte VC EXT Venous RT LMTD (Routine) Timeframe: 2 Weeks Facility: [facility] - Location: Vein Center Ordered By: Asaf Marte Follow Up Appointments: 11/27/2023@1500 Plan of Treatment: f/u evaluation with physician along with right leg limited u/s Patient Instructions: Endovenous Ablation (DC) Print Language: Kinyarwanda Discharge Date/Time: 11/20/23 15:14
[2023-11-20] MEDS: 0.9 % SODIUM CHLORIDE 500 ML, LIDOCAINE HCL 20 ML, SODIUM BICARBONATE 10 MEQ INJ (09:49)
[2023-11-20] MEDS: LIDOCAINE HCL 1% 100 MG/10 ML MDV INJ (09:49)
--- NOTE | 2023-11-20 14:36 | VEIN_ITS ---
[address] [address] Patient Name: VINCE LUCIANO MRN: [id number] date: 1980 Sex: M Assigned Patient Location: Current Patient Location: Accession/Order Number: [id number] Exam Date: 11/20/2023 14:35 Report Date: 11/20/2023 15:47 At the request of: IAN ROMAN Procedure: VC Endovenous Ablation 1VeinRT EXAMINATION: VC Endovenous Ablation 1Vein right small saphenous vein HISTORY: I83.813 COMPARISON: No relevant comparison available. TECHNIQUE: The risks and benefits of the procedure had been previously discussed, and were rediscussed at length. Informed written consent was obtained. Brenna Keene and Tex Moralez assisted. Time out procedure was performed. The right lower extremity was prepared and draped in the usual sterile fashion . Duplex ultrasound probe was draped in a sterile cover, sterile transmission gel was used. Venous mapping was performed with the areas of dilation and large tributaries marked. The total length was 14 cm from the entry mid calfto 3 cm below the saphenofemoral junction. The diameter of the greater saphenous vein ranged from 4-8 mm. A 30 gauge needle and 1% buffered lidocaine was used to anesthetize the entry site. A 4 mm incision was made with a scalpel and the saphenous vein was entered percutaneously under direct ultrasound guidance with a micropuncture set, a single stick was successful in gaining access. A micro-guide wire was inserted and the needle removed. A micro-set including a dilator was inserted over the microwire and the needle and dilator were removed. A 0.018 guide wire was inserted through the micro-set and threaded through the saphenous vein. The dilator was removed and an introducer sheath was inserted over the wire until the end of the sheath. The dilator and wire were removed and the 600 micron fiber was introduced and placed and positioned so that it extended beyond the sheath. The wire tip was positioned to where the vein began to enter the muscle fascia on this thigh extension. Final position of the fiber was determined by ultrasound guidance and duplex imaging. Tumescent anesthetic was delivered by ultrasound guidance. 100 cc of fluid was delivered along the entire course of the saphenous vein. The solution consisted of 1000 cc of normal saline with 40 mL of 1% lidocaine and 20 mL of sodium bicarbonate. A final positioning check was made. The energy source was turned on by means of the foot pedal and the fiber and sheath were withdrawn. The total number of Joules delivered was 721. The laser was active for 90 seconds under continuous pulse, average laser use of 8 J. Laser start time 14:55 11/20/23 . Laser stop time 14:56 11/20/23 . A duplex ultrasound revealed compressibility and flow at the saphenofemoral junction immediately after the procedure. Hemostasis at the access site was achieved. The skin incision of the saphenous vein was closed with a 4 x 4. A compression stocking was applied. Postop instructions were given. A follow up appointment was recommended and scheduled. The patient tolerated the procedure well and was discharged in good condition . VEIN/VC Endovenous Ablation 1VeinRT IMPRESSION: Technically successful endovenous laser ablation right small saphenous vein Electronically authenticated by: NAOMY VILLALPANDO Date: 11/20/2023 15:47
[2023-11-20 15:09] VITALS: BP 120/70; PULSE 83; O2SAT 98
== END 2023-11-20 15:14 | disposition home or self-care (01) ==
LOC: VC 14:35
PROVIDERS: PCP Radiology Diagnostic Radiology; Visit Provider Radiology Diagnostic Radiology
DX: I83.813 Varicose veins of bilateral lower extremities with pain (principal)
CPT/HCPCS: 36478

== ENCOUNTER 2023-11-27 14:45 | Outpatient (OUT) | payer OTHER, SELFPAY ==
--- NOTE | 2023-11-27 14:46 | VEIN_ITS ---
Patient Name: VINCE LUCIANO MR#: [id number] : 1980 Exam Date: 11/27/2023 Ordering Doctor: DR ASAF MARTE M.D. RADIOLOGY REPORT PROCEDURE: VC FACILITY EST LMTD VEIN CENTER - OFFICE VISIT FOLLOW UP COMPARISON: None. PROGRESS NOTES: The patient reports no problems following intravenous laser ablation of the right small saphenous vein. The patient has worn his compression stockings. The patient has exercised. The patient did not require oral analgesics Physical exam demonstrates no erythema or warmth to suggest cellulitis or thrombophlebitis. The right small saphenous vein cannot be palpated. No ulceration. The incision is healed. Review of the ultrasound performed the same day demonstrates occlusive thrombus extending throughout the treated right small saphenous vein with no deep vein thrombus. The patient expressed a desire to proceed with treatment of incompetent right anterior accessory saphenous vein. VEIN/ Facility EST LMTD IMPRESSION: 1. Successful ablation of the right small saphenous vein 2. 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 PLAN: Intravenous laser ablation right anterior accessory saphenous vein Nurse notes, history and physical were reviewed and confirmed, see attached forms. The nurse was present throughout the physical exam and consultation Dictated by: Asaf Marte MD on 11/27/2023 at 15:14 Approved by: Asaf Marte MD on 11/27/2023 at 15:15
--- NOTE | 2023-11-27 14:46 | VEIN_ITS ---
Patient Name: VINCE LUCIANO MR#: [id number] : 1980 Exam Date: 11/27/2023 Ordering Doctor: DR ASAF MARTE M.D. RADIOLOGY REPORT PROCEDURE: VC EXT VENOUS RT LMTD COMPARISON: None. INDICATIONS: I80.01 - Phlebitis and thrombophlebitis of superficial ve... TECHNIQUE: Lower extremity linares scale and Duplex Doppler evaluation of the deep venous system from the inguinal ligament through the calf veins. FINDINGS: REGION: Right lower extremity. THROMBI: Negative for DVT. Heat induced thrombus visualized arising at distal thigh and extending through mid calf. COMPRESSIBILITY: Non-compressible segments corresponding to thrombus FLOW: Areas of no flow corresponding to thrombus CONCLUSION: Post ablation occlusion of the treated right small saphenous vein with no deep vein thrombus Dictated by: Asaf Marte MD on 11/27/2023 at 15:07 Approved by: Asaf Marte MD on 11/27/2023 at 15:07
[2023-11-27 15:25] VITALS: BMI 28.9
--- NOTE | 2023-11-27 15:25 | V.VEINS.HP ---
Vital Signs 11/27/23 15:25 Height 6 ft 3 in Weight 105 kg BMI 28.9 Varicose Veins Patient in this day for follow up ultrasound post EVLT of right SSV Asaf Julien MD personally performed the services described in this documentation, as scribed by Leticia Keene RVT, RDMS in my presence and it is both accurate and complete. I, Leticia Keene RVT, RDMS, am scribing for, and in the presence of, Dr. Asaf Marte and in the presence of the patient. thigh: bilateral (varicose veins bilateral legs), knee: bilateral, calf: bilateral, ankle: bilateral and shay: bilateral aching, burning and tender 5 1 year Worsened in recent months: Yes standing analgesics (Aleve), elevating extremities, compression stockings and exercise Reports heaviness, limb pain, edema and leg edema History of lower extremity trauma: No Superficial thrombophlebitis: No Family history of varicose veins: yes (family) Has patient had previous lower extremity venous surgery: Yes Patient has previously received the following treatment(s) for lower extremity varicose veins: Reports vein ablation, phlebectomy, sclerotherapy, foam therapy and laser therapy Does patient have a history of : not applicable Has patient had lower extremity venous scan with relux testing: Yes Support hose used: Yes (many years) Problems walking or doing physical activity: Yes How does it affect you: often has to stop, rest, and elevate legs due to pain Do you walk much: Yes Do you stand much: Yes Review of Systems ROS Narrative I, Asaf Marte MD personally performed the services described in this documentation, as scribed by Leticia Keene RVT, RDMS in my presence and it is both accurate and complete. I, Leticia Keene RVT, RDMS, am scribing for, and in the presence of, Dr. Asaf Marte and in the presence of the patient. 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 ?I80.01 - Phlebitis and thrombophlebitis of superficial vessels of right lower extremity (ICD-10) Varicose veins of bilateral lower extremities with pain ?I83.813 - Varicose veins of bilateral lower extremities with pain (ICD-10) Right hand fracture ?S62.91XA - Unspecified fracture of right wrist and hand, initial encounter for closed fracture (ICD-10) Cervical vertebral fusion ?M43.22 - Fusion of spine, cervical region (ICD-10) Surgical History (Updated 11/01/23 @ 15:11 by Tex Moralez) History of bladder surgery ?Z98.890 - Other specified postprocedural states (ICD-10) H/O varicose vein ligation ?Z98.890 - Other specified postprocedural states (ICD-10) ?Z86.79 - Personal history of other diseases of the circulatory system (ICD-10) Status post phlebectomy ?Z98.890 - Other specified postprocedural states (ICD-10) Family History (Updated 11/01/23 @ 14:41 by Tex Moralez) Mother Varicose veins of bilateral lower extremities with pain Family history of cancer Family history of hypertension Social History (Updated 11/01/23 @ 14:32 by Tex Moralez) Within the past year, how often did you have a drink containing alcohol: 2-4 times a month Smoking status: Never smoker Non-prescribed substance use: denies use Meds Home Medications and Allergies Home Medications ?Medication ?Instructions ?Recorded ?Confirmed ?Type bupropion HCl 150 mg 24 hr tablet, 150 mg PO DAILY 11/01/23 11/01/23 History extended release bupropion HCl 300 mg 24 hr tablet, 300 mg PO DAILY 11/01/23 11/01/23 History extended release calcium carb-ergocalciferol (vit tab PO 11/01/23 History D2) 600 mg calcium-200 unit tablet desvenlafaxine succinate 50 mg 50 mg PO DAILY 11/01/23 11/01/23 History tablet,extended release 24 hr (Pristiq) doxycycline hyclate 100 mg capsule 100 mg PO DAILY 11/01/23 11/01/23 History tamsulosin 0.4 mg capsule (Flomax) 0.4 mg PO Q24H 11/01/23 11/01/23 History topiramate 100 mg capsule,extended 100 mg PO DAILY 11/01/23 11/01/23 History release 24 hr Allergies Allergy/AdvReac Type Severity Reaction Status Date / Time morphine Allergy Seizure Verified 11/01/23 14:41 Exam Narrative Exam Narrative: IAsaf MD personally performed the services described in this documentation, as scribed by Leticia Keene RVT, RDMS in my presence and it is both accurate and complete. I, Leticia Keene RVT, RDMS, am scribing for, and in the presence of, Dr. Asaf Marte and in the presence of the patient. Results Imaging Venous US: Radiologist's impression: The ultrasound demonstrates Heat induced thrombus visualized arising at distal thigh and extending through mid calf. 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
--- NOTE | 2023-11-27 15:28 | W.VEIN ---
Discharge Plan Discharge Disposition: Home, Self-Care Follow Up Appointments: 12/13/23 Plan of Treatment: EVLT of right leg AASV Print Language: Vietnamese Discharge Date/Time: 11/27/23 15:30
== END 2023-11-27 15:30 | disposition home or self-care (01) ==
PROVIDERS: PCP Radiology Diagnostic Radiology; Visit Provider Radiology Diagnostic Radiology
DX: I80.01 Phlebitis and thrombophlebitis of superficial vessels of right lower extremity (principal)
CPT/HCPCS: 93971; G0463

== ENCOUNTER 2023-12-07 17:09 | Emergency (ER) | payer OTHER, SELFPAY ==
[2023-12-07 17:16] VITALS: BP 128/84; PULSE 90; TEMP 36.8; O2SAT 98; BMI 28.7
--- NOTE | 2023-12-07 17:23 | US_ITS ---
The [address] [address] Patient Name: VINCE LUCIANO MRN: [id number] date: 1980 Sex: M Assigned Patient Location: ER Current Patient Location: ED.MAIN Accession/Order Number: [id number] Exam Date: 12/07/2023 18:20 Report Date: 12/07/2023 23:18 At the request of: NICOLA JOHNSON Procedure: US venous doppler LE RT ULTRASOUND RIGHT LOWER EXTREMITY VENOUS DUPLEX HISTORY: History of vein stripping and laser ablations performed. COMPARISON: 11/27/2023 TECHNIQUE: Real-time ultrasound examination with permanent image recording was performed and reviewed on a PACS work station. Each vessel was evaluated for compressibility, Doppler flow, respiratory phasicity, and augmentation. FINDINGS: There are some noncompressible segments involving the right femoral vein suggesting acute to subacute nonocclusive DVT. Likewise there is some incompletely compressive segments and the calf involving the anterior tibial vein which may reflect some nonocclusive DVT. The right greater saphenous and common femoral veins are patent and compressible with normal flow and phasicity. Right peroneal and posterior tibial veins and popliteal vein are patent and compressible normal flow and phasicity. US/US venous doppler LE RT IMPRESSION: Concerning for acute nonocclusive femoral vein and possibly anterior tibial vein DVT. Unable to completely compress these structures. Correlate with symptoms. Critical results were NOTIFIED by TELEPHONE BY Dr. Josue Gifford, DO to Dr. Robledo At 12/07/2023 10:55 PM EDT. Electronically authenticated by: JOSUE GIFFORD Date: 12/07/2023 23:18
--- NOTE | 2023-12-07 17:25 | ED_ITS ---
Documented by User: KIMBERLY Pina 12/07/23 21:48 HPI - Extremity Problem General Chief complaint: Extremity Problem, Nontraumatic Stated complaint: EXCESSIVE BRUISING R LEG Time Seen by Provider: 12/07/23 17:10 Source: patient and family Mode of arrival: walk-in Limitations: no limitations History of Present Illness HPI Narrative: Patient is a 43-year-old male who presents to the emergency department for the evaluation of bruising to the right anterior tibia that he noticed today. Patient states he noticed a red abrasion type area to the right knee several days ago. Today when he took his compression stockings down he noticed bruising in the right anterior tibia. He states he is having difficulty walking due to pain and swelling. He had a vein procedure done to the posterior calf for varicose veins on 11/20/2023. He has been using Tylenol and Motrin without improvement. Related Data Home Medications ?Medication ?Instructions ?Recorded ?Confirmed bupropion HCl 150 mg 24 hr tablet, 150 mg PO DAILY 11/01/23 12/07/23 extended release bupropion HCl 300 mg 24 hr tablet, 300 mg PO DAILY 11/01/23 12/07/23 extended release calcium carb-ergocalciferol (vit 1 tab PO DAILY 11/01/23 12/07/23 D2) 600 mg calcium-200 unit tablet desvenlafaxine succinate 50 mg 50 mg PO DAILY 11/01/23 12/07/23 tablet,extended release 24 hr (Pristiq) doxycycline hyclate 100 mg capsule 100 mg PO DAILY 11/01/23 12/07/23 tamsulosin 0.4 mg capsule (Flomax) 0.4 mg PO Q24H 11/01/23 12/07/23 topiramate 100 mg capsule,extended 100 mg PO DAILY 11/01/23 12/07/23 release 24 hr Allergies Allergy/AdvReac Type Severity Reaction Status Date / Time No Known Drug Allergies Allergy Verified 12/07/23 17:28 Review of Systems ROS Constitutional Denies: fever or chills Ears, nose, mouth, and throat Denies: throat pain or nasal congestion Respiratory Denies: shortness of breath Gastrointestinal Denies: nausea or vomiting Musculoskeletal Reports: extremity pain and extremity swelling; Denies: back pain or neck pain Integumentary/Breast Denies: rash Neurological Denies: numbness in extremities or weakness in extremities Hematologic/Lymphatic Denies: easy bruising or easy bleeding [facility] Medical History (Updated 12/07/23 @ 23:57 by Simone Robledo MD) 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 ?I80.01 - Phlebitis and thrombophlebitis of superficial vessels of right lower extremity (ICD-10) Varicose veins of bilateral lower extremities with pain ?I83.813 - Varicose veins of bilateral lower extremities with pain (ICD-10) Right hand fracture ?S62.91XA - Unspecified fracture of right wrist and hand, initial encounter for closed fracture (ICD-10) Cervical vertebral fusion ?M43.22 - Fusion of spine, cervical region (ICD-10) Surgical History (Updated 11/01/23 @ 15:11 by Tex Moralez) History of bladder surgery ?Z98.890 - Other specified postprocedural states (ICD-10) H/O varicose vein ligation ?Z98.890 - Other specified postprocedural states (ICD-10) ?Z86.79 - Personal history of other diseases of the circulatory system (ICD- 10) Status post phlebectomy ?Z98.890 - Other specified postprocedural states (ICD-10) Family History (Updated 11/01/23 @ 14:41 by Tex Moralez) Mother Varicose veins of bilateral lower extremities with pain Family history of cancer Family history of hypertension Social History Within the past year, how often did you have a drink containing alcohol: 2-4 times a month Smoking status: Never smoker Non-prescribed substance use: denies use Exam Narrative Exam Narrative: Gen.: Awake, alert, in no distress Head: Normocephalic, atraumatic ENT: Moist mucous membranes Respiratory: No respiratory distress Extremities: Moves extremities equally, abrasion noted to the right anterior knee with diffuse edema and ecchymosis in various stages of healing over the right anterior shay. Calves are soft and nontender bilaterally. Multiple varicose veins noted in the posterior leg bilaterally Psych: Normal mood and affect Neuro: No focal neuro deficit Skin: Warm, dry, intact Constitutional Vital Signs, click to edit/add: Last Vital Signs Temp 98.3 F 12/07/23 17:16 Pulse 72 12/07/23 17:31 Resp 18 12/07/23 17:16 BP 128/84 12/07/23 17:16 Pulse Ox 98 12/07/23 17:16 O2 Del Method Room Air 12/07/23 17:16 Course Vital Signs Vital signs: Vital Signs Temperature 98.3 F 12/07/23 17:16 Pulse Rate 90 12/07/23 17:16 Respiratory Rate 18 12/07/23 17:16 Blood Pressure 128/84 12/07/23 17:16 Pulse Oximetry 98 12/07/23 17:16 Oxygen Delivery Method Room Air 12/07/23 17:16 Temperature 98.3 F 12/07/23 17:16 Pulse Rate 72 12/07/23 17:31 Respiratory Rate 18 12/07/23 17:16 Blood Pressure 128/84 12/07/23 17:16 Pulse Oximetry 98 12/07/23 17:16 Oxygen Delivery Method Room Air 12/07/23 17:16 MDM - Extremity (Nontraumatic) MDM Narrative Medical decision making narrative: 2149: Labs Obtained and patient was treated for pain. He is hemodynamically stable with normal vital signs. An ultrasound was obtained of the right lower extremity, there was significant delay with obtaining the ultrasound, the information technology administrator crossing over the results to the radiologist and we are still awaiting a formal radiologist read after several hours. Patient was remedicated for pain. Case is turned over to attending physician at this time. SHARED APC VISIT, PHYSICIAN ATTESTATION: [id number] I performed a substantive part of the MDM during the patient?s E/M visit. I personally evaluated and examined the patient. I personally made or approved the documented management plan and acknowledge its risk of complications. Medical Records Attestation: I reviewed the patient's medical records. Lab Data Attestation: I reviewed the patient's lab results. Labs: Lab Results 12/07/23 Range/Units 17:36 WBC 7.2 (4.0-11.0) 10^3/uL RBC 4.44 L (4.70-6.10) 10^6/uL Hgb 14.2 (14.0-18.0) g/dL Hct 42.6 (42.0-54.0) % MCV 95.9 H (80.0-94.0) fL MCH 32.0 (25.9-34.0) pg MCHC 33.3 (29.9-35.2) g/dL RDW 12.3 (11.0-15.0) % Plt Count 203 (150-450) 10^3/uL MPV 10.4 (9.5-13.5) fL Neut % (Auto) 70.9 (43.0-75.0) % Lymph % (Auto) 20.2 L (20.5-60.0) % Carroll % (Auto) 7.0 (1.7-12.0) % Eos % (Auto) 1.2 (0.9-7.0) % Baso % (Auto) 0.4 (0.2-2.0) % Neut # (Auto) 5.1 (1.4-6.5) 10^3/uL Lymph # (Auto) 1.5 (1.2-3.8) 10^3/uL Carroll # (Auto) 0.5 (0.3-0.8) 10^3/uL Eos # (Auto) 0.1 (0.0-0.7) 10^3/uL Baso # (Auto) 0.0 (0.0-0.1) 10^3/uL Abs Immat Gran (auto) 0.02 (0.00-0.03) 10^3/uL Imm/Tot Granulo (auto) 0.3 (0.0-0.5) % PT 10.8 (9.0-11.6) sec INR 1.02 Imaging Data Chest x-ray: Radiologist's impression: ITS Impressions Venous Doppler Study 12/07/23 17:23 IMPRESSION: Concerning for acute nonocclusive femoral vein and possibly anterior tibial vein DVT. Unable to completely compress these structures. Correlate with symptoms. Critical results were NOTIFIED by TELEPHONE BY Dr. Josue Gifford, DO to Dr. Robledo At 12/07/2023 10:55 PM EDT. Electronically authenticated by: JOSUE GIFFORD Date: 12/07/2023 23:18 Discharge Plan Discharge Chief Complaint: Extremity Problem, Nontraumatic Clinical Impression: Acute pain of right lower extremity, Deep vein thrombosis of lower extremity Patient Disposition: Home, Self-Care Prescriptions / Home Meds: No Action desvenlafaxine succinate [Pristiq] 50 mg tablet extended release 24 hr 50 mg PO DAILY bupropion HCl 300 mg tablet extended release 24 hr 300 mg PO DAILY bupropion HCl 150 mg tablet extended release 24 hr 150 mg PO DAILY doxycycline hyclate 100 mg capsule 100 mg PO DAILY tamsulosin [Flomax] 0.4 mg capsule 0.4 mg PO Q24H calcium carbonate-vitamin D2 600 mg calcium- 200 unit tablet 1 tab PO DAILY topiramate 100 mg capsule,extended release 24hr 100 mg PO DAILY Print Language: Argentine Instructions: Deep Vein Thrombosis (ED) Additional Instructions: follow up with your doctor next week for recheck Referrals: Asaf Marte MD [Primary Care Provider] - 1 week Documented by User: Simone Robledo MD 12/07/23 23:57 HPI - Extremity Problem General Chief complaint: Extremity Problem, Nontraumatic Stated complaint: EXCESSIVE BRUISING R LEG Time Seen by Provider: 12/07/23 17:10 Related Data Home Medications ?Medication ?Instructions ?Recorded ?Confirmed bupropion HCl 150 mg 24 hr tablet, 150 mg PO DAILY 11/01/23 12/07/23 extended release bupropion HCl 300 mg 24 hr tablet, 300 mg PO DAILY 11/01/23 12/07/23 extended release calcium carb-ergocalciferol (vit 1 tab PO DAILY 11/01/23 12/07/23 D2) 600 mg calcium-200 unit tablet desvenlafaxine succinate 50 mg 50 mg PO DAILY 11/01/23 12/07/23 tablet,extended release 24 hr (Pristiq) doxycycline hyclate 100 mg capsule 100 mg PO DAILY 11/01/23 12/07/23 tamsulosin 0.4 mg capsule (Flomax) 0.4 mg PO Q24H 11/01/23 12/07/23 topiramate 100 mg capsule,extended 100 mg PO DAILY 11/01/23 12/07/23 release 24 hr Allergies Allergy/AdvReac Type Severity Reaction Status Date / Time No Known Drug Allergies Allergy Verified 12/07/23 17:28 [facility] Medical History (Updated 12/07/23 @ 23:57 by Simone Robledo MD) 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 ?I80.01 - Phlebitis and thrombophlebitis of superficial vessels of right lower extremity (ICD-10) Varicose veins of bilateral lower extremities with pain ?I83.813 - Varicose veins of bilateral lower extremities with pain (ICD-10) Right hand fracture ?S62.91XA - Unspecified fracture of right wrist and hand, initial encounter for closed fracture (ICD-10) Cervical vertebral fusion ?M43.22 - Fusion of spine, cervical region (ICD-10) Surgical History (Updated 11/01/23 @ 15:11 by Tex Moralez) History of bladder surgery ?Z98.890 - Other specified postprocedural states (ICD-10) H/O varicose vein ligation ?Z98.890 - Other specified postprocedural states (ICD-10) ?Z86.79 - Personal history of other diseases of the circulatory system (ICD- 10) Status post phlebectomy ?Z98.890 - Other specified postprocedural states (ICD-10) Family History (Updated 11/01/23 @ 14:41 by Tex Moralez) Mother Varicose veins of bilateral lower extremities with pain Family history of cancer Family history of hypertension Social History Within the past year, how often did you have a drink containing alcohol: 2-4 times a month Smoking status: Never smoker Non-prescribed substance use: denies use Exam Constitutional Vital Signs, click to edit/add: Last Vital Signs Temp 98.3 F 12/07/23 17:16 Pulse 72 12/07/23 17:31 Resp 18 12/07/23 17:16 BP 128/84 12/07/23 17:16 Pulse Ox 98 12/07/23 17:16 O2 Del Method Room Air 12/07/23 17:16 Course Vital Signs Vital signs: Vital Signs Temperature 98.3 F 12/07/23 17:16 Pulse Rate 90 12/07/23 17:16 Respiratory Rate 18 12/07/23 17:16 Blood Pressure 128/84 12/07/23 17:16 Pulse Oximetry 98 12/07/23 17:16 Oxygen Delivery Method Room Air 12/07/23 17:16 Temperature 98.3 F 12/07/23 17:16 Pulse Rate 72 12/07/23 17:31 Respiratory Rate 18 12/07/23 17:16 Blood Pressure 128/84 12/07/23 17:16 Pulse Oximetry 98 12/07/23 17:16 Oxygen Delivery Method Room Air 12/07/23 17:16 MDM - Extremity (Nontraumatic) MDM Narrative Medical decision making narrative: 2149: Labs Obtained and patient was treated for pain. He is hemodynamically stable with normal vital signs. An ultrasound was obtained of the right lower extremity, there was significant delay with obtaining the ultrasound, the information technology administrator crossing over the results to the radiologist and we are still awaiting a formal radiologist read after several hours. Patient was remedicated for pain. Case is turned over to attending physician at this time. care transferred at end of shift . Patient s/p venous procedure right leg 11/20/23. Discussed with the radiologist the findings of acute to subacute nonocclusive DVT. Patient and informed of the above. Patient medicated with Eliquis 10mg and discharged home with Eliquis and [place]. Advised to follow up with his doctor next week for recheck SHARED APC VISIT, PHYSICIAN ATTESTATION: [id number] I performed a substantive part of the MDM during the patient?s E/M visit. I personally evaluated and examined the patient. I personally made or approved the documented management plan and acknowledge its risk of complications. Lab Data Labs: Lab Results 12/07/23 Range/Units 17:36 WBC 7.2 (4.0-11.0) 10^3/uL RBC 4.44 L (4.70-6.10) 10^6/uL Hgb 14.2 (14.0-18.0) g/dL Hct 42.6 (42.0-54.0) % MCV 95.9 H (80.0-94.0) fL MCH 32.0 (25.9-34.0) pg MCHC 33.3 (29.9-35.2) g/dL RDW 12.3 (11.0-15.0) % Plt Count 203 (150-450) 10^3/uL MPV 10.4 (9.5-13.5) fL Neut % (Auto) 70.9 (43.0-75.0) % Lymph % (Auto) 20.2 L (20.5-60.0) % Carroll % (Auto) 7.0 (1.7-12.0) % Eos % (Auto) 1.2 (0.9-7.0) % Baso % (Auto) 0.4 (0.2-2.0) % Neut # (Auto) 5.1 (1.4-6.5) 10^3/uL Lymph # (Auto) 1.5 (1.2-3.8) 10^3/uL Carroll # (Auto) 0.5 (0.3-0.8) 10^3/uL Eos # (Auto) 0.1 (0.0-0.7) 10^3/uL Baso # (Auto) 0.0 (0.0-0.1) 10^3/uL Abs Immat Gran (auto) 0.02 (0.00-0.03) 10^3/uL Imm/Tot Granulo (auto) 0.3 (0.0-0.5) % PT 10.8 (9.0-11.6) sec INR 1.02 Imaging Data Chest x-ray: Radiologist's impression: ITS Impressions Venous Doppler Study 12/07/23 17:23
--- OUTSIDE RECORDS SUMMARY | 2023-12-07 17:26 | XMS_ITS | CCD ---
Author Organization [facility] Care Team Providers Care Compliance Associate Name Role Phone SHAI PLASENCIAIL Attending Unavailable ROXY DRIVER Referring Unavailable ROXY DRIVER Primary Care Unavailable EBRAHEIM, NEELAM Admitting Unavailable EBRAHEIM, NEELAM Surgeon Unavailable [place] Procedure Practitioner Unavailab le VILLA ., DR RAMSEY Primary Care Unavailable HOY [...] Unavailable ZIEBER, DR IAN Quevedo Consulting Unavailable ZIEBYUNIOR, DR IAN Quevedo Consulting Unavailable PAY ., DR WESLEY Admitting Unavailable PAY ., DR WESLEY Attending Unavailable HOY ., DR RAMSEY Primary Care Unavailable PAY ., DR WESLEY Consulting Unavailable ALEX .KIMBERLY Consulting UnavailRoxy Delgadillo Primary Care Physician [phone] Unallocated, [place] Provider Primary Care Provider Roxy Driver MD Primary Care Provider [phone] EMELY MAGALLANES Attending Unavailable RAFAEL WEEKS Referring Unavailable EMELY MAGALLANES Attending Unavailable RAFAEL WEEKS Referring Unavailable EMELY MAGALLANES Attending Unavailable RAFAEL WEEKS Referring Unavailable EMELY MAGALLANES Attending Unavailable RAFAEL WEEKS Referring Unavailable EMELY MAGALLANES Attending Unavailable RAFAEL WEEKS Referring Unavailable EMELY MAGALLANES Attending Unavailable RAFAEL WEEKS Referring Unavailable BLACKSTON, EMELY Attending Unavailable SKIE, [...] Attending Unavailable SKIE, RAFAEL C Referring Unavailable Roxy Driver MD Primary Care Provider [phone] NANDO PARKER Admitting Unavailable NANDO PARKER Attending Unavailable VILLA, ROXY Gibbons Primary Care Unavailable VILLA, ROXY M Primary Care Unavailable NANDO PARKER Referring Unavailable ELIAZARIMKEESHA SO Attending Unavailable HOY, ROXY M Primary Care Unavailable ALMASSI, JESSICA Attending Unavailable HOYarelis, ROXY M Primary Care Unavailable ALMASSI, JESSICA Attending Unavailable HOYarelis, ROXY M Primary Care Unavailable AMITA GEE Referring Unavailable HOY, ROXY M Primary Care Unavailable HOY, ROXY M Primary Care Unavailable HOY, ROXY M Primary Care Unavailable HOY, ROXY M Primary Care Unavailable NANDO PARKER Attending Unavailable NILL, Riley Quevedo Attending Unavailable Hoy, Roxy Referring Unavailable NILL, Riley Quevedo Attending Unavailable NILL, Riley Quevedo Attending Unavailable Laura, Clifford Attending Unavailable SKIE, RAFAEL Referring Unavailable SKIE, RAFAEL Referring Unavailable SKIE, RAFAEL Referring Unavailable SKIE, RAFAEL Attending Unavailable SKIE, ARFAEL Admitting Unavailable SKIE, RAFAEL Attending Unavailable SKIE, RAFAEL Attending Unavailable SKIE, RAFAEL Attending Unavailable SKIE, RAFAEL Attending Unavailable SKIE, RAFAEL Attending Unavailable SKIE, RAFAEL Referring Unavailable SKIE, RAFAEL Referring Unavailable Allergies Allergy Classification Reported Allergen(s) Allergy Type Date of Onset Reaction(s) Facility (1 source) Ciprofloxacin; Translations: [CIPRO] Drug Allergy 9 [facility] Repository (4 sources) Morphine; Translations: [MORPHINE] Drug Allergy 5 [facility] Repository (15 sources) Cinnamon Preparation; Translations: [CINNAMON] Drug Allergy 2 [facility] General Surgery [place] (1 source) Coconut Flavor Allergy to substance 3 [facility] (11 sources) coconut allergenic extract; Translations: [COCONUT] Drug Allergy [address] [facility] (1 source) No Known Medication Allergies; Translations: [No Known Medication Allergies] Propensity to adverse reactions (disorder) [facility] Repository (1 source) Ciprofloxacin; Translations: [CIPROFLOXACIN] Drug Allergy 3 [facility] Repository NEGATED: Highlighted row has been ruled out! (1 source) Drug allergy General Surgery [place] NEGATED: Highlighted row has been ruled out! (1 source) Drug allergy General Surgery [place] Medications Current Medications Medication Drug Class(es) Dates [...] Active Start: 05-17-2022 take 1 capsule by [facility] in the morning docusate sodium (Colace) 100 [...] Comment on above: Take 1 capsule by [facility] once each week. naproxen 500 mg oral tablet (2 sources) Nonsteroidal Anti-inflammatory Drug Start: 08-19-2022 take 1 tablet by mouth twice daily as needed for pain naproxen 500 mg Tab 500 mg = 1 tab(s), Oral, BID, PRN for pain, # 20 tab(s), Refills(s) 0, Pharmacy: [facility]/pharmacy #[id number], 190.5, cm, 08/19/22 14:09:00 [...] Drug Class(es) Dates Sig (Normalized) Sig (Original) [id number] 200 actuat albuterol 0.09 mg/actuat metered dose [...] Da te Episodic/Chronic Fracture of upper limb (7 sources) Displaced fracture of middle phalanx of [...] Test Name Value Interpretation Reference Range Facility Provider Letteron 11-20-2023 Provider Letter Provider Letter November 20, 2023 VINCE MUSTAPHA [phone] [address] : 1980 Dear Mr. Luciano, We have been trying to reach you with no success regarding a referral from Dr Driver. It is important that you return our call upon receiving this letter. Also, at the time of your call, please provide us with your current information. Thank you for your prompt attention to this matter. Sincerely, [facility] General Surgery [phone] [facility] 36on 11-19-2023 36 Patient was schedule d for 12/24/2023 [facility] on file for HARDWARE REMOVAL RT RING FINGER; POST OP PT 2X PER WEEK FOR 6 WEEKS Valid SX 11/12/2023- 12/31/2023; POST OP PT 11/12/2023- 01/31/2024 Please make sure all orders are in the chart and call patient to schedule [facility] Orders Onlyon 11-19-2023 Orders Only [id number] Dodson 1980 M Date Provider Department Center 11/19/2023 SHANDA BRADLEY MP ORTHO MPORTHO Family History Problem Relation Age of Onset Hypertension Mother Family Status - Relation Status Age at Mother [facility] Office Visiton 11-07-2023 Follow-up visit [id number] Dodson 1980 M Date Provider Department Center 11/07/2023 Tripp-RAFAEL WEEKS AGUILAR ORTHO ROHIT Family History Problem Relation Age of Onset Hypertension Mother Family Status - Relation Status Age at Mother Level of Service:[address] [place] OFFICE/OUTPATIENT ESTABLISHED LOW MDM 20 MIN Reason for Visit and Comments: Pain [136] Normal [facility] Orders Onlyon 11-02-2023 Orders Only [id number] Vince Luciano 1980 M Date Provider Department Center 11/02/2023 803-SHANDA THOMAS MP ORTHO ROHIT Family History Problem Relation Age of Onset Hypertension Mother Family Status - Relation Status Age at Mother Normal [facility] ANES POSTPROC EVALon 024 ANES POSTPROC EVAL HNO ID: [id number] Author: EVERETT JOHNSON IV, DO Service: Anesthesiology [...] August 13, 2023 TIME: 3:21 PM CSN: [id number] [facility] ANES PRE-OPon 08-13-2023 ANES PRE-OP HNO ID: [id number] Author: EVERETT JOHNSON IV, DO Service: Anesthesiology [...] August 13, 2023 TIME: 10:53 AM CSN: [id number] [facility] 08-13-2023 [facility] Telephone (GLQ) VALERIOVINCE Huitron ([id number]) 1980 M Date Time Provider Department 08/13/23 NANDO PARKER GLQ During your visit today, we recorded the following information about you: KassandraFiona Ortiz 08/13/2023 11:53 AM Signed is calling regarding his [facility] papers, he is having surgery today. [...] RN - Fully Assessed Reason for Visit: [facility] Paperwork [[id number]] Prescriptions as of 08/14/2023 - HYDROcodone-acetaminop hen [...] Status:Closed by FIONA AL on 08/14/[address] [facility] HISTORY PHYSICALon HISTORY PHYSICAL HNO ID: [id number] Author: NANDO PARKER MD Service: Urology Author [...] DATE: August 13, 2023 TIME: 11:21 AM [facility] NURSING PROGon 08-13-2023 NURSING PROG HNO ID: [id number] Author: NAHID WILBURN RN Service: ? Author [...] signs of distress. Continue to monitor patient. [facility] OPERATIVE NOon 08-13-2023 OPERATIVE NO HNO ID: [id number] Author: NANDO PARKER MD Service: Urology Author Type: Physician Type: Operative Report Filed: 08/13/2023 14:35 Note Text: OPERATIVE/PROCEDURE REPORT LOG ID: [id number] SURGERY/PROCEDURE DATE: 08/13/2023 INCISION/PROCEDURE START TIME: 1:52 PM INCISION CLOSE/PROCEDURE END TIME: 2:23 PM SURGEON(S)/PROCEDURALI ST(S) [employer] INSTRUCTOR(S): Surgeon(s) and Role: * Nando Parekr MD - Primary SURGERY/PROCEDURE(S): 1) laser enucleation [...] produced a good urinary stream. A 22 angolan Coude catheter was placed with return of [...] August 13, 2023 TIME: 2:31 PM Normal [facility] Bacteria Ur Culton 4 Bacteria identified Cx Nom (U) ORGANISM ID: 1 <10,000 CFU/ml Normal urogenital enrique Normal [facility] Comment on above: Performed By: #### 6 30-4 ####[facility] LABCLIA [id number] [place] [address] [place] CBC W Auto Differential pane l (Bld)on 08-01-2023 Basophils (Bld) [#/Vol] 10*3/uL Normal <0.11 [facility] Comment on above: Order Comment: Speci men Type: BLOOD SPECIMENOrdering Facility: [facility] Address: [address] [place] [address] Performed By: #### 5 7021-8 ####LUIS ENRIQUE [facility] LABCLIA [id number] [place] [address] [place] Basophils/100 WBC (Bld) 0.4 % Normal [facility] Comment on above: Order Comment: Speci men Type: BLOOD SPECIMENOrdering Facility: [facility] Address: [address] [place] [address] Performed By: #### 5 7021-8 ####[facility] LABCLIA [id number] [place] [address] [place] Differential cell count method Nom (Bld) Auto Normal [facility] Comment on above: Order Comment: Speci men Type: BLOOD SPECIMENOrdering Facility: [facility] Address: [address] [place] [address] Performed By: #### 5 7021-8 ####[facility] LABCLIA [id number] [place] [address] [place] Eosinophils (Bld) [#/Vol] 0.10 10*3/uL Normal <0.46 [facility] Comment on above: Order Comment: Speci men Type: BLOOD SPECIMENOrdering Facility: [facility] Address: [address] [place] [address] Performed By: #### 5 7021-8 ####[facility] LABCLIA [id number] [address] [place] Eosinophils/100 WBC (Bld) 1.8 % Normal [facility] Comment on above: Order Comment: Speci men Type: BLOOD SPECIMENOrdering Facility: [facility] Address: [address] [place] [address] Performed By: #### 5 7021-8 ####FABIÁNJAZMYNE [facility] LABCLIA [id number] [address] [place] Erythrocyte distribution width (RBC) [Ratio] 11.9 % Normal 11.5-15.0 [facility] Comment on above: Order Comment: Speci men Type: BLOOD SPECIMENOrdering Facility: [facility] Address: [address] [place] [address] Performed By: #### 5 7021-8 ####[facility] EN[facility] LABCLIA [id number] [address] [place] Hematocrit (Bld) [Volume fraction] 46.4 % Normal 39.0-51.0 [facility] Comment on above: Order Comment: Speci men Type: BLOOD SPECIMENOrdering Facility: [facility] Address: [address] [place] [address] Performed By: #### 5 7021-8 ####[facility] EN[facility] LABCLIA [id number] [place] [id number] [place] Hemoglobin (Bld) [Mass/Vol] 16.0 g/dL Normal 13.0-17.0 [facility] Comment on above: Order Comment: Speci men Type: BLOOD SPECIMENOrdering Facility: [facility] Address: [address] [place] [address] Performed By: #### 5 7021-8 ####[facility] EN[facility] LABCLIA [id number] [place] [address] [place] Immature granulocytes (Bld) [#/Vol] 10*3/uL Normal <0.10 [facility] Comment on above: Order Comment: Speci men Type: BLOOD SPECIMENOrdering Facility: [facility] Address: [address] [place] [address] Performed By: #### 5 7021-8 ####[facility] EN[facility] LABCLIA [id number] [place] [address] [place] Immature granulocytes/100 WBC (Bld) 0.2 % Normal [facility] Comment on above: Order Comment: Speci men Type: BLOOD SPECIMENOrdering Facility: [facility] Address: [address] [place] [address] Performed By: #### 5 7021-8 ####[facility] EN[facility] LABCLIA [id number] [place] [address] [place] Lymphocytes (Bld) [#/Vol] 1.01 10*3/uL Normal 1.00-4.00 [facility] Comment on above: Order Comment: Speci men Type: BLOOD SPECIMENOrdering Facility: [facility] Address: [address] [place] [address] Performed By: #### 5 7021-8 ####[facility]JAZMY[facility] LABCLIA [id number] [place] [id number] [place] Lymphocytes/100 WBC (Bld) 18.6 % Normal [facility] Comment on above: Order Comment: Speci men Type: BLOOD SPECIMENOrdering Facility: [facility] Address: [address] [place] [place] [address] Performed By: #### 5 7021-8 ####[facility] LABCLIA [id number] [place] [address] [place] MCH (RBC) [Entitic mass] 32.5 pg Normal 26.0-34.0 [facility] Comment on above: Order Comment: Speci men Type: BLOOD SPECIMENOrdering Facility: [facility] Address: [address] [place] [address] Performed By: #### 5 7021-8 ####[facility] EN[facility] LABCLIA [id number] [address] [place] MCHC (RBC) [Mass/Vol] 34.5 g/dL Normal 30.5-36.0 [facility] Comment on above: Order Comment: Speci men Type: BLOOD SPECIMENOrdering Facility: [facility] Address: [address] [place] [address] Performed By: #### 5 7021-8 ####[facility] ENRIQUE [facility] LABCLIA [id number] [address] [place] MCV (RBC) [Entitic vol] 94.1 fL Normal 80.0-100.0 [facility] Comment on above: Order Comment: Speci men Type: BLOOD SPECIMENOrdering Facility: [facility] Address: [address] [place] [address] Performed By: #### 5 7021-8 ####[facility] EN[facility] LABCLIA [id number] [address] [place] Monocytes (Bld) [#/Vol] 0.44 10*3/uL Normal <0.87 [facility] Comment on above: Order Comment: Speci men Type: BLOOD SPECIMENOrdering Facility: [facility] Address: [address] [place] [address] Performed By: #### 5 7021-8 ####[facility] LABCLIA [id number] [place] [address] [place] Monocytes/100 WBC (Bld) 8.1 % Normal [facility] Comment on above: Order Comment: Speci men Type: BLOOD SPECIMENOrdering Facility: [facility] Address: [address] [place] [address] Performed By: #### 5 7021-8 ####[facility] LABCLIA [id number] [place] [address] [place] Neutrophils (Bld) [#/Vol] 3.86 10*3/uL Normal 1.45-7.50 [facility] Comment on above: Order Comment: Speci men Type: BLOOD SPECIMENOrdering Facility: [facility] Address: [address] [place] [address] Performed By: #### 5 7021-8 ####[facility] EN[facility] LABCLIA [id number] [place] [address] [place] Neutrophils/100 WBC (Bld) 70.9 % Normal [facility] Comment on above: Order Comment: Speci men Type: BLOOD SPECIMENOrdering Facility: [facility] Address: [address] [place] [address] Performed By: #### 5 7021-8 ####[facility] ENRIQUE [facility] LABCLIA [id number] [place] [address] [place] Nucleated RBC (Bld) [#/Vol] 10*3/uL Normal <0.01 [facility] Comment on above: Order Comment: Speci men Type: BLOOD SPECIMENOrdering Facility: [facility] Address: [address] [place] [address] Performed By: #### 5 7021-8 ####[facility] LABCLIA [id number] [place] [address] [place] Nucleated RBC/100 WBC (Bld) [Ratio] 0.0 /[address] [facility] Comment on above: Order Comment: Speci men Type: BLOOD SPECIMENOrdering Facility: [facility] Address: [address] [place] [address] Performed By: #### 5 7021-8 ####[facility] EN[facility] LABCLIA [id number] [place] [address] [place] Platelet mean volume (Bld) [Entitic vol] 10.5 fL Normal 9.0-12.7 [facility] Comment on above: Order Comment: Speci men Type: BLOOD SPECIMENOrdering Facility: [facility] Address: [address] [place] [address] Performed By: #### 5 7021-8 ####[facility] EN[facility] LABCLIA [id number] [place] [address] [place] Platelets (Bld) [#/Vol] 218 10*3/uL Normal 150-400 [facility] Comment on above: Order Comment: Speci men Type: BLOOD SPECIMENOrdering Facility: [facility] Address: [address] [place] [address] Performed By: #### 5 7021-8 ####[facility] LABCLIA [id number] [place] [address] [place] RBC (Bld) [#/Vol] 4.93 10*6/uL Normal 4.20-6.00 [facility] Comment on above: Order Comment: Speci men Type: BLOOD SPECIMENOrdering Facility: [facility] Address: [address] [place] [address] Performed By: #### 5 7021-8 ####[facility] LABCLIA [id number] [place] [address] [place] WBC (Bld) [#/Vol] 5.44 10*3/uL Normal 3.70-11.00 [facility] Comment on above: Order Comment: Speci men Type: BLOOD SPECIMENOrdering Facility: [facility] Address: [address] [place] [address] Performed By: #### 5 7021-8 ####[facility] [facility] LABCLIA [id number] [place] [address] [place] Basophils (Bld) [#/Vol] [facility] Basophils/100 WBC (Bld) 0.4 % [facility] Differential cell count method Nom (Bld) Auto [facility] Eosinophils (Bld) [#/Vol] 0.10 10*3/uL [facility] Eosinophils/100 WBC (Bld) 1.8 % [facility] Erythrocyte distribution width (RBC) [Ratio] 11.9 % 11.5 - 15.0 % [facility] Hematocrit (Bld) [Volume fraction] 46.4 % 39.0 - 51.0 % [facility] Hemoglobin (Bld) [Mass/Vol] 16.0 g/dL 13.0 - 17.0 g/dL [facility] Immature granulocytes (Bld) [#/Vol] [facility] Immature granulocytes/100 WBC (Bld) 0.2 % [facility] Lymphocytes (Bld) [#/Vol] 1.01 10*3/uL [facility] Lymphocytes/100 WBC (Bld) 18.6 % [facility] MCH (RBC) [Entitic mass] 32.5 pg 26.0 - 34.[address] [facility] MCHC (RBC) [Mass/Vol] 34.5 g/dL 30.5 - 36.0 g/dL [facility] MCV (RBC) [Entitic vol] 94.1 fL 80.0 - 100.[address] [facility] Monocytes (Bld) [#/Vol] 0.44 10*3/uL [facility] Monocytes/100 WBC (Bld) 8.1 % [facility] Neutrophils (Bld) [#/Vol] 3.86 10*3/uL [facility] Neutrophils/100 WBC (Bld) 70.9 % [facility] Nucleated RBC (Bld) [#/Vol] [facility] Nucleated RBC/100 WBC (Bld) [Ratio] 0.0 % /[address] [facility] Platelet mean volume (Bld) [Entitic vol] 10.5 fL 9.0 - 12.[address] [facility] Platelets (Bld) [#/Vol] 218 10*3/uL [facility] RBC (Bld) [#/Vol] 4.93 10*6/uL 4.20 - 6.0 0 m/uL [facility] WBC (Bld) [#/Vol] 5.44 10*3/uL [facility] Comprehensive metabolic 2000 panelon 08-01-2023 Albumin [Mass/Vol] 4.3 g/dL 3.9 - 4.9 g/dL [facility] ALP [Catalytic activity/Vol] 85 U/L 38 - 113 U/L [facility] ALT [Catalytic activity/Vol] 15 U/L 10 - 54 U/L [facility] Anion gap [Moles/Vol] 9 mmol/L 9 - 18 mmol/L [facility] AST [Catalytic activity/Vol] 27 U/L 14 - 40 U/L [facility] Bilirubin [Mass/Vol] 0.5 mg/dL 0.2 - 1 .3 mg/dL [facility] Calcium [Mass/Vol] 9.4 mg/dL 8.5 - 10. 2 mg/dL [facility] Chloride [Moles/Vol] 106 mmol/L High 97 - 10 5 mmol/L [facility] CO2 [Moles/Vol] 24 mmol/L 22 - 30 mmol/L [facility] Creatinine [Mass/Vol] 1.10 mg/dL 0.73 - 1.22 mg/dL [facility] GFR/1.73 sq M.predicted among non-blacks MDRD (S/P/Bld) [Vol rate/Area] 85 mL/min/{1.73_m2} - PINF [facility] Comment on above: Estimated Glomerular Filtration Rate [...] [Mass/Vol] 94 mg/dL 74 - 99 mg/dL [facility] Comment on above: The [place] [employer] (ADA) provides guidance for [...] Standards of Medical Care in Diabetes 2016, [place] [employer]. Diabetes Care. 2016.39(Suppl 1). Interpretation and review of laboratory results Abnormal [facility] Potassium [Moles/Vol] 4.4 mmol/L 3.7 - 5.1 mmol/L [facility] Protein [Mass/Vol] 6.7 g/dL 6.3 - 8.0 g/dL [facility] Sodium [Moles/Vol] 139 mmol/L 136 - 144 mmol/L [facility] Urea nitrogen [Mass/Vol] 22 mg/dL 9 - 24 mg/dL [facility] Albumin [Mass/Vol] 4.3 g/dL Normal 3.9-4.9 [facility] Comment on above: Order Comment: Speci men Type: BLOOD SPECIMENOrdering Facility: [facility] Address: [address] [place] [address] Performed By: #### 2 4323-8 ####[facility] LABCLIA [id number] [place] [address] [place] ALP [Catalytic activity/Vol] 85 U/L Normal 38-113 [facility] Comment on above: Order Comment: Speci men Type: BLOOD SPECIMENOrdering Facility: [facility] Address: [address] [place] [address] Performed By: #### 2 4323-8 ####[facility] LABCLIA [id number] [place] [address] [place] ALT [Catalytic activity/Vol] 15 U/L Normal 10-54 [facility] Comment on above: Order Comment: Speci men Type: BLOOD SPECIMENOrdering Facility: [facility] Address: [address] [place] [address] Performed By: #### 2 4323-8 ####[facility] LABCLIA [id number] [place] [address] [place] Anion gap [Moles/Vol] 9 mmol/L Normal 9-18 [facility] [facility] Comment on above: Order Comment: Speci men Type: BLOOD SPECIMENOrdering Facility: [facility] Address: [address] [place] [address] Performed By: #### 2 4323-8 ####[facility] LABCLIA [id number] [place] [address] [place] AST [Catalytic activity/Vol] 27 U/L Normal 14-40 [facility] Comment on above: Order Comment: Speci men Type: BLOOD SPECIMENOrdering Facility: [facility] Address: [address] [place] [address] Performed By: #### 2 4323-8 ####[facility] LABCLIA [id number] [place] [address] [place] Bilirubin [Mass/Vol] 0.5 mg/dL Normal 0.2-1.3 [facility] Comment on above: Order Comment: Speci men Type: BLOOD SPECIMENOrdering Facility: [facility] Address: [address] [place] [address] Performed By: #### 2 4323-8 ####[facility] LABCLIA [id number] [place] [address] [place] Calcium [Mass/Vol] 9.4 mg/dL Normal 8.5-10.2 [facility] Comment on above: Order Comment: Speci men Type: BLOOD SPECIMENOrdering Facility: [facility] Address: [address] [place] [address] Performed By: #### 2 4323-8 ####[facility] LABCLIA [id number] [place] [id number] [place] Chloride [Moles/Vol] 106 mmol/L High 97-105 [facility] Comment on above: Order Comment: Speci men Type: BLOOD SPECIMENOrdering Facility: [facility] Address: [address] [place] [address] Performed By: #### 2 4323-8 ####[facility] LABCLIA [id number] [place] [address] [place] CO2 [Moles/Vol] 24 mmol/L Normal 22-30 [facility] Comment on above: Order Comment: Speci men Type: BLOOD SPECIMENOrdering Facility: [facility] Address: [address] [place] [address] Performed By: #### 2 4323-8 ####[facility] LABIA [id number] [place] [address] [place] Creatinine [Mass/Vol] 1.10 mg/dL Normal 0.73-1.22 [facility] Comment on above: Order Comment: Speci men Type: BLOOD SPECIMENOrdering Facility: [facility] Address: [address] [place] [address] Performed By: #### 2 4323-8 ####[facility] LABIA [id number] [address] [place] Creatinine and Glomerular filtration rate.predicted panel (S/P/Bld) 85 mL/min/1.73m??? Normal >=60 [facility] Comment on above: Order Comment: Speci men Type: BLOOD SPECIMENOrdering Facility: [facility] Address: [address] [place] [address] Result Comment: Hanna mated Glomerular Filtration Rate [...] actual GFR. Performed By: #### 2 4323-8 ####[facility] LABCLIA [id number] [place] [address] [place] Glucose [Mass/Vol] 94 mg/dL Normal 74-99 [facility] Comment on above: Order Comment: Speci men Type: BLOOD SPECIMENOrdering Facility: [facility] Address: [address] [place] [address] Result Comment: The [place] [employer] (ADA) provides guidance for cutoff [...] Standards of Medical Care in Diabetes 2016, [place] [employer]. Diabetes Care. 2016.39(Suppl 1). Performed By: #### 2 4323-8 ####[facility] LABCLIA [id number] [place] [address] [place] Potassium [Moles/Vol] 4.4 mmol/L Normal 3.7-5.1 [facility] Comment on above: Order Comment: Debbiei men Type: BLOOD SPECIMENOrdering Facility: [facility] Address: [address] [place], [place] [address] Performed By: #### 2 4323-8 ####[facility] LABCLIA [id number] [place] [address] [place] Protein [Mass/Vol] 6.7 g/dL Normal 6.3-8.0 [facility] Comment on above: Order Comment: Speci men Type: BLOOD SPECIMENOrdering Facility: [facility] Address: [address] [place], [place] [address] Performed By: #### 2 4323-8 ####[facility] LABCLIA [id number] [place] [address] [place] Sodium [Moles/Vol] 139 mmol/L Normal 136-144 [facility] Comment on above: Order Comment: Speci men Type: BLOOD SPECIMENOrdering Facility: [facility] Address: [address] [place] [address] Performed By: #### 2 4323-8 ####[facility] LABCLIA [id number] [place] [address] [place] Urea nitrogen [Mass/Vol] 22 mg/dL Normal 9-24 [facility] Comment on above: Order Comment: Speci men Type: BLOOD SPECIMENOrdering Facility: [facility] Address: [address] [place] [address] Performed By: #### 2 4323-8 ####[facility] LABIA [id number] [address] [place] ECG COMPLETEon 08-01-2023 ECG COMPLETE Ventricular Rate : 8 0 BPM Atrial Rate : 80 BPM P-R Interval : 148 ms QRS Duration : 86 ms Q-T Interval : 368 ms QTC Calculation(Bazett) : 424 ms Calculated P [place] : 62 degrees Calculated R [place] : 65 degrees Calculated T [place] : 77 degrees NORMAL SINUS RHYTHM WITH SINUS ARRHYTHMIA NORMAL ECG Confirmed by MD BLACK QARAB ([id number]) on 08/02/2023 11:56:16 AM NAME : VINCE LUCIANO PID : [id number] : 1980 Gender : Male Race : ORD : [id number] Procedure Date : Aug 01 2023 10:27:08 Edit Date : Aug 02 2023 11:56:17 Diagnosis: NORMAL SINUS RHYTHM WITH SINUS ARRHYTHMIA NORMAL ECG Confirmed by MD BLACK QARAB ([id number]) on 08/02/2023 11:56:16 AM Test Reason : Location : 135 : [facility] Overread By : MD BLACK QARAB Edited By : MD BLACK QARAB Referred By : , Acquired by : Mitchel ANDREW Normal [facility] HISTORY PHYSICALon HISTORY PHYSICAL HNO ID: [id number] Author: AMITA GEE PA-C Service: ? Author Type: Physician Ham Stripper Type: H&P Filed: 08/03/2023 09:23 Note Text: [...] have a large neck STOP-Bang Score: 2 [id number] Score: Age: <65 Sex: male CHF history: No Hypertension history: No Stroke/TIA/thromboembo lism history: No Vascular disease history: No Diabetes history: No MYP1AA3-NLNm Score: 0 ANESTHESIA FINDINGS: Intubation History: No [...] Initiated: Orders placed by surgeon/surgical service in [facility]. Orders Placed This Encounter Complete Blood [...] COVID-19 original vaccine, age 12+ yr, monovalent (Wikets-Shape Collage - PURPLE TOP) 07/21/2020 Imm Admin: COVID-19 [...] requiring medication, no history of angina, CHF, IN, cardiac surgery or stents. Denies rest pain, gangrene or revascularization/ampu tation for PVD. No history of cardiovascular symptoms or problems. GI: Positive for: irritable bowel syndrome (mixed, ?IBD, managed with diet) and ETOH >2 dri (more content not included)... Normal [facility] CNPNon 07-17-2023 CNPN Telephone (GLQ) VINCE LUCIANO ([id number]) 1980 M Date Time Provider Department 07/17/23 NANDO PARKER GLQ During your visit today, we recorded the following information about you: KassandraFiona Ortiz 07/17/2023 1:27 PM Signed The calls stating that he isn't sure if he asked or not when he was in at his last apt but for his surgery -- how long will he need off from work? He is scheduled for surgery on August 12. 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 Please advise. Thanks Rodríguez Allred RN 07/17/2023 [...] Fully Assessed Reason for Visit: Patient Question [6057] Prescriptions as of 07/17/2023 - buPROPion XL [...] Status:Closed by RODRÍGUEZ ALLRED on 07/17/[address] [facility] Office Visiton 07-03-2023 Follow-up visit [id number] Vince Luciano 1980 M Date Provider Department Center 07/03/2023 438-RAFAEL WEEKS MP ORTHO MPORTHO Family History Problem Relation Age of Onset Hypertension Mother Family Status - Relation Status Age at Mother Level of Service:14360 [place] OFFICE/OUTPATIENT ESTABLISHED LOW MDM 20 MIN Reason for Visit and Comments: Follow-up [755544] Normal [facility] CNNURSEon 06-06-2023 CNNURSE Nurse Visit (UROSMN) VINCE LUCIANO ([id number]) 1980 M Date Time Provider Department 06/06/23 2:00 PM FLUR[facility]ODYNAMICS UROSMN During your visit today, we recorded the following information about you: Fiona Patricio RN 06/06/2023 2:40 PM Signed [facility] URODYNAMICS LAB URODYNAMIC [...] NONE Latex allergy: No Iodine allergy: No Certification Engineer offered:Patient declines B/O UA: YES Negative for [...] - Sitting / Recumbent Radiologic Findings: A oxyacetylene burner radiograph was obtained. The bony and soft [...] Parker MD, MS Staff Department of Urology [facility] [place] [facility] June 10, 2023 - 11:59 AM Referring Provider: NANDO PARKER [[id number]] Allergies As of Date: 06/06/2023 Noted Allergy [...] hr tablet (more content not included)... Normal [facility] CNOVon 06-06-2023 CNOV Office Visit (UROSMN ) VINCE LUCIANO ([id number]) 1980 M Date Time Provider Department 06/06/23 3:00 PM NANDO PARKER During your visit today, we recorded the following information about you: Amita Chou RN 06/06/2023 3:47 PM Signed Actual procedure/procedure scheduled: Yes Performing provider/scheduled provider: Yes Patient was roomed in: 9 09 Certification Engineer offered:Patient declines Patient arrived in the room [...] DS 160mg-800mg orally, given during visit: see [facility] Patient Prep: Betadine Scrub to perineum and [...] Education Session: None Instruction Provided To: Patient 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 Post-Procedure Medications: none SASHA Reynaga Amanda, RN 06/06/2023 3:36 PM Signed UNIVERSAL PROTOCOL [...] All instruments, (more content not included)... Normal [facility] Prostate transrectalon [facility] CNPNon 05-23-2023 [facility] Telephone (GLQ) VINCE LUCIANO ([id number]) 1980 M Date Time Provider Department 05/23/23 NANDO PARKER During your visit today, we [...] his Urodynamics and Cysto with me at [facility] Thx, BG Fiona Al 05/23/2023 4:07 PM Signed Message left for [...] Status:Closed by FIONA AL on 05/25/[address] [facility] Bacteria Ur Culton 4 Bacteria identified Cx Nom (U) CULTURE, URINE: No growth (<100 CFU/ml) Normal [facility] Comment on above: Performed By: #### 6 30-4 ####[facility] LABTERESA [id number] [address] OF [facility] CNOVon 05-02-2023 CNOV Office Visit (UROSMN ) VINCE LUCIANO ([id number]) 1980 M Date Time Provider Department 05/02/23 2:30 PM JESSICA MEADOWS URON During your visit today, we recorded the following information about you: Amita Chou RN 05/02/2023 2:54 PM Addendum Actual procedure/procedure scheduled: Yes Performing provider/scheduled provider: Yes Patient was roomed in: Q9- 09 Certification Engineer offered:Patient declines Patient arrived in the room [...] Education Session: None Instruction Provided To: Patient 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 Normal [facility] Office Visit (UROLMN ) VINCE LUCIANO ([id number]) 1980 M Date Time Provider Department 05/02/23 1:00 PM JESSICA MEADOWS UROLMN During your visit today, we recorded the following information about you: Weight 103.2 kg Jessica Meadows MD 05/03/2023 6:10 AM Signed [facility] NEW PATIENT HISTORY [...] Prostate: symmetrical, nontender, w/o nodules. Fiona Alvarez APRN.STRIPPER OPAQUER ASSESSMENT AND PLAN: Chronic obstructive voiding symptoms [...] which included preparing to see the patient, [id number] patient care, completing clinical documentation, obtaining and/or reviewing separately obtained history, counseling and educating the patient/family/caregiv er, and care coordinati (more content not included)... Normal [facility] URINALYSIS, REFLEX MICROSCOP ICon 05-02-2023 Bilirubin Ql (U) Negative Normal [facility] Comment on above: Order Comment: Speci men Type: URINE SPECIMENOrdering Facility: [facility] Address: [address] [place] [address] Performed By: #### L [id number] ####[facility] LABIA [id number] [place] [address] [place] Clarity (Unsp spec) Cloudy Abnormal Clear [facility] Comment on above: Order Comment: Speci men Type: URINE SPECIMENOrdering Facility: [facility] Address: [address] [place] [address] Performed By: #### L [id number] ####[facility] LABCLIA [id number] [place] [address] [place] Color (U) Light Yellow Normal Yellow [facility] Comment on above: Order Comment: Speci men Type: URINE SPECIMENOrdering Facility: [facility] Address: [address] [place] [address] Performed By: #### L [id number] ####[facility] LABCLIA [id number] [place] [address] [place] Glucose Test strip (U) [Mass/Vol] Negative Normal Trace, Negative [facility] Comment on above: Order Comment: Speci men Type: URINE SPECIMENOrdering Facility: [facility] Address: [address] [place] [address] Performed By: #### L [id number] ####[facility] LABCLIA [id number] [place] [address] [place] Hemoglobin Ql (U) Negative Normal Negative, Trace [facility] Comment on above: Order Comment: Speci men Type: URINE SPECIMENOrdering Facility: [facility] Address: [address] [place] [address] Performed By: #### L [id number] ####[facility] LABCLIA [id number] [place] [address] [place] Ketones Ql (U) Negative Normal Negative, Trace [facility] Comment on above: Order Comment: Speci men Type: URINE SPECIMENOrdering Facility: [facility] Address: [address] [place] [address] Performed By: #### L [id number] ####[facility] LABCLIA [id number] [place] [address] [place] Leukocyte esterase Test strip Ql (U) Negative Normal Negative, 25 Bella/uL [facility] Comment on above: Order Comment: Speci men Type: URINE SPECIMENOrdering Facility: [facility] Address: [address] [place] [address] Performed By: #### L [id number] ####[facility] LABCLIA [id number] [place] [address] [place] Nitrite Ql (U) Negative Normal Negative [facility] Comment on above: Order Comment: Speci men Type: URINE SPECIMENOrdering Facility: [facility] Address: [address] [place] [address] Performed By: #### L [id number] ####[facility] LABCLIA [id number] [place] [address] [place] pH (U) 6.5 [pH] Normal 5.0-8.0 [facility] Comment on above: Order Comment: Speci men Type: URINE SPECIMENOrdering Facility: [facility] Address: [address] [place] [address] Performed By: #### L [id number] ####[facility] LABCLIA [id number] [place] [address] [place] Protein (U) [Mass/Vol] Negative Normal Trace, Negative [facility] Comment on above: Order Comment: Speci men Type: URINE SPECIMENOrdering Facility: [facility] Address: [address] [place] [address] Performed By: #### L [id number] ####[facility] LABCLIA [id number] [place] [address] [place] Specific gravity (U) [Rel density] 1.016 Normal 1.005-1.030 [facility] Comment on above: Order Comment: Speci men Type: URINE SPECIMENOrdering Facility: [facility] Address: [address] [place] [address] Performed By: #### L [id number] ####[facility] LABCLIA [id number] [place] [address] [place] Urobilinogen Ql (U) Negative Normal Negative [facility] Comment on above: Order Comment: Speci men Type: URINE SPECIMENOrdering Facility: [facility] Address: [address] [place] [address] Performed By: #### L [id number] ####[facility] LABCLIA [id number] [facility] [id number] [id number] [place] Bilirubin Ql (U) Negative Negative [facility] Clarity (Unsp spec) Cloudy Abnormal Clear [facility] Color (U) Light Yellow Yellow [facility] Glucose Test strip (U) [Mass/Vol] Negative Trace, Negative [facility] Hemoglobin Ql (U) Negative Negative, [facility] Ketones Ql (U) Negative Negative, Trace [facility] Leukocyte esterase Test strip Ql (U) Negative Negative, 25 Bella/uL [facility] Nitrite Ql (U) Negative Negative [facility] pH (U) 6.5 [pH] 5.0 - 8.0 [facility] Protein (U) [Mass/Vol] Negative Trace, Negative [facility] Specific gravity (U) [Rel density] 1.016 1.005 - 1.030 [facility] Urobilinogen Ql (U) Negative Negative [facility] Follow-Upon 04-11-2023 Follow-Up [id number] Vince Luciano 1980 M Date Provider Department Center 04/11/2023 RAFAEL MONTANEZ MP ORTHO MPORTHO Family History Problem Relation Age of Onset Hypertension Mother Family Status - Relation Status Age at Mother Level of Service:37677 [place] POSTOP FOLLOW UP VISIT RELATED TO ORIGINAL PX Reason for Visit and Comments: Follow-up [503855] Pain [136] Normal [facility] XR Chest Single Viewon 04-10 XR [...] mGy = na DAP = na Normal [facility] Auto Diffon 04-09-2023 Basophils/100 WBC (Bld) 0.7 % Normal 0.0-2.0 [facility] Comment on above: Order Comment: Order Added by Discern Expert. Performed By: #### 2 095814, 15263209, 9385783, 5877056, 80761991, 0699423, 69348046, 7265145, 5890093, 34737327, 10065449 ####[place] [address] [place] [address] Basophils/Leukocytes Auto (Bld) [Pure # fraction] 0.0 E9/L Normal 0.0-0.2 [facility] Comment on above: Order Comment: Order Added by Discern Expert. Performed By: #### 2 359716, 37269461, 3110022, 0872438, 54213185, 4288982, 21854056, 8952934, 0469509, 51221797, 11467527 ####[place] [address] [place] [address] Eosinophils/100 WBC (Bld) 1.0 % Normal 0.0-8.0 [facility] Comment on above: Order Comment: Order Added by Discern Expert. Performed By: #### 2 296138, 63998110, 4327657, 9069870, 01032189, 2179941, 57656083, 4025805, 6559362, 73141460, 39409607 ####[place] [address] [place] [address] Eosinophils/Leukocyte s Auto (Bld) [Pure # fraction] 0.1 E9/L Normal 0.0-0.5 [facility] Comment on above: Order Comment: Order Added by Discern Expert. Performed By: #### 2 511681, 68492161, 3481993, 8753161, 48626117, 8572259, 56011010, 8720693, 2578595, 74764330, 74870620 ####[place] [address] [place] [address] Lymphocytes/100 WBC (Bld) 24.5 % Normal 14.0-50.0 [facility] Comment on above: Order Comment: Order Added by Discern Expert. Performed By: #### 2 471964, 69022662, 0430371, 7160341, 89055883, 5313959, 96237128, 6592690, 1029277, 41273580, 03663882 ####[facility] [address] [place] [address] Lymphocytes/Leukocyte s Auto (Bld) [Pure # fraction] 1.4 E9/L Normal 1.0-4.0 [facility] Comment on above: Order Comment: Order Added by Discern Expert. Performed By: #### 2 552602, 01157201, 7079599, 8624681, 28539353, 7003028, 53812301, 3896508, 0222822, 72706741, 82220891 ####[place] [address] [place] [address] Monocytes/100 WBC (Bld) 8.2 % Normal 4.0-14.0 [facility] Comment on above: Order Comment: Order Added by Discern Expert. Performed By: #### 2 634303, 51309944, 1695720, 5034587, 57959770, 9229071, 02093996, 3274001, 3745007, 33745208, 04264533 ####[place] [address] [place] [address] Monocytes/Leukocytes Auto (Bld) [Pure # fraction] 0.5 E9/L Normal 0.2-1.0 [facility] Comment on above: Order Comment: Order Added by Discern Expert. Performed By: #### 2 986675, 54516931, 5340829, 9777491, 24408909, 9045608, 32728124, 9095478, 3464879, 78355663, 75464326 ####[place] [address] [place] [address] Neutrophils/100 WBC (Bld) 65.6 % Normal 36.0-75.0 [facility] Comment on above: Order Comment: Order Added by Discern Expert. Performed By: #### 2 786325, 35468004, 3892994, 6685205, 95119129, 0853993, 38979926, 9942736, 7937012, 61776400, 93760085 ####[facility] [address] [place] [address] Neutrophils/Leukocyte s Auto (Bld) [Pure # fraction] 3.9 E9/L Normal 2.0-7.5 [facility] Comment on above: Order Comment: Order Added by Discern Expert. Performed By: #### 2 872512, 30405218, 4825228, 4820477, 70843782, 7709985, 00184722, 5889500, 3028557, 05580963, 61507906 ####[place] [address] [place] [address] BMPon 04-09-2023 Anion gap [Moles/Vol] 13 mmol/L Normal 6-16 [facility] Comment on above: Performed By: #### 2 910593, 81948276, 1280538, 8331548, 87378529, 4486475, 96166008, 6719126, 5052966, 52151063, 89056639 ####[place] [address] [place] [address] BUN/Creat Ratio 14 No Units Normal 10-20 [facility] Comment on above: Performed By: #### 2 653485, 37966634, 5344572, 7163818, 10782276, 4163615, 56565677, 5367211, 1920185, 30565687, 48569024 ####[facility] [id number] [place] [address] Calcium [Mass/Vol] 9.2 mg/dL Normal 8.9-11.1 [facility] Comment on above: Performed By: #### 2 319079, 68042615, 1806239, 4892795, 07472118, 4801326, 25928404, 1846864, 1681173, 06063544, 57696391 ####[facility] [address] [place] [address] Chloride [Moles/Vol] 106 mmol/L Normal 101-111 [facility] Comment on above: Performed By: #### 2 508306, 82263194, 4668228, 8304568, 92785072, 7881052, 38523368, 3873490, 8515223, 56955141, 07971101 ####[facility] [id number] [place] [address] CO2 [Moles/Vol] 22 mmol/L Normal 21-31 [facility] Comment on above: Performed By: #### 2 619306, 28167137, 7859012, 2837362, 69045506, 7287998, 74817547, 8470477, 0345106, 07653052, 40399560 ####[facility] [address] [place] [address] Creatinine [Mass/Vol] 1.1 mg/dL Normal 0.5-1.3 [facility] Comment on above: Performed By: #### 2 426220, 05510902, 6699318, 7541873, 87147757, 2633467, 56441329, 4496479, 6362121, 31235656, 35554532 ####[facility] [address] [place] [address] Glucose [Mass/Vol] 86 mg/dL Normal 55-199 [facility] Comment on above: Performed By: #### 2 317328, 45019999, 2725381, 8850857, 48814925, 4560737, 32858025, 1879863, 3671871, 71759615, 89362042 ####[facility] [address] [place] [address] Potassium [Moles/Vol] 3.2 mmol/L Low 3.5-5.3 [facility] Comment on above: Performed By: #### 2 450523, 32820194, 2844031, 4601361, 42555295, 6462440, 03902278, 3067792, 3777055, 85073559, 83123314 ####[facility] [address] [place] [address] Sodium [Moles/Vol] 138 mmol/L Normal 135-145 [facility] Comment on above: Performed By: #### 2 067555, 67777888, 9123049, 0258379, 30157131, 3194473, 03105280, 3282592, 9755049, 22155341, 40550757 ####[facility] [address] [place] [address] Urea nitrogen [Mass/Vol] 15 mg/dL Normal 5-21 [facility] Comment on above: Performed By: #### 2 259718, 00344498, 5341019, 4204006, 63495492, 1049916, 35837193, 8977495, 0796976, 00905872, 56470511 ####[place] [address] [place] [address] BNPon 04-09-2023 Int Ctr BNP Pass Normal [facility] Comment on above: Performed By: #### 2 050312, 96010378, 4359849, 4048799, 70106248, 6021560, 95440820, 7173293, 6535629, 99233301, 91176772 ####[address] [place] [address] Natriuretic peptide B (Bld) [Mass/Vol] 9 pg/mL Normal 5-80 [facility] Comment on above: Performed By: #### 2 490858, 72898590, 5856912, 8729424, 33480454, 0552181, 86972871, 4047698, 6406866, 42444764, 55109927 ####[address] [place] [address] CBC w/ Auto Diffon Erythrocyte distribution width (RBC) [Ratio] 12.9 % Normal 10.9-14.2 [facility] Comment on above: Performed By: #### 2 884289, 84222800, 9308472, 9350499, 74525186, 2864076, 34076027, 4073498, 7698574, 51221367, 27801328 ####[facility] [address] [place] [address] Hematocrit (Bld) [Volume fraction] 43.1 % Normal 37.7-49.0 [facility] Comment on above: Performed By: #### 2 569113, 10092560, 4619984, 9728503, 34646773, 3338553, 52199120, 9105490, 6548607, 85768951, 73148853 ####[address] [place] [address] Hemoglobin (Bld) [Mass/Vol] 14.7 g/dL Normal 13.5-17.5 [facility] Comment on above: Performed By: #### 2 316590, 67897025, 8779990, 8677989, 54272104, 3997154, 83121005, 1838354, 7440125, 32081102, 96075337 ####[address] [place] [address] MCH (RBC) [Entitic mass] 32.2 pg Normal 27.0-34.0 [facility] Comment on above: Performed By: #### 2 194237, 23795713, 0506791, 5515402, 36198136, 1185672, 32741189, 6612149, 1640440, 15472035, 08815001 ####[address] [place] [address] MCHC (RBC) [Mass/Vol] 34.2 g/dL Normal 31.4-36.0 [facility] Comment on above: Performed By: #### 2 480824, 57602108, 4278144, 6783316, 09814729, 7125124, 53892608, 5049183, 3529892, 96185913, 36647424 ####[address] [place] [address] MCV (RBC) [Entitic vol] 94.2 fL Normal 80.0-100.0 [facility] Comment on above: Performed By: #### 2 182663, 33239567, 1362135, 7820567, 78238216, 5849738, 47701435, 8069308, 1751348, 38542197, 87763207 ####[facility] [address] [place] [address] Platelet mean volume (Bld) [Entitic vol] 8.8 fL Normal 6.4-10.8 [facility] Comment on above: Performed By: #### 2 484820, 23511121, 1013854, 8124390, 17996752, 7123198, 52736265, 1011028, 1312794, 23785108, 18617300 ####[facility] [address] [place] [address] Platelets (Bld) [#/Vol] 198.0 E9/L Normal 150.0-500.0 [facility] Comment on above: Performed By: #### 2 252589, 09503598, 6653963, 2738479, 10488112, 4019389, 27123791, 4121305, 3765487, 35943360, 02927346 ####[facility] [address] [place] [address] RBC (Bld) [#/Vol] 4.6 E12/L Normal 4.3-5.9 [facility] Comment on above: Performed By: #### 2 498616, 72790359, 5454074, 7079385, 59710869, 9457822, 23029415, 0578816, 3835543, 93767350, 53497877 ####[facility] [address] [place] [address] WBC corrected for nucl RBC Auto (Bld) [#/Vol] 5.9 E9/L Normal 4.0-11.0 [facility] Comment on above: Performed By: #### 2 636424, 56398929, 2874391, 9843402, 23858099, 1249912, 97751954, 3679211, 6776262, 03733016, 22472483 ####[facility] [address] [place] [address] CHEMISTRYOrdered By: SYSTEM SYSTEM on 04-09-2023 Albumin [...] Sensitivity Troponin I Instructions For Use, Lindsay [place], October 2017) TSH Qn 2.67 m[IU]/L Normal 0.34 - 5.60 mcIU/mL Remisol Chem Urea nitrogen [Mass/Vol] 15 mg/dL Normal 5 - 21 mg/dL Remisol Chem Urea nitrogen/Creatinine [Mass ratio] 14 mg/mg Normal 10 - 20 Remisol Chem CHEMISTRYOrdered By: Leticia Morales on 04-09-2023 Natriuretic peptide B (Bld) [Mass/Vol] 9 pg/mL Normal 5 - 80 pg/mL [facility] COAGULATIONOrdered By: Lyndsay Aparicio on 04-09-2023 aPTT Coag (PPP) [Time] 32.3 s Normal 25.1 - 36.5 second(s) [facility] Auto Coag Comment on above: Interpretive Data: [...] the same coagulation reagent and instrumentation as [facility]. Currently there are no coagulation studies available worldwide for children to 14 days, and no normal ranges. Heparin therapeutic range (represented by Anti-Factor Xa activity of 0.2 - 0.4 U/mL) corresponds to PTT of 56.6 - 109.0 sec. INR Coag (PPP) [Relative time] 1.0 {INR} Invalid Interpretation Code [facility] Auto Coag Comment on above: Interpretive Data: I NR results are specifically intended to assess patients stabilized on long-term Anticoagulation therapy suggested INR s Less Intensive Anticoagulation 2.0 3.0 Conventional Range 3.0 4.5 PT Coag (PPP) [Time] 10.9 s Normal 9.4 - 1 2.5 second(s) [facility] Auto Coag Comment on above: Interpretive Data: [...] the same coagulation reagent and instrumentation as [facility]. Currently there are no coagulation studies available [...] ml's: 100 Rectal Contrast Given? No Normal [facility] CTA Cheston 04-09-2023 CTA Chest Exam [...] 370 Contrast amount in ml's: 100 Normal [facility] Consent for Treatmenton Consent for Treatment [id number] 0TIFF Normal [facility] Discharge Instructionson Discharge Instructions [id number]. [id number] Normal [facility] ED Clinical Summaryon 2023 ED Clinical Summary [place] [address] ED Clinical Summary Person Information Name: VINCE LUCIANO Elodia Cedeño/New_Kayden Age: 42 Years : 1980 Sex: Male Language: Ukrainian PCP: Roxy Driver MD Marital Status: Visit [...] 04/09/2023 19:45:42 04/09/2023 19:45:42 04/09/2023 19:45:42 ADDRESS: [address] [place] [address] [id number] [facility] DOC NOTES: Addendum by Weston Smith [...] EDUCATION INFORMATION: Instructions: Shortness of Breath, Adult, Wslk-va-Xsrz Follow up: With: Address: When: Roxy Driver [address] [place] [address], [facility] [place] [phone] Business (1) In 3 days 04/12/2023 Comments: Keep a log of when you get short of breath and follow-up with your doctor. Continue taking your medications as prescribed. Please return to the ED for any new or worsening symptoms. DIAGNOSIS: Dyspnea Normal [facility] ED Note-Physicianon 04-09-19 ED Note-Physician Basic Information [...] for any new or worsening symptoms. Normal [facility] Comment on above: Result Comment: Elec tronically Signed By: Weston Smith DO\.br\Date and Time Signed: 04/09/23 19:38 EST ED [...] any changes in your symptoms. ? Take txyo-qbi-rqfwcek and prescription medicines only as told by [...] provider. Document Revised: 11/05/2021 Document Reviewed: 11/05/2021 Elsevier Patient Education ? 2022 [employer] Normal [facility] ED Patient Summaryon 024 ED Patient Summary [place] [id number] Patient Discharge Instructions Person Information Name: VINCE LUCIANO Age: 42 Years Arrival Date: 04/09/2023 17:49:59 Discharge Diagnosis: Dyspnea Primary Care Physician: Roxy Driver MD Provider Information Primary Provider: Clifford Sanchez DO [employer] Consultant:None The exam and treatment you received in the Emergency Department were for an urgent problem and are not intended as complete care. It is important that you follow up with a doctor, nurse practitioner, or physician?s administrative services assistant for ongoing care. If your symptoms become worse or you do not improve as expected and you are unable to reach your usual health care provider, you should return to the Emergency Department. We are available 24 hours a day. VINCE LUCIANO has been given the following list of patient education materials, prescriptions and follow-up instructions: Follow-up Instructions: With: Address: When: Roxy Driver [address] [place] [address], [facility] [place] [phone] Business (1) In 3 days 04/12/2023 Comments: [...] Patient Education Materials: Shortness of Breath, Adult, Hyli-jr-Zsxw A MESSAGE TO ALL PATIENTS REGARDING OPIOIDS PRESCRIPTION OPIOIDS: WHAT YOU NEED TO KNOW Prescription opioids can be used to help relieve wonnabhl-tv-bojafc pain and are often prescribed following a [...] overdose. ? (more content not included)... Normal [facility] HEMATOLOGYOrdered By: SYSTEM SYSTEM on 04-09-2023 Basophils/100 [...] 3.9 E9/L Normal 2.0 - 7.5 E9/L [facility] HemeAutoSS HEMATOLOGYOrdered By: Naseem See on 04-09-2023 Erythrocyte distribution width (RBC) [Ratio] 12.9 % Normal 10.9 - 14.2 % [facility] HemeAutoSS Hematocrit (Bld) [Volume fraction] 43.1 % Normal 37.7 - 49.0 % [facility] HemeAutoSS Hemoglobin (Bld) [Mass/Vol] 14.7 g/dL Normal 13.5 - 17.5 gm/dL [facility] HemeAutoSS MCH (RBC) [Entitic mass] 32.2 pg Normal 27.0 - 34.0 pg [facility] HemeAutoSS MCHC (RBC) [Mass/Vol] 34.2 g/dL Normal 31.4 - 36.0 gm/dL [facility] HemeAutoSS MCV (RBC) [Entitic vol] 94.2 fL Normal 80.0 - 100.0 fL [facility] HemeAutoSS Platelet mean volume (Bld) [Entitic vol] 8.8 fL Normal 6.4 - 10.8 fL [facility] HemeAutoSS Platelets (Bld) [#/Vol] 198.0 E9/L Normal 150.0 - 500.0 E9/L [facility] HemeAutoSS RBC (Bld) [#/Vol] 4.6 E12/L Normal 4.3 - 5.9 E12/L [facility] HemeAutoSS WBC corrected for nucl RBC Auto (Bld) [#/Vol] 5.9 E9/L Normal 4.0 - 11.0 E9/L [facility] HemeAutoSS Hep Func Panelon 04-09-2023 Albumin [Mass/Vol] 4.3 g/dL Normal 3.3-5.0 [facility] Comment on above: Performed By: #### 2 383501, 25760686, 6089464, 8308834, 57735785, 5655749, 86886830, 3755575, 9807138, 35930763, 59146005 ####[facility] [address] [place] [address] Albumin/Globulin [Mass ratio] 2.2 {ratio} Normal 1.1-2.2 [facility] Comment on above: Performed By: #### 2 057389, 09095392, 0923668, 5132868, 86362006, 5949604, 61621186, 6020856, 7025606, 03063950, 72414066 ####[facility] [address] [place] [address] Alk Phos 60 Int._Unit/L Normal 21-98 [facility] Comment on above: Performed By: #### 2 924249, 25899495, 9175711, 9743858, 87550527, 1350009, 75227625, 6971738, 4891068, 97110400, 21537940 ####[facility] [address] [place] [address] ALT 11 Int._Unit/L Normal 6-46 [facility] Comment on above: Performed By: #### 2 793714, 99417019, 5121496, 5212062, 67043698, 0359361, 69896580, 5338047, 8545632, 93380014, 67433805 ####[facility] [address] [place] [address] AST 15 Int._Unit/L Normal 5-43 [facility] Comment on above: Performed By: #### 2 804083, 37665510, 4496761, 8279254, 73779849, 7209825, 35417330, 5291707, 4476343, 39256968, 46288211 ####[facility] [address] [place] [address] Bili Direct 0.1 mg/dL Normal 0.0-0.4 [facility] Comment on above: Performed By: #### 2 347190, 58247918, 5229086, 3409421, 71544512, 2464271, 52237840, 5984202, 2731688, 43440877, 68757093 ####[address] [place] [address] Bili Indirect 0.5 mg/dL Normal 0.1-0.9 [facility] Comment on above: Performed By: #### 2 477657, 32948252, 5742885, 6674864, 64535890, 7968938, 54939784, 2144582, 8420025, 63814345, 48266559 ####[address] [place] [address] Bili Total 0.6 mg/dL Normal 0.0-1.1 [facility] Comment on above: Performed By: #### 2 505404, 40930535, 3518642, 3158761, 31499210, 7333378, 75564606, 2374249, 8570110, 49411034, 26597992 ####[address] [place] [address] Globulin (S) [Mass/Vol] 2.0 g/dL Normal 1.4-4.0 [facility] Comment on above: Performed By: #### 2 223413, 86634709, 9966278, 7700349, 29198449, 6394545, 02292038, 7673297, 5783628, 14614517, 50310246 ####[facility] [address] [place] [address] Protein [Mass/Vol] 6.3 g/dL Normal 6.0-7.8 [facility] Comment on above: Performed By: #### 2 446865, 23302281, 9792912, 6260940, 21143726, 6442169, 07806143, 2401824, 2250314, 83200795, 31282554 ####[facility] [address] [place] [address] Lipase Levelon 04-09-2023 Lipase Lvl 21 unit/L Normal 13-58 [facility] Comment on above: Performed By: #### 2 263244, 98770107, 7349869, 1149558, 72095689, 9311036, 23952546, 5407812, 2771631, 45186563, 94738780 ####[facility] [address] [place] [address] Magnesiumon 04-09-2023 Magnesium [Mass/Vol] 1.9 mg/dL Normal 1.3-2.4 [facility] Comment on above: Performed By: #### 2 568811, 05631443, 7674576, 6416671, 19232390, 4426159, 03394241, 2621473, 6038158, 96182736, 47142920 ####[facility] [address] [place] [address] PT & PTTon 04-09-2023 aPTT Coag (PPP) [Time] 32.3 second(s) Normal 25.1-36.5 [facility] Comment on above: Result Comment: Para meter [...] the same coagulation reagent and instrumentation as [facility]. Currently there are no coagulation studies available worldwide for children to 14 days, and no normal ranges. Heparin therapeutic range (represented by Anti-Factor Xa activity of 0.2 - 0.4 U/mL) corresponds to PTT of 56.6 - 109.0 sec. Performed By: #### 2 451762, 63434590, 6008663, 4634663, 37449424, 1655327, 73457737, 7603457, 1129985, 00536119, 83546489 ####[facility] [address] [place] [address] INR Coag (PPP) [Relative time] 1.0 {INR} Invalid Interpretation Code [facility] Comment on above: Result Comment: INR results are specifically intended to assess patients stabilized on long-term Anticoagulation therapy suggested INR?s ?Less Intensive Anticoagulation? 2.0 ? 3.0 Conventional Range 3.0 ? 4.5 Performed By: #### 2 301285, 14157532, 2423329, 5024692, 81290335, 2256188, 54132563, 4588393, 1327687, 67169405, 41403013 ####[facility] [address] [place] [address] PT Coag (PPP) [Time] 10.9 second(s) Normal 9.4-12.5 [facility] Comment on above: Result Comment: 15 d [...] the same coagulation reagent and instrumentation as [facility]. Currently there are no coagulation studies available worldwide for children to 14 days, and no normal ranges. Performed By: #### 2 554966, 90820204, 4011274, 7992154, 01216452, 5689336, 38363473, 5731741, 8076238, 63509180, 99248184 ####[facility] [address] [place] [address] TSH With T4fr Reflexon 04-09 TSH Qn 2.67 m[IU]/L Normal 0.34-5.60 [facility] Comment on above: Performed By: #### 2 569771, 48378731, 8696272, 5725582, 13549482, 0030521, 75034955, 9955301, 8991083, 57124203, 06317550 ####[facility] [address] [place] [address] Troponin 0 Hr.on 04-09-2023 Troponin 2.60 pg/mL Low 15.90-38.40 [facility] Comment on above: Result Comment: The 95% CI (Confidence Interval) PPV (Positive Predictive Value) for myocardial infarction in females is 38 pg/mL, in males 51 pg/mL. The results should be used in conjunction with clinical conditions of myocardial infarction. (Access High Sensitivity Troponin I Instructions For Use, Lindsay [place], October 2017) Performed By: #### 2 962117, 11898473, 5143508, 0512009, 10028092, 5025635, 81589870, 9345567, 0314935, 21179206, 04935118 ####[facility] [address] [place] [address] UA With Cult Reflexon 2023 Bilirubin Ql (U) Negative Normal Negative [facility] Comment on above: Performed By: #### 1 1185640 ####[facility] [address] [place] [address] Clarity (U) CLEAR Normal Clear [facility] Comment on above: Performed By: #### 1 5047852 ####[address] [address] Color (U) YELLOW Normal Yellow [facility] Comment on above: Performed By: #### 1 0133278 ####[address] [address] Epithelial cells.squamous LM.HPF (Urine sed) [#/Area] 0-2 Normal 0-2 [facility] Comment on above: Performed By: #### 1 6782337 ####[address] [address] Glucose Test strip (U) [Mass/Vol] Negative Normal Negative [facility] Comment on above: Performed By: #### 1 5876497 ####[address] [address] Hemoglobin Ql (U) Negative Normal Negative [facility] Comment on above: Performed By: #### 1 1139388 ####[address] [address] Ketones (U) [Mass/Vol] Negative Normal Negative [facility] Comment on above: Performed By: #### 1 3015140 ####[address] [address] [place].plasma/Lithiu m.RBC (Bld) [Mass ratio] 0-3 Normal 0-3 [facility] Comment on above: Performed By: #### 1 9801533 ####[facility] [address] [place] [address] Nitrite Ql (U) Negative Normal Negative [facility] Comment on above: Performed By: #### 1 7855676 ####[address] [address] pH (U) 5.5 [pH] Invalid Interpretation Code 5.0-9.0 [facility] Comment on above: Performed By: #### 1 8743156 ####[address] [place] [address] Protein (U) [Mass/Vol] Negative Normal Negative [facility] Comment on above: Performed By: #### 1 2872364 ####[address] [address] Specific gravity (U) [Rel density] <=1.005 Invalid Interpretation Code 1.005-1.030 [facility] Comment on above: Performed By: #### 1 8952571 ####[place] 3024357 Type of Urine collection method Clean Catch Normal [facility] Comment on above: Performed By: #### 1 1177576 ####[address] [address] Urobilinogen Qn (U) 0.2 {Rachel'U}/dL Normal 0.0-1.0 [facility] Comment on above: Performed By: #### 1 8971262 ####[address] [address] WBC Auto Ql (U) Negative Normal Negative [facility] Comment on above: Performed By: #### 1 1766155 ####[address] [address] WBC LM.HPF (Urine sed) [#/Area] 0-5 Normal 0-5 [facility] Comment on above: Performed By: #### 1 0750462 ####[address] [address] URINALYSISOrdered By: Farhana Aparicio on 04-09-2023 Bilirubin Ql (U) Negative (04/09/23 6:20 PM) Normal Negative [facility] UA Auto SS Clarity (U) Clear (04/09/23 6:20 PM) Normal Clear [facility] UA Auto SS Color (U) Yellow (04/09/23 6:20 PM) Normal Yellow [facility] UA Auto SS Epithelial cells.squamous LM.HPF (Urine sed) [#/Area] 0-2 /HPF Normal 0-2/HPF [facility] UA Aut o SS Glucose Test strip (U) [Mass/Vol] Negative (04/09/23 6:20 PM) Normal Negative FT UA Auto SS Hemoglobin Ql (U) Negative (04/09/23 6:20 PM) Normal Negative [facility] UA Auto SS Ketones (U) [Mass/Vol] Negative (04/09/23 6:20 PM) Normal Negative [facility] UA Auto SS [place].plasma/Lithiu m.RBC (Bld) [Mass ratio] 0-3 /HPF Normal 0-3/HPF [facility] UA Auto SS Nitrite Ql (U) Negative (04/09/23 6:20 PM) Normal Negative [facility] UA Auto SS pH (U) 5.5 *NA* (04/09/23 6:20 PM) Invalid Interpretation Code 5.0 - 9.0 [facility] UA Auto SS Protein (U) [Mass/Vol] Negative (04/09/23 6:20 PM) Normal Negative [facility] UA Auto SS Specific gravity (U) [Rel density] <=1.005 *NA* (04/09/23 6:20 PM) Invalid Interpretation Code 1.005 - 1.030 [facility] UA Auto SS UA Spec Desc Clean Catch (04/09/23 6:20 PM) Normal [facility] UA Auto SS Urobilinogen Qn (U) 0.3906641 {Rachel'U}/dL Normal 0.0 - 1.0 EU/dL [facility] UA Auto SS WBC Auto Ql (U) Negative (04/09/23 6:20 PM) Normal Negative [facility] UA Auto SS WBC LM.HPF (Urine sed) [#/Area] 0-5 /HPF Normal 0-5/HPF [facility] UA Auto SS eGFRon 04-09-2023 GFR/1.73 sq M.predicted among non-blacks MDRD (S/P/Bld) [Vol rate/Area] mL/min/{1.73_m2} Normal >=59 [facility] Comment on above: Order Comment: Order added by Discern Expert. Performed By: #### 2 945772, 19176941, 6014208, 0791935, 76033643, 8973541, 80431843, 4955985, 3219260, 91072304, 92545006 ####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 Normal [facility] General Surgery Office/Clini c Noteon 03-20-2023 General [...] trivalent - Not Given Patient Refuses Normal [facility] Comment on above: Result Comment: Elec tronically [...] Follow-Up Appointments Sunday 4:00 PM EST With: iRley RODRIGUEZ MD Where: General Surgery Jennifer/Parker Rincon Normal [facility] General Surgery Office/Clini c Noteon 03-14-2023 General [...] trivalent - Not Given Patient Refuses Normal [facility] Comment on above: Result Comment: Elec tronically Signed By: JENNIFER YOU, Riley Michaels\Date and Time Signed: 03/14/23 15:23 EST Office Visiton 03-07-2023 Follow-up visit [id number] Vince Luciano 1980 M Date Provider Department Center 03/07/2023 RAFAEL MONTANEZ MP ORTHO MPORTHO Family History Problem Relation Age of Onset Hypertension Mother Family Status - Relation Status Age at Mother Level of Service:[id number] [place] POSTOP FOLLOW UP VISIT RELATED TO ORIGINAL PX Reason for Visit and Comments: Follow-up [707801] [facility] 36on 03-05-2023 36 We will address this when patient comes into office this week. [facility] 36on 03-01-2023 36 Please let me know what you would like to have the patient start on therapy and I will get the new order sent over [facility] 36on 02-27-2023 36 Physical therapist stated that they have occupational therapy available. If the doctor wants it can he resubmit for it. Also referral stated requested treatment was per protocol. If dr has specific protocol can that be faxed as well. Fax number [phone] [facility] in [facility] Telephoneon 02-20-2023 Telephone [phone] Vince Luciano 1980 M Date Provider Department Center 02/20/2023 1806-MADISONMARY DE LOS SANTOS MP ORTHO MPORTHO Family History Problem Relation Age of Onset Hypertension Mother Family Status - Relation Status Age at Mother [facility] HPon 02-19-2023 HP H&P reviewed. The patient was examined and there are no changes to the H&P. [facility] NURSNOTEon 02-19-2023 NURSNOTE 50ml propofol pulled by francisco Kwan rn and given to SHERRY Cuevas. 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 The extensor is closed with oqzkig-gd-hirtd sutures of 4-0 Vicryl and the skin [...] ROTATION PLATE Implanted 1.5X7MM CORTICAL SCREW Implanted 1.8EM98OB COERTICAL SCREW Implanted 1.5X11MM LOCKING SCREW Implanted 1.5X12MM LOCKING SCREW Implanted 1.5X13MM LOCKING SCREW Used, Not Implanted 1.5X 14MM LOCKING SCREW Used, Not Implanted Complications: None Disposition: PACU Condition: stable Rafael Weeks MD Normal [facility] POCT GLUCOSE METER UNSOLICIT ED RESULTSon 02-19-2023 Glucose [Mass/Vol] 85 mg/dL Normal 70-105 [facility] Comment on above: Order Comment: Waive d Testing in the ED is performed under the ED CLIA certificate #[id number]. Result Comment: dhol as Performed By: #### L [id number] ####[facility] ([facility]AKER)[address] [place] [address] Facesheeton 02-14-2023 Facesheet [id number]. 00TIFF [facility] Ambulatory Visit Summaryon 1 04-15-2022 Ambulatory Visit Summary VINCE LUCIANO :1980 Visit Date:02/13/2023 Ambulatory Visit Instructions Your Care Team Attending Physician - JENNIFER YOU, Riley Quevedo Primary Care Physician - Roxy Driver MD [...] MD Where: General Surgery Jennifer/Parker Rincon Normal [facility] Orders Onlyon 02-05-2023 Orders Only [id number] Vince Luciano 1980 M Date Provider Department Center 02/05/2023 Maged3-SHANDA THOMAS MP [facility] ROHIT Family History Problem Relation Age of Onset Hypertension Mother Family Status - Relation Status Age at Mother [facility] Physician Referralon 023 Physician Referral [id number] 0TIFF Normal [facility] Physician Referral [id number] 10 [id number] 0TIFF Normal [facility] Follow-Upon 01-30-2023 Follow-Up [id number] Vince Luciano 1980 M Date Provider Department Center 01/30/2023 Tripp-RAFAEL WEEKS MP [facility] Family History Problem Relation Age of Onset Hypertension Mother Family Status - Relation Status Age at Mother Level of Service:09824 [place] OFFICE/OUTPATIENT ESTABLISHED LOW MDM 20-29 MIN Reason for Visit and Comments: Follow-up [668354] Normal [facility] HPon 01-30-2023 HP Orthopedic Surgery Subjective 05/17/2022 Ring Finger Irrigation and Debridement - Right and Open reduction percutaneous fixation of proximal phalanx, ring finger - Right 01/30/23 Since his last visit patient's been participating in physical therapy and feels his range of motion has not improved. 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 Normal [facility] 36on 12-06-2022 36 Order was put in and is going to be faxed not Normal [facility] US KIDNEYS BLADDERon 07-25-2 023 US KIDNEYS BLADDER EXAMINATION: US KIDNEYS [...] by: IAN ROMAN Date: 2022-07-25 17:[address] [facility] [address] ABD/PELV W CONon 07-16-[address] [...] by: LISETH MUNROE Date: 2022-07-15 08:54 Normal [facility] XR ABD FLAT UP_PA [place] 06-20 XR [...] by: IAN ROMAN Date: 2022-06-20 10:28 Normal [facility] CERVICAL SP AP&LT OR 2-3 VWS on 06-02-2020 CERVICAL SP AP&LT OR 2-3 VWS STUDY: CERVICAL SP AP LT OR 2-3 VWS; 06/02/2020 9:49 am INDICATION: PAIN. COMPARISON: 05/12/2020 ACCESSION NUMBER(S): [id number] ORDERING CLINICIAN: Kalyan Torres FINDINGS: Anterior metallic fusion hardware with metallic interbody grafts extending from C5-C7 appear unchanged. No new fracture, subluxation, or disc height loss. IMPRESSION: Unchanged postoperative appearance of the cervical spine. Normal [facility] CERVICAL SP AP&LT OR 2-3 VWS on 05-12-2020 CERVICAL SP AP&LT OR 2-3 VWS STUDY: CERVICAL SP AP LT OR 2-3 VWS; 05/12/2020 10:14 am INDICATION: PAIN. COMPARISON: 04/14/2020 ACCESSION NUMBER(S): [id number] ORDERING CLINICIAN: Kalyan Torres FINDINGS: Anterior metallic fusion hardware with interbody grafts extending from C5-C7 appear unchanged. No new fracture, subluxation, or disc height loss. IMPRESSION: Unchanged postoperative appearance of the cervical spine. Normal [facility] CERVICAL SP AP&LT OR 2-3 VWS on 04-14-2020 CERVICAL SP AP&LT OR 2-3 VWS STUDY: CERVICAL SP AP LT OR 2-3 VWS; 04/14/2020 10:33 am INDICATION: PAIN. COMPARISON: 01/13/2020 ACCESSION NUMBER(S): [id number] ORDERING CLINICIAN: Kalyan Torres FINDINGS: Interval placement of anterior metallic fusion hardware with metallic interbody grafts from C5-C7. No new fracture, subluxation, or disc height loss otherwise seen. No spondylolisthesis. Slight reversal the cervical lordosis. Mild prevertebral soft tissue swelling. IMPRESSION: Interval anterior fusion C5-C7. Mild postoperative prevertebral soft tissue swelling. Normal [facility] Anesthesia Noteon 04-02-2020 Anesthesia Note [facility] Patient: VINCE LUCIANO [address] [place] [address] MR#: [id number] ANESTHESIA NOTE : Service Date: 04/02/20 0922 Post-anesthesia Note Note Patient assessed post operatively [...] pre-op Electronically Signed eSign Date and Time KatieRichard whitt 04/02/20 0923 Ian Giordano MD Normal [facility] BASIC MET PANELon 04-02-2020 Anion gap [Moles/Vol] 11 mmol/L Normal 6-18 [facility] Comment on above: Order Comment: CBN: [place]: MAIN Performed By: #### L 500.54197, L500.89126 ####Test performed at: [place] [address] Calcium [Mass/Vol] 9.0 mg/dL Normal 8.5-10.1 [facility] Comment on above: Order Comment: CBN: [place]: MAIN Performed By: #### L 500.36143, L500.19675 ####Test performed at: [address] [address] Chloride [Moles/Vol] 108 mmol/L High 98-107 [facility] Comment on above: Order Comment: CBN: [place]: MAIN Performed By: #### L 500.62376, L500.26997 ####Test performed at: [address] [address] CO2 [Moles/Vol] 24 mmol/L Normal 21-32 [facility] Comment on above: Order Comment: CBN: [place]: MAIN Performed By: #### L 500.05429, L500.84989 ####Test performed at: [address] [address] Creatinine [Mass/Vol] 0.934 mg/dL Normal 0.700-1.300 [facility] Comment on above: Order Comment: CBN: [place]: MAIN Performed By: #### L 500.91061, L500.40539 ####Test performed at: [address] [address] Glucose [Mass/Vol] 121 mg/dL High 70-99 [facility] Comment on above: Order Comment: CBN: [place]: MAIN Result Comment: Fast ing GLUCOSE reference range has been updated per (ADA) [place] [employer]'s recommendation. 06/25/2018 Performed By: #### L 500.19537, L500.21041 ####Test performed at: [address] [address] OSM 289 mosm/kg Normal 270-300 [facility] Comment on above: Order Comment: CBN: [place]: MAIN Performed By: #### L 500.59451, L500.39913 ####Test performed at: [address] [address] Potassium [Moles/Vol] 4.2 mmol/L Normal 3.5-5.1 [facility] Comment on above: Order Comment: CBN: [place]: MAIN Performed By: #### L 500.29959, L500.57522 ####Test performed at: [address] [address] Sodium [Moles/Vol] 139 mmol/L Normal 136-145 [facility] Comment on above: Order Comment: CBN: [place]: MAIN Performed By: #### L 500.68835, L500.83623 ####Test performed at: [address] [address] Urea nitrogen [Mass/Vol] 11 mg/dL Normal 7-18 [facility] Comment on above: Order Comment: CBN: [place]: MAIN Performed By: #### L 500.94348, L500.85104 ####Test performed at: [address] [address] CBC W/DIFFon 04-02-2020 BASO ABS 0.0 K/uL Normal 0.0-0.2 [facility] Comment on above: Order Comment: CBN: [place]: MAIN Performed By: #### L 200.05238 ####Test performed at: [address] [address] Basophils/100 WBC (Bld) 0.1 % Normal [facility] Comment on above: Order Comment: CBN: [place]: MAIN Performed By: #### L 200.37259 ####Test performed at: [address] [address] EOS ABS 0.0 K/uL Normal 0.0-0.5 [facility] Comment on above: Order Comment: CBN: [place]: MAIN Performed By: #### L 200.57518 ####Test performed at: [address] [address] Eosinophils/100 WBC (Bld) 0.0 % Normal [facility] Comment on above: Order Comment: CBN: [place]: MAIN Performed By: #### L 200.17846 ####Test performed at: [place] [id number] Erythrocyte distribution width (RBC) [Ratio] 11.7 % Normal 11.5-14.5 [facility] Comment on above: Order Comment: CBN: [place]: MAIN Performed By: #### L 200.34279 ####Test performed at: [place] [address] Hematocrit (Bld) [Volume fraction] 42.8 % Normal 39.0-55.0 [facility] Comment on above: Order Comment: CBN: [place]: MAIN Performed By: #### L 200.66089 ####Test performed at: [place] [address] Hemoglobin (Bld) [Mass/Vol] 14.7 g/dL Normal 14.0-16.5 [facility] Comment on above: Order Comment: CBN: [place]: MAIN Performed By: #### L 200.25986 ####Test performed at: [place] [address] IG % 0.3 % Normal [facility] Comment on above: Order Comment: CBN: [place]: MAIN Performed By: #### L 200.80989 ####Test performed at: [place] [id number] IG ABS 0.03 K/uL Normal 0-0.05 [facility] Comment on above: Order Comment: CBN: [place]: MAIN Performed By: #### L 200.77685 ####Test performed at: [place] [address] Lymphocytes (Bld) [#/Vol] 0.7 10*3/uL Low 1.2-3.5 [facility] Comment on above: Order Comment: CBN: [place]: MAIN Performed By: #### L 200.22520 ####Test performed at: [address] [address] Lymphocytes/100 WBC (Bld) 7.2 % Normal [facility] Comment on above: Order Comment: CBN: [place]: MAIN Performed By: #### L 200.71361 ####Test performed at: [address] [address] MCH (RBC) [Entitic mass] 31.8 pg Normal 25.4-34.6 [facility] Comment on above: Order Comment: CBN: [place]: MAIN Performed By: #### L 200.36817 ####Test performed at: [address] [address] MCHC (RBC) [Mass/Vol] 34.3 g/dL Normal 31.5-36.5 [facility] Comment on above: Order Comment: CBN: [place]: MAIN Performed By: #### L 200.70020 ####Test performed at: [address] [address] MCV (RBC) [Entitic vol] 92.6 fL Normal 80.0-100.0 [facility] Comment on above: Order Comment: CBN: [place]: MAIN Performed By: #### L 200.95127 ####Test performed at: [address] [address] MONO ABS 0.4 K/uL Normal 0.0-1.0 [facility] Comment on above: Order Comment: CBN: [place]: MAIN Performed By: #### L 200.45063 ####Test performed at: [address] [address] Monocytes/100 WBC (Bld) 4.3 % Normal [facility] Comment on above: Order Comment: CBN: [place]: MAIN Performed By: #### L 200.07186 ####Test performed at: [address] [address] NEUTROPHIL ABS 8.1 K/uL High 1.4-6.6 [facility] Comment on above: Order Comment: CBN: [place]: MAIN Performed By: #### L 200.02406 ####Test performed at: [address] [address] Neutrophils/100 WBC (Bld) 88.1 % Normal [facility] Comment on above: Order Comment: CBN: [place]: MAIN Performed By: #### L 200.99434 ####Test performed at: [address] [address] NRBC # 0.000 K/uL Normal 0-0.012 [facility] Comment on above: Order Comment: CBN: [place]: MAIN Performed By: #### L 200.75508 ####Test performed at: [address] [address] NRBC % 0.0 /100 WBC Normal 0-0.2 [facility] Comment on above: Order Comment: CBN: [place]: MAIN Performed By: #### L 200.06996 ####Test performed at: [address] [address] Platelet mean volume (Bld) [Entitic vol] 11.3 fL Normal 8.7-12.4 [facility] Comment on above: Order Comment: CBN: [place]: MAIN Performed By: #### L 200.21409 ####Test performed at: [address] [address] Platelets (Bld) [#/Vol] 209 10*3/uL Normal 140-440 [facility] Comment on above: Order Comment: CBN: [place]: MAIN Performed By: #### L 200.55475 ####Test performed at: [address] [address] RBC (Bld) [#/Vol] 4.62 10*6/uL Normal 3.5-5.5 [facility] Comment on above: Order Comment: CBN: [place]: MAIN Performed By: #### L 200.48567 ####Test performed at: [address] [address] WBC (Bld) [#/Vol] 9.2 10*3/uL Normal 3.9-11.0 [facility] Comment on above: Order Comment: CBN: [place]: MAIN Performed By: #### L 200.08940 ####Test performed at: [place] [address] GFR ESTIMATEon 04-02-2020 IF AMER > 60 Normal > 60 [facility] Comment on above: Order Comment: CBN: [place]: [...] for clinical interpretation. Performed By: #### L 500.51629, L500.12486 ####Test performed at: [place] [address] IF non-AFR AMER > 60 Normal > 60 [facility] Comment on above: Order Comment: CBN: [place]: MAIN Performed By: #### L 500.75733, L500.30731 ####Test performed at: [place] [address] Internal Med Progress Noteon 04-02-2020 Internal Med Progress Note [facility] Patient: VINCE LUCIANO [address] [place] [id number] MR#: [id number] PROGRESS NOTE - Internal Medicine : 78 Service Date: 04/02/20 0657 Subjective Primary Resident: Heather Mack After Hours Call: [phone] Red Team Summary of Stay 39 yr [...] 04/02 08 O2 Delivery ROOM AIR 04/02 08 Temp 36.6 04/02 08 Pulse 84 04/02 0805 Resp 20 04/02 08 Intake AND Output [...] Intact, Cranial Nerves 3-12 NL, Reflexes 2+ 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 The [resident's, PA's, AUTOMATIC TYPEWRITER INSPECTOR's] assessment and plan reflect my input. Discussed with documenting provider and patient. Plan is as outlined above. [address]. Electronically Signed eSign Date and Time Kortney Mack RES, Donald E. MD 04/02/20 1311 Normal [facility] OT Therapy Recommendationson 04-02-2020 OT Therapy Recommendations [facility] Patient: VINCE LUCIANO [place] [id number] MR#: [id number] OT THERAPY RECOMMENDATIONS : 78 Service Date: 04/02/20 1257 Therapy Recommendations Therapy Recommendations Recommendations Occupational therapy eval complete. No skilled OT indicated. Recommend home with family assist. D/C OT services. Electronically Signed eSi Date and Time FeeCherelle OT 04/02/20 1257 Normal [facility] Orthopedic Progress Noteon 0 04-02-2020 Orthopedic Progress Note [facility] Patient: VINCE LUCIANO [address] [place] [id number] MR#: [id number] PROGRESS NOTE - Orthopedic : 78 Service [...] (%) 88.1 Lymph % (Auto) (%) 7.2 [place] % (Auto) (%) 4.3 Eos % (Auto) (%) 0.0 Baso % (Auto) (%) 0.1 Neut # (Auto) (1.4 - 6.6 K/uL) 8.1 H Lymph # (Auto) (1.2 - 3.5 K/uL) 0.7 L [place] # (Auto) (0.0 - 1.0 K/uL) 0.4 [...] RN 04/02/20 1221 Kalyan Torres MD Normal [facility] PT Therapy Recommendationson 04-02-2020 aPTT Coag (Bld) [Time] [facility] Patient: VINCE LUCIANO [address] [place] [id number] MR#: [id number] PT THERAPY RECOMMENDATIONS : 78 Service Date: 04/02/20 0848 Therapy Recommendations Therapy Recommendations Recommendations PT evaluation completed. Recommend d/c home with family assist. No further acute PT needs at this time. Electronically Signed eSign Date and Time Clara Montague PT 04/02/20 0849 Normal [facility] z OT Inpatient Discharge Not jarret 04-02-2020 z OT Inpatient Discharge Note [facility] Patient: VINCE LUCIANO [place] [phone] MR#: [id number] OT INPATIENT DISCHARGE NOTE : 78 Service [...] Time Cherelle Manzanares OT 04/02/20 1320 Normal [facility] z OT Inpatient Evaluationon 04-02-2020 z OT Inpatient Evaluation [facility] Patient: VINCE LUCIANO [address] [address] MR#: [id number] OT INPATIENT EVALUATION : 78 Inpatient OT HPI Date of Service 04/02/20 Time In: 1048 Time Out: 1110 Total Treatment Time (Mins) 22 Visit Reason HERNIATED CERVICAL DISC W/ RADICULOPATHY Surgery Type/Date ACDF C5-7, 04/01/2020. Referral Date 04/01/20 Tx Diagnosis: CERVICALGIA Insurance Name [facility] Hospital Course POD#1. RN cleared pt. to [...] ADLs and functional mobility tasks. 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 OT recommended gang sawyer Transfers Transfers Supine to Sit Modified Independent [...] Time Cherelle Manzanares OT 04/02/20 1319 Normal [facility] z PT Inpatient Discharge Not jarret 04-02-2020 z PT Inpatient Discharge Note [facility] Patient: VINCE LUCIANO [address] [place] [phone] MR#: [id number] PT INPATIENT DISCHARGE NOTE : 78 Service [...] Time Clara Montague PT 04/02/20 0903 Normal [facility] z PT Inpatient Evaluationon 04-02-2020 z PT Inpatient Evaluation [facility] Patient: VINCE LUCIANO [address] [address] MR#: [id number] PT INPATIENT EVALUATION : 78 Service Date: 04/02/20 0850 Inpatient PT HPI Date of Service 04/02/20 Time In: 0755 Time Out: 0823 Total Treatment Time (Mins) 28 Room Number 614 Visit Reason HERNIATED CERVICAL DISC W/ RADICULOPATHY Surgery Type: ACDF C5-6, 6-7 with cages and plate Surgery Date: 04/01/20 Referral Date 04/01/20 Tx Diagnosis: CERVICALGIA [facility] Course Patient is a 39 y/o [...] device or falls. 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, stopped prior [...] Time Clara Montague PT 04/02/20 0902 Normal [facility] Internal Medicine Consultati onon 04-01-2020 Internal Medicine Consultation [facility] Patient: VINCE LUCIANO [address] [place] [address] MR#: [id number] CONSULTATION - Internal Medicine : 78 Service [...] on 04/01/20621 Last Action: Edited on 04/02/20 123 by DEMETRIUS PATEL Cetirizine HCl (Zyrtec) 10 [...] on 04/01/20622 Last Action: Edited on 04/02/20 123 by DEMETRIUS PATEL Docusate Sodium * (Colace *) 100 MG CAPSULE 100 MG PO BID STOOL SOFTNER, Ref 0 ( Reported) OVER THE COUNTER Entered as Reported by FAWN ALEGRIA on 04/02/20 1032 Last Action: Edited on 04/02/20 123 by DEMETRIUS PATEL Topiramate (Trokendi XR) 100 MG CAP.ER.24H 100 MG PO DAILY, Ref 0 (Reported) NEXT DOSE TOMORROW Entered as Reported by MARIANA BERMUDEZ on 04/01/20621 Last Action: Edited on 04/02/20 123 by DEMETRIUS PATEL Scheduled PRN Medications Doxycycline [...] Agree with above documentation. The [resident's, PA's, AUTOMATIC TYPEWRITER INSPECTOR's] assessment and plan reflect my input. Discussed with documenting provider and patient. Plan is as outlined above. Electronically Signed eSign Date and Time Kortney Mack RES, Abdul Res Eghobamien, Donald E. MD 04/02/20 1311 Normal [facility] OPERATIVE REPORTon 0 OPERATIVE REPORT NAME: VINCE LUCIANO MR#: [id number] SURGEON: Kalyan Torres MD DATE OF SURGERY: [...] monitoring was continuously carried out with an on-on site services specialist and remote physician and never to safeguard [...] x 15 x 15, which gave excellent [facility] PT NAME: VINCE LUCIANO MR#: [id number] [address] [place] [address] ACCT: [id number] : 78 OPERATIVE REPORT fit and fill. [...] were no changes on the neuro monitoring. MD LORRIE JEREZ/MODL/[id number] CC: [employer] E/S: Kalyan Torres MD 04/08/20 0940 Electronically Signed [facility] PT NAME: VINCE LUCIANO MR#: [id number] [address] [place] [address] ACCT: [id number] : 78 OPERATIVE REPORT Normal [facility] CERVICAL SP AP&LAT OR 2-3 VW Son 03-31-2020 CERVICAL SP AP&LAT OR 2-3 VWS Exam: Fluoroscopy cervical spine Clinical History: ACDF C5-C6,C6-C7 Comparison: None. Findings: Intraoperative fluoroscopic images demonstrate placement of anterior fusion hardware from C5-C7. Impression: As above Dictated: 04/01/20 1231 REPORT SIGNATURE ON FILE04/01/20(1231) Reported By: SHELLEY KITCHEN Signed By: SHELLEY KITCHEN Normal [facility] CORONAVIRUSon 03-29-2020 CORONAVIRUS Methodology: PCR Negative [...] labeling are available on the FDA website: https://www.fda.gov/Hi dicalDevices/Safety/ EmergencySituations/uc r448330.htm COVID-19 Negative for COVID-19 (SARS-CoV-2 RNA) Normal [facility] Comment on above: Order Comment: CBN: YES [place]: MAIN COVID Testing: PRE-OP/PROCEDURE SCREEN Comment: 04/01 AGE at Spec MAXWELL 39 Report age at specimen MAXWELL? Y First test: UNKNOWN Employed in Healthcare: NO Symptomatic as defined by CDC: NO Hospitalized for COVID-19? NO ICU: NO Resident in a Congregated Care Setting: NO Order Date: 03/29/20 : Not Performed By: #### M 400.46347 #### Test performed at: [address] [address] CONSULTATION REPORTon 2019 CONSULTATION REPORT NAME: VINCE LUCIANO MR#: [id number] BUSHEL WORKER: Nayan Ham MD DATE OF CONSULTATION: 03/15/2020 [...] has had blood work done recently which [facility] PT NAME: VINCE LUCIANO#: [id number] [address] [place], [place] [id number] ACCT: [id number] : 78 CONSULTATION are within acceptable limits. The only thing he needs it is another COVID test which he is going for it on March 19. He is cleared for anesthesia with acceptable risk without any further workup. Thank you for the courtesy of this consultation. NAYAN HAM MD MS/MODL/[id number] E/S: Nayan Ham MD 03/16/20 1812 Electronically Signed [facility] PT NAME: VINCE LUCIANO MR#: [id number] [address] [place], [place] [id number] ACCT: [id number] : 78 CONSULTATION Normal [facility] CORONAVIRUSon 03-05-2020 CORONAVIRUS Methodology: PCR Negative [...] on the FDA website: https://www.fda.gov/Me dicalDevices/Safety/ EmergencySituations/uc h134361.htm COVID-19 Negative for COVID-19 (SARS-CoV-2 RNA) Normal [facility] Comment on above: Order Comment: CBN: YES [place]: MAIN AGE at Spec MAXWELL 39 First test: UNKNOWN Employed in Healthcare: NO Symptomatic as defined by CDC: NO Hospitalized for COVID-19? NO ICU: NO Resident in a Congregated Care Setting: NO Order Date: 03/05/20 : Not Comment: 03/08 COVID Testing: PRE-OP/PROCEDURE SCREEN Performed By: #### M 400.91672 #### Test performed at: [address] [address] BASIC MET PANELon 02-17-2020 Anion gap [Moles/Vol] 10 mmol/L Normal 6-18 [facility] Comment on above: Order Comment: CBN: YES [place]: MAIN Performed By: #### L 500.49350, L500.65370 #### Test performed at: [address] [address] Calcium [Mass/Vol] 9.3 mg/dL Normal 8.5-10.1 [facility] Comment on above: Order Comment: CBN: YES [place]: MAIN Performed By: #### L 500.89759, L500.62227 #### Test performed at: [address] [address] [address] Chloride [Moles/Vol] 112 mmol/L High 98-107 [facility] Comment on above: Order Comment: CBN: YES [place]: MAIN Performed By: #### L 500.77010, L500.66136 #### Test performed at: [address] [address] CO2 [Moles/Vol] 24 mmol/L Normal 21-32 [facility] Comment on above: Order Comment: CBN: YES [place]: MAIN Performed By: #### L 500.16014, L500.87198 #### Test performed at: [address] [address] Creatinine [Mass/Vol] 1.090 mg/dL Normal 0.700-1.300 [facility] Comment on above: Order Comment: CBN: YES [place]: MAIN Performed By: #### L 500.79079, L500.76072 #### Test performed at: [address] [address] Glucose [Mass/Vol] 86 mg/dL Normal 70-99 [facility] Comment on above: Order Comment: CBN: YES [place]: MAIN Result Comment: Fast ing GLUCOSE reference range has been updated per (ADA) [place] [employer]'s recommendation. 06/25/2018 Performed By: #### L 500.13974, L500.68262 #### Test performed at: [address] [address] OSM 297 mosm/kg Normal 270-300 [facility] Comment on above: Order Comment: CBN: YES [place]: MAIN Performed By: #### L 500.34791, L500.87118 #### Test performed at: [address] [address] Potassium [Moles/Vol] 4.4 mmol/L Normal 3.5-5.1 [facility] Comment on above: Order Comment: CBN: YES [place]: MAIN Performed By: #### L 500.68633, L500.82459 #### Test performed at: [address] [address] Sodium [Moles/Vol] 142 mmol/L Normal 136-145 [facility] Comment on above: Order Comment: CBN: YES [place]: MAIN Performed By: #### L 500.80573, L500.35350 #### Test performed at: [address] [address] Urea nitrogen [Mass/Vol] 22 mg/dL High 7-18 [facility] Comment on above: Order Comment: CBN: YES [place]: MAIN Performed By: #### L 500.77953, L500.60762 #### Test performed at: [place] [address] [address] CBC W/DIFFon 02-17-2020 BASO ABS 0.0 K/uL Normal 0.0-0.2 [facility] Comment on above: Order Comment: CBN: YES [place]: MAIN Performed By: #### L 200.09197 #### Test performed at: [address] [address] Basophils/100 WBC (Bld) 0.6 % Normal [facility] Comment on above: Order Comment: CBN: YES [place]: MAIN Performed By: #### L 200.54288 #### Test performed at: [address] [address] EOS ABS 0.2 K/uL Normal 0.0-0.5 [facility] Comment on above: Order Comment: CBN: YES [place]: MAIN Performed By: #### L 200.98504 #### Test performed at: [address] [address] Eosinophils/100 WBC (Bld) 3.6 % Normal [facility] Comment on above: Order Comment: CBN: YES [place]: MAIN Performed By: #### L 200.07797 #### Test performed at: [address] [address] Erythrocyte distribution width (RBC) [Ratio] 12.6 % Normal 11.5-14.5 [facility] Comment on above: Order Comment: CBN: YES [place]: MAIN Performed By: #### L 200.67631 #### Test performed at: [address] [address] Hematocrit (Bld) [Volume fraction] 45.4 % Normal 39.0-55.0 [facility] Comment on above: Order Comment: CBN: YES [place]: MAIN Performed By: #### L 200.87639 #### Test performed at: [address] [address] Hemoglobin (Bld) [Mass/Vol] 15.4 g/dL Normal 14.0-16.5 [facility] Comment on above: Order Comment: CBN: YES [place]: MAIN Performed By: #### L 200.43446 #### Test performed at: [address] [address] IG % 0.5 % Normal [facility] Comment on above: Order Comment: CBN: YES [place]: MAIN Performed By: #### L 200.56807 #### Test performed at: [address] [address] IG ABS 0.03 K/uL Normal 0-0.05 [facility] Comment on above: Order Comment: CBN: YES [place]: MAIN Performed By: #### L 200.32054 #### Test performed at: [address] [address] Lymphocytes (Bld) [#/Vol] 1.1 10*3/uL Low 1.2-3.5 [facility] Comment on above: Order Comment: CBN: YES [place]: MAIN Performed By: #### L 200.96359 #### Test performed at: [address] [address] Lymphocytes/100 WBC (Bld) 17.2 % Normal [facility] Comment on above: Order Comment: CBN: YES [place]: MAIN Performed By: #### L 200.50066 #### Test performed at: [address] [address] MCH (RBC) [Entitic mass] 32.0 pg Normal 25.4-34.6 [facility] Comment on above: Order Comment: CBN: YES [place]: MAIN Performed By: #### L 200.83751 #### Test performed at: [address] [address] MCHC (RBC) [Mass/Vol] 33.9 g/dL Normal 31.5-36.5 [facility] Comment on above: Order Comment: CBN: YES [place]: MAIN Performed By: #### L 200.22058 #### Test performed at: [address] [address] MCV (RBC) [Entitic vol] 94.4 fL Normal 80.0-100.0 [facility] Comment on above: Order Comment: CBN: YES [place]: MAIN Performed By: #### L 200.60650 #### Test performed at: [address] [address] MONO ABS 0.5 K/uL Normal 0.0-1.0 [facility] Comment on above: Order Comment: CBN: YES [place]: MAIN Performed By: #### L 200.91205 #### Test performed at: [address] [address] Monocytes/100 WBC (Bld) 7.6 % Normal [facility] Comment on above: Order Comment: CBN: YES [place]: MAIN Performed By: #### L 200.90391 #### Test performed at: [address] [address] NEUTROPHIL ABS 4.3 K/uL Normal 1.4-6.6 [facility] Comment on above: Order Comment: CBN: YES [place]: MAIN Performed By: #### L 200.30181 #### Test performed at: [address] [address] Neutrophils/100 WBC (Bld) 70.5 % Normal [facility] Comment on above: Order Comment: CBN: YES [place]: MAIN Performed By: #### L 200.94856 #### Test performed at: [address] [address] NRBC # 0.000 K/uL Normal 0-0.012 [facility] Comment on above: Order Comment: CBN: YES [place]: MAIN Performed By: #### L 200.03101 #### Test performed at: [address] [address] NRBC % 0.0 /100 WBC Normal 0-0.2 [facility] Comment on above: Order Comment: CBN: YES [place]: MAIN Performed By: #### L 200.84155 #### Test performed at: [address] [address] Platelet mean volume (Bld) [Entitic vol] 11.7 fL Normal 8.7-12.4 [facility] Comment on above: Order Comment: CBN: YES [place]: MAIN Performed By: #### L 200.71203 #### Test performed at: [address] [address] Platelets (Bld) [#/Vol] 213 10*3/uL Normal 140-440 [facility] Comment on above: Order Comment: CBN: YES [place]: MAIN Performed By: #### L 200.23245 #### Test performed at: [address] [address] RBC (Bld) [#/Vol] 4.81 10*6/uL Normal 3.5-5.5 [facility] Comment on above: Order Comment: CBN: YES [place]: MAIN Performed By: #### L 200.07053 #### Test performed at: [address] [address] WBC (Bld) [#/Vol] 6.2 10*3/uL Normal 3.9-11.0 [facility] Comment on above: Order Comment: CBN: YES [place]: MAIN Performed By: #### L 200.40874 #### Test performed at: [address] [address] CONSULTATION REPORTon 2019 CONSULTATION REPORT NAME: VINCE LUCIANO MR#: [id number] [place] WORKER: Nayan Ham MD DATE OF CONSULTATION: 02/17/2020 [...] and he is cleared for anesthesia pending [facility] PT NAME: VINCE LUCIANO MR#: [id number] [address] [place] [address] ACCT: [id number] : 78 CONSULTATION these labs with acceptable risk. Thank you for the courtesy of this consultation. NAYAN HAM MD MS/MODL/[id number] E/S: Nayan Ham MD 02/17/20 1740 Electronically Signed [facility] PT NAME: VINCE LUCIANO MR#: [id number] [address] [place] [address] ACCT: [id number] : 78 CONSULTATION Normal [facility] GFR ESTIMATEon 02-17-2020 IF AMER > 60 Normal > 60 [facility] Comment on above: Order Comment: CBN: YES [place]: MAIN Result Comment: eGFR (Estimated GFR) Units of measure:mL/min/1.73 meters sq. *CALCULATION REVISED 01/19/2015;IDMS-traceable MDRD equation eGFR is derived from the reexpressed MDRD Study equation using the following parameters: serum creatinine, age, gender and race. An eGFR<60 mL/min/1.73m2 for >3 months is consistent with chronic kidney disease. Refer to KDOQI guidelines for clinical interpretation. Performed By: #### L 500.62646, L500.34360 #### Test performed at: [place] [address] IF non-AFR AMER > 60 Normal > 60 [facility] Comment on above: Order Comment: CBN: YES [place]: MAIN Performed By: #### L 500.06959, L500.56526 #### Test performed at: [place] [address] PROTIMEon 02-17-2020 INR Coag (PPP) [Relative time] 0.96 {INR} Normal 0.00-1.20 [facility] Comment on above: Order Comment: CBN: YES [place]: MAIN List patient's anticoagulants for PT: NONE SPECIFIED Result Comment: Kevin mmended therapeutic range is an INR of 2.0-3.0 except for prevention of recurrent acute IN and mechanical prosthetic heart valve where an INR of 2.5-3.5 is recommended. Performed By: #### L 300.18887 #### Test performed at: [address] [address] PT Coag (PPP) [Time] 10.3 s Normal 9.0-12.7 [facility] Comment on above: Order Comment: CBN: YES [place]: MAIN List patient's anticoagulants for PT: NONE SPECIFIED Performed By: #### L 300.25244 #### Test performed at: [address] [address] CERV SP W OBL/FLEX/EXT 6 OR >on 01-13-2020 CERV SP W OBL/FLEX/EXT 6 OR > STUDY: CERV SP W OBL/FLEX/EXT 6 OR > ; 01/13/2020 9:48 am INDICATION: PAIN. COMPARISON: None. ACCESSION NUMBER(S): [id number] ORDERING CLINICIAN: Kalyan Torres FINDINGS: Mild disc height loss C5-6. The remaining disc heights are maintained. No fracture or subluxation. No spondylolisthesis. No instability on flexion or extension. Disc height loss anteriorly increases at C5-6 and C6-7 on flexion. No significant osseous foraminal stenosis is seen. IMPRESSION: Lower cervical degenerative disc disease without dynamic instability. Normal [facility] Department of Radiology [address] [place] [id number] ======== Patient Name: VINCE LUCIANO : 1980 Sex: M Age: Race: White Pt. Location: 84 Patient Status: O Ordered Date: 09/09/2018 10:40:00 AM Completed Date: 09/09/2018 10:49 AM Requesting Provider: JONATHAN RHODES Attending Provider: JONATHAN RHODES Report Copy To: VILLA ROXY Signs & Symptoms: S62.634B Disp fx of distal phalanx of r rng fngr, init for opn fx I10 History: [place] Comments: , , , Ordering Provider - [...] finger Electronically signed by:Xochilt Oliveira. Transcribed by: [email or web address], User Resident: Electronically Signed by: XOCHILT OLIVEIRA @ 09/09/2018 02:22 PM Normal [facility] Comment on above: Order Comment: , , = ========= , Ordering Provider - JONATHAN RHODES PA-C , Operative Reporton 9 Operative Report MR#: [id number] S [facility] Pt. Name: Vince Luciano Room #: [...] his facility and was transferred to the [facility] for further management of his injuries. [...] Cannon MD Date Trans: 09/03/2018 04:40 A/joselin [id number] cc: Roxy Driver M.D. [address] [address] Normal [facility] FINGER RIGHT MIN 2 [facility] FINGER RIGHT MIN 2 [facility] Department of Radiology [address] [place] [phone] ======== Patient Name: VINCE LUCIANO : [...] Documentation Electronically signed by:Xochilt Oliveira. Transcribed by: [email or web address], User Resident: Electronically Signed by: XOCHILT OLIVEIRA @ 09/03/2018 01:00 PM Normal [facility] Comment on above: Order Comment: RT RI NG FINGER POSSIBLE PINNING POC GLUCOSE LABon 09-02-2018 Glucose [Mass/Vol] 75 mg/dL Normal 70-100 [facility] Comment on above: Performed By: #### 8 [address] #### [place] [address] [place] [address], [facility] Vital Signs Date Time Vital Sign Value Performing Clinician Facility 08-01-2023 11:18-0400 Body height 190.5 cm Pacc 2 Work Phone: [facility] 08-01-2023 11:18-0400 Body mass index (BMI) [Ratio] 28.38 kg/m2 Pacc 2 Work Phone: [facility] 08-01-2023 11:18-0400 Body temperature 97.9 [degF] Pacc 2 Work Phone: [facility] 08-01-2023 11:18-0400 Body weight 103 kg Pacc 2 Work Phone: [facility] 08-01-2023 11:18-0400 Diastolic blood pressure 74 mm[Hg] Pacc 2 Work Phone: [facility] 08-01-2023 11:18-0400 Heart rate 85 /min Pacc 2 Work Phone: [facility] 08-01-2023 11:18-0400 SaO2% (BldA) [Mass fraction] 98 % Pacc 2 Work Phone: [facility] 08-01-2023 11:18-0400 Systolic blood pressure 112 mm[Hg] Pacc 2 Work Phone: [facility] 04-09-2023 19:44-0500 Body temperature 97.88 [degF] Clifford Sanchez [facility] 04-09-2023 19:44-0500 Diastolic blood pressure 85 mm[Hg] Clifford Sanchez [facility] 04-09-2023 19:44-0500 Heart rate 85 /min Clifford Sanchez [facility] 04-09-2023 19:44-0500 Mean blood pressure 95 mm[Hg] Clifford Sanchez [facility] 04-09-2023 19:44-0500 Respiratory rate 17 /min Clifford Sanchez [facility] 04-09-2023 19:44-0500 SaO2% (BldA) [Mass fraction] 97 % Clifford Sanchez [facility] 04-09-2023 19:44-0500 Systolic blood pressure 115 mm[Hg] Clifford Collazoe [facility] 04-09-2023 18:41-0500 Diastolic blood pressure 82 mm[Hg] Clifford Laura [facility] 04-09-2023 18:41-0500 Heart rate 81 /min Clifford Collazoe [facility] 04-09-2023 18:41-0500 Mean blood pressure 94 mm[Hg] Clifford Collazoe [facility] 04-09-2023 18:41-0500 Respiratory rate 18 /min Clifford Laura [facility] 04-09-2023 18:41-0500 SaO2% (BldA) [Mass fraction] 96 % Clifford Laura [facility] 04-09-2023 18:41-0500 Systolic blood pressure 117 mm[Hg] Clifford Laura [facility] 04-09-2023 17:56-0500 Body temperature 98.24 [degF] Clifford Collazoe [facility] 04-09-2023 17:56-0500 Diastolic blood pressure 89 mm[Hg] Clifford Laura [facility] 04-09-2023 17:56-0500 Heart rate 85 /min Clifford Laura [facility] 04-09-2023 17:56-0500 Respiratory rate 16 /min Clifford Laura [facility] 04-09-2023 17:56-0500 SaO2% (BldA) [Mass fraction] 96 % Clifford Laura [facility] 04-09-2023 17:56-0500 Systolic blood pressure 132 mm[Hg] Clifford Laura [facility] 02-13-2023 15:50-0500 Blood Pressure Location Riley NILL [facility] [place] 02-13-2023 15:50-0500 Diastolic blood pressure 80 mm[Hg] Riley NILL [facility] [place] 02-13-2023 15:50-0500 Heart rate 70 /min Riley NILL [facility] [place] 02-13-2023 15:50-0500 Respiratory rate 16 /min Riley NILL [facility] [place] 02-13-2023 15:50-0500 Systolic blood pressure 124 mm[Hg] Riley NILL [facility] [place] Encounters Encounter Date Encounter Type Care Provider Facility Start: 11-07-2023 End: 11-07-2023 ambulatory [facility] Start: 08-13-2023 Telephone encounter Nando sandhu MD Work Phone: [facility] Comment on above: FMLA Paperwork Start: 08-13-2023 End: 08-13-2023 ambulatory NANDO PARKER Facility:[facility] Start: 08-01-2023 Encounter for other preprocedural examination ROXY DALTONYarelis [facility] Start: 08-01-2023 End: 08-02-2023 ambulatory AMITA GEE Facility:[facility] Start: 08-01-2023 End: 08-01-2023 [facility] Start: 08-01-2023 End: 08-01-2023 Anesthesia consultation [place] [address] Work Phone: Pre Anesthesia Comment on above: Preoperative examina tion (Primary Dx); Migraine without status migrainosus, not intractable, unspecified migraine type; Alcohol use; Anxiety and depression Start: 08-01-2023 End: 08-01-2023 Preprocedural examination done [place] [address] Work Phone: [facility] Work Phone: Start: 07-31-2023 End: 07-31-2023 ambulatory ROXY DRIVER Facility:[facility] Start: 07-17-2023 Telephone encounter Nando sandhu MD Work Phone: [facility] & Comment on above: Patient Question Start: 07-03-2023 End: 07-03-2023 ambulatory [facility] Start: 06-06-2023 End: 06-07-2023 ambulatory ROXY DRIVER Facility:[facility] Start: 06-06-2023 End: 06-06-2023 Patient encounter procedure Nando Parker MD Work Phone: Urology Comment on above: Weak urinary stream (Primary Dx); BPH with obstruction/lower urinary tract symptoms; Urinary frequency; Voiding dysfunction Start: 06-06-2023 End: 06-06-2023 Nursing evaluation of patient and report [facility] Comment on above: BPH with urinary obs truction (Primary Dx) Start: 06-05-2023 End: 06-05-2023 ambulatory KEESHA CURTIS Facility:[facility] Start: 05-23-2023 Telephone encounter Nando sandhu MD Work Phone: [facility] & Comment on above: Appointment Start: [...] EMELY MAGALLANES Not Available Start: 04-11-2023 End: 04-11-2023 ambulatory [facility] Start: 04-10-2023 End: 04-11-2023 ambulatory EMELY MAGALLANES Not Available Start: 04-09-2023 End: 04-09-2023 Emergency department patient visit Clifford Sanchez [facility] Start: 04-06-2023 End: 04-07-2023 ambulatory EMELY MAGALLANES Not Available Start: 04-03-2023 End: 04-03-2023 ambulatory EMELY MAGALLANES Not Available Start: 03-21-2023 End: 03-21-2023 ambulatory EMELY MAGALLANES Not Available Start: 03-20-2023 End: 03-20-2023 ambulatory Riley RODRIGUEZ Facility:[facility] Start: 03-19-2023 End: 03-19-2023 ambulatory EMELY MAGALLANES Not Available Start: 03-14-2023 End: 03-14-2023 ambulatory EMELY MAGALLANES Not Available Start: 03-12-2023 End: 03-12-2023 ambulatory EMELY MAGALLANES Not Available Start: 03-08-2023 End: 03-08-2023 ambulatory EMELY MAGALLANES Not Available Start: 03-07-2023 ambulatory [facility] Start: 02-19-2023 End: 02-19-2023 ambulatory [facility] Start: 02-13-2023 End: 02-13-2023 ambulatory Riley RODRIGUEZ Facility:[facility] Start: 02-13-2023 End: 02-13-2023 Patient encounter procedure Riley RODRIGUEZ General Surgery Nill/Said Sergey Start: 01-30-2023 End: 01-30-2023 ambulatory RAFAEL [facility] Start: 07-25-2022 End: 07-26-[address] ROXY DRIVER . 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 Facility:[facility] Start: 05-05-2022 End: 05-05-[address] IAN ROMAN Facility:[facility] Start: 09-02-2018 End: 09-03-2018 Patient encounter procedure NEELAM EBZAID Facility:[facility] Procedures Date Procedure Procedure Detail Performing Clinician Start: 06-06-2023 Us transrct prstate vol brachytx plnning spx Nando Parker MD Work Phone: Start: 05-02-2023 Urnls dip stick/tabl et rgnt auto w/o microscopy Bulk Order Provider Start: 03-14-2023 Excision of lesion of skin Clifford Collazoe Comment on above: forehead Start: 04-30-2019 Colonoscopy Riley SANDHU Start: 09-02-2018 ANESTH LOWER ARM SURGERY NEELAM PLASENCIA Start: 09-02-2018 KESHIA SKIN BONE AT FX SITE NEELAM EBHEIM Start: 09-02-2018 Repair nail bed NEELAM GIL Appendectomy Riley RODRIGUEZ Cholecystectomy Riley RODRIGUEZ Exploratory laparotomy Arnoldo el JENNIFER Fracture of hand (disorder) Riley RODRIGUEZ History of cervical spine fusion Riley RODRIGUEZ History of surgical procedure on vein Riley RODRIGUEZ Plan of Treatment Date Care Activity Detail Author Start: 05-05-2032 Urine microalbumin profile DTaP,Tdap,Td Vaccine (2 - Tdap) [facility] Start: 12-27-2023 End: 12-27-2023 Patient encounter procedure 12/27/2023 8:15 AM EDT Office Visit Urology [address] [address] Nando Parker MD [address] [place] [address] UroFlow & PVR - 08/13/2023 [facility] Comment on above: UroFlow & PVR - 08/13/2023 PVP Start: 12-02-2023 Influenza vaccination Influenza Vaccine (Season Ended) [facility] Start: 08-23-2023 End: 08-23-2023 Follow-up encounter 08/23/2023 7:15 AM EDT [facility] Urology [address] [address] Nando Parker MD [address] [place] [address] follow up after UDS per cc chart Urology Comment on above: follow up after UDS per cc chart Start: 08-13-2023 End: 08-13-2023 Admission to same day surgery center 08/13/2023 11:30 AM EDT - 08/13/2023 1:00 PM EDT Surgery [facility] [address] [place] [address] Nando Parker MD [address] [place] [address] LASER PROSTATECTOMY ~ GREEN LIGHT [facility] Comment on above: LASER PROSTATECTOMY ~ GREEN LIGHT Start: 08-13-2023 End: 08-13-2023 Laser vaporization of prostate for urine flow LASER PROSTATECTOMY ~ GREEN LIGHT BPH with obstruction/lower urinary tract symptoms Weak urinary stream 08/13/2023 11:30 AM EDT [facility] OR Start: 08-13-2023 Subsequent hospital visit by physician 08/13/2023 11:30 AM EDT Hospital Encounter [facility] [address] [place] [address] Nando Parker MD [address] [place] [address] BPH with obstruction/lower urinary tract symptoms [N40.1, N13.8], Weak urinary stream [R39.12] [facility] Comment on above: BPH with obstruction/lower urinary tract symptoms [N40.1, N13.8], Weak urinary stream [R39.12] Start: 04-02-2023 Behavioral Health Screening Behavioral Health Screening [facility] Start: 04-02-2023 Depression Assessment Depression Assessment [facility] Start: 12-01-2022 Covid-19 Vaccine ( season) Covid-19 Vaccine ( season) [facility] Start: 12-01-2022 Influenza vaccination Influenza Vaccine (#1) [facility] Start: 06-30-2014 Lipid panel Lipid Screening [facility] Start: 06-30-1998 Hepatitis B Vaccine (1 of 3 - 19+ 3-dose series) Hepatitis B Vaccine (1 of 3 - 19+ 3-dose series) [facility] Start: 06-30-1997 Hepatitis C screening Hepatitis C Screening [facility] Start: 06-30-1997 HIV screening HIV Screening [facility] Start: 1980 Hepatitis B Vaccine (1 of 3 - 3-dose series) Hepatitis B Vaccine (1 of 3 - 3-dose series) [facility] CYSTO DIAGNOSTIC CYSTO DIAGNOSTI C Procedures Routine Weak urinary stream Ordered: 05/18/2023 [facility] Work Phone: Comment on above: Ordered: 05/18/2023 ECG COMPLETE ECG COMPLETE ECG Routine Preoperative examination Ordered: 08/01/2023 [facility] Work Phone: Comment on above: Ordered: 08/01/2023 FLUROURODYNAMICS WITH [facility]G FLUROU RODYNAMICS WITH EMG Procedures Routine Weak urinary stream Ordered: 05/18/2023 [facility] Work Phone: Comment on above: Ordered: 05/18/2023 [facility] [facility] Immunizations Immunization Date Immunization Notes Care Provider Fa cili 01-04-2022 influenza, unspecified formulation Riley RODRIGUEZ [facility] [place] 01-04-2022 influenza virus vaccine, unspecified formulation Emely Magallanes OT Work Phone: [facility] 03-24-2021 SARS-CoV-2 (COVID-19 ) mRNA BNT-162b2 vax Riley RODRIGUEZ [facility] [place] 07-21-2020 SARS-CoV-2 (COVID-19 ) mRNA-1273 vaccine Riley RODRIGUEZ [facility] [place] 06-23-2020 SARS-CoV-2 (COVID-19 ) mRNA-1273 vaccine Riley RODRIGUEZ [facility] [place] NEGATED: Highlighted row has not occurred!02-13-2023 influenza virus vaccine, unspecified formulation Riley RODRIGUEZ [facility] [place] NEGATED: Highlighted row has not occurred!04-15-2019 influenza virus vaccine, live, attenuated, for intranasal use Riley RODRIGUEZ [facility] [place] Payers Date Payer Category Payer Unknown [id number] 2021 Unknown [id number] 2021 Unknown [id number] 1979 Unknown [id number] 2.16.8 40.1.207782.3.579.2.647 1979 Unknown [id number] 2.16.84 0.1.709507.3.579.2.593 1979 Unknown [id number] 2.16.84 0.1.195271.3.579.2.593 1979 Unknown [id number] 2.16.84 0.1.864507.3.579.2.593 1979 Unknown [id number] 2.16.84 0.1.933924.3.579.2.593 1979 Unknown [id number] 2.16.84 0.1.975434.3.579.2.1259 1979 Unknown [id number] 2.16.84 0.1.391813.3.579.2.1258 1979 Unknown [id number] 2.16.84 0.1.182748.3.579.2.1258 1979 Unknown [id number] 2.16.84 0.1.852808.3.579.2.1258 1979 Unknown [id number] 2.16.84 0.1.328627.3.579.2.1258 1979 Unknown [id number] 2.16.84 0.1.485721.3.579.2.1258 1979 Unknown [id number] 2.16.84 0.1.278925.3.579.2.1258 1979 Unknown [id number] 2.16.84 0.1.446965.3.579.2.1258 1979 Unknown [id number] 2.16.84 0.1.169840.3.579.2.1258 1979 Unknown [id number] 2.16.84 0.1.360545.3.579.2.1258 1979 Unknown [id number] 2.16.84 0.1.764764.3.579.2.1258 1979 Unknown [id number] 2.16.84 0.1.582376.3.579.2.1258 1979 Unknown [id number] 2.16.84 0.1.342316.3.579.2.1258 1979 Unknown [id number] 2.16.84 0.1.516174.3.579.2.1258 1979 Unknown [id number] 2.16.84 0.1.836687.3.579.2.1258 1979 Unknown [id number] 2.16.84 0.1.189004.3.579.2.1258 1979 Unknown [id number] 2.16.84 0.1.627224.3.579.2.1258 1979 Unknown [id number] 2.16.84 0.1.187457.3.579.2.1258 1979 Unknown [id number] 2.16.84 0.1.985737.3.579.2.1258 1979 Unknown [id number] 2.16.84 0.1.513750.3.579.2.1258 1979 Unknown [id number] 2.16.84 0.1.393670.3.579.2.1258 1979 Unknown [id number] 2.16.84 0.1.012764.3.579.2.1258 1979 Unknown [id number] 2.16.840 .1.539657.3.579.2.1258 1979 Unknown [id number] 2.16.840 .1.682656.3.579.2.1258 1979 Unknown [id number] 2.840 .1.417686.3.579.2.1258 1979 Unknown [id number] 2.16.840 .1.979275.3.579.2.1258 1979 Unknown [id number] 2.16.840 .1.203642.3.579.2.1258 1979 Unknown [id number] 2.16.840 .1.253478.3.579.2.1258 1979 Unknown [id number] 2.16840 .1.203608.3.579.2.1258 1979 Unknown [id number] 2.16.840 .1.322315.3.579.2.1258 1979 Unknown [id number] 2.16.840 .1.599385.3.579.2.1258 1979 Unknown [id number] 2.16.840 .1.075002.3.579.2.1258 1979 Unknown [id number] 2.16.840 .1.059867.3.579.2.1258 1979 Unknown [id number] 2.16.840 .1.175948.3.579.2.1259 1979 Unknown [id number] 2.16.840 .1.542470.3.579.2.9 1979 Unknown [id number] 2.16.840 .1.605184.3.579.2.9 1979 Unknown [id number] 2.16.840 .1.565817.3.579.2.9 1979 Unknown [id number] 2.16.840 .1.165703.3.579.2.9 1979 Unknown [id number] 2.16.8 40.1.757797.3.579.2.727 1979 Unknown [id number] 2.16.8 40.1.949312.3.579.2.727 1979 Unknown [id number] 2.16.8 40.1.287733.3.579.2.7 1979 Unknown [id number] 2.16.8 40.1.634201.3.579.2.727 1959 Unknown [id number] 1959 Unknown [id number] Worker's Compensation [id number] Social History Date Type Detail Facility Start: 05-07-2019 End: 01-15-2023 Tobacco smoking status Never smoked tobacco (finding) [facility] Tobacco smoking status Never [facility] Start: 01-15-2023 End: 05-02-2023 Sex Assigned [address] Male [facility] Start: 01-15-2023 Tobacco use and exposure Smokeless tobacco non-user [facility] Start: 06-19-2016 End: 01-15-2023 Alcohol intake Current drinker of alcohol (finding) [facility] Start: 01-15-2023 End: 05-02-2023 History of Social function [facility] Start: 12-21-2022 Alcohol Comment caffeine: 2-3 cups per day [facility] Start: 1980 Sex Assigned At Male [facility] Start: 12-19-2022 Gender identity Identifies as male gender (finding) [facility] Start: 12-19-2022 Sexual orientation Heterosexual (finding) [facility] Start: 07-24-2011 Tobacco smoking status NHIS Ex-smoker [facility] End: 04-02-2004 History of tobacco use Current smoker [facility] End: 04-02-2004 History of tobacco use Cigarette Smoker [facility] Start: 07-24-2011 Tobacco use and exposure Former smokeless tobacco user [facility] End: 04-02-2004 History of tobacco use Chews Tobacco [facility] Start: 1980 Sex Assigned At Not on file [facility] Start: 08-01-2023 Alcohol intake Ex-drinker (finding) [facility] Start: 08-01-2023 Alcohol Comment daily - 3-6 beers/night [facility] Functional Status Date Assessment Result Facility 04-09-2023 Functional Status N/A [facility] 02-13-2023 Functional Status N/A [facility]in[facility] Clinical Notes 05-05-2022 to 11-07-2023 Telephone Encounter - Fiona Al - 08/14/2023 12:06 PM EDTTelephone Encounter - Fiona Al - 08/14/2023 12:06 PM EDTPatient Amita Rubio PA-C - 08/01/2023 11:10 AM EDT Note Date & Type Note Facility 11-07-2023 Note Orthopedic Surgery Subjective 02/19/2023 Ring Finger Middle Phalanx Osteotomy - Right 11/07/23 Mr. Luciano is presenting 8 months post-op from ring finger middle phalanx osteotomy. Today he complains that range of motion and loom fixer supervisor strength has not improved since last follow-up. 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 Patient History Past Surgical History: Procedure Laterality Date APPENDECTOMY CHOLECYSTECTOMY COLONOSCOPY EXPLORATORY LAPAROTOMY FINGER FRACTURE SURGERY NECK SURGERY Past Medical History: Diagnosis Date Bowel obstruction (CMS/HCC) BPH (benign prostatic hyperplasia) Depression Migraines Objective Exam: - Incision clean, dry, and intact. No drainage or erythema - post-surgical ROM in DIP of ring finger is limited due to post-operative changes and hardware - Sensation grossly intact distally - Brisk capillary refill with palpable pulses Assessment/Plan Vince Luciano is a 43 y.o. year old male s/p Ring Finger Middle Phalanx Osteotomy - Right (02/19/2023) Patient was examined by provider and hardware removal was discussed with patient. Patient was counseled on risks and benefits of surgery and agreed to operative management. He is to schedule surgery for hardware removal in right finger. Gary Vale MS4 I was physically present with the medical student. I have personally performed (or re-performed) the physical exam and medical decision making for the patient. I personally verified the medical student's documentation. I made pertinent changes as necessary to ensure accurate documentation. Additional Notes/Findings: He is doing much better. His major complaint right now is just limited active extension at the DIP joint. He has minimal tenderness over the middle phalanx at the osteotomy site. There is good passive motion at the DIP. I think he would benefit from removal of the hardware and a tenolysis. We will submit a C9 for that. He can continue working full duty until we get the hardware out. [facility] 08-14-2023 Telephone encounter Note Paperwork has been faxed to employer. Thanks Patients notified also and patient scheduled for [address] Parker also. Thanks [facility] 08-14-2023 Miscellaneous Notes Paperwork has been faxed to employer. Thanks Patients notified also and patient scheduled for [address] Parker also. Thanks is calling regarding his [place] papers, he is having surgery today. Please advise. Thanks documented in this encounter 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 Please advise. Thanks [facility] 08-01-2023 Instructions Amita Gee PA-C - 08/01/2023 11:15 AM EDT PATIENT PREOPERATIVE INSTRUCTIONS [facility]: [phone] -- [address] [address]. Please read below carefully for your personalized instructions. Arrival Time for Surgery: -You will receive a call from [facility] the afternoon before surgery after 2:30 pm (or Sunday for Sunday surgery) for a scheduled arrival time. - If you have not heard by 4 pm, please contact [facility] at [phone]. Dietary Restrictions: - No solid food after [...] Procedures: - YOU MUST HAVE A RESPONSIBLE EVENT PROMOTER TAKE YOU HOME. A LABOURERS OR REPLENISHMENT BUYER CANNOT BE MADE A RESPONSIBLE EVENT PROMOTER. - We recommend that a responsible person [...] Advance Directive, please fax a copy to [phone] or email to for it to be [...] chart that day. documented in this encounter [facility] 08-01-2023 History and physical note HISTORY AND [...] have a large neck STOP-Bang Score: 2 [id number] Score: Age: <65 Sex: male CHF history: No Hypertension history: No Stroke/TIA/thromboembolism history: No Vascular disease history: No Diabetes history: No [id number] Score: 0 ANESTHESIA FINDINGS: Intubation History: No [...] Initiated: Orders placed by surgeon/surgical service in [facility]. Orders Placed This Encounter Complete Blood [...] COVID-19 original vaccine, age 12+ yr, monovalent ([employer] - PURPLE TOP) 07/21/2020 Imm Admin: COVID-19 [...] requiring medication, no history of angina, CHF, IN, cardiac surgery or stents. Denies rest pain, [...] or any previous visit (from the past 68199 hour(s)). Instructions Given to Patient: Instructions located in the after visit summary. Patient given verbal and written preop instructions and voices comprehension and compliance. SIGNATURE: Amita Gee PA-C PATIENT NAME: Vince Luciano DATE: 08/01/2023 TIME: 11:09 AM PAGER/CONTACT #: [facility] 08-01-2023 History and physical note HISTORY AND [...] have a large neck STOP-Bang Score: 2 [id number] Score: Age: <65 Sex: male CHF history: No Hypertension history: No Stroke/TIA/thromboembolism history: No Vascular disease history: No Diabetes history: No [id number] Score: 0 ANESTHESIA FINDINGS: Intubation History: No [...] Initiated: Orders placed by surgeon/surgical service in [facility]. Orders Placed This Encounter Complete Blood [...] COVID-19 original vaccine, age 12+ yr, monovalent ([employer] - PURPLE TOP) 07/21/2020 Imm Admin: COVID-19 [...] requiring medication, no history of angina, CHF, [place], cardiac surgery or stents. Denies rest pain, [...] or any previous visit (from the past 08019 hour(s)). Instructions Given to Patient: Instructions located in the after visit summary. Patient given verbal and written preop instructions and voices comprehension and compliance. SIGNATURE: Amita Gee PA-C PATIENT NAME: Vince Luciano DATE: 08/01/2023 TIME: 11:09 AM PAGER/CONTACT #: documented in this encounter [facility] 07-17-2023 Miscellaneous Notes The is not listed [...] August 12. 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 Please advise. Thanks documented in this encounter [facility] 07-03-2023 Note Orthopedic Surgery 02/19/2023 Ring Finger [...] the plate out to gain DIP flexion. [facility] 06-10-2023 Note HNO ID: [id number] Author: NANDO PARKER MD Service: ? Author [...] - Sitting / Recumbent Radiologic Findings: A oxyacetylene burner radiograph was obtained. The bony and soft [...] Parker MD, MS Staff Department of Urology [facility] [place] [facility] June 10, 2023 - 11:[address] [facility] 06-07-2023 Note HNO ID: [id number] Author: NANDO PARKER MD Service: ? Author [...] Parker MD, MS Staff Department of Urology [facility] [place] [facility] June 07, 2023 - 8:[address] [facility] 06-07-2023 History of Present illness Narrative NEW [...] Parker MD, MS Staff Department of Urology [facility] [place] [facility] June 07, 2023 - 8:09 AM [facility] [...] Amita Chou RN documented in this encounter [facility] 06-06-2023 Note HNO ID: [id number] Author: AMITA CHOU RN Service: ? Author [...] Visit completed when applicable. Amita Chou RN 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 06-06-2023 Nurse Note [facility] URODYNAMICS LAB URODYNAMIC [...] NONE Latex allergy: No Iodine allergy: No Certification Engineer offered:Patient declines B/O UA: YES Negative for [...] of instructions given. documented in this encounter [facility] 06-05-2023 Note HNO ID: [id number] Author: KEESHA CURTIS APRN.STRIPPER OPAQUER Service: ? Author Type: Nurse Practitioner Type: Progress Notes Filed: 06/05/2023 13:06 Note Text: [facility] VIRTUAL VISIT PROGRESS [...] visit. Either the patient or their legal medical claims representative has been informed of the risks [...] neck obstruction. He was referred to and W[facility] for voiding dysfunction. He is scheduled for UDS 06/06/2023 (tomorrow). Reports voiding Q1 hr during the day, more frequent in the evening but he is not bothered by this. No leakage/no urge incontinence NF 1 His main complaint is weaker stream . Fluids: 1 can and Coffee (1/2 pot regular), [...] no improvement -UDS scheduled tomorrow Keesha Curtis APRN.STRIPPER OPAQUER Time: [address] [facility] 05-25-2023 Miscellaneous Notes Patient is scheduled for [...] his Urodynamics and Cysto with me at [facility] Gloria, BG documented in this encounter [facility] 05-04-2023 History of Present illness Narrative Occupational Therapy Occupational Therapy Discharge Visit Patient Name: Vince Luciano Today's Date: 05/04/2023 Linked Episodes Type: Episode: Status: Noted: Resolved: Last update: Updated by: Occupational Therapy Sae MELISSA osteotomy Active 03/08/2023 05/04/2023 3:42 PM Emely [...] ROM, strengthening, and scar/edema management at discharge. [facility] Goals: PRWHE Pain Score < 5/50 (IE: 14/50) GOAL MET: 0/50. PRWHE Functional Score < 5/100 (IE: 12/100) GOAL MET 0/100. Improve 4th digit PINEDA to at least 90% pain free at discharge. ( IE: 50%). GOAL MET: IP joint flexion increasing to 80 degrees. PINEDA: 97% Increase R hand loom fixer supervisor strength by at least 10# in order to complete work related tasks at discharge. (IE: 90#). GOAL MET: R loom fixer supervisor 130# no pain. Pt tolerated session well. Has met all goals. Maximum progress made. No pain reported. Full composite loom fixer supervisor present. No concerns/ issues with work related tasks. [facility] Pt in agreement. documented in this encounter [facility] 05-02-2023 Note HNO ID: [id number] Author: JESSICA MEADOWS MD Service: ? Author Type: Physician Type: Progress Notes Filed: 05/02/2023 16:17 Note Text: [address] [place] [address] AMBULATORY PROCEDURE NOTE NAME: Vince Luciano AGE: [age] year old CLINIC #: [id number] DATE: May 02, 2023 SURGEON: Jessica Meadows [...] dysfunction specialists. By signing my name below, Angelito Julien, attest that this documentation has been prepared under the direction and in the presence of Dr. Meadows Electronically signed, Lea Stiles STAFF PHYSICIAN NOTE OF PERSONAL INVOLVEMENT IN CARE The above noted history, physical, assessment and plan were reviewed with the provider and critical portions of the HANDP were confirmed. I evaluated and examined the patient and agree with the plan above and provided direct supervision of the above provider during this patient's care. Jessica Meadows MD [facility] 05-02-2023 Note HNO ID: [id number] Author: AMITA CHOU RN Service: ? Author [...] specimen containers correctly labeled. Amita Chou RN [facility] 05-02-2023 Note HNO ID: [id number] Author: JESSICA MEADOWS MD Service: ? Author Type: Physician Type: Progress Notes Filed: 05/03/2023 06:10 Note Text: [facility] NEW PATIENT HISTORY [...] Exam: Prostate: symmetrical, nontender, w/o nodules. Fiona Alvarez, BUSINESS SERVICES MANAGER.STRIPPER OPAQUER ASSESSMENT AND PLAN: Chronic obstructive voiding symptoms [...] which included preparing to see the patient, ahgy-ab-ugeo patient care, completing clinical documentation, obtaining and/or reviewing separately obtained history, counseling and educating the patient/family/caregiver, and care coordination (not separately reported). By signing my name below, I, Angelito Bennett, attest that this documentation has been prepared under the direction and in the presence of Dr. Meadows Electronically signed, (more content not included)... [facility] 05-02-2023 Note Patient Outreach (UR OLMN) VINCE LUCIANO ([id number]) 1980 M Date Time Provider Department 05/02/23 JESSICA MEADOWS During your visit today, we recorded the following information about you: Allergies As of Date: 05/02/2023 Noted Allergy Reaction CINNAMON 08/02/2011 7 - Swelling COCONUT 08/02/2011 7 - Swelling Date Reviewed: 05/02/2023 Reviewed by: Amita Chou RN - Fully Assessed Visit Diagnosis:Screening for genitourinary condition [Z13.89] Order(s):URINALYSIS, REFLEX MICROSCOPIC [LPS3835] Order #: [id number]. #:[id number] Prescriptions as of 05/07/2023 - buPROPion XL [...] LPN 07/24/2011 Problem List As Of Date 05/02/2023 Noted Resolved Varicose veins of lower extremities with other *06/11/2013 Elevated partial thromboplastin time (PTT) [R79*05/25/2014 Hematoma [T14.8XXA] 05/25/2014 Symptomatic spider varicose vein [I83.899] 06/07/2015 Varicose veins of leg with pain [I83.819] 06/07/2015 Encounter Status:Closed by MILY BLACK on 05/07/23 [facility] 04-11-2023 Note Orthopedic Surgery 02/19/2023 Ring Finger [...] using the hand as tolerated for activities. [facility] 04-09-2023 Hospital Discharge instructions Patient Education 04/09/2023 19:45:42 Shortness of Breath, Adult, Shxq-sw-Zgyr Shortness of Breath, Adult Shortness of breath [...] for any changes in your symptoms. Take uqsv-upc-zbjlpwq and prescription medicines only as told by [...] provider. Document Revised: 11/05/2021 Document Reviewed: 11/05/2021 [employer] Patient Education 2022 [employer]. Follow Up Care 04/09/2023 17:52:18 With:Roxy Villa Address: [address] [place], [place] [address] Business (1) When:04/12/2023 19:34:33 Comments:Keep a log of when you get short of breath and follow-up with your doctor. Continue taking your medications as prescribed. Please return to the ED for any new or worsening symptoms. [facility] 04-09-2023 Evaluation + Plan note Extrac guanako from: Title:ED Note Author:Clifford Sanchez DO Date:04/09 Dyspnea (R06.00: Dyspnea, un specified) Orders: [...] ED for any new or worsening symptoms. [facility]12-06-2023 NoteOrthopedic Surgery 02/19/2023 Ring Finger Middle Phalanx [...] weeks with x-rays of his right ring finger..[facility]11-20-2023 Note Patient: Vince Luciano Procedure Summary Date: 02/19/23 Room / Location: [facility] OR [address] [place] [address] GISC OR Anesthesia Start: 0800 Anesthesia Stop: [...] PACU per anesthesia protocol. No notable events documented.[facility]11-20-2023 Note Patient: Vince Luciano Procedure Summary Date: 02/19/23 Room / Location: [facility] OR [address] [place] [address] GIS OR Anesthesia Start: 0800 Anesthesia Stop: Procedure: RING FINGER MIDDLE PHALANX OSTEOTOMY (Right: Ring Finger) Diagnosis: Finger pain, right (Finger pain, right [M79.644]) Surgeons: Rafael Weeks MD Responsible Provider: Joaquim Hu MD Anesthesia Type: MAC, regional ASA Status: 2 Anesthesia Post Transport [facility]: room air Patient Monitor: direct observation Transport: uneventful [facility] Peripheral Block Patient location during procedure: pre-op Start time: 02/19/2023 7:50 AM End time: 02/19/2023 7:55 AM Reason for block: primary anesthetic and at surgeon's request Staffing Performed: resident/SYRUP MIXER ASSISTANT/CAA Anesthesiologist: Joaquim Hu MD Resident/SYRUP MIXER ASSISTANT: Ivan Martinez MD Preanesthetic Checklist Completed: patient [...] Heart rate change: no Slow fractionated injection: [facility]Un[facility]-2023 NotePatient: Vince Luciano Procedure Information Date/Time: 02/19/23814 Procedure: RING FINGER MIDDLE PHALANX OSTEOTOMY (Right: Ring Finger) - C-Arm, MEDARTIS NOTIFIED 02/12 NAYLA, DO NOT MOVE Location: [facility] OR [address] [place] [address] OR Surgeons: Rafael Weeks MD Relevant Problems [...] products. Plan discussed with attending. [facility] Note Chief Complaint consultation for nevus [...] vaccine, live, trivalent - Not Given Patient RefusesOhiohealth Arthur G.H. 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 Do not wear perfume, make-up, nail turkish, or lotions on the day of your surgery or procedure. Follow skin-prep/wipe instructions as below if required. HOLD VITAMINS AND SUPPLEMENTS STARTING 11-16. TAKE BUPROPION, DOXYCYLINE, FLOMAX, TOPIRAMATE DAY OF [...] need to make any changes, please call [phone]. Notify your surgeon if you develop any illness such as a cold, cough, fever, sore throat or vomiting between now and your surgery. Thank you for entrusting us with your care. [facility] Surgical Services [facility] Surgery Subjective 05/17/2022 Ring Finger Irrigation and Debridement - Right and Open reduction percutaneous fixation of proximal phalanx, ring finger - Right 01/30/23 Since his last visit patient's been participating in physical therapy and feels his range of motion has not improved. 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 due to the [...] his right ring finger middle phalanx Mian Blood, MD Orthopedic Surgery Resident Orthopedic Surgery Pager: [phone] 01/30/23 3:29 PM By using the attestations [...] may be an additional personal documentation from me.[facility]02-03-2023 Note PROCEDURE: XR HAND RT MIN [...] Electronically authenticated by: IAN ROMAN Date: 2022-05-05 15:36[facility] Future Appointments Appointment Date:03/07/2023 03:00:00 PM Scheduled Provider:Riley RODRIGUEZ MD Location:[facility] Appointment Type: Procedure 30 General Surgery [place] Evaluation note* Diagnosis Laceration of extensor muscle, fascia and tendon of right ring finger at wrist and hand level, initial encounter- Primary Open displaced fracture of middle phalanx of right ring finger, initial encounter documented in this encounter [facility]* Diagnosis Screening for genitourinary condition Screening for other and unspecified genitourinary condition [facility] Diagnosis Weak urinary stream- Primary Slowing of urinary stream [facility]* Diagnosis BPH with urinary obstruction- Primary Hypertrophy of prostate with urinary obstruction and other lower urinary tract symptoms (LUTS) documented [facility] this [facility]* Diagnosis Weak urinary stream- Primary Slowing of urinary stream BPH with obstruction/lower urinary tract symptoms Hypertrophy of prostate with urinary obstruction and other lower urinary tract symptoms (LUTS) Urinary frequency Voiding dysfunction Unspecified disorder of urethra and urinary tract documented [facility] this [facility]* Diagnosis Preoperative examination- Primary Preoperative examination, [...] with Imitrex PRN. documented in this encounter [facility] Narrative No data available for this section General Surgery [place] [facility] Discharge instructions No data available for this section General Surgery [place] Progress note No data available for this section General Surgery [place] Reason for referral (narrative)* Outpatient Procedure (Routine) - Pending Review Specialty Diagnoses / Procedures Referred By Contac t Referred To Contact [facility] Diagnoses Weak urinary stream Procedures FLUROURODYNAMICS WITH EMG EMG STDS ANAL/URTL SPHNCTR OTH/THN NDL Nando Parker MD [address] [place] [address] [place] [address] Referral ID Status Reason Start Date Expiration Date Visits Requested Visits Authorized [id number] Pending Review Auto-Generat ed Referral 05/18/2023 05/18/2024 1 1 [facility] for referral (narrative)* Outpatient Procedure (Routine) - Pending Review Specialty Diagnoses / Procedures Referred By Contac t Referred To Contact [facility] Diagnoses Preoperative examination Procedures ECG COMPLETE ECG ROUTINE ECG W/LEAST 12 LDS W/I&R Amita Gee PA-C [address] [address] [place] [address] Referral ID Status Reason Start Date Expiration Date Visits Requested Visits Authorized [id number] Pending Review Auto-Generat ed Referral 08/01/2023 07/31/2024 1 1 [facility] Summary Purpose Family History No Family History [...] and content) DATE CREATED AUTHOR 11/23/2018 [facility] DATE CREATED AUTHOR AUTHOR'S ORGANIZ ATION 06/12/2020 [facility] DATE CREATED AUTHOR AUTHOR'S ORGANIZ ATION 07/29/2022 [facility] DATE CREATED AUTHOR AUTHOR'S ORGANIZ ATION 05/08/2023 [facility] EPIC DATE CREATED AUTHOR AUTHOR'S ORGANIZ ATION 08/14/2023 [facility] DATE CREATED AUTHOR AUTHOR'S ORGANIZ ATION 08/16/2023 [facility] DATE CREATED AUTHOR AUTHOR'S ORGANIZ ATION 11/21/2023 [facility] DATE CREATED AUTHOR AUTHOR'S ORGANIZ ATION 11/23/2023 [facility] Patient Care team informatio n (unrecognized section and content) Compliance Associate Relationship Specialty Start Date End Date Unallocated, [place] Provider [place] [address] PCP - General 01/09/23 Compliance Associate Relationship Specialty Start Date End Date Roxy Driver MD PCP - General 02/03/05 Compliance Associate Relationship Specialty Start Date End Date Roxy Driver MD PCP - General 02/03/05 Compliance Associate Relationship Specialty Start Date End Date Roxy Driver MD PCP - General 02/03/05 Compliance Associate Relationship Specialty Start Date End Date Roxy Driver MD PCP - General 02/03/05 Compliance Associate Relationship Specialty Start Date End Date Roxy Driver MD PCP - General 02/03/05 Compliance Associate Relationship Specialty Start Date End Date Roxy Driver MD PCP - General 02/03/05 Compliance Associate Relationship Specialty Start Date End Date Roxy Driver MD PCP - General 02/03/05 Reason for Visit (unrecogniz ed section and content) Specialty Diagnoses / Procedures Referred By Contac t Referred To Contact Occupational Therapy / Physical Therapy Diagnoses Displaced fracture of middle phalanx of right ring finger, initial encounter for open fracture Laceration of extensor muscle, fascia and tendon of right ring finger at wrist and hand level, initial encounter Procedures [place] [facility] Rafael Weeks MD [address] [place] [address] SarahskipEmely, OT [address] [place] [address] Referral ID Status Reason Start Date Expiration Date V isits Requested Visits Authorized [id number] Authorized 02/01/2023 05/04/2023 1 27 Reason Comments [...] or prosecute any alcohol or drug abuse patient.[facility] the event this information is protected by the Federal Confidentiality of Alcohol and Drug Abuse Patient Records regulations: The Federal rules restrict any use of the information to criminally investigate or prosecute any alcohol or drug abuse patient.[facility] the event this information is protected by the Federal Confidentiality of Alcohol and Drug Abuse Patient Records regulations: The Federal rules restrict any use of the information to criminally investigate or prosecute any alcohol or drug abuse patient.[facility] the event this information is protected by the Federal Confidentiality of Alcohol and Drug Abuse Patient Records regulations: The Federal rules restrict any use of the information to criminally investigate or prosecute any alcohol or drug abuse patient.[facility] the event this information is protected by the Federal Confidentiality of Alcohol and Drug Abuse Patient Records regulations: The Federal rules restrict any use of the information to criminally investigate or prosecute any alcohol or drug abuse patient.[facility] the event this information is protected by the Federal Confidentiality of Alcohol and Drug Abuse Patient Records regulations: The Federal rules restrict any use of the information to criminally investigate or prosecute any alcohol or drug abuse patient.[facility] CampusIn the event this information is protected by the Federal Confidentiality of Alcohol and Drug Abuse Patient Records regulations: The Federal rules restrict any use of the information to criminally investigate or prosecute any alcohol or drug abuse patient.[facility] CampusIn the event this information is protected by the Federal Confidentiality of Alcohol and Drug Abuse Patient Records regulations: The Federal rules restrict any use of the information to criminally investigate or prosecute any alcohol or drug abuse patient.[facility] Inactive Administered Medications - up to 3 [...] BE BASED ON THE PRIMARY CLINICAL RECORDS. [employer] [facility]. provides no warranty or guarantee of the accuracy or completeness of information in this document.
[2023-12-07 17:31] VITALS: PULSE 72
[2023-12-07 17:45] LABS: Basophils Percent Auto 0.4 % (0.2-2.0); Eosinophils Absolute Auto 0.1 10^3/uL (0.0-0.7); Eosinophils Percent Auto 1.2 % (0.9-7.0); Hematocrit 42.6 % (42.0-54.0); Hemoglobin 14.2 g/dL (14.0-18.0); Immature Granulocytes Abs Auto 0.02 10^3/uL (0.00-0.03); Immature Granulocytes Pct Auto 0.3 % (0.0-0.5); Lymphocytes Absolute Auto 1.5 10^3/uL (1.2-3.8); Lymphocytes Percent Auto 20.2 % (20.5-60.0); Mean Corpuscular HGB Conc 33.3 g/dL (29.9-35.2); Mean Corpuscular Volume 95.9 fL (80.0-94.0); Mean Platelet Volume 10.4 fL (9.5-13.5); Monocytes Absolute Auto 0.5 10^3/uL (0.3-0.8); Neutrophils Absolute Auto 5.1 10^3/uL (1.4-6.5); Neutrophils Percent Auto 70.9 % (43.0-75.0); Platelet Count 203 10^3/uL (150-450); Red Blood Count 4.44 10^6/uL (4.70-6.10); Red Cell Distribution Width 12.3 % (11.0-15.0); White Blood Count 7.2 10^3/uL (4.0-11.0)
[2023-12-07] MEDS: HYDROCODONE/ACET 5-325 MG TABLET 1 TAB PO (17:46)
[2023-12-07 18:01] LABS: INR 1.02; Prothrombin Time 10.8 sec (9.0-11.6)
[2023-12-07] MEDS: OXYCODONE HCL/ACETAMINOPHEN 5MG/325MG 1 TAB PO (20:54)
[2023-12-08 00:01] LABS: Anion Gap 11.2; BUN Creatinine Ratio 14.5; Calcium 9.1 mg/dL (8.5-10.1); Carbon Dioxide 25.2 mmol/L (21.0-32.0); Chloride 102 mmol/L (98-107); Estimated GFR (African America >60 (>=60); Estimated GFR (Non-African Ame >60 (>=60); Glucose 98 mg/dL (74-106); Potassium 3.4 mmol/L (3.5-5.1); Sodium 135 mmol/L (136-145)
[2023-12-08] MEDS: APIXABAN 5 MG TABLET 10 MG PO (00:07)
[2023-12-08] MEDS: HYDROCODONE/ACET 5-325 MG TABLET 2 TAB PO (00:07)
== END 2023-12-08 00:16 | disposition home or self-care (01) ==
PROVIDERS: Physician Assistant; Emergency Provider Internal Medicine; PCP Radiology Diagnostic Radiology
DX: I82.4Z1 Acute embolism and thrombosis of unspecified deep veins of right distal lower extremity (principal); M79.604 Pain in right leg
CPT/HCPCS: 36415; 80048; 85025; 85610; 93971; 99284

== ENCOUNTER 2023-12-17 15:25 | Outpatient (OUT) | payer OTHER, SELFPAY ==
--- NOTE | 2023-12-17 15:32 | MR_ITS ---
The [place] [id number] Patient Name: VINCE LUCIANO MRN: [id number] date: 1980 Sex: M Assigned Patient Location: [facility] Current Patient Location: [facility] Accession/Order Number: [id number] Exam Date: 12/17/2023 15:55 Report Date: 12/17/2023 17:25 At the request of: ROXY DRIVER Procedure: MR lumbar spine wo con MR lumbar spine wo con, 12/17/2023 3:55 PM EDT INDICATION: Low back pain COMPARISON: There is no appropriate prior study for comparison. TECHNIQUE: Multiplanar, multisequential MRI images of lumbar spine were obtained without contrast. FINDINGS: For dictation purposes, the lowest complete disc space in the lumbar spine considered as L5-S1. There is normal physiologic lumbar lordosis. The vertebral height is preserved. The conus medullaris is at the level of L1. No signal abnormality within the visualized spinal cord is noted. At the level of L1-L2, there are disc bulge with mild right neuroforaminal narrowing and no canal stenosis. At the level of L2-L3, there are disc bulge with mild bilateral neuroforaminal narrowing and mild canal stenosis. At the level of L3-4, there are disc bulge with moderate bilateral neuroforaminal narrowing and moderate canal stenosis. At the level of L4-5, there are disc bulge with moderate bilateral neuroforaminal narrowing and moderate canal stenosis. At the level of L5-S1, there are disc bulge with mild bilateral neuroforaminal narrowing and no canal stenosis. The paraspinal muscles are unremarkable. MR/MR lumbar spine wo con IMPRESSION: Mild degenerative changes of lumbar spine in particular at L3-L4 and L4-L5. Electronically authenticated by: JAIME SWEET Date: 12/17/2023 17:25
--- NOTE | 2023-12-17 15:32 | XR_ITS ---
[address] [address] Patient Name: VINCE LUCIANO MRN: [id number] date: 1980 Sex: M Assigned Patient Location: RAD Current Patient Location: [facility] Accession/Order Number: [id number] Exam Date: 12/17/2023 15:44 Report Date: 12/17/2023 16:25 At the request of: ROXY DRIVER Procedure: XR foreign body eye ALLYSSA EXAMINATION: XR foreign body eye ALLYSSA HISTORY: pre MRI COMPARISON: No relevant comparison available. FINDINGS: ORBITS: Negative for a metallic foreign body. OTHER: Negative. XR/XR foreign body eye ALLYSSA IMPRESSION: No metallic foreign body in the orbits Electronically authenticated by: NAOMY VILLALPANDO Date: 12/17/2023 16:25
== END 2023-12-17 15:26 | disposition home or self-care (01) ==
PROVIDERS: PCP Family Medicine; Visit Provider Family Medicine
DX: M54.50 Low back pain, unspecified (principal); M51.36 Other intervertebral disc degeneration, lumbar region
CPT/HCPCS: 70030; 72148

== ENCOUNTER 2024-03-06 15:48 | Outpatient (OUT) | payer OTHER, SELFPAY ==
--- NOTE | 2024-03-06 15:52 | MR_ITS ---
The [address] [address] Patient Name: VINCE LUCIANO MRN: [id number] date: 1980 Sex: M Assigned Patient Location: MRI Current Patient Location: MRI Accession/Order Number: [id number] Exam Date: 03/06/2024 16:10 Report Date: 03/07/2024 13:54 At the request of: ROXY DRIVER Procedure: MR head/brain wo con EXAMINATION: MR head/brain wo con HISTORY: Migraine COMPARISON: No relevant comparison available. TECHNIQUE: A variety of imaging planes and parameters were utilized for visualization of suspected pathology. Images were performed without contrast. FINDINGS: CEREBRUM: No edema, hemorrhage, mass, acute infarction, or inappropriate atrophy. CEREBELLUM: Cerebellar tonsils extend below the foramen magnum up to 4.8 mm on the right. No edema, hemorrhage, mass, acute infarction, or inappropriate atrophy. BRAINSTEM: No edema, hemorrhage, mass, acute infarction, or inappropriate atrophy. CSF SPACES: Ventricles, cisterns, and sulci are appropriate for age. No hydrocephalus, subarachnoid hemorrhage, or mass. SKULL: No mass or other significant visible lesion. SINUSES: Limited views demonstrate no significant mucosal thickening or fluid. ORBITS: Limited views are unremarkable. OTHER: Negative. MR/MR head/brain wo con IMPRESSION: 1. Bilateral cerebellar tonsillar ectopia which could contribute to patient's chronic headaches. Electronically authenticated by: IAN ROMAN Date: 03/07/2024 13:54
--- NOTE | 2024-03-06 16:06 | XR_ITS ---
The [address] [address] Patient Name: VINCE LUCIANO MRN: [id number] date: 1980 Sex: M Assigned Patient Location: MRI Current Patient Location: MRI Accession/Order Number: [id number] Exam Date: 03/06/2024 16:12 Report Date: 03/06/2024 16:37 At the request of: ROXY DRIVER Procedure: XR foreign body eye ALLYSSA EXAM: XR foreign body eye ALLYSSA HISTORY: pre MRI screening. COMPARISON: None. XR/XR foreign body eye ALLYSSA IMPRESSION: 2 views of the orbits show no radiographic foreign body that is contraindicated for MRI. Electronically authenticated by: DENNYS GATES Date: 03/06/2024 16:37
== END 2024-03-06 15:49 | disposition home or self-care (01) ==
LOC: MRI 15:48
PROVIDERS: PCP Family Medicine; Visit Provider Family Medicine
DX: G43.909 Migraine, unspecified, not intractable, without status migrainosus (principal); Q04.8 Other specified congenital malformations of brain
CPT/HCPCS: 70030; 70551

== ENCOUNTER 2024-03-27 07:09 | Outpatient (OUT) | payer OTHER, SELFPAY ==
--- OUTSIDE RECORDS SUMMARY | 2024-03-27 07:11 | XMS_ITS | CCD ---
Author Organization [facility] CliniSyca Care Team Providers Care Elementary Secretary Name Role Phone SHAI PLASENCIAIL Attending Unavailable ROXY DRIVER Referring Unavailable ROXY DRIVER Primary Care Unavailable EBRAHEIM, NEELAM Admitting Unavailable EBRAHEIM, NEELAM Surgeon Unavailable IA Procedure Practitioner Unavailab le VILLA ., DR [...] .KIMBERLY Consulting UnavailRoxy Delgadillo Primary Care Physician [phone] Unallocated, [place] Provider Primary Care Provider Roxy [...] Unavailable Roxy Driver MD Primary Care Provider [phone] NANDO PARKER Admitting Unavailable NANDO PARKER Attending Unavailable HOShandra, ROXY Gibbons Primary Care Unavailable HOShandra, ROXY M Primary Care Unavailable NANDO PARKER Referring Unavailable ANISIMKEESHA SO Attending Unavailable HOY, ROXY M Primary Care Unavailable ALMASSI, JESSICA Attending Unavailable HOY, ROXY M Primary Care Unavailable ALMASSI, JESSICA Attending Unavailable HOY, ROXY M Primary Care Unavailable AMITA GEE Referring Unavailable HOY, ROXY M Primary Care Unavailable HOY, ROXY M Primary Care Unavailable HOY, ROXY M Primary Care Unavailable HOY, ROXY M Primary Care Unavailable NANDO PAREKR Attending Unavailable NILL, Riley Quevedo Attending Unavailable [...] Ciprofloxacin; Translations: [CIPRO] Drug Allergy 9 [facility] Repository (4 sources) Morphine; Translations: [MORPHINE] Drug Allergy 5 [facility] Repository (15 sources) Cinnamon Preparation; Translations: [CINNAMON] Drug Allergy 2 [facility] [place] (1 source) Coconut Flavor Allergy to substance 3 [facility] (11 sources) coconut allergenic extract; Translations: [COCONUT] Drug Allergy 2 Swelling [facility] (1 source) No Known Medication Allergies; Translations: [No Known Medication Allergies] Propensity to adverse reactions (disorder) [facility] Repository (1 source) Ciprofloxacin; Translations: [CIPROFLOXACIN] Drug Allergy 3 [facility] Repository NEGATED: Highlighted row has been ruled out! (1 source) Drug allergy General Surgery [place] NEGATED: Highlighted row has been ruled out! (1 source) Drug allergy General [facility] [place] Medications Current Medications Medication Drug Class(es) Dates [...] Start: 05-17-2022 take 1 capsule by [facility] in the morning docusate sodium (Colace) [...] on above: Take 1 capsule by [facility] once each week. naproxen 500 mg oral tablet (2 sources) Nonsteroidal Anti-inflammatory Drug Start: 08-19-2022 take 1 tablet by mouth twice daily as needed for pain naproxen 500 mg Tab 500 mg = 1 tab(s), Oral, BID, PRN for pain, # 20 tab(s), Refills(s) 0, Pharmacy: [facility]/pharmacy #[id number], 190.5, cm, 08/19/22 14:09:00 EDT, Height/Length [...] Drug Class(es) Dates Sig (Normalized) Sig (Original) [id number] 200 actuat albuterol 0.09 mg/actuat metered dose [...] Test Name Value Interpretation Reference Range Facility 36on 12-17-2023 36 Patient was cancelle d and going to call back to [facility] Telephoneon 12-14-2023 Telephone [id number] Vince Luciano 1980 M Date Provider Department Center 12/14/2023 BEULAH NOGUERA MP ORTHO MPORTHO Family History Problem Relation Age of Onset Hypertension Mother Family Status - Relation Status Age at Mother Reason for Visit and Comments: Change procedure date. [Other] - Patients called in and states they need to change patients procedure date with Dr. Weeks. [facility] Provider Letteron 11-20-2023 Provider Letter Provider Letter November 20, 2023 VINCE LUCIANO [phone] [address] : 1980 Dear Mr. Luciano, We have been trying to reach you with no success regarding a referral from Dr Driver. It is important that you return our call upon receiving this letter. Also, at the time of your call, please provide us with your current information. Thank you for your prompt attention to this matter. Sincerely, [facility] General Surgery [phone] [facility] 36on 11-19-2023 36 Patient was schedule d for 12/24/2023 [facility] 36 [facility] authorization on file for HARDWARE REMOVAL RT RING FINGER; POST OP PT 2X PER WEEK FOR 6 WEEKS Valid SX 11/12/2023- 12/31/2023; POST OP PT 11/12/2023- 01/31/2024 Please make sure all orders are in the chart and call patient to schedule Normal [facility] Orders Onlyon 11-19-2023 Orders Only [id number] Dodson 1980 M Date Provider Department [place] 11/19/2023 803-CASESHANDA MP ORTHO SUMANTHRTHO Family History Problem Relation Age of Onset Hypertension Mother Family Status - Relation Status Age at Mother Normal [facility] Office Visiton 11-07-2023 Follow-up visit [id number] Dodson 1980 M Date Provider Department [place] 11/07/2023 RAFAEL MONTANEZ MP ORTHO MPORTHO Family History Problem Relation Age of Onset Hypertension Mother Family Status - Relation Status Age at Mother Level of Service:56537 [place] OFFICE/OUTPATIENT ESTABLISHED LOW MDM 20 MIN Reason for Visit and Comments: Pain [136] Normal [facility] Orders Onlyon 11-02-2023 Orders Only [id number] Dodson 1980 M Date Provider Department [place] 11/02/2023 803-SHANDA THOMAS MP ORTHO SUMANTHRTHO Family History Problem Relation Age of Onset Hypertension Mother Family Status - Relation Status Age at Mother [facility] ANES POSTPROC EVALon 024 ANES POSTPROC EVAL HNO ID: [id number] Author: EVERETT JOHNSON IV, DO Service: Anesthesiology [...] August 13, 2023 TIME: 3:21 PM CSN: [id number] [facility] ANES PRE-OPon 08-13-2023 ANES PRE-OP HNO ID: [id number] Author: EVERETT JOHNSON IV, DO Service: Anesthesiology [...] and consent discussed: yes. Patient / Responsible Republican agrees to proceed: yes Patient / Surrogate [...] August 13, 2023 TIME: 10:53 AM CSN: [id number] [facility] 08-13-2023 [facility] Telephone (GLQ) MUSTAPHAVINCE ([id number]) 1980 M Date Time Provider Department 08/13/23 NANDO PARKER GLQ During your visit today, we recorded the following information about you: Fiona Al 08/13/2023 11:53 AM Signed is calling regarding his [facility] papers, he is having surgery today. Please [...] RN - Fully Assessed Reason for Visit: [facility] Paperwork [[id number]] Prescriptions as of 08/14/2023 - [...] obstruction/lower urinary tract sympto*08/10/2023 Encounter Status:Closed by IMELDAYARITZA EDGEFIONA on 08/14/23 [facility] HISTORY PHYSICALon HISTORY PHYSICAL HNO ID: [id number] Author: NANDO PARKER MD Service: Urology Author [...] DATE: August 13, 2023 TIME: 11:21 AM [facility] NURSING PROGon 08-13-2023 NURSING PROG HNO ID: [id number] Author: NAHID WIBLURN RN Service: ? Author Type: Registered Nurse [...] signs of distress. Continue to monitor patient. [facility] OPERATIVE NOon 08-13-2023 OPERATIVE NO HNO ID: [id number] Author: NANDO PARKER MD Service: Urology Author Type: Physician Type: Operative Report Filed: 08/13/2023 14:35 Note Text: OPERATIVE/PROCEDURE REPORT LOG ID: [id number] SURGERY/PROCEDURE DATE: 08/13/2023 INCISION/PROCEDURE START TIME: 1:52 PM INCISION CLOSE/PROCEDURE END TIME: 2:23 PM SURGEON(S)/PROCEDURALI ST(S) AND TELEPHONE MECHANIC(S): Surgeon(s) and Role: * Nando Parker MD [...] produced a good urinary stream. A 22 maltese Coude catheter was placed with return of [...] August 13, 2023 TIME: 2:31 PM Normal [facility] Bacteria Ur Culton 4 Bacteria identified Cx Nom (U) ORGANISM ID: 1 <10,000 CFU/ml Normal urogenital enrique Normal [facility] Comment on above: Performed By: #### 6 30-4 ####[facility] LABCLIA [id number] [place] [address] [place] CBC W Auto Differential pane l (Bld)on 08-01-2023 Basophils (Bld) [#/Vol] 10*3/uL Normal <0.11 [facility] Comment on above: Order Comment: Speci men Type: BLOOD SPECIMENOrdering Facility: [facility] Address: [address] [place] [address] Performed By: #### 5 7021-8 ####LUIS ENRIQUE [facility] LABCLIA [id number] [address] [place] Basophils/100 WBC (Bld) 0.4 % Normal [facility] Comment on above: Order Comment: Speci men Type: BLOOD SPECIMENOrdering Facility: [facility] Address: [address] [place] [address] Performed By: #### 5 7021-8 ####LUIS ENRIQUE [facility] LABCLIA [id number] [place] [address] [place] Differential cell count method Nom (Bld) Auto Normal [facility] Comment on above: Order Comment: Speci men Type: BLOOD SPECIMENOrdering Facility: [facility] Address: [address] [place] [address] Performed By: #### 5 7021-8 ####LUIS ENRIQUE [facility] LABCLIA [id number] [place] [address] [place] Eosinophils (Bld) [#/Vol] 0.10 10*3/uL Normal <0.46 [facility] Comment on above: Order Comment: Speci men Type: BLOOD SPECIMENOrdering Facility: [facility] Address: [address] [place] [address] Performed By: #### 5 7021-8 ####LUIS ENRIQUE [facility] LABCLIA [id number] [place] [id number] [place] Eosinophils/100 WBC (Bld) 1.8 % Normal [facility] Comment on above: Order Comment: Speci men Type: BLOOD SPECIMENOrdering Facility: [facility] Address: [address] [place] [address] Performed By: #### 5 7021-8 ####LUIS ENRIQUE [facility] LABCLIA [id number] [place] [address] [place] Erythrocyte distribution width (RBC) [Ratio] 11.9 % Normal 11.5-15.0 [facility] Comment on above: Order Comment: Speci men Type: BLOOD SPECIMENOrdering Facility: [facility] Address: [address] [place] [address] Performed By: #### 5 7021-8 ####TERIElanaJAZMYNE [facility] LABCLIA [id number] [address] [place] Hematocrit (Bld) [Volume fraction] 46.4 % Normal 39.0-51.0 [facility] Comment on above: Order Comment: Speci men Type: BLOOD SPECIMENOrdering Facility: [facility] Address: [address] [place] [address] Performed By: #### 5 7021-8 ####LUIS ENRIQUE [facility] LABIA [id number] [place] [address] [place] Hemoglobin (Bld) [Mass/Vol] 16.0 g/dL Normal 13.0-17.0 [facility] Comment on above: Order Comment: Speci men Type: BLOOD SPECIMENOrdering Facility: [facility] Address: [address] [place] [address] Performed By: #### 5 7021-8 ####LUIS ENRIQUE [facility] LABIA [id number] [place] [address] [place] Immature granulocytes (Bld) [#/Vol] 10*3/uL Normal <0.10 [facility] Comment on above: Order Comment: Speci men Type: BLOOD SPECIMENOrdering Facility: [facility] Address: [address] [place] [address] Performed By: #### 5 7021-8 ####FABIÁNJAZMYNE [facility] LABCLIA [id number] [place] [id number] [place] Immature granulocytes/100 WBC (Bld) 0.2 % Normal [facility] Comment on above: Order Comment: Speci men Type: BLOOD SPECIMENOrdering Facility: [facility] Address: [address] [place] [address] Performed By: #### 5 7021-8 ####LUIS ENRIQUE [facility] LABCLIA [id number] [place] [address] [place] Lymphocytes (Bld) [#/Vol] 1.01 10*3/uL Normal 1.00-4.00 [facility] Comment on above: Order Comment: Speci men Type: BLOOD SPECIMENOrdering Facility: [facility] Address: [address] [place] [address] Performed By: #### 5 7021-8 ####LUIS ENRIQUE [facility] LABCLIA [id number] [address] [place] Lymphocytes/100 WBC (Bld) 18.6 % Normal [facility] Comment on above: Order Comment: Speci men Type: BLOOD SPECIMENOrdering Facility: [facility] Address: [address] [place] [address] Performed By: #### 5 7021-8 ####LUIS ENRIQUE [facility] LABCLIA [id number] [address] [place] MCH (RBC) [Entitic mass] 32.5 pg Normal 26.0-34.0 [facility] Comment on above: Order Comment: Speci men Type: BLOOD SPECIMENOrdering Facility: [facility] Address: [address] [place] [address] Performed By: #### 5 7021-8 ####TERIROMAN [facility] LABCLIA [id number] [address] [place] MCHC (RBC) [Mass/Vol] 34.5 g/dL Normal 30.5-36.0 [facility] Comment on above: Order Comment: Speci men Type: BLOOD SPECIMENOrdering Facility: [facility] Address: [address] [place] [address] Performed By: #### 5 7021-8 ####TERIROMAN [facility] LABCLIA [id number] [place] [id number] [place] MCV (RBC) [Entitic vol] 94.1 fL Normal 80.0-100.0 [facility] Comment on above: Order Comment: Speci men Type: BLOOD SPECIMENOrdering Facility: [facility] Address: [address] [place] [address] Performed By: #### 5 7021-8 ####LUIS ENRIQUE [facility] LABCLIA [id number] [address] [place] Monocytes (Bld) [#/Vol] 0.44 10*3/uL Normal <0.87 [facility] Comment on above: Order Comment: Speci men Type: BLOOD SPECIMENOrdering Facility: [facility] Address: [address] [place] [address] Performed By: #### 5 7021-8 ####FABIÁNJAZMYNE [facility] LABCLIA [id number] [address] Monocytes/100 WBC (Bld) 8.1 % Normal [facility] Comment on above: Order Comment: Speci men Type: BLOOD SPECIMENOrdering Facility: [facility] Address: [address] [place] [address] Performed By: #### 5 7021-8 ####LUIS ENRIQUE [facility] LABCLIA [id number] [place] [address] [place] Neutrophils (Bld) [#/Vol] 3.86 10*3/uL Normal 1.45-7.50 [facility] Comment on above: Order Comment: Speci men Type: BLOOD SPECIMENOrdering Facility: [facility] Address: [address] [place] [address] Performed By: #### 5 7021-8 ####FABIÁNJAZMYNE [facility] LABCLIA [id number] [address] [place] Neutrophils/100 WBC (Bld) 70.9 % Normal [facility] Comment on above: Order Comment: Speci men Type: BLOOD SPECIMENOrdering Facility: [facility] Address: [address] [place] [address] Performed By: #### 5 7021-8 ####STRONGSJAZMYNE [facility] LABCLIA [id number] [place] [address] [place] Nucleated RBC (Bld) [#/Vol] 10*3/uL Normal <0.01 [facility] Comment on above: Order Comment: Speci men Type: BLOOD SPECIMENOrdering Facility: [facility] Address: [address] [place] [address] Performed By: #### 5 7021-8 ####LUIS ENRIQUE [facility] LABCLIA [id number] [place] [address] [place] Nucleated RBC/100 WBC (Bld) [Ratio] 0.0 /100 WBC Normal [facility] Comment on above: Order Comment: Speci men Type: BLOOD SPECIMENOrdering Facility: [facility] Address: [address] [place] [address] Performed By: #### 5 7021-8 ####FABIÁNJAZMYNE [facility] LABCLIA [id number] [place] [address] [place] Platelet mean volume (Bld) [Entitic vol] 10.5 fL Normal 9.0-12.7 [facility] Comment on above: Order Comment: Speci men Type: BLOOD SPECIMENOrdering Facility: [facility] Address: [address] [place] [address] Performed By: #### 5 7021-8 ####LUIS ENRIQUE [facility] LABCLIA [id number] [place] [address] [place] Platelets (Bld) [#/Vol] 218 10*3/uL Normal 150-400 [facility] Comment on above: Order Comment: Speci men Type: BLOOD SPECIMENOrdering Facility: [facility] Address: [address] [place] [address] Performed By: #### 5 7021-8 ####LUIS ENRIQUE [facility] LABIA [id number] [place] [address] [place] RBC (Bld) [#/Vol] 4.93 10*6/uL Normal 4.20-6.00 [facility] Comment on above: Order Comment: Speci men Type: BLOOD SPECIMENOrdering Facility: [facility] Address: [address] [place] [address] Performed By: #### 5 7021-8 ####[place] [facility] LABCLIA [id number] [place] [id number] [facility] WBC (Bld) [#/Vol] 5.44 10*3/uL Normal 3.70-11.00 [facility] Comment on above: Order Comment: Speci men Type: BLOOD SPECIMENOrdering Facility: [facility] Address: [address] [place] [address] Performed By: #### 5 7021-8 ####[place] [facility] LABCLIA [id number] [place] [id number] [facility] Basophils (Bld) [#/Vol] [facility] Basophils/100 WBC (Bld) 0.4 % [facility] Differential cell count method Nom (Bld) Auto [facility] Eosinophils (Bld) [#/Vol] 0.10 10*3/uL [facility] Eosinophils/100 WBC (Bld) 1.8 % [facility] Erythrocyte distribution width (RBC) [Ratio] 11.9 % 11.5 - 15.0 % [facility] Hematocrit (Bld) [Volume fraction] 46.4 % 39.0 - 51.0 % [facility] Hemoglobin (Bld) [Mass/Vol] 16.0 g/dL 13.0 - 17.0 g/dL [facility] Immature granulocytes (Bld) [#/Vol] [facility] Immature granulocytes/100 WBC (Bld) 0.2 % [facility] Lymphocytes (Bld) [#/Vol] 1.01 10*3/uL [facility] Lymphocytes/100 WBC (Bld) 18.6 % [facility] MCH (RBC) [Entitic mass] 32.5 pg 26.0 - 34.0 pg [facility] MCHC (RBC) [Mass/Vol] 34.5 g/dL 30.5 - 36.0 g/dL [facility] MCV (RBC) [Entitic vol] 94.1 fL 80.0 - 100.0 fL [facility] Monocytes (Bld) [#/Vol] 0.44 10*3/uL [facility] Monocytes/100 WBC (Bld) 8.1 % [facility] Neutrophils (Bld) [#/Vol] 3.86 10*3/uL [facility] Neutrophils/100 WBC (Bld) 70.9 % [facility] Nucleated RBC (Bld) [#/Vol] NINF [facility] Nucleated RBC/100 WBC (Bld) [Ratio] 0.0 % /100 WBC [facility] Platelet mean volume (Bld) [Entitic vol] 10.5 fL 9.0 - 12.7 fL [facility] Platelets (Bld) [#/Vol] 218 10*3/uL [facility] RBC (Bld) [#/Vol] 4.93 10*6/uL 4.20 - 6.0 0 m/uL [facility] WBC (Bld) [#/Vol] 5.44 10*3/uL [facility] Comprehensive metabolic 2000 panelon 08-01-2023 Albumin [Mass/Vol] 4.3 g/dL 3.9 - 4.9 g/dL [facility] ALP [Catalytic activity/Vol] 85 U/L 38 - 113 U/L [facility] ALT [Catalytic activity/Vol] 15 U/L 10 - 54 U/L [facility] Anion gap [Moles/Vol] 9 mmol/L 9 - 18 mmol/L [facility] AST [Catalytic activity/Vol] 27 U/L 14 - 40 U/L [facility] Bilirubin [Mass/Vol] 0.5 mg/dL 0.2 - 1 .3 mg/dL [facility] Calcium [Mass/Vol] 9.4 mg/dL 8.5 - 10. 2 mg/dL [facility] Chloride [Moles/Vol] 106 mmol/L High 97 - 10 5 mmol/L [facility] CO2 [Moles/Vol] 24 mmol/L 22 - 30 mmol/L [facility] Creatinine [Mass/Vol] 1.10 mg/dL 0.73 - 1.22 mg/dL [facility] GFR/1.73 sq M.predicted among non-blacks MDRD (S/P/Bld) [Vol rate/Area] 85 mL/min/{1.73_m2} - PINF [facility] Comment on above: Estimated Glomerular [...] [Mass/Vol] 94 mg/dL 74 - 99 mg/dL [facility] Comment on above: The [place] [employer] (ADA) provides guidance for [...] Standards of Medical Care in Diabetes 2016, [place] [employer]. Diabetes Care. 2016.39(Suppl 1). Interpretation and review of laboratory results Abnormal [facility] Potassium [Moles/Vol] 4.4 mmol/L 3.7 - 5.1 mmol/L [facility] Protein [Mass/Vol] 6.7 g/dL 6.3 - 8.0 g/dL [facility] Sodium [Moles/Vol] 139 mmol/L 136 - 144 mmol/L [facility] Urea nitrogen [Mass/Vol] 22 mg/dL 9 - 24 mg/dL [facility] Albumin [Mass/Vol] 4.3 g/dL Normal 3.9-4.9 [facility] Comment on above: Order Comment: Adriana stockton Type: BLOOD SPECIMENOrdering Facility: [facility] Address: [address] [place] [address] Performed By: #### 2 4323-8 ####[facility] LABCLIA [id number] [place] [address] [place] ALP [Catalytic activity/Vol] 85 U/L Normal 38-113 [facility] Comment on above: Order Comment: Adriana stockton Type: BLOOD SPECIMENOrdering Facility: [facility] Address: [address] [place] [id number] Performed By: #### 2 4323-8 ####[facility] LABCLIA [id number] [place] [address] [place] ALT [Catalytic activity/Vol] 15 U/L Normal 10-54 [facility] Comment on above: Order Comment: Speci men Type: BLOOD SPECIMENOrdering Facility: [facility] Address: [address] [place] [address] Performed By: #### 2 4323-8 ####[facility] LABCLIA [id number] [place] [address] [place] Anion gap [Moles/Vol] 9 mmol/L Normal 9-18 [facility] Comment on above: Order Comment: Speci men Type: BLOOD SPECIMENOrdering Facility: [facility] Address: [address] [place] [address] Performed By: #### 2 4323-8 ####[facility] LABCLIA [id number] [place] [address] [place] AST [Catalytic activity/Vol] 27 U/L Normal 14-40 [facility] Comment on above: Order Comment: Speci men Type: BLOOD SPECIMENOrdering Facility: [facility] Address: [address] [place] [address] Performed By: #### 2 4323-8 ####[facility] LABCLIA [id number] [place] [address] [place] Bilirubin [Mass/Vol] 0.5 mg/dL Normal 0.2-1.3 [facility] Comment on above: Order Comment: Speci men Type: BLOOD SPECIMENOrdering Facility: [facility] Address: [address] [place] [address] Performed By: #### 2 4323-8 ####[facility] LABCLIA [id number] [place] [address] [place] Calcium [Mass/Vol] 9.4 mg/dL Normal 8.5-10.2 [facility] Comment on above: Order Comment: Speci men Type: BLOOD SPECIMENOrdering Facility: [facility] [facility] Address: [address] [place] [address] Performed By: #### 2 4323-8 ####[facility] LABCLIA [id number] [place] [address] [place] Chloride [Moles/Vol] 106 mmol/L High 97-105 [facility] Comment on above: Order Comment: Speci men Type: BLOOD SPECIMENOrdering Facility: [facility] Address: [address] [place] [address] Performed By: #### 2 4323-8 ####[facility] LABCLIA [id number] [place] [address] [place] CO2 [Moles/Vol] 24 mmol/L Normal 22-30 [facility] Comment on above: Order Comment: Speci men Type: BLOOD SPECIMENOrdering Facility: [facility] Address: [address] [place] [address] Performed By: #### 2 4323-8 ####[facility] LABCLIA [id number] [place] [address] [place] Creatinine [Mass/Vol] 1.10 mg/dL Normal 0.73-1.22 [facility] Comment on above: Order Comment: Speci men Type: BLOOD SPECIMENOrdering Facility: [facility] Address: [address] [place] [address] Performed By: #### 2 4323-8 ####[facility] LABCLIA [id number] [place] [address] [place] Creatinine and Glomerular filtration rate.predicted panel (S/P/Bld) 85 mL/min/1.73m??? Normal >=60 [facility] Comment on above: Order Comment: Speci men Type: BLOOD SPECIMENOrdering Facility: [facility] Address: [address] [place] [address] Result Comment: Hanna mated Glomerular Filtration Rate [...] actual GFR. Performed By: #### 2 4323-8 ####[facility] LABCLIA [id number] [place] [address] [place] Glucose [Mass/Vol] 94 mg/dL Normal 74-99 [facility] Comment on above: Order Comment: Specteri stockton Type: BLOOD SPECIMENOrdering Facility: [facility] Address: [address] [place] [address] Result Comment: The [place] Diabetes Association (ADA) provides guidance for cutoff [...] Standards of Medical Care in Diabetes 2016, [place] [employer]. Diabetes Care. 2016.39(Suppl 1). Performed By: #### 2 4323-8 ####[facility] LABCLIA [id number] [place] [address] [place] Potassium [Moles/Vol] 4.4 mmol/L Normal 3.7-5.1 [facility] Comment on above: Order Comment: Adriana stockton Type: BLOOD SPECIMENOrdering Facility: [facility] Address: [address] [place] [address] Performed By: #### 2 4323-8 ####[facility] LABCLIA [id number] [place] [address] [place] Protein [Mass/Vol] 6.7 g/dL Normal 6.3-8.0 [facility] Comment on above: Order Comment: Speci men Type: BLOOD SPECIMENOrdering Facility: [facility] Address: [address] [place] [address] Performed By: #### 2 4323-8 ####[facility] LABCLIA [id number] [place] [address] [place] Sodium [Moles/Vol] 139 mmol/L Normal 136-144 [facility] Comment on above: Order Comment: Speci men Type: BLOOD SPECIMENOrdering Facility: [facility] Address: [address] [place] [address] Performed By: #### 2 4323-8 ####[facility] LABCLIA [id number] [place] [address] [place] Urea nitrogen [Mass/Vol] 22 mg/dL Normal 9-24 [facility] Comment on above: Order Comment: Speci men Type: BLOOD SPECIMENOrdering Facility: [facility] Address: [address] [place] [address] Performed By: #### 2 4323-8 ####[facility] LABCLIA [id number] [address] [place] ECG COMPLETEon 08-01-2023 ECG COMPLETE Ventricular Rate : 8 0 BPM Atrial Rate : 80 BPM P-R Interval : 148 ms QRS Duration : 86 ms Q-T Interval : 368 ms QTC Calculation(Bazett) : 424 ms Calculated P [place] : 62 degrees Calculated R [place] : 65 degrees Calculated T [place] : 77 degrees NORMAL SINUS RHYTHM WITH SINUS ARRHYTHMIA NORMAL ECG Confirmed by MD SOFIA, QARAB ([id number]) on 08/02/2023 11:56:16 AM NAME : VINCE LUCIANO PID : [id number] : 1980 Gender : Male Race : ORD : [id number] Procedure Date : Aug 01 2023 10:27:08 Edit Date : Aug 02 2023 11:56:17 Diagnosis: NORMAL SINUS RHYTHM WITH SINUS ARRHYTHMIA NORMAL ECG Confirmed by MD BLACK QARAB ([id number]) on 08/02/2023 11:56:16 AM Test Reason : Location : 135 : [facility] Overread By : MD BLACK QARAB Edited By : MD BLACK QARAB Referred By : , Acquired by : Mitchel ANDREW Normal [facility] HISTORY PHYSICALon HISTORY PHYSICAL HNO ID: [id number] Author: AMITA GEE PA-C Service: ? Author Type: Physician Service Counselor Type: H&P Filed: 08/03/2023 09:23 Note Text: [...] have a large neck STOP-Bang Score: 2 [id number] Score: Age: <65 Sex: male CHF history: No Hypertension history: No Stroke/TIA/thromboembo lism history: No Vascular disease history: No Diabetes history: No [id number] Score: 0 ANESTHESIA FINDINGS: Intubation History: No [...] Initiated: Orders placed by surgeon/surgical service in [facility]. Orders Placed This Encounter Complete Blood Count [...] COVID-19 original vaccine, age 12+ yr, monovalent (Skin Scan - PURPLE TOP) 07/21/2020 Imm Admin: COVID-19 [...] requiring medication, no history of angina, CHF, DE, cardiac surgery or stents. Denies rest pain, gangrene or revascularization/ampu tation for PVD. No history of cardiovascular symptoms or problems. GI: Positive for: irritable bowel syndrome (mixed, ?IBD, managed with diet) and ETOH >2 dri (more content not included)... Normal [facility] CNPNon 07-17-2023 [facility] Telephone (GLQ) VINCE LUCIANO ([id number]) 1980 M Date Time Provider Department 07/17/23 [...] August 12. 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 Please advise. Thanks Rodríguez Allred, SASHA 07/17/2023 2:44 PM Signed The is not listed as a POC in Epic, pts mother Norma Luciano is. Need to confirm with pt if this needs to be updated. Will send a [employer] Chart message to the pt. Rodríguez Allred RN July 17, 2023 2:38 PM Allergies As of Date: 07/17/2023 Noted Allergy Reaction CINNAMON 08/02/2011 7 - Swelling COCONUT 08/02/2011 7 - Swelling Date Reviewed: 06/07/2023 Reviewed by: Nando Parker MD - Fully Assessed Reason for Visit: Patient Question [0937] Prescriptions as of 07/17/2023 - buPROPion XL [...] Status:Closed by RODRÍGUEZ ALLRED on 07/17/23 Normal [facility] Office Visiton 07-03-2023 Follow-up visit [id number] Vince Luciano 1980 M Date Provider Department Center 07/03/2023 438-RAFAEL WEEKS MP ORTHO MPORTHO Family History Problem Relation Age of Onset Hypertension Mother Family Status - Relation Status Age at Mother Level of Service:38523 [place] OFFICE/OUTPATIENT ESTABLISHED LOW MDM 20 MIN Reason for Visit and Comments: Follow-up [390340] [facility] CNNURSEon 06-06-2023 CNNURSE Nurse Visit (UROSMN) MUSTAPHAVINCE ([id number]) 1980 M Date Time Provider Department 06/06/23 2:00 PM FLUROURODYNAMICS UROSMN During your visit today, we recorded the following information about you: Fiona Patricio RN 06/06/2023 2:40 PM Signed [facility] URODYNAMICS LAB URODYNAMIC [...] NONE Latex allergy: No Iodine allergy: No Filler Block Inserter Remover offered:Patient declines B/O UA: YES Negative for [...] - Sitting / Recumbent Radiologic Findings: 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 The bony and [...] Parker MD, MS Staff Department of Urology [facility] June 10, 2023 - 11:59 AM Referring Provider: NANDO PARKER [[id number]] Allergies As of Date: 06/06/2023 Noted Allergy [...] hr tablet (more content not included)... Normal [facility] CNOVon 06-06-2023 CNOV Office Visit (UROSMN ) VINCE LUCIANO ([id number]) 1980 M Date Time Provider Department 06/06/23 3:00 PM NANDO PARKER UROSMN During your visit today, we recorded the following information about you: Amita Chou, SASHA 06/06/2023 3:47 PM Signed Actual procedure/procedure scheduled: Yes Performing provider/scheduled provider: Yes Patient was roomed in: Q9- 09 Filler Block Inserter Remover offered:Patient declines Patient arrived in the room [...] Education Session: None Instruction Provided To: Patient Pourer Present: not applicable Discipline: Nursing Learning Topic: [...] Bactrim DS 160mg-800mg orally, given during visit: cristopher HIGUERA Anesthetic given: Administered by MD - see [...] All instruments, (more content not included)... Normal [facility] Prostate transrectalon [facility] 05-23-2023 [facility] Telephone (GLQ) VINCE LUCIANO ([id number]) 1980 M Date Time Provider Department 05/23/23 [...] his Urodynamics and Cysto with me at [facility] Thx, BG Fiona Al 05/23/2023 4:07 PM [...] Status:Closed by FIONA AL on 05/25/23 Normal [facility] Bacteria Ur Culton 4 Bacteria identified Cx Nom (U) CULTURE, URINE: No growth (<100 CFU/ml) Normal [facility] Comment on above: Performed By: #### 6 30-4 ####[facility] LABCLIA [id number] [address] CNOVon 05-02-2023 CNOV Office Visit (UROSMN ) VINCE LUCIANO ([id number]) 1980 M Date Time Provider Department 05/02/23 2:30 PM JESSICA MEADOWS UROSMN During your visit today, we recorded the following information about you: Amita Chou RN 05/02/2023 2:54 PM Addendum Actual procedure/procedure scheduled: Yes Performing provider/scheduled provider: Yes Patient was roomed in: Q9- 09 Filler Block Inserter Remover offered:Patient declines Patient arrived in the room [...] Education Session: None Instruction Provided To: Patient Pourer Present: not applicable Discipline: Nursing Learning Topic: [...] Reynaga Nima, MD 05/02/2023 4:17 PM Signed [place] [address] AMBULATORY PROCEDURE NOTE NAME: Vince Luciano AGE: [age] year old CLINIC #: [id number] DATE: May 02, 2023 SURGEON: Jessica Meadows [...] and b (more content not included)... Normal [facility] CNOV Office Visit (UROLMN ) VINCE LUCIANO ([id number]) 1980 M Date Time Provider Department 05/02/23 1:00 PM JESSICA MEADOWS UROLMN During your visit today, we recorded the following information about you: Weight 103.2 kg Jessica Meadows MD 05/03/2023 6:10 AM Signed [facility] NEW PATIENT HISTORY [...] Prostate: symmetrical, nontender, w/o nodules. Fiona Alvarez APRN.MAIL PROCESSING ASSOCIATE ASSESSMENT AND PLAN: Chronic obstructive voiding symptoms [...] which included preparing to see the patient, [id number]-[id number] patient care, completing clinical documentation, obtaining and/or reviewing separately obtained history, counseling and educating the patient/family/caregiv er, and care coordinati (more content not included)... Normal [facility] URINALYSIS, REFLEX MICROSCOP ICon 05-02-2023 Bilirubin Ql (U) Negative Normal Negative Hector grullon [facility] Comment on above: Order Comment: Speci men Type: URINE SPECIMENOrdering Facility: [facility] Address: [address] [place] [address] Performed By: #### L [id number] ####[facility] LABCLIA [id number] [place] [address] [place] Clarity (Unsp spec) Cloudy Abnormal Clear Zechariah [facility] Comment on above: Order Comment: Speci men Type: URINE SPECIMENOrdering Facility: [facility] Address: [address] [id number] Performed By: #### L [id number] ####[facility] LABCLIA [id number] [place] [address] [place] Color (U) Light Yellow Normal Yellow [facility] Comment on above: Order Comment: Speci men Type: URINE SPECIMENOrdering Facility: [facility] Address: [address] [place] [address] Performed By: #### L [id number] ####[facility] LABCLIA [id number] [place] [address] [place] Glucose Test strip (U) [Mass/Vol] Negative Normal Trace, Negative [facility] Comment on above: Order Comment: Speci men Type: URINE SPECIMENOrdering Facility: [facility] Address: [address] [place] [address] Performed By: #### L [id number] ####[facility] LABCLIA [id number] [place] [address] [place] Hemoglobin Ql (U) Negative Normal Negative, Trace [facility] Comment on above: Order Comment: Speci men Type: URINE SPECIMENOrdering Facility: [facility] Address: [address] [place] [address] Performed By: #### L [id number] ####[facility] LABCLIA [id number] [place] [address] [place] Ketones Ql (U) Negative Normal Negative, Trace [facility] Comment on above: Order Comment: Speci men Type: URINE SPECIMENOrdering Facility: [facility] Address: [address] [address] Performed By: #### L [id number] ####[facility] LABCLIA [id number] [place] [address] [place] Leukocyte esterase Test strip Ql (U) Negative Normal Negative, 25 Bella/uL [facility] Comment on above: Order Comment: Speci men Type: URINE SPECIMENOrdering Facility: [facility] Address: [address] [place] [address] Performed By: #### L [id number] ####[facility] LABCLIA [id number] [place] [address] [place] Nitrite Ql (U) Negative Normal Negative [facility] Comment on above: Order Comment: Speci men Type: URINE SPECIMENOrdering Facility: [facility] Address: [address] [place] [address] Performed By: #### L [id number] ####[facility] LABIA [id number] [place] [address] [place] pH (U) 6.5 [pH] Normal 5.0-8.0 [facility] Comment on above: Order Comment: Speci men Type: URINE SPECIMENOrdering Facility: [facility] Address: [address] [place] [address] Performed By: #### L [id number] ####[facility] LABIA [id number] [place] [address] [place] Protein (U) [Mass/Vol] Negative Normal Trace, Negative [facility] Comment on above: Order Comment: Speci men Type: URINE SPECIMENOrdering Facility: [facility] Address: [address] [place] [address] Performed By: #### L [id number] ####[facility] LABIA [id number] [place] [address] [place] Specific gravity (U) [Rel density] 1.016 Normal 1.005-1.030 [facility] Comment on above: Order Comment: Speci men Type: URINE SPECIMENOrdering Facility: [facility] Address: [address] [place] [address] Performed By: #### L [id number] ####[facility] LABCLIA [id number] [place] [address] [place] Urobilinogen Ql (U) Negative Normal Negative [facility] Comment on above: Order Comment: Speci men Type: URINE SPECIMENOrdering Facility: [facility] Address: [address] [place] [address] Performed By: #### L [id number] ####[facility] LABCLIA [id number] [place] [address] [place] Bilirubin Ql (U) Negative Negative [facility] Clarity (Unsp spec) Cloudy Abnormal Clear [facility] Color (U) Light Yellow Yellow [facility] Glucose Test strip (U) [Mass/Vol] Negative Trace, Negative [facility] Hemoglobin Ql (U) Negative Negative, Trace [facility] Ketones Ql (U) Negative Negative, Trace [facility] Leukocyte esterase Test strip Ql (U) Negative Negative, 25 Bella/uL [facility] Nitrite Ql (U) Negative Negative [facility] pH (U) 6.5 [pH] 5.0 - 8.0 [facility] Protein (U) [Mass/Vol] Negative Trace, Negative [facility] Specific gravity (U) [Rel density] 1.016 1.005 - 1.030 [facility] Urobilinogen Ql (U) Negative Negative [facility] Follow-Upon 04-11-2023 Follow-Up [id number] Vince Luciano 1980 M Date Provider Department Center 04/11/2023 RAFAEL MONTANEZ MP ORTHO MPORTHO Family History Problem Relation Age of Onset Hypertension Mother Family Status - Relation Status Age at Mother Level of Service:01809 [place] POSTOP FOLLOW UP VISIT RELATED TO ORIGINAL PX Reason for Visit and Comments: Follow-up [421863] Pain [136] Normal [facility] XR Chest Single Viewon 04-10 XR Chest [...] mGy = na DAP = na Normal [facility] Auto Diffon 04-09-2023 Basophils/100 WBC (Bld) 0.7 % Normal 0.0-2.0 [facility] Comment on above: Order Comment: Order Added by Discern Expert. Performed By: #### 2 701342, 82820579, 2240885, 6602673, 40076539, 9704033, 60498077, 6007798, 5882453, 06184810, 03469912 ####[facility] [address] [place] [address] Basophils/Leukocytes Auto (Bld) [Pure # fraction] 0.0 E9/L Normal 0.0-0.2 [facility] Comment on above: Order Comment: Order Added by Discern Expert. Performed By: #### 2 199862, 34457816, 6044941, 0503950, 58906390, 4778273, 88620855, 6712557, 6783706, 14214160, 43929226 ####[facility] [address] [place] [address] Eosinophils/100 WBC (Bld) 1.0 % Normal 0.0-8.0 [facility] Comment on above: Order Comment: Order Added by Discern Expert. Performed By: #### 2 012564, 54863596, 7011168, 5862738, 50960356, 8285088, 80467846, 1320335, 3842123, 32961419, 21552805 ####[facility] [address] [place] [address] Eosinophils/Leukocyte s Auto (Bld) [Pure # fraction] 0.1 E9/L Normal 0.0-0.5 [facility] Comment on above: Order Comment: Order Added by Discern Expert. Performed By: #### 2 242516, 37186667, 3281606, 2893966, 13566456, 4001550, 37191611, 6642949, 8461937, 84091510, 38478586 ####[facility] [address] [place] [address] Lymphocytes/100 WBC (Bld) 24.5 % Normal 14.0-50.0 [facility] Comment on above: Order Comment: Order Added by Discern Expert. Performed By: #### 2 000466, 89092879, 2293611, 8331512, 43381594, 6128500, 45597330, 8452114, 8991015, 51605833, 71231980 ####[address] [address] Lymphocytes/Leukocyte s Auto (Bld) [Pure # fraction] 1.4 E9/L Normal 1.0-4.0 [facility] Comment on above: Order Comment: Order Added by Discern Expert. Performed By: #### 2 955714, 67853330, 2168440, 7738756, 68253258, 8482690, 44788664, 3484007, 4460709, 30206013, 04176906 ####[address] [place] [address] Monocytes/100 WBC (Bld) 8.2 % Normal 4.0-14.0 [facility] Comment on above: Order Comment: Order Added by Discern Expert. Performed By: #### 2 168411, 13340878, 3982987, 2156840, 51597185, 9546621, 64018586, 0932360, 8330440, 06335020, 97669592 ####[address] [place] [address] Monocytes/Leukocytes Auto (Bld) [Pure # fraction] 0.5 E9/L Normal 0.2-1.0 [facility] Comment on above: Order Comment: Order Added by Discern Expert. Performed By: #### 2 449353, 81194608, 6458463, 6102000, 55367221, 0789183, 79708813, 6099799, 9148453, 41436350, 70425763 ####[facility] [address] [place] [address] Neutrophils/100 WBC (Bld) 65.6 % Normal 36.0-75.0 [facility] Comment on above: Order Comment: Order Added by Discern Expert. Performed By: #### 2 156731, 33081459, 3055054, 9627342, 61677183, 8021050, 42818038, 4306545, 9395695, 10401240, 65341037 ####[facility] [address] [place] [address] Neutrophils/Leukocyte s Auto (Bld) [Pure # fraction] 3.9 E9/L Normal 2.0-7.5 [facility] Comment on above: Order Comment: Order Added by Discern Expert. Performed By: #### 2 199801, 66006004, 4569710, 6397179, 60537285, 9258341, 56933222, 5642509, 4591787, 00529492, 25946644 ####[facility] [address] [place] [address] BMPon 04-09-2023 Anion gap [Moles/Vol] 13 mmol/L Normal 6-16 [facility] Comment on above: Performed By: #### 2 314989, 99492814, 0426623, 1362017, 45290845, 0838113, 70177160, 4945527, 8284932, 61595603, 20281380 ####[facility] [address] [place] [address] BUN/Creat Ratio 14 No Units Normal 10-20 [facility] Comment on above: Performed By: #### 2 894425, 59579016, 0496545, 8398367, 23465602, 9122620, 87819748, 0573577, 7647197, 54755653, 33170631 ####[facility] [address] [place] [address] Calcium [Mass/Vol] 9.2 mg/dL Normal 8.9-11.1 [facility] Comment on above: Performed By: #### 2 057348, 77317353, 4839846, 4349214, 11751267, 7665200, 55317992, 4668519, 1337705, 36185997, 21584812 ####[facility] [address] [place] [address] Chloride [Moles/Vol] 106 mmol/L Normal 101-111 [facility] Comment on above: Performed By: #### 2 757740, 49243059, 6019856, 5257239, 17346788, 7362270, 69058897, 9617615, 6595296, 81284702, 58529735 ####[facility] [address] [place] [address] CO2 [Moles/Vol] 22 mmol/L Normal 21-31 [facility] Comment on above: Performed By: #### 2 519497, 98391032, 7947843, 2723277, 30544634, 8400285, 54092171, 4026579, 2287817, 02300300, 10457791 ####[facility] [address] [place] [address] Creatinine [Mass/Vol] 1.1 mg/dL Normal 0.5-1.3 [facility] Comment on above: Performed By: #### 2 325870, 07348747, 2192189, 2871071, 81409516, 4230077, 56758728, 1974134, 8294299, 94546196, 85632991 ####[facility] [address] [place] [address] Glucose [Mass/Vol] 86 mg/dL Normal 55-199 [facility] Comment on above: Performed By: #### 2 518278, 97888740, 7353224, 3479569, 39476224, 1468740, 77723936, 1515791, 4370081, 32623548, 29087075 ####[facility] [address] [place] [address] Potassium [Moles/Vol] 3.2 mmol/L Low 3.5-5.3 [facility] Comment on above: Performed By: #### 2 788452, 81060162, 2806495, 6454314, 75021969, 7164748, 23901676, 0581342, 2039501, 34674067, 09530409 ####[facility] [address] [place] [address] Sodium [Moles/Vol] 138 mmol/L Normal 135-145 [facility] Comment on above: Performed By: #### 2 313219, 34449426, 3256371, 6794760, 96752590, 8913166, 12028238, 4568040, 0476556, 61120565, 71290140 ####[facility] [address] [place] [address] Urea nitrogen [Mass/Vol] 15 mg/dL Normal 5-21 [facility] Comment on above: Performed By: #### 2 280456, 43379249, 0794163, 9026475, 33167302, 5715807, 45838309, 7044490, 0873780, 22657873, 55547246 ####[facility] [address] [place] [address] BNPon 04-09-2023 [address] BNP Pass Normal [facility] Comment on above: Performed By: #### 2 699794, 77717177, 3794209, 5318930, 07929445, 7467202, 20250317, 0665379, 4206451, 99065314, 37137023 ####[facility] [address] [place] [address] Natriuretic peptide B (Bld) [Mass/Vol] 9 pg/mL Normal 5-80 [facility] Comment on above: Performed By: #### 2 311043, 13798410, 0115593, 1288219, 80816403, 9357555, 05045585, 2077506, 1294572, 13372821, 74213431 ####[facility] [address] [place] [address] CBC w/ Auto Diffon Erythrocyte distribution width (RBC) [Ratio] 12.9 % Normal 10.9-14.2 [facility] Comment on above: Performed By: #### 2 296602, 18995623, 3444030, 4442797, 56156911, 2710517, 88032636, 1948374, 9155616, 56042823, 21812478 ####[address] [place] [place] [address] Hematocrit (Bld) [Volume fraction] 43.1 % Normal 37.7-49.0 [facility] Comment on above: Performed By: #### 2 275895, 41548928, 3319669, 1889744, 49556133, 6847074, 36721538, 7057761, 0478057, 12608570, 33605892 ####[address] [address] Hemoglobin (Bld) [Mass/Vol] 14.7 g/dL Normal 13.5-17.5 [facility] Comment on above: Performed By: #### 2 895457, 36009784, 3654274, 9218035, 31733480, 6229638, 38801491, 1091910, 8541460, 45465899, 31783594 ####[facility] [address] [place] [address] MCH (RBC) [Entitic mass] 32.2 pg Normal 27.0-34.0 [facility] Comment on above: Performed By: #### 2 292132, 32563733, 1905054, 7743917, 96840271, 4325538, 65489739, 7835605, 5104899, 32741181, 36826807 ####[address] [place] [address] MCHC (RBC) [Mass/Vol] 34.2 g/dL Normal 31.4-36.0 [facility] Comment on above: Performed By: #### 2 493267, 16770115, 0265154, 5076896, 12488770, 9211513, 61850378, 2833317, 6792263, 96402815, 85308787 ####[address] [place] [address] MCV (RBC) [Entitic vol] 94.2 fL Normal 80.0-100.0 [facility] Comment on above: Performed By: #### 2 561734, 25624152, 3575768, 0765371, 22158152, 5319006, 14327637, 7537370, 2514155, 11703122, 90160213 ####[address] [address] Platelet mean volume (Bld) [Entitic vol] 8.8 fL Normal 6.4-10.8 [facility] Comment on above: Performed By: #### 2 889825, 03733877, 8218554, 1173487, 37369953, 5703415, 77894450, 5662503, 9658688, 19322403, 80543412 ####[address] [address] Platelets (Bld) [#/Vol] 198.0 E9/L Normal 150.0-500.0 [facility] Comment on above: Performed By: #### 2 291897, 34186178, 9845643, 2723251, 39201237, 1866127, 29556717, 2267160, 5735916, 81264494, 21022630 ####[address] [place] [address] RBC (Bld) [#/Vol] 4.6 E12/L Normal 4.3-5.9 [facility] Comment on above: Performed By: #### 2 020926, 65417167, 0338698, 1229557, 91020136, 7481427, 79502242, 9334473, 7974901, 46236773, 74101225 ####[facility] [address] [place] [address] WBC corrected for nucl RBC Auto (Bld) [#/Vol] 5.9 E9/L Normal 4.0-11.0 [facility] Comment on above: Performed By: #### 2 203898, 62918900, 0452602, 2074410, 33082457, 9310088, 88603697, 1869848, 0346650, 64088709, 20791422 ####[facility] [address] [place] [address] CHEMISTRYOrdered By: SYSTEM SYSTEM on 04-09-2023 Albumin [...] Sensitivity Troponin I Instructions For Use, Lindsay Dowell, October 2017) TSH Qn 2.67 m[IU]/L Normal 0.34 - 5.60 mcIU/mL Remisol Chem Urea nitrogen [Mass/Vol] 15 mg/dL Normal 5 - 21 mg/dL Remisol Chem Urea nitrogen/Creatinine [Mass ratio] 14 mg/mg Normal 10 - 20 Remisol Chem CHEMISTRYOrdered By: Leticia Morales on 04-09-2023 Natriuretic peptide B (Bld) [Mass/Vol] 9 pg/mL Normal 5 - 80 pg/mL [facility] HemeManSS COAGULATIONOrdered By: Lyndsay Aparicio on 04-09-2023 aPTT Coag (PPP) [Time] 32.3 s Normal 25.1 - 36.5 second(s) [facility] Auto Coag Comment on above: Interpretive [...] the same coagulation reagent and instrumentation as [facility]. Currently there are no coagulation studies available worldwide for children to 14 days, and no normal ranges. Heparin therapeutic range (represented by Anti-Factor Xa activity of 0.2 - 0.4 U/mL) corresponds to PTT of 56.6 - 109.0 sec. INR Coag (PPP) [Relative time] 1.0 {INR} Invalid Interpretation Code [facility] Auto Coag Comment on above: Interpretive Data: I NR results are specifically intended to assess patients stabilized on long-term Anticoagulation therapy suggested INR s Less Intensive Anticoagulation 2.0 3.0 Conventional Range 3.0 4.5 PT Coag (PPP) [Time] 10.9 s Normal 9.4 - 1 2.5 second(s) [facility] Auto Coag Comment on above: Interpretive [...] the same coagulation reagent and instrumentation as [facility]. Currently there are no coagulation studies [...] 100 Rectal Contrast Given? No Normal We[facility] CTA Cheston 04-09-2023 CTA Chest Exam Date/Time: [...] FINAL REPORT Dictated: 04/09/2023 7:18 pm Oscar Salinsa MD Signed (Electronic Signature): 04/09/2023 7:18 pm Signed by: Oscar Salinas MD Transcribed by: RASHID Technologist: ED Technical Comments GFR (mL/min/1/73m2) >60 Contrast: Isovue 370 Contrast amount in ml's: [address] [facility] Consent for Treatmenton Consent for Treatment [id number]#[id number] [facility] Discharge Instructionson Discharge Instructions [id number]. 00TIFF Normal [facility] ED Clinical Summaryon 2023 ED Clinical Summary [address] [address] ED Clinical Summary Person Information Name: VINCE LUCIANO/Nadya Age: 42 Years : 1980 Sex: Male Language: Mosotho PCP: Royx Driver MD Marital Status: Visit Id: Visit [...] 04/09/2023 19:45:42 04/09/2023 19:45:42 04/09/2023 19:45:42 ADDRESS: [address] [place] [id number] PHYS DOC NOTES: Addendum by Weston Smith DO [...] EDUCATION INFORMATION: Instructions: Shortness of Breath, Adult, Uqzl-vj-Smvt Follow up: With: Address: When: Roxy Driver [address] [place] [address], [place] [address] [facility] () In 3 days 04/12/2023 Comments: Keep a log of when you get short of breath and follow-up with your doctor. Continue taking your medications as prescribed. Please return to the ED for any new or worsening symptoms. DIAGNOSIS: Dyspnea Normal [facility] ED Note-Physicianon 04-09-19 ED Note-Physician Basic [...] for any new or worsening symptoms. Normal [facility] Comment on above: Result Comment: Elec tronically Signed By: Dokken DO, Kaylinn A\.br\Date and Time Signed: 04/09/23 19:38 EST ED [...] any changes in your symptoms. ? Take hzsa-ynt-xmmywcf and prescription medicines only as told by [...] Reviewed: 11/05/2021 Elsevier Patient Education ? [address] [employer] [address] [facility] ED Patient Summaryon 024 ED Patient Summary [address] [address] Patient Discharge Instructions Person Information Name: VINCE LUCIANO Age: 42 Years Arrival Date: 04/09/2023 17:49:59 Discharge Diagnosis: Dyspnea Primary Care Physician: Roxy Driver MD Provider Information Primary Provider: Clifford Sanchez DO Advanced Gas Engine Operator Generators:None The exam and treatment you received in the Emergency Department were for an urgent problem and are not intended as complete care. It is important that you follow up with a doctor, nurse practitioner, or physician?s graduate research assistant for ongoing care. If your symptoms [...] Follow-up Instructions: With: Address: When: Roxy Mclainshandra [address] [place] [address], [facility] [place] [address] Business (1) In 3 days [...] Patient Education Materials: Shortness of Breath, Adult, Wetj-cd-Rhxz A MESSAGE TO ALL PATIENTS REGARDING OPIOIDS PRESCRIPTION OPIOIDS: WHAT YOU NEED TO KNOW Prescription opioids can be used to help relieve yxwzkhae-fx-gttgnk pain and are often prescribed following a [...] overdose. ? (more content not included)... Normal [facility] HEMATOLOGYOrdered By: SYSTEM SYSTEM on 04-09-2023 [...] 32.2 pg Normal 27.0 - 34.0 pg FT HemeAutoSS MCHC (RBC) [Mass/Vol] 34.2 g/dL Normal 31.4 - 36.0 gm/dL FT HemeAutoSS MCV (RBC) [Entitic vol] 94.2 fL Normal 80.0 - 100.0 fL FT HemeAutoSS Platelet mean volume (Bld) [Entitic vol] 8.8 fL Normal 6.4 - 10.8 fL FT HemeAutoSS Platelets (Bld) [#/Vol] 198.0 E9/L Normal 150.0 - 500.0 E9/L FT HemeAutoSS RBC (Bld) [#/Vol] 4.6 E12/L Normal 4.3 - 5.9 E12/L [facility] HemeAutoSS WBC corrected for nucl RBC Auto (Bld) [#/Vol] 5.9 E9/L Normal 4.0 - 11.0 E9/L [facility] HemeAutoSS Hep Func Panelon 04-09-2023 Albumin [Mass/Vol] 4.3 g/dL Normal 3.3-5.0 [facility] Comment on above: Performed By: #### 2 130261, 17662920, 7524734, 5927247, 26684625, 0579065, 58764995, 1761302, 9752531, 28363190, 91820687 ####[facility] [address] [place] [address] Albumin/Globulin [Mass ratio] 2.2 {ratio} Normal 1.1-2.2 [facility] Comment on above: Performed By: #### 2 593594, 98489621, 0317535, 3209020, 19384553, 4429842, 13538951, 3661175, 9314940, 20158548, 53365441 ####[facility] [address] [place] [address] Alk Phos 60 Int._Unit/L Normal 21-98 [facility] Comment on above: Performed By: #### 2 405940, 90809234, 7952771, 5147333, 32748746, 4251853, 44270929, 2324563, 0253305, 98995604, 03684304 ####[facility] [address] [place] [address] ALT 11 Int._Unit/L Normal 6-46 [facility] Comment on above: Performed By: #### 2 679479, 25550791, 9915319, 3689849, 68259812, 8903434, 12438523, 6041233, 1946939, 75520604, 48998838 ####[address] [place] [address] AST 15 Int._Unit/L Normal 5-43 [facility] Comment on above: Performed By: #### 2 367368, 66431680, 8750734, 4962474, 88104964, 3716953, 49039429, 4303478, 1112849, 72602618, 34520797 ####[facility] [address] [place] [address] Bili Direct 0.1 mg/dL Normal 0.0-0.4 [facility] Comment on above: Performed By: #### 2 757695, 91738930, 6315210, 4575356, 52856654, 6159519, 73634553, 6022393, 5639090, 31715723, 47071006 ####[facility] [address] [place] [address] Bili Indirect 0.5 mg/dL Normal 0.1-0.9 [facility] Comment on above: Performed By: #### 2 181308, 89553369, 8730215, 3050914, 73286371, 3742323, 25365476, 7988563, 3921462, 38651087, 23208572 ####[facility] [address] [place] [address] Bili Total 0.6 mg/dL Normal 0.0-1.1 [facility] Comment on above: Performed By: #### 2 152311, 30860234, 9467353, 8565566, 01897423, 3236005, 74104251, 3229052, 9835149, 88322087, 52803628 ####[facility] [address] [place] [address] Globulin (S) [Mass/Vol] 2.0 g/dL Normal 1.4-4.0 [facility] Comment on above: Performed By: #### 2 021196, 35659387, 2407057, 9416062, 44107076, 0365683, 04696045, 3707773, 3525535, 82428942, 42989427 ####[facility] [address] [place] [address] Protein [Mass/Vol] 6.3 g/dL Normal 6.0-7.8 [facility] Comment on above: Performed By: #### 2 276114, 33547712, 4623386, 6067577, 97423604, 1326947, 28970821, 0861752, 1318800, 03311358, 01604928 ####[facility] [address] [place] [address] Lipase Levelon 04-09-2023 Lipase Lvl 21 unit/L Normal 13-58 [facility] Comment on above: Performed By: #### 2 135048, 65506664, 1664962, 8181213, 52310653, 7332807, 59756405, 7602977, 2062873, 49004470, 56246240 ####[facility] [address] [place] [address] Magnesiumon 04-09-2023 Magnesium [Mass/Vol] 1.9 mg/dL Normal 1.3-2.4 [facility] Comment on above: Performed By: #### 2 493007, 26890818, 3129366, 3711864, 18446754, 9785936, 56715424, 7896831, 8427605, 20232271, 41892401 ####[facility] [address] [place] [address] PT & PTTon 04-09-2023 aPTT Coag (PPP) [Time] 32.3 second(s) Normal 25.1-36.5 [facility] Comment on above: Result Comment: Para [...] the same coagulation reagent and instrumentation as [facility]. Currently there are no coagulation studies available worldwide for children to 14 days, and no normal ranges. Heparin therapeutic range (represented by Anti-Factor Xa activity of 0.2 - 0.4 U/mL) corresponds to PTT of 56.6 - 109.0 sec. Performed By: #### 2 183676, 98277969, 6510646, 6959625, 28902736, 0563202, 02797548, 1770156, 2550887, 12575170, 58278120 ####[facility] [address] [place] [address] INR Coag (PPP) [Relative time] 1.0 {INR} Invalid Interpretation Code [facility] Comment on above: Result Comment: INR results are specifically intended to assess patients stabilized on long-term Anticoagulation therapy suggested INR?s ?Less Intensive Anticoagulation? 2.0 ? 3.0 Conventional Range 3.0 ? 4.5 Performed By: #### 2 120164, 81249680, 0502594, 8665459, 84902970, 7055988, 30306205, 2756254, 0148850, 57425362, 58407646 ####[facility] [address] [place] [address] PT Coag (PPP) [Time] 10.9 second(s) Normal 9.4-12.5 [facility] Comment on above: Result Comment: 15 [...] the same coagulation reagent and instrumentation as [facility]. Currently there are no coagulation studies available worldwide for children to 14 days, and no normal ranges. Performed By: #### 2 309190, 36900911, 7681344, 4864558, 73923502, 8944834, 05007036, 9473657, 7280136, 07099599, 80107050 ####[facility] [address] [place] [address] TSH With T4fr Reflexon 04-09 TSH Qn 2.67 m[IU]/L Normal 0.34-5.60 [facility] Comment on above: Performed By: #### 2 456060, 95341753, 2238825, 3204389, 19614781, 7742391, 20818034, 1471946, 9168008, 44368177, 64831313 ####[facility] [address] [place] [address] Troponin 0 Hr.on 04-09-2023 Troponin 2.60 pg/mL Low 15.90-38.40 [facility] Comment on above: Result Comment: The 95% CI (Confidence Interval) PPV (Positive Predictive Value) for myocardial infarction in females is 38 pg/mL, in males 51 pg/mL. The results should be used in conjunction with clinical conditions of myocardial infarction. (Access High Sensitivity Troponin I Instructions For Use, Lindsay Maria Guadalupe, October 2017) Performed By: #### 2 868264, 12132580, 3832451, 6601454, 26662969, 6414630, 84933275, 5743997, 7290735, 05807612, 20503049 ####[facility] [address] [place] [address] UA With Cult Reflexon 2023 Bilirubin Ql (U) Negative Normal Negative [facility] Comment on above: Performed By: #### 1 8430587 ####[address] [address] Clarity (U) CLEAR Normal Clear [facility] Comment on above: Performed By: #### 1 7399220 ####[address] [address] Color (U) YELLOW Normal Yellow [facility] Comment on above: Performed By: #### 1 7880750 ####[address] [address] Epithelial cells.squamous LM.HPF (Urine sed) [#/Area] 0-2 Normal 0-2 [facility] Comment on above: Performed By: #### 1 9972647 ####[address] [address] Glucose Test strip (U) [Mass/Vol] Negative Normal Negative [facility] Comment on above: Performed By: #### 1 6630499 ####[address] [address] Hemoglobin Ql (U) Negative Normal Negative [facility] Comment on above: Performed By: #### 1 0367330 ####[address] [address] Ketones (U) [Mass/Vol] Negative Normal Negative [facility] Comment on above: Performed By: #### 1 8370752 ####[address] [address] Captiva.plasma/Lithiu m.RBC (Bld) [Mass ratio] 0-3 Normal 0-3 [facility] Comment on above: Performed By: #### 1 9221520 ####[address] [place] [address] Nitrite Ql (U) Negative Normal Negative [facility] Comment on above: Performed By: #### 1 1524926 ####[address] [address] pH (U) 5.5 [pH] Invalid Interpretation Code 5.0-9.0 [facility] Comment on above: Performed By: #### 1 2207768 ####[address] [address] Protein (U) [Mass/Vol] Negative Normal Negative [facility] Comment on above: Performed By: #### 1 9338387 ####[address] [address] Specific gravity (U) [Rel density] <=1.005 Invalid Interpretation Code 1.005-1.030 [facility] Comment on above: Performed By: #### 1 3376988 ####[address] [address] Type of Urine collection method Clean Catch Normal [facility] Comment on above: Performed By: #### 1 7330385 ####[address] [address] Urobilinogen Qn (U) 0.2 {Rachel'U}/dL Normal 0.0-1.0 [facility] Comment on above: Performed By: #### 1 7965919 ####[address] [address] WBC Auto Ql (U) Negative Normal Negative [facility] Comment on above: Performed By: #### 1 8045886 ####[address] [address] WBC LM.HPF (Urine sed) [#/Area] 0-5 Normal 0-5 [facility] Comment on above: Performed By: #### 1 5594885 ####[address] [place] [address] URINALYSISOrdered By: Farhana Aparicio on 04-09-2023 Bilirubin [...] PM) Normal Negative [facility] UA Auto SS Captiva.plasma/Lithiu m.RBC (Bld) [Mass ratio] 0-3 /HPF Normal [...] PM) Invalid Interpretation Code 1.005 - 1.030 [facility] UA Auto SS UA Spec Desc Clean Catch (04/09/23 6:20 PM) Normal [facility] UA Auto SS Urobilinogen Qn (U) 0.6317350 {Rachel'U}/dL Normal 0.0 - 1.0 EU/dL [facility] UA Auto SS WBC Auto Ql (U) Negative (04/09/23 6:20 PM) Normal Negative [facility] UA Auto SS WBC LM.HPF (Urine sed) [#/Area] 0-5 /HPF Normal 0-5/HPF [facility] UA Auto SS eGFRon 04-09-2023 GFR/1.73 sq M.predicted among non-blacks MDRD (S/P/Bld) [Vol rate/Area] mL/min/{1.73_m2} Normal >=59 [facility] Comment on above: Order Comment: Order added by Discern Expert. Performed By: #### 2 349978, 31634008, 5711616, 8665349, 11357764, 3890573, 70825987, 3177540, 6618647, 17961477, 80886257 ####[facility] [address] [place] [address] Pathology Noteon 03-27-2023 Pathology Note [id number] [facility] Ambulatory Visit Summaryon 1 05-21-2022 Ambulatory Visit [...] choosing us for your care. Normal We[facility] General Surgery Office/Clini c Noteon 03-20-2023 [...] trivalent - Not Given Patient Refuses Normal [facility] Comment on above: Result Comment: Elec tronically Signed By: JENNIFER YOU, Riley Quevedo\.br\Date and Time Signed: 03/20/23 16:33 EST Ambulatory [...] With: Riley RODRIGUEZ MD Where: General Surgery Nill/Said [place] Normal Micky [facility] General Surgery Office/Clini c Noteon 03-14-2023 [...] trivalent - Not Given Patient Refuses Normal [facility] Comment on above: Result Comment: Elec tronically Signed By: JENNIFER YOU, Riley Michaels\Date and Time Signed: 03/14/23 15:23 EST Office Visiton 03-07-2023 Follow-up visit [id number] Vince Luciano 1980 M Date Provider Department Center 03/07/2023 RAFAEL MONTANEZ MP Family History Problem Relation Age of Onset Hypertension Mother Family Status - Relation Status Age at Mother Level of Service:29415 [place] POSTOP FOLLOW UP VISIT RELATED TO ORIGINAL PX Reason for Visit and Comments: Follow-up [063655] [facility] 36on 03-05-2023 36 We will address this when patient comes into office this week. [facility] 36on 03-01-2023 36 Please let me know what you would like to have the patient start on therapy and I will get the new order sent over [facility] 36on 02-27-2023 36 Physical therapist stated that they have occupational therapy available. If the doctor wants it can he resubmit for it. Also referral stated requested treatment was per protocol. If dr has specific protocol can that be faxed as well. Fax number [phone] [facility] Telephoneon 02-20-2023 Telephone [phone] Vince Luciano 1980 M Date Provider Department Center 02/20/2023 MARY ORDOÑEZ MP Family History Problem Relation Age of Onset Hypertension Mother Family Status - Relation Status Age at Mother [facility] HPon 02-19-2023 HP H&P reviewed. The patient was examined and there are no changes to the H&P. 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 The extensor is closed with qwstul-ml-swtza sutures of 4-0 Vicryl and the skin [...] ROTATION PLATE Implanted 1.5X7MM CORTICAL SCREW Implanted 1.1SX00AT COERTICAL SCREW Implanted 1.5X11MM LOCKING SCREW Implanted 1.5X12MM LOCKING SCREW Implanted 1.5X13MM LOCKING SCREW Used, Not Implanted 1.5X 14MM LOCKING SCREW Used, Not Implanted Complications: None Disposition: PACU Condition: stable Rafael Weeks MD Normal [facility] POCT GLUCOSE METER UNSOLICIT ED RESULTSon 02-19-2023 Glucose [Mass/Vol] 85 mg/dL Normal 70-105 [facility] Comment on above: Order Comment: Waive d Testing in the ED is performed under the ED CLIA certificate #[id number]. Result Comment: dhol as Performed By: #### L [id number] ####[facility] (BEAKER[address] [place] [address] Facesheeton 02-14-2023 Facesheet [id number]. 00TIFF [facility] Ambulatory Visit Summaryon 1 04-15-2022 Ambulatory Visit [...] MD Where: General Surgery Jennifer/Parker Rincon Normal [facility] Orders Onlyon 02-05-2023 Orders Only [id number] Vince Luciano 1980 M Date Provider Department Center 02/05/2023 SHANDA BRADLEY MP Family History Problem Relation Age of Onset Hypertension Mother Family Status - Relation Status Age at Mother Normal [facility] Physician Referralon 023 Physician Referral [id number] [facility] Physician Referral [id number]#1.[address] [facility] Follow-Upon 01-30-2023 Follow-Up [id number] Vince Luciano 1980 M Date Provider Department Center 01/30/2023 RAFAEL MONTANEZ MP Family History Problem Relation Age of Onset Hypertension Mother Family Status - Relation Status Age at Mother Level of Service:28939 [place] OFFICE/OUTPATIENT ESTABLISHED LOW MDM 20-29 MIN Reason for Visit and Comments: Follow-up [459790] Normal [facility] HPon 01-30-2023 Orthopedic Surgery Subjective 05/17/2022 Ring Finger Irrigation and Debridement - Right and Open reduction percutaneous fixation of proximal phalanx, ring finger - Right 01/30/23 Since his last visit patient's been participating in physical therapy and feels his range of motion has not improved. 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 due to the [...] MD Orthopedic Surgery Resident Orthopedic Surgery Pager: [phone] 01/30/23 3:29 PM By using the attestations [...] an additional personal documentation from me. Normal [facility] US KIDNEYS BLADDERon 023 US KIDNEYS BLADDER EXAMINATION: US KIDNEYS [...] by: IAN ROMAN Date: 2022-07-25 17:[address] [facility] [address] ABD/PELV W CONon 07-16-19 23 [...] by: LISETH MUNROE Date: 2022-07-15 08:54 Normal [facility] XR ABD FLAT UP_PA [place] 06-20 [...] by: IAN ROMAN Date: 2022-06-20 10:28 Normal [facility] CERVICAL SP AP&LT OR 2-3 VWS on 06-02-2020 CERVICAL SP AP&LT OR 2-3 VWS STUDY: CERVICAL SP AP LT OR 2-3 VWS; 06/02/2020 9:49 am INDICATION: PAIN. COMPARISON: 05/12/2020 ACCESSION NUMBER(S): [id number] ORDERING CLINICIAN: Kalyan Torres FINDINGS: Anterior metallic fusion hardware with metallic interbody grafts extending from C5-C7 appear unchanged. No new fracture, subluxation, or disc height loss. IMPRESSION: Unchanged postoperative appearance of the cervical spine. Normal [facility] CERVICAL SP AP&LT OR 2-3 VWS on 05-12-2020 CERVICAL SP AP&LT OR 2-3 VWS STUDY: CERVICAL SP AP LT OR 2-3 VWS; 05/12/2020 10:14 am INDICATION: PAIN. COMPARISON: 04/14/2020 ACCESSION NUMBER(S): [id number] ORDERING CLINICIAN: Kalyan Torres FINDINGS: Anterior metallic fusion hardware with interbody grafts extending from C5-C7 appear unchanged. No new fracture, subluxation, or disc height loss. IMPRESSION: Unchanged postoperative appearance of the cervical spine. Normal [facility] CERVICAL SP AP&LT OR 2-3 VWS on 04-14-2020 CERVICAL SP AP&LT OR 2-3 VWS STUDY: CERVICAL SP AP LT OR 2-3 VWS; 04/14/2020 10:33 am INDICATION: PAIN. COMPARISON: 01/13/2020 ACCESSION NUMBER(S): [id number] ORDERING CLINICIAN: Kalyan Torres FINDINGS: Interval placement of anterior metallic fusion hardware with metallic interbody grafts from C5-C7. No new fracture, subluxation, or disc height loss otherwise seen. No spondylolisthesis. Slight reversal the cervical lordosis. Mild prevertebral soft tissue swelling. IMPRESSION: Interval anterior fusion C5-C7. Mild postoperative prevertebral soft tissue swelling. Normal [facility] Anesthesia Noteon 04-02-2020 Anesthesia Note [facility] Patient: VINCE LUCIANO [address] [place] [address] MR#: [id number] ANESTHESIA NOTE : Service Date: 04/02/20921 Post-anesthesia [...] Richard Mayfield 04/02/20922 Ian Giordano MD Normal [facility] BASIC MET PANELon 04-02-2020 Anion gap [Moles/Vol] 11 mmol/L Normal 6-18 [facility] Comment on above: Order Comment: CBN: [place]: MAIN Performed By: #### L 500.50615, L500.94477 ####Test performed at: [address] [address] Calcium [Mass/Vol] 9.0 mg/dL Normal 8.5-10.1 [facility] Comment on above: Order Comment: CBN: [place]: MAIN Performed By: #### L 500.05513, L500.16084 ####Test performed at: [address] [address] Chloride [Moles/Vol] 108 mmol/L High 98-107 [facility] Comment on above: Order Comment: CBN: [place]: MAIN Performed By: #### L 500.96862, L500.81592 ####Test performed at: [address] [address] CO2 [Moles/Vol] 24 mmol/L Normal 21-32 [facility] Comment on above: Order Comment: CBN: [place]: MAIN Performed By: #### L 500.02411, L500.77100 ####Test performed at: [address] [address] Creatinine [Mass/Vol] 0.934 mg/dL Normal 0.700-1.300 [facility] Comment on above: Order Comment: CBN: [place]: MAIN Performed By: #### L 500.20536, L500.18263 ####Test performed at: [address] [address] Glucose [Mass/Vol] 121 mg/dL High 70-99 [facility] Comment on above: Order Comment: CBN: [place]: MAIN Result Comment: Fast ing GLUCOSE reference range has been updated per (ADA) [place] [employer]'s recommendation. 06/25/2018 Performed By: #### L 500.63467, L500.97137 ####Test performed at: [address] [place] [address] OSM 289 mosm/kg Normal 270-300 [facility] Comment on above: Order Comment: CBN: [place]: MAIN Performed By: #### L 500.11376, L500.70003 ####Test performed at: [address] [address] Potassium [Moles/Vol] 4.2 mmol/L Normal 3.5-5.1 [facility] Comment on above: Order Comment: CBN: [place]: MAIN Performed By: #### L 500.10526, L500.34289 ####Test performed at: [address] [address] Sodium [Moles/Vol] 139 mmol/L Normal 136-145 [facility] Comment on above: Order Comment: CBN: [place]: MAIN Performed By: #### L 500.92650, L500.01204 ####Test performed at: [address] [address] Urea nitrogen [Mass/Vol] 11 mg/dL Normal 7-18 [facility] Comment on above: Order Comment: CBN: [place]: MAIN Performed By: #### L 500.71473, L500.27078 ####Test performed at: [address] [address] CBC W/DIFFon 04-02-2020 BASO ABS 0.0 K/uL Normal 0.0-0.2 [facility] Comment on above: Order Comment: CBN: [place]: MAIN Performed By: #### L 200.02380 ####Test performed at: [address] [address] Basophils/100 WBC (Bld) 0.1 % Normal [facility] Comment on above: Order Comment: CBN: [place]: MAIN Performed By: #### L 200.76304 ####Test performed at: [address] [address] EOS ABS 0.0 K/uL Normal 0.0-0.5 [facility] Comment on above: Order Comment: CBN: [place]: MAIN Performed By: #### L 200.79997 ####Test performed at: [address] [address] Eosinophils/100 WBC (Bld) 0.0 % Normal [facility] Comment on above: Order Comment: CBN: [place]: MAIN Performed By: #### L 200.16986 ####Test performed at: [address] [address] Erythrocyte distribution width (RBC) [Ratio] 11.7 % Normal 11.5-14.5 [facility] Comment on above: Order Comment: CBN: [place]: MAIN Performed By: #### L 200.47607 ####Test performed at: [address] [address] Hematocrit (Bld) [Volume fraction] 42.8 % Normal 39.0-55.0 [facility] Comment on above: Order Comment: CBN: [place]: MAIN Performed By: #### L 200.35242 ####Test performed at: [address] [address] Hemoglobin (Bld) [Mass/Vol] 14.7 g/dL Normal 14.0-16.5 [facility] Comment on above: Order Comment: CBN: [place]: MAIN Performed By: #### L 200.38822 ####Test performed at: [address] [address] IG % 0.3 % Normal [facility] Comment on above: Order Comment: CBN: [place]: MAIN Performed By: #### L 200.97531 ####Test performed at: [address] [address] IG ABS 0.03 K/uL Normal 0-0.05 [facility] Comment on above: Order Comment: CBN: [place]: MAIN Performed By: #### L 200.63575 ####Test performed at: [place] [id number] Lymphocytes (Bld) [#/Vol] 0.7 10*3/uL Low 1.2-3.5 [facility] Comment on above: Order Comment: CBN: [place]: MAIN Performed By: #### L 200.89620 ####Test performed at: [place] [address] Lymphocytes/100 WBC (Bld) 7.2 % Normal [facility] Comment on above: Order Comment: CBN: [place]: MAIN Performed By: #### L 200.75768 ####Test performed at: [place] [address] MCH (RBC) [Entitic mass] 31.8 pg Normal 25.4-34.6 [facility] Comment on above: Order Comment: CBN: [place]: MAIN Performed By: #### L 200.04274 ####Test performed at: [place] [address] MCHC (RBC) [Mass/Vol] 34.3 g/dL Normal 31.5-36.5 [facility] Comment on above: Order Comment: CBN: [place]: MAIN Performed By: #### L 200.60491 ####Test performed at: [place] [address] MCV (RBC) [Entitic vol] 92.6 fL Normal 80.0-100.0 [facility] Comment on above: Order Comment: CBN: [place]: MAIN Performed By: #### L 200.19544 ####Test performed at: [address] [address] MONO ABS 0.4 K/uL Normal 0.0-1.0 [facility] Comment on above: Order Comment: CBN: [place]: MAIN Performed By: #### L 200.06488 ####Test performed at: [address] [address] Monocytes/100 WBC (Bld) 4.3 % Normal [facility] Comment on above: Order Comment: CBN: [place]: MAIN Performed By: #### L 200.68754 ####Test performed at: [address] [address] NEUTROPHIL ABS 8.1 K/uL High 1.4-6.6 [facility] Comment on above: Order Comment: CBN: [place]: MAIN Performed By: #### L 200.26146 ####Test performed at: [address] [address] Neutrophils/100 WBC (Bld) 88.1 % Normal [facility] Comment on above: Order Comment: CBN: [place]: MAIN Performed By: #### L 200.47253 ####Test performed at: [address] [address] NRBC # 0.000 K/uL Normal 0-0.012 [facility] Comment on above: Order Comment: CBN: [place]: MAIN Performed By: #### L 200.07867 ####Test performed at: [address] [address] NRBC % 0.0 /100 WBC Normal 0-0.2 [facility] Comment on above: Order Comment: CBN: [place]: MAIN Performed By: #### L 200.16578 ####Test performed at: [address] [address] Platelet mean volume (Bld) [Entitic vol] 11.3 fL Normal 8.7-12.4 [facility] Comment on above: Order Comment: CBN: [place]: MAIN Performed By: #### L 200.01681 ####Test performed at: [address] [address] Platelets (Bld) [#/Vol] 209 10*3/uL Normal 140-440 [facility] Comment on above: Order Comment: CBN: [place]: MAIN Performed By: #### L 200.11416 ####Test performed at: [address] [address] RBC (Bld) [#/Vol] 4.62 10*6/uL Normal 3.5-5.5 [facility] Comment on above: Order Comment: CBN: [place]: MAIN Performed By: #### L 200.54189 ####Test performed at: [address] [address] WBC (Bld) [#/Vol] 9.2 10*3/uL Normal 3.9-11.0 [facility] Comment on above: Order Comment: CBN: [place]: MAIN Performed By: #### L 200.75411 ####Test performed at: [address] [address] GFR ESTIMATEon 04-02-2020 IF AMER > 60 Normal > 60 [facility] Comment on above: Order Comment: [...] for clinical interpretation. Performed By: #### L 500.44845, L500.25607 ####Test performed at: [place] [address] IF non-AFR AMER > 60 Normal > 60 [facility] Comment on above: Order Comment: CBN: [place]: MAIN Performed By: #### L 500.46162, L500.00793 ####Test performed at: [place] [address] Internal Med Progress Noteon 04-02-2020 Internal Med Progress Note [facility] Patient: VINCE LUCIANO [address] [place], [place] [id number] MR#: [id number] PROGRESS NOTE - Internal Medicine : 78 [...] Result Date Time Pulse Ox 94 04/02 804 B/P 121/71 04/02 08 O2 Delivery ROOM AIR 04/02 08 Temp 36.6 04/02 08 Pulse 84 04/02 0805 Resp 20 04/02 08 Intake AND Output Verdana 4d 04/02 2300 04/01 230 Intake Total 1480 480 Output Total 3 [...] Intact, Cranial Nerves 3-12 NL, Reflexes 2+ Assessment/Plan-Multimedia Teacher al Med Med Reasons/Tx for Con't stay [...] Agree with above documentation. The [resident's, PA's, QUARTER BACKER's] assessment and plan reflect my input. Discussed with documenting provider and patient. Plan is as outlined above. NICOLAS asper ortho. Electronically Signed eSign Date and Time Kortney Mack RES, Donald E. MD 04/02/20 1311 Normal [facility] OT Therapy Recommendationson 04-02-2020 OT Therapy Recommendations [facility] Patient: VINCE LUCIANO [address] [place], [place] [id number] MR#: [id number] OT THERAPY RECOMMENDATIONS : 78 Service Date: 04/02/20 1257 Therapy Recommendations Therapy Recommendations Recommendations Occupational therapy eval complete. No skilled OT indicated. Recommend home with family assist. D/C OT services. Electronically Signed eSign Date and Time Cherelle Manzanares OT 04/02/20 1257 Normal [facility] Orthopedic Progress Noteon 0 04-02-2020 Orthopedic Progress Note [facility] Patient: VINCE LUCIANO [address] [place] [id number] MR#: [id number] PROGRESS NOTE - Orthopedic : 78 Service [...] (%) 88.1 Lymph % (Auto) (%) 7.2 [place] % (Auto) (%) 4.3 Eos % (Auto) (%) 0.0 Baso % (Auto) (%) 0.1 Neut # (Auto) (1.4 - 6.6 K/uL) 8.1 H Lymph # (Auto) (1.2 - 3.5 K/uL) 0.7 L [place] # (Auto) (0.0 - 1.0 K/uL) 0.4 Eos # (Auto) (0.0 - 0.5 K/uL) 0.0 0.2 K/uL) 0.0 Immature Gran # (Auto) (0 - 0.05 K/uL) 0.03 Nucleated RBC % (0 - 0.2 /100 WBC) 0.0 Nucleated RBCs # (0 - 0.012 K/uL) 0.000 Vital Signs Verdana 4d Result Date Time B/P 121/71 04/02 0853 Pulse 84 04/02 0853 Pulse Ox 94 04/02 08 O2 Delivery ROOM AIR 04/02 08 Temp 36.6 04/02 0805 Resp 20 04/02 08 Intake AND Output Verdana 4d 04/02 2300 12/31 2300 Intake Total 1480 480 Total 3 [...] RN 04/02/20 1221 Kalyan Torres MD Normal [facility] PT Therapy Recommendationson 04-02-2020 aPTT Coag (Bld) [Time] [facility] Patient: VINCE LUCIANO [address] [place] [id number] MR#: [id number] PT THERAPY RECOMMENDATIONS : 78 Service Date: 04/02/20 0848 Therapy Recommendations Therapy Recommendations Recommendations PT evaluation completed. Recommend d/c home with family assist. No further acute PT needs at this time. Electronically Signed eSign Date and Time Clara Montague PT 04/02/20 0849 Normal [facility] z OT Inpatient Discharge Not jarret 04-02-2020 z OT Inpatient Discharge Note [facility] Patient: VINCE LUCIANO [address] [place] [id number] MR#: [id number] OT INPATIENT DISCHARGE NOTE : 78 Service [...] Time Cherelle Manzanares OT 04/02/20 1320 Normal [facility] z OT Inpatient Evaluationon 04-02-2020 z OT Inpatient Evaluation [facility] Patient: VINCE LUCIANO [address] [place] [phone] MR#: [id number] OT INPATIENT EVALUATION : 78 Inpatient OT HPI Date of Service 04/02/20 Time In: 1048 Time Out: 1110 Total Treatment Time (Mins) 22 Visit Reason HERNIATED CERVICAL DISC W/ RADICULOPATHY Surgery Type/Date ACDF C5-7, 04/01/2020. Referral Date 04/01/20 Tx Diagnosis: CERVICALGIA Insurance Name [employer] [facility] Course POD#1. RN cleared pt. to [...] ADLs and functional mobility tasks. 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 OT recommended cumulative effects analyst Transfers Transfers Supine to Sit Modified Independent [...] Time Cherelle Manzanares OT 04/02/20 1319 Normal [facility] z PT Inpatient Discharge Not jarret 04-02-2020 z PT Inpatient Discharge Note [facility] Patient: VINCE LUCIANO [address] [place] [address] MR#: [id number] PT INPATIENT DISCHARGE NOTE : 78 Service Date: 04/02/20 0902 z PT Inpt. HPI Discharge Note Discharge Time 09 Total number of visits 1 Medical Diagnosis/ICD [...] Time Clara Montague PT 04/02/20 0903 Normal [facility] z PT Inpatient Evaluationon 04-02-2020 z PT Inpatient Evaluation [facility] Patient: VINCE LUCIANO [address] [place] [phone] MR#: [id number] PT INPATIENT EVALUATION : 78 Service Date: 04/02/20 0850 Inpatient PT HPI Date of Service 04/02/20 Time In: 0755 Time Out: 0823 Total Treatment Time (Mins) 28 Room Number 614 Visit Reason HERNIATED CERVICAL DISC W/ RADICULOPATHY Surgery Type: ACDF C5-6, 6-7 with cages and plate Surgery Date: 04/01/20 Referral Date 04/01/20 Tx Diagnosis: CERVICALGIA Insurance Name [facility] Course Patient is a 39 y/o [...] device or falls. 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 prior [...] Time Clara Montague PT 04/02/20 0902 Normal [facility] Internal Medicine Consultati on04-01-2020 Internal Medicine Consultation [facility] Patient: VINCE LUCIANO [address] [place] [address] MR#: [id number] CONSULTATION - Internal Medicine : 78 Service [...] NEXT DOSE TOMORROW Entered as Reported by MARINAA BERMUDEZ on 04/01/20 0622 Last Action: Edited on 04/02/20 1230 by DEMETRIUS PATEL Scheduled PRN Medications Doxycycline Hyclate * (Vibramycin *) 100 MG CAPSULE 100 MG PO PRN PRN SKIN, Ref 0 ( Reported) Entered as Reported by MARIANA BERMUDEZ on 04/01/20 0623 Last Action: No Recorded Action oxyCODONE HCl [...] results of Cranial Nerve Asmt for all BH pts. Neurological Alert, Oriented x 3, No [...] Agree with above documentation. The [resident's, PA's, QUARTER BACKER's] assessment and plan reflect my input. Discussed with documenting provider and patient. Plan is as outlined above. Electronically Signed eSign Date and Time Kortney Mack RES, Abdul Res Eghobamien, Donald E. MD 04/02/20 1311 Normal [facility] OPERATIVE REPORTon 0 OPERATIVE REPORT NAME: VINCE LUCIANO MR#: [id number] SURGEON: Kalyan Torres MD DATE OF SURGERY: [...] monitoring was continuously carried out with an on-site foreman and remote physician and never to safeguard [...] x 15 x 15, which gave excellent [facility] PT NAME: VINCE LUCIANO MR#: [id number] [address] [place] [address] ACCT: [id number] : 78 OPERATIVE REPORT fit and fill. [...] changes on the neuro monitoring. MD LORRIE JEREZ/[facility]/[id number] CC: National neuromonitoring services E/S: Kalyan Torres MD 04/08/20 0940 Electronically Signed [facility] PT NAME: VINCE LUCIANO MR#: [id number] [address] [place] [address] ACCT: [id number] : 78 OPERATIVE REPORT Normal [facility] CERVICAL SP AP&LAT OR 2-3 VW Son 03-31-2020 CERVICAL SP AP&LAT OR 2-3 VWS Exam: Fluoroscopy cervical spine Clinical History: ACDF C5-C6,C6-C7 Comparison: None. Findings: Intraoperative fluoroscopic images demonstrate placement of anterior fusion hardware from C5-C7. Impression: As above Dictated: 04/01/20 1231 REPORT SIGNATURE ON FILE04/01/20(1231) Reported By: SHELLEY KITCHEN Signed By: SHELLEY KITCHEN Normal [facility] CORONAVIRUSon 03-29-2020 CORONAVIRUS Methodology: PCR Negative [...] on the FDA website: https://www.fda.gov/Me dicalDevices/Safety/ EmergencySituations/uc s317424.htm COVID-19 Negative for COVID-19 (SARS-CoV-2 RNA) Normal [facility] Comment on above: Order Comment: CBN: YES [place]: MAIN COVID Testing: PRE-OP/PROCEDURE SCREEN Comment: 04/01 AGE at Spec MAXWELL 39 Report age at specimen MAXWELL? Y First test: UNKNOWN Employed in Healthcare: NO Symptomatic as defined by CDC: NO Hospitalized for COVID-19? NO ICU: NO Resident in a Congregated Care Setting: NO Order Date: 03/29/20 : Not Performed By: #### M 400.44345 #### Test performed at: [place] [address] CONSULTATION REPORTon 2019 CONSULTATION REPORT NAME: VINCE LUCIANO MR#: [id number] HEALTHCARE PROJECT MANAGER: Nayan Ham MD DATE OF CONSULTATION: 03/15/2020 [...] has had blood work done recently which [facility] PT NAME: VINCE LUCIANO MR#: [id number] [address] [place], [place] [id number] ACCT: [id number] : 78 CONSULTATION are within acceptable limits. The only thing he needs it is another COVID test which he is going for it on March 19. He is cleared for anesthesia with acceptable risk without any further workup. Thank you for the courtesy of this consultation. NAYAN HAM MD MS/MODL/[id number] E/S: Nayan Ham MD 03/16/20 1812 Electronically Signed [facility] PT NAME: VINCE LUCIANO MR#: [id number] [address] [place], [place] [id number] ACCT: [id number] : 78 CONSULTATION Normal [facility] CORONAVIRUSon 03-05-2020 CORONAVIRUS Methodology: PCR Negative [...] available on the FDA website: https://www.fda.gov/Me dicalDevices/Safety/ EmergencySituations/ b032703.htm COVID-19 Negative for COVID-19 (SARS-CoV-2 RNA) Normal [facility] Comment on above: Order Comment: CBN: YES [place]: MAIN AGE at Spec MAXWELL 39 First test: UNKNOWN Employed in Healthcare: NO Symptomatic as defined by CDC: NO Hospitalized for COVID-19? NO ICU: NO Resident in a Congregated Care Setting: NO Order Date: 03/05/20 : Not Comment: 03/08 COVID Testing: PRE-OP/PROCEDURE SCREEN Performed By: #### M 400.03914 #### Test performed at: [address] [address] BASIC MET PANELon 02-17-2020 Anion gap [Moles/Vol] 10 mmol/L Normal 6-18 [facility] Comment on above: Order Comment: CBN: YES [place]: MAIN Performed By: #### L 500.43071, L500.70607 #### Test performed at: [address] [address] Calcium [Mass/Vol] 9.3 mg/dL Normal 8.5-10.1 [facility] Comment on above: Order Comment: CBN: YES [place]: MAIN Performed By: #### L 500.13869, L500.31092 #### Test performed at: [address] [address] Chloride [Moles/Vol] 112 mmol/L High 98-107 [facility] Comment on above: Order Comment: CBN: YES [place]: MAIN Performed By: #### L 500.86188, L500.61472 #### Test performed at: [address] [address] CO2 [Moles/Vol] 24 mmol/L Normal 21-32 [facility] Comment on above: Order Comment: CBN: YES [place]: MAIN Performed By: #### L 500.70175, L500.08348 #### Test performed at: [address] [address] Creatinine [Mass/Vol] 1.090 mg/dL Normal 0.700-1.300 [facility] Comment on above: Order Comment: CBN: YES [place]: MAIN Performed By: #### L 500.63023, L500.27640 #### Test performed at: [address] [address] Glucose [Mass/Vol] 86 mg/dL Normal 70-99 [facility] Comment on above: Order Comment: CBN: YES [place]: MAIN Result Comment: Fast ing GLUCOSE reference range has been updated per (ADA) [place] [employer]'s recommendation. 06/25/2018 Performed By: #### L 500.52528, L500.41341 #### Test performed at: [address] [address] OSM 297 mosm/kg Normal 270-300 [facility] Comment on above: Order Comment: CBN: YES [place]: MAIN Performed By: #### L 500.30283, L500.15232 #### Test performed at: [address] [address] Potassium [Moles/Vol] 4.4 mmol/L Normal 3.5-5.1 [facility] Comment on above: Order Comment: CBN: YES [place]: MAIN Performed By: #### L 500.18199, L500.36201 #### Test performed at: [address] [address] Sodium [Moles/Vol] 142 mmol/L Normal 136-145 [facility] Comment on above: Order Comment: CBN: YES [place]: MAIN Performed By: #### L 500.36971, L500.75364 #### Test performed at: [address] [address] Urea nitrogen [Mass/Vol] 22 mg/dL High 7-18 [facility] Comment on above: Order Comment: CBN: YES [place]: MAIN Performed By: #### L 500.30671, L500.75743 #### Test performed at: [address] [address] CBC W/DIFFon 02-17-2020 BASO ABS 0.0 K/uL Normal 0.0-0.2 [facility] Comment on above: Order Comment: CBN: YES [place]: MAIN Performed By: #### L 200.03084 #### Test performed at: [address] [address] Basophils/100 WBC (Bld) 0.6 % Normal [facility] Comment on above: Order Comment: CBN: YES [place]: MAIN Performed By: #### L 200.56210 #### Test performed at: [address] [address] EOS ABS 0.2 K/uL Normal 0.0-0.5 [facility] Comment on above: Order Comment: CBN: YES [place]: MAIN Performed By: #### L 200.72905 #### Test performed at: [address] [address] Eosinophils/100 WBC (Bld) 3.6 % Normal [facility] Comment on above: Order Comment: CBN: YES [place]: MAIN Performed By: #### L 200.59457 #### Test performed at: [address] [address] Erythrocyte distribution width (RBC) [Ratio] 12.6 % Normal 11.5-14.5 [facility] Comment on above: Order Comment: CBN: YES [place]: MAIN Performed By: #### L 200.14267 #### Test performed at: [address] [address] Hematocrit (Bld) [Volume fraction] 45.4 % Normal 39.0-55.0 [facility] Comment on above: Order Comment: CBN: YES [place]: MAIN Performed By: #### L 200.27858 #### Test performed at: [address] [address] Hemoglobin (Bld) [Mass/Vol] 15.4 g/dL Normal 14.0-16.5 [facility] Comment on above: Order Comment: CBN: YES [place]: MAIN Performed By: #### L 200.03394 #### Test performed at: [address] [address] IG % 0.5 % Normal [facility] Comment on above: Order Comment: CBN: YES [place]: MAIN Performed By: #### L 200.12025 #### Test performed at: [address] [address] IG ABS 0.03 K/uL Normal 0-0.05 [facility] Comment on above: Order Comment: CBN: YES [place]: MAIN Performed By: #### L 200.85663 #### Test performed at: [address] [address] Lymphocytes (Bld) [#/Vol] 1.1 10*3/uL Low 1.2-3.5 [facility] Comment on above: Order Comment: CBN: YES [place]: MAIN Performed By: #### L 200.24048 #### Test performed at: [address] [address] Lymphocytes/100 WBC (Bld) 17.2 % Normal [facility] Comment on above: Order Comment: CBN: YES [place]: MAIN Performed By: #### L 200.77808 #### Test performed at: [address] [address] MCH (RBC) [Entitic mass] 32.0 pg Normal 25.4-34.6 [facility] Comment on above: Order Comment: CBN: YES [place]: MAIN Performed By: #### L 200.79440 #### Test performed at: [address] [address] MCHC (RBC) [Mass/Vol] 33.9 g/dL Normal 31.5-36.5 [facility] Comment on above: Order Comment: CBN: YES [place]: MAIN Performed By: #### L 200.46359 #### Test performed at: [address] [address] MCV (RBC) [Entitic vol] 94.4 fL Normal 80.0-100.0 [facility] Comment on above: Order Comment: CBN: YES [place]: MAIN Performed By: #### L 200.43248 #### Test performed at: [address] [address] MONO ABS 0.5 K/uL Normal 0.0-1.0 [facility] Comment on above: Order Comment: CBN: YES [place]: MAIN Performed By: #### L 200.04054 #### Test performed at: [address] [address] Monocytes/100 WBC (Bld) 7.6 % Normal [facility] Comment on above: Order Comment: CBN: YES [place]: MAIN Performed By: #### L 200.24328 #### Test performed at: [address] [address] NEUTROPHIL ABS 4.3 K/uL Normal 1.4-6.6 [facility] Comment on above: Order Comment: CBN: YES [place]: MAIN Performed By: #### L 200.03327 #### Test performed at: [address] [address] Neutrophils/100 WBC (Bld) 70.5 % Normal [facility] Comment on above: Order Comment: CBN: YES [place]: MAIN Performed By: #### L 200.09148 #### Test performed at: [address] [address] NRBC # 0.000 K/uL Normal 0-0.012 [facility] Comment on above: Order Comment: CBN: YES [place]: MAIN Performed By: #### L 200.45492 #### Test performed at: [address] [address] NRBC % 0.0 /100 WBC Normal 0-0.2 [facility] Comment on above: Order Comment: CBN: YES [place]: MAIN Performed By: #### L 200.40575 #### Test performed at: [address] [address] Platelet mean volume (Bld) [Entitic vol] 11.7 fL Normal 8.7-12.4 [facility] Comment on above: Order Comment: CBN: YES [place]: MAIN Performed By: #### L 200.51633 #### Test performed at: [address] [address] Platelets (Bld) [#/Vol] 213 10*3/uL Normal 140-440 [facility] Comment on above: Order Comment: CBN: YES [place]: MAIN Performed By: #### L 200.05977 #### Test performed at: [address] [address] RBC (Bld) [#/Vol] 4.81 10*6/uL Normal 3.5-5.5 [facility] Comment on above: Order Comment: CBN: YES [place]: MAIN Performed By: #### L 200.50000 #### Test performed at: [address] [address] WBC (Bld) [#/Vol] 6.2 10*3/uL Normal 3.9-11.0 [facility] Comment on above: Order Comment: CBN: YES [place]: MAIN Performed By: #### L 200.42322 #### Test performed at: [facility] [address], [place] [address] CONSULTATION REPORTon 2019 CONSULTATION REPORT NAME: VINCE LUCIANO MR#: [id number] HEALTHCARE PROJECT MANAGER: Nayan Ham MD DATE OF CONSULTATION: 02/17/2020 [...] and he is cleared for anesthesia pending [facility] PT NAME: VINCE LUCIANO MR#: [id number] [address] [place] [address] ACCT: [id number] : 78 CONSULTATION these labs with acceptable risk. Thank you for the courtesy of this consultation. NAYAN HAM MD MS/MODL/[id number] E/S: Nayan Ham MD 02/17/20 1740 Electronically Signed [facility] PT NAME: VINCE LUCIANO MR#: [id number] [address] [place] [address] ACCT: [id number] : 78 CONSULTATION Normal [facility] GFR ESTIMATEon 02-17-2020 IF AMER > 60 Normal > 60 [facility] Comment on above: Order Comment: CBN: YES [place]: MAIN Result Comment: eGFR (Estimated GFR) Units of measure:mL/min/1.73 meters sq. *CALCULATION REVISED 01/19/2015;IDMS-traceable MDRD equation eGFR is derived from the reexpressed MDRD Study equation using the following parameters: serum creatinine, age, gender and race. An eGFR<60 mL/min/1.73m2 for >3 months is consistent with chronic kidney disease. Refer to KDOQI guidelines for clinical interpretation. Performed By: #### L 500.17135, L500.00705 #### Test performed at: [place] [address] IF non-AFR AMER > 60 Normal > 60 [facility] Comment on above: Order Comment: CBN: YES [place]: MAIN Performed By: #### L 500.36207, L500.40403 #### Test performed at: [address] [address] PROTIMEon 02-17-2020 INR Coag (PPP) [Relative time] 0.96 {INR} Normal 0.00-1.20 [facility] Comment on above: Order Comment: CBN: YES [place]: MAIN List patient's anticoagulants for PT: NONE SPECIFIED Result Comment: Kevin mmended therapeutic range is an INR of 2.0-3.0 except for prevention of recurrent acute DE and mechanical prosthetic heart valve where an INR of 2.5-3.5 is recommended. Performed By: #### L 300.40198 #### Test performed at: [place] [address] PT Coag (PPP) [Time] 10.3 s Normal 9.0-12.7 [facility] Comment on above: Order Comment: CBN: YES [place]: MAIN List patient's anticoagulants for PT: NONE SPECIFIED Performed By: #### L 300.56170 #### Test performed at: [place] [id number] CERV SP W OBL/FLEX/EXT 6 OR >on 01-13-2020 CERV SP W OBL/FLEX/EXT 6 OR > STUDY: CERV SP W OBL/FLEX/EXT 6 OR > ; 01/13/2020 9:48 am INDICATION: PAIN. COMPARISON: None. ACCESSION NUMBER(S): [id number] ORDERING CLINICIAN: Kalyan Torres FINDINGS: Mild disc height loss C5-6. The remaining disc heights are maintained. No fracture or subluxation. No spondylolisthesis. No instability on flexion or extension. Disc height loss anteriorly increases at C5-6 and C6-7 on flexion. No significant osseous foraminal stenosis is seen. IMPRESSION: Lower cervical degenerative disc disease without dynamic instability. Normal [facility] FINGER RIGHT MIN 2 VWSon FINGER RIGHT MIN 2 VWS [facility] Department of Radiology [address] [place] [phone] ======== Patient Name: VINCE LUCIANO : 1980 Sex: M Age: Race: White Pt. Location: 84 Patient Status: O Ordered Date: 09/09/2018 10:40:00 AM Completed Date: 09/09/2018 10:49 AM Requesting Provider: JONATHAN RHODES Attending Provider: JONATHAN RHODES Report Copy To: ROXY DRIVER Signs & Symptoms: S62.634B Disp fx of distal phalanx of r rng fngr, init for opn fx I10 History: [place] Comments: , , , Ordering Provider - [...] finger Electronically signed by:Xochilt Oliveira. Transcribed by: [email or web address], User Resident: Electronically Signed by: XOCHILT TEE @ 09/09/2018 02:22 PM Normal [facility] Comment on above: Order Comment: , , = ========= , Ordering Provider - JONATHAN RHODES PA-C , Operative Reporton 9 Operative Report MR#: [id number] S [facility] Pt. Name: Vince Luciano Room #: 6AB [...] his facility and was transferred to the [facility] for further management of his [...] Cannon MD Date Trans: 09/03/2018 04:40 A/joselin PIKE_JN:[id number] cc: Roxy Driver M.D. [address] [facility] [phone] [place] [facility] FINGER RIGHT MIN 2 VWSon FINGER RIGHT MIN 2 VWS [facility] Department of Radiology [address] [place] [phone] ======== Patient Name: VINCE LUCIANO : [...] POSSIBLE PINNING Exam: FINGER RIGHT MIN 2 S ======== FINGER RIGHT MIN 2 VWS 09/02/2018 8:17 PM EDT SIGNS AND SYMPTOMS: RT RING FINGER POSSIBLE PINNING TECHNOLOGIST COMMENTS: 2 secs of fluoro used by Dr Plasencia QUESTION FOR THE RADIOLOGIST: RT RING FINGER POSSIBLE PINNING PROTOCOL: AP,Lateral and Oblique views were obtained. COMPARISON: None FINDINGS: Soft tissues: Bones: Joints: IMPRESSION: Documentation Electronically signed by:Xochilt Oliveira. Transcribed by: [email or web address], User Resident: Electronically Signed by: XOCHILT OLIVEIRA @ 09/03/2018 01:00 PM Normal [facility] Comment on above: Order Comment: RT RI NG FINGER POSSIBLE PINNING POC GLUCOSE LABon 09-02-2018 Glucose [Mass/Vol] 75 mg/dL Normal 70-100 [facility] Comment on above: Performed By: #### 8 [address]99 #### [address] Vital Signs Date Time Vital Sign Value Performing Clinician Facility 08-01-2023 11:18-0400 Body height 190.5 cm Pacc 2 Work Phone: [facility] 08-01-2023 11:18-0400 Body mass index (BMI) [Ratio] 28.38 kg/m2 Pacc 2 Work Phone: [facility] 08-01-2023 11:18-0400 Body temperature 97.9 [degF] Pacc 2 Work Phone: [facility] 08-01-2023 11:18-0400 Body weight 103 kg Pacc 2 Work Phone: [facility] 08-01-2023 11:18-0400 Diastolic blood pressure 74 mm[Hg] Pacc 2 Work Phone: [facility] 08-01-2023 11:18-0400 Heart rate 85 /min Pacc 2 Work Phone: [facility] 08-01-2023 11:18-0400 SaO2% (BldA) [Mass fraction] 98 % Pacc 2 Work Phone: [facility] 08-01-2023 11:18-0400 Systolic blood pressure 112 mm[Hg] Pacc 2 Work Phone: [facility] 04-09-2023 19:44-0500 Body temperature 97.88 [degF] Clifford Sanchez [facility] 04-09-2023 19:44-0500 Diastolic blood pressure 85 mm[Hg] Clifford Sanchez [facility] 04-09-2023 19:44-0500 Heart rate 85 /min Clifford Sanchez [facility] 04-09-2023 19:44-0500 Mean blood pressure 95 mm[Hg] Clifford Laura [facility] 04-09-2023 19:44-0500 Respiratory rate 17 /min Clifford Collazoe [facility] 04-09-2023 19:44-0500 SaO2% (BldA) [Mass fraction] 97 % Clifford Collazoe [facility] 04-09-2023 19:44-0500 Systolic blood pressure 115 mm[Hg] Clifford Collazoe [facility] 04-09-2023 18:41-0500 Diastolic blood pressure 82 mm[Hg] Clifford Collazoe [facility] 04-09-2023 18:41-0500 Heart rate 81 /min Clifford Collazoe [facility] 04-09-2023 18:41-0500 Mean blood pressure 94 mm[Hg] Clifford Collazoe [facility] 04-09-2023 18:41-0500 Respiratory rate 18 /min Clifford Collazoe [facility] 04-09-2023 18:41-0500 SaO2% (BldA) [Mass fraction] 96 % Clifford Collazoe [facility] 04-09-2023 18:41-0500 Systolic blood pressure 117 mm[Hg] Clifford Collazoe [facility] 04-09-2023 17:56-0500 Body temperature 98.24 [degF] Clifford Laura [facility] 04-09-2023 17:56-0500 Diastolic blood pressure 89 mm[Hg] Clifford Collazoe [facility] 04-09-2023 17:56-0500 Heart rate 85 /min Clifford Collazoe [facility] 04-09-2023 17:56-0500 Respiratory rate 16 /min Clifford Sanchez [facility] 04-09-2023 17:56-0500 SaO2% (BldA) [Mass fraction] 96 % Clifford Sanchez [facility] 04-09-2023 17:56-0500 Systolic blood pressure 132 mm[Hg] Clifford Sanchez [facility] 02-13-2023 15:50-0500 Blood Pressure Location Riley RODRIGUEZ [facility] [place] 02-13-2023 15:50-0500 Diastolic blood pressure 80 mm[Hg] Riley NILL [facility] [place] 02-13-2023 15:50-0500 Heart rate 70 /min Riley NILL [facility] [place] 02-13-2023 15:50-0500 Respiratory rate 16 /min Riley NILL [facility] [place] 02-13-2023 15:50-0500 Systolic blood pressure 124 mm[Hg] Riley NILL [facility] [place] Encounters Encounter Date Encounter Type Care Provider Facility Start: 11-07-2023 End: 11-07-2023 ambulatory [facility] Start: 08-13-2023 Telephone encounter Nando sandhu MD Work Phone: [facility] Comment on above: FMLA Paperwork Start: 08-13-2023 End: 08-13-2023 ambulatory NANDO PARKER Facility:[facility] Start: 08-01-2023 Encounter for other preprocedural examination ROXY DRIVER [facility] Start: 08-01-2023 End: 08-02-2023 ambulatory AMITA GEE Facility:[facility] Start: 08-01-2023 End: 08-01-2023 Admission to [facility] Pacc [place] 2 Work Phone: Pre Anesthesia Start: 08-01-2023 End: 08-01-2023 Anesthesia consultation [place] [id number] Work Phone: Pre Anesthesia Comment on above: Preoperative examina tion (Primary Dx); Migraine without status migrainosus, not intractable, unspecified migraine type; Alcohol use; Anxiety and depression Start: 08-01-2023 End: 08-01-2023 Preprocedural examination done [place] [id number] Work Phone: [facility] Work Phone: Start: 07-31-2023 End: 07-31-2023 [facility] Start: 07-17-2023 Telephone encounter Nando sandhu MD Work Phone: [facility] Comment on above: Patient Question Start: 07-03-2023 End: 07-03-2023 ambulatory [facility] Start: 06-06-2023 End: 06-07-2023 ambulatory [facility] Facility:[facility] Start: 06-06-2023 End: 06-06-2023 Patient encounter procedure Nando Parker MD Work Phone: Urology Comment on above: Weak urinary stream (Primary Dx); BPH with obstruction/lower urinary tract symptoms; Urinary frequency; Voiding dysfunction Start: 06-06-2023 End: 06-06-2023 Nursing evaluation of patient and report [facility] Comment on above: BPH with urinary obs truction (Primary Dx) Start: 06-05-2023 End: 06-05-2023 ambulatory KEESHA CURTIS Facility:[facility] Start: 05-23-2023 Telephone encounter Nando sandhu MD Work Phone: [facility] Comment on above: Appointment Start: [...] Urology Start: 04-30-2023 End: 04-30-2023 ambulatory EMELY PERERATON Not Available Start: 04-26-2023 End: 04-26-2023 ambulatory EMELY BLACKSTON Not Available Start: 04-23-2023 End: 04-23-2023 ambulatory EMELY BLACKSTON Not Available Start: 04-20-2023 End: 04-21-2023 ambulatory EMELY MAGALLANES Not Available Start: 04-13-2023 End: 04-14-2023 ambulatory EMELY MAGALLANES Not Available Start: 04-11-2023 End: 04-11-2023 ambulatory RAFAEL [facility] Start: 04-10-2023 End: 04-11-2023 ambulatory EMELY MAGALLANES Not Available Start: 04-09-2023 End: 04-09-2023 Emergency department patient visit Clifford Sanchez [facility] Start: 04-06-2023 End: 04-07-2023 ambulatory EMELY MAGALLANES Not Available Start: 04-03-2023 End: 04-03-2023 ambulatory EMELY PERERATON Not Available Start: 03-21-2023 End: 03-21-2023 ambulatory EMELY TREVERCARLOS Not Available Start: 03-20-2023 End: 03-20-2023 ambulatory Riley RODRIGUEZ Facility:[facility] Start: 03-19-2023 End: 03-19-2023 ambulatory EMELY MAGALLANES Not Available Start: 03-14-2023 End: 03-14-2023 ambulatory EMELY MAGALLANES Not Available Start: 03-12-2023 End: 03-12-2023 ambulatory EMELY MAGALLANES Not Available Start: 03-08-2023 End: 03-08-2023 ambulatory EMELY MAGALLANES Not Available Start: 03-07-2023 ambulatory [facility] Start: 02-19-2023 End: 02-19-2023 ambulatory [facility] Start: 02-13-2023 End: 02-13-2023 ambulatory Riley RODRIGUEZ Facility:[facility] Start: 02-13-2023 End: 02-13-2023 Patient encounter procedure Riley RODRIGUEZ [facility] Start: 01-30-2023 End: 01-30-2023 ambulatory [facility] Start: 07-25-2022 End: 07-26-[address] ROXY DRIVER . 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 Facility:[facility] Start: 05-05-2022 End: 05-05-[address] IAN ROMAN Facility:[facility] Start: 09-02-2018 End: 09-03-2018 Patient encounter procedure NEELAM PLASENCIA Facility:[facility] Procedures Date Procedure Procedure Detail Performing Clinician Start: 06-06-2023 Us transrct prstate vol brachytx plnning spx Nando Parker MD Work Phone: Start: 05-02-2023 Urnls dip stick/tabl et rgnt auto w/o microscopy Bulk Order Provider Start: 03-14-2023 Excision of lesion of skin Clifford Sanchez Comment on above: forehead Start: 04-30-2019 Colonoscopy Riley SANDHU Start: 09-02-2018 ANESTH LOWER ARM SURGERY NEELAM PLASENCIA Start: 09-02-2018 KESHIA SKIN BONE AT FX SITE NEELAM EBZAID Start: 09-02-2018 Repair nail bed NEELAM GIL Appendectomy Riley RODRIGUEZ Cholecystectomy Riley RODRIGUEZ Exploratory laparotomy Arnoldo RODRIGUEZ Fracture of hand (disorder) Riley RODRIGUEZ History of cervical spine fusion Riley RODRIGUEZ History of surgical procedure on vein Riley RODRIGUEZ Plan of Treatment Date Care Activity Detail Author Start: 05-05-2032 Urine microalbumin profile DTaP,Tdap,Td Vaccine (2 - Tdap) [facility] Start: 12-27-2023 End: 12-27-2023 Patient encounter procedure 12/27/2023 8:15 AM EDT Office Visit Urology [address] [address] Nando Parker MD [address] [place] [address] UroFlow & PVR - 08/13/2023 [facility] Comment on above: UroFlow & PVR - 08/13/2023 PVP Start: 12-02-2023 Influenza vaccination Influenza Vaccine (Season Ended) [facility] Start: 08-23-2023 End: 08-23-2023 Follow-up encounter 08/23/2023 7:15 AM EDT [facility] Urology [address] [address] Nando Parker MD [address] [place] [address] follow up after UDS per cc chart Urology Comment on above: follow up after UDS per cc chart Start: 08-13-2023 End: 08-13-2023 Admission to same day surgery center 08/13/2023 11:30 AM EDT - 08/13/2023 1:00 PM EDT Surgery [facility] [address] [place] [address] Nando Parker MD [address] [place] [address] LASER PROSTATECTOMY ~ GREEN LIGHT [facility] Comment on above: LASER PROSTATECTOMY ~ GREEN LIGHT Start: 08-13-2023 End: 08-13-2023 Laser vaporization of prostate for urine flow LASER PROSTATECTOMY ~ GREEN LIGHT BPH with obstruction/lower urinary tract symptoms Weak urinary stream 08/13/2023 11:30 AM EDT [facility] OR Start: 08-13-2023 Subsequent hospital visit by physician 08/13/2023 11:30 AM EDT Hospital Encounter [facility] [address] [place] [address] Nando Parker MD [address] [place] [address] BPH with obstruction/lower urinary tract symptoms [N40.1, N13.8], Weak urinary stream [R39.12] [facility] Comment on above: BPH with obstruction/lower urinary tract symptoms [N40.1, N13.8], Weak urinary stream [R39.12] Start: 04-02-2023 Behavioral Health Screening Behavioral Health Screening [facility] Start: 04-02-2023 Depression Assessment Depression Assessment [facility] Start: 12-01-2022 Covid-19 Vaccine ( season) Covid-19 Vaccine ( season) [facility] Start: 12-01-2022 Influenza vaccination Influenza Vaccine (#1) [facility] Start: 06-30-2014 Lipid panel Lipid Screening [facility] Start: 06-30-1998 Hepatitis B Vaccine (1 of 3 - 19+ 3-dose series) Hepatitis B Vaccine (1 of 3 - 19+ 3-dose series) [facility] Start: 06-30-1997 Hepatitis C screening Hepatitis C Screening [facility] Start: 06-30-1997 HIV screening HIV Screening [facility] Start: 1980 Hepatitis B Vaccine (1 of 3 - 3-dose series) Hepatitis B Vaccine (1 of 3 - 3-dose series) [facility] CYSTO DIAGNOSTIC CYSTO DIAGNOSTI C Procedures Routine Weak urinary stream Ordered: 05/18/2023 [facility] Work Phone: Comment on above: Ordered: 05/18/2023 ECG COMPLETE ECG COMPLETE ECG Routine Preoperative examination Ordered: 08/01/2023 [facility] Work Phone: Comment on above: Ordered: 08/01/2023 FLUROURODYNAMICS WITH EMG FLUROU RODYNAMICS WITH EMG Procedures Routine Weak urinary stream Ordered: 05/18/2023 [facility] Work Phone: Comment on above: Ordered: 05/18/2023 [facility] Immunizations Immunization Date Immunization Notes Care Provider Fa cili 01-04-2022 influenza, unspecified formulation Riley NAMRATAL [facility] [place] 01-04-2022 influenza virus vaccine, unspecified formulation Emely Magallanes OT Work Phone: [facility] 03-24-2021 SARS-CoV-2 (COVID-19 ) mRNA BNT-162b2 vax Riley OTTL [facility] 07-21-2020 SARS-CoV-2 (COVID-19 ) mRNA-1273 vaccine Riley OTTL [facility] [place] 06-23-2020 SARS-CoV-2 (COVID-19 ) mRNA-1273 vaccine Riley OTTL [facility] NEGATED: Highlighted row has not occurred!02-13-2023 influenza virus vaccine, unspecified formulation Riley OTTDontae [facility] NEGATED: Highlighted row has not occurred!04-15-2019 influenza virus vaccine, live, attenuated, for intranasal use Riley OTTDontae [facility] Payers Date Payer Category Payer Unknown [id number] 2021 Unknown [id number] 2021 Unknown [id number] 1979 Unknown [id number] 2.16.8 40.1.993743.3.579.2.647 1979 Unknown [id number] 2.16.84 0.1.275927.3.579.2.593 1979 Unknown [id number] 2.16.84 0.1.376112.3.579.2.593 1979 Unknown [id number] 2.16.84 0.1.663848.3.579.2.593 1979 Unknown [id number] 2.16.84 0.1.196988.3.579.2.593 1979 Unknown [id number] 2.16.84 0.1.158916.3.579.2.1259 1979 Unknown [id number] 2.16.84 0.1.295538.3.579.2.1259 1979 Unknown [id number] 2.16.84 0.1.417414.3.579.2.9 1979 Unknown [id number] 2.16.84 0.1.612412.3.579.2.9 1979 Unknown [id number] 2.16.84 0.1.202942.3.579.2.9 1979 Unknown [id number] 2.16.84 0.1.469533.3.579.2.1259 1979 Unknown [id number] 2.16.84 0.1.651636.3.579.2.1259 1979 Unknown [id number] 2.16.84 0.1.878405.3.579.2.1259 1979 Unknown [id number] 2.16.84 0.1.252201.3.579.2.1259 1979 Unknown [id number] 2.16.84 0.1.626653.3.579.2.1259 1979 Unknown [id number] 2.16.84 0.1.725275.3.579.2.1259 1979 Unknown [id number] 2.16.84 0.1.352297.3.579.2.1259 1979 Unknown [id number] 2.16.84 0.1.648859.3.579.2.1259 1979 Unknown [id number] 2.16.84 0.1.103087.3.579.2.1259 1979 Unknown [id number] 2.16.84 0.1.784875.3.579.2.1258 1979 Unknown [id number] 2.16.84 0.1.026191.3.579.2.1258 1979 Unknown [id number] 2.16.84 0.1.059212.3.579.2.1258 1979 Unknown [id number] 2.16.84 0.1.256397.3.579.2.1258 1979 Unknown [id number] 2.16.84 0.1.609083.3.579.2.1258 1979 Unknown [id number] 2.16.84 0.1.456005.3.579.2.1258 1979 Unknown [id number] 2.16.84 0.1.308818.3.579.2.1258 1979 Unknown [id number] 2.16.84 0.1.859444.3.579.2.1258 1979 Unknown [id number] 2.16.840 .1.229256.3.579.2.1258 1979 Unknown [id number] 2.16.840 .1.590629.3.579.2.1258 1979 Unknown [id number] 2.16.840 .1.720020.3.579.2.1258 1979 Unknown [id number] 2.16.840 .1.712283.3.579.2.1258 1979 Unknown [id number] 2.16.840 .1.378240.3.579.2.1258 1979 Unknown [id number] 2.16.840 .1.153022.3.579.2.1258 1979 Unknown [id number] 2.16.840 .1.435779.3.579.2.1258 1979 Unknown [id number] 2.16.840 .1.072446.3.579.2.1259 1979 Unknown [id number] 2.16.840 .1.957139.3.579.2.1258 1979 Unknown [id number] 2.16.840 .1.136556.3.579.2.9 1979 Unknown [id number] 2.16.840 .1.321130.3.579.2.1258 1979 Unknown [id number] 2.16.840 .1.301612.3.579.2.1258 1979 Unknown [id number] 2.16.840 .1.152178.3.579.2.1258 1979 Unknown [id number] 2.16.840 .1.837807.3.579.2.1258 1979 Unknown [id number] 2.16.840 .1.629571.3.579.2.1258 1979 Unknown [id number] 2.16.840 .1.724294.3.579.2.1258 1979 Unknown [id number] 2.16.8 40.1.845864.3.579.2.7 1979 Unknown [id number] 2.16.8 40.1.755178.3.579.2.7 1979 Unknown [id number] 2.16.8 40.1.279058.3.579.2. 1979 Unknown [id number] 2.16.8 40.1.408512.3.579.2.727 1959 Unknown [id number] 1959 Unknown [id number] Worker's Compensation [id number] Social History Date Type Detail Facility Start: 05-07-2019 End: 01-15-2023 Tobacco smoking status Never smoked tobacco (finding) [facility] Tobacco smoking status Never [facility] Start: 01-15-2023 End: 05-02-2023 Sex Assigned At Male [facility] Start: 01-15-2023 Tobacco use and exposure Smokeless tobacco non-user [facility] Start: 06-19-2016 End: 01-15-2023 Alcohol intake Current drinker of alcohol (finding) [facility] Start: 01-15-2023 End: 05-02-2023 History of Social function [facility] Start: 12-21-2022 Alcohol Comment caffeine: 2-3 cups per day [facility] Start: 1980 Sex Assigned At Male [facility] Start: 12-19-2022 Gender identity Identifies as male gender (finding) [facility] Start: 12-19-2022 Sexual orientation Heterosexual (finding) [facility] Start: 07-24-2011 Tobacco smoking status NHIS Ex-smoker [facility] End: 04-02-2004 History of tobacco use Current smoker [facility] End: 04-02-2004 History of tobacco use Cigarette Smoker [facility] Start: 07-24-2011 Tobacco use and exposure Former smokeless tobacco user [facility] End: 04-02-2004 History of tobacco use Chews Tobacco [facility] Start: 1980 Sex Assigned At Not on file [facility] Start: 08-01-2023 Alcohol intake Ex-drinker (finding) [facility] Start: 08-01-2023 Alcohol Comment daily - 3-6 beers/night [facility] Functional Status Date Assessment Result Facility 04-09-2023 Functional Status N/A [facility] 02-13-2023 Functional Status N/A [facility] [place] Clinical Notes 05-05-2022 to 12-14-2023 Telephone Encounter - Fiona Al - 08/14/2023 12:06 PM EDTTelephone Encounter - Fiona Al - 08/14/2023 12:06 PM EDTPatient Amita Rubio PA-C - 08/01/2023 11:10 AM EDT Note Date & Type Note Facility 12-14-2023 Note Patients called in and states they need to change patients procedure date with Dr. Weeks. [facility] 11-07-2023 Note Orthopedic Surgery Subjective 02/19/2023 Ring Finger Middle Phalanx Osteotomy - Right 11/07/23 Mr. Luciano is presenting 8 months post-op from ring finger middle phalanx osteotomy. Today he complains that range of motion and hack driver strength has not improved since last follow-up. 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 [facility] 08-14-2023 Telephone encounter Note Paperwork has been faxed to employer. Thanks Patients notified also and patient scheduled for [address] Parker also. Thanks [facility] 08-14-2023 Miscellaneous Notes Paperwork has been faxed to employer. Thanks Patients notified also and patient scheduled for [address] Parker also. Thanks is calling regarding his FMLA papers, he is having surgery today. Please advise. Thanks documented in this encounter [facility] 08-13-2023 Note HNO ID: [id number] Author: NAOMY AMADOR AA Service: Anesthesiology Author Type: Cardiovascular Physician Assistant Type: Anesthesia Procedure Notes Filed: 08/13/2023 14:14 Note Text: ANESTHESIOLOGY PROCEDURE NOTE Airway General Information Procedure Start Time/Medication Administration: 08/13/2023 1:41 PM Procedure End Time: 08/13/2023 1:41 AM Patient location during procedure: OR Timeout Performed Pre-procedure: timeout performed Consent Obtained: Yes Patient identity confirmed: arm band, care team primary care physician and patient Staffing CAA: Naomy Amador AA [...] August 13, 2023 TIME: 2:13 PM CSN: [id number] [facility] 08-13-2023 Telephone encounter Note is calling regarding his FMLA papers, he is having surgery today. Please advise. Thanks [facility] 08-01-2023 Instructions Amita Gee PA-C - 08/01/2023 11:15 AM EDT PATIENT PREOPERATIVE INSTRUCTIONS [facility]: [phone] -- [address] [address]. Please read below carefully for your personalized instructions. Arrival Time for Surgery: -You will receive a call from [facility] [place] the afternoon before surgery after 2:30 pm (or Sunday for Sunday surgery) for a scheduled arrival time. - If you have not heard by 4 pm, please contact [facility] at [phone]. Dietary Restrictions: - No solid food after [...] Procedures: - YOU MUST HAVE A RESPONSIBLE BORING MACHINE OPERATOR HORIZONTAL TAKE YOU HOME. A LANDSCAPE AND YARDWORK LABORER OR CLIMATE CHANGE ANALYST CANNOT BE MADE A RESPONSIBLE BORING MACHINE OPERATOR HORIZONTAL. - We recommend that a responsible person [...] Advance Directive, please fax a copy to [phone] or email to for it to be [...] chart that day. documented in this encounter [facility] 08-01-2023 History and physical note [...] have a large neck STOP-Bang Score: 2 [id number] Score: Age: <65 Sex: male CHF history: No Hypertension history: No Stroke/TIA/thromboembolism history: No Vascular disease history: No Diabetes history: No [id number] Score: 0 ANESTHESIA FINDINGS: Intubation History: No [...] Initiated: Orders placed by surgeon/surgical service in [facility]. Orders Placed This Encounter Complete Blood Count [...] COVID-19 original vaccine, age 12+ yr, monovalent (Skin Scan - PURPLE TOP) 07/21/2020 Imm Admin: COVID-19 [...] requiring medication, no history of angina, CHF, DE, cardiac surgery or stents. Denies rest pain, [...] or any previous visit (from the past 33891 hour(s)). Instructions Given to Patient: Instructions located in the after visit summary. Patient given verbal and written preop instructions and voices comprehension and compliance. SIGNATURE: Amita Gee PA-C PATIENT NAME: Vince Luciano DATE: 08/01/2023 TIME: 11:09 AM PAGER/CONTACT #: [facility] 08-01-2023 History and physical note [...] have a large neck STOP-Bang Score: 2 [id number] Score: Age: <65 Sex: male CHF history: No Hypertension history: No Stroke/TIA/thromboembolism history: No Vascular disease history: No Diabetes history: No QYM5MK8-SOVl Score: 0 ANESTHESIA FINDINGS: Intubation History: No [...] Initiated: Orders placed by surgeon/surgical service in [facility]. Orders Placed This Encounter Complete Blood Count [...] COVID-19 original vaccine, age 12+ yr, monovalent (Skin Scan - PURPLE TOP) 07/21/2020 Imm Admin: COVID-19 [...] requiring medication, no history of angina, CHF, DE, cardiac surgery or stents. Denies rest pain, [...] Patient verbally confirmed current medications. Marianela Griffin TAB CUTTING MACHINE OPERATOR 07/24/2011 ALLERGIES Allergen Reactions Cinnamon Swelling Coconut [...] or any previous visit (from the past 41621 hour(s)). Instructions Given to Patient: Instructions located in the after visit summary. Patient given verbal and written preop instructions and voices comprehension and compliance. SIGNATURE: Amita Gee PA-C PATIENT NAME: Vince Luciano DATE: 08/01/2023 TIME: 11:09 AM PAGER/CONTACT #: documented in this encounter [facility] 07-17-2023 Miscellaneous Notes The is not listed as a POC in [employer], pts mother Norma Luciano is. Need to confirm with pt if this needs to be updated. Will send a [employer] message to the pt. Rodríguez Allred RN July 17, 2023 2:38 PM The calls stating that he isn't sure if he asked or not when he was in at his last apt but for his surgery -- how long will he need off from work? He is scheduled for surgery on August 12. 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 Please advise. Thanks documented in this encounter [facility] 07-03-2023 Note Orthopedic Surgery 02/19/2023 [...] the plate out to gain DIP flexion. [facility] 06-10-2023 Note HNO ID: [id number] Author: NANDO PARKER MD Service: ? Author [...] - Sitting / Recumbent Radiologic Findings: 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 The bony and [...] Parker MD, MS Staff Department of Urology [facility] June 10, 2023 - 11:59 AM [facility] 06-07-2023 Note HNO ID: [id number] Author: NANDO PARKER MD Service: ? Author [...] Parker MD, MS Staff Department of Urology [facility] June 07, 2023 - 8:09 AM [facility] 06-07-2023 History of Present illness Narrative NEW [...] Parker MD, MS Staff Department of Urology [facility] June 07, 2023 - 8:09 [...] Amita Chou RN documented in this encounter [facility] 06-06-2023 Note HNO ID: [id number] Author: AMITA CHOU RN Service: ? Author [...] Visit completed when applicable. Amita Chou RN [facility] 06-06-2023 Nurse Note Actual procedure/procedure scheduled: Yes Performing provider/scheduled provider: Yes Patient was roomed in: Q9- 09 Filler Block Inserter Remover offered:Patient declines Patient arrived in the room [...] Education Session: None Instruction Provided To: Patient Pourer Present: not applicable Discipline: Nursing Learning Topic: [...] DS 160mg-800mg orally, given during visit: see KALEN Anesthetic given: Administered by MD - see [...] Amita Chou RN documented in this encounter [facility] 06-06-2023 Nurse Note [facility] URODYNAMICS LAB URODYNAMIC [...] NONE Latex allergy: No Iodine allergy: No Filler Block Inserter Remover offered:Patient declines B/O UA: YES Negative for [...] of instructions given. documented in this encounter [facility] 06-05-2023 Note HNO ID: [id number] Author: KEESHA CURTIS APRN.MIGNON Service: ? Author Type: Nurse Practitioner Type: Progress Notes Filed: 06/05/2023 13:06 Note Text: [facility] VIRTUAL VISIT PROGRESS [...] visit. Either the patient or their legal quality assurance representative has been informed of the risks [...] bladder neck obstruction. He was referred to for voiding dysfunction. He is scheduled for [...] no improvement -UDS scheduled tomorrow Keesha Curtis APRN.MAIL PROCESSING ASSOCIATE Time: 20 min [facility] 05-25-2023 Miscellaneous Notes Patient is scheduled for [...] his Urodynamics and Cysto with me at [facility] Gloria documented in this encounter [facility] 05-04-2023 History of Present illness Narrative Occupational Therapy Occupational Therapy Discharge Visit Patient Name: Vince Luciano Today's Date: 05/04/2023 Linked Episodes Type: Episode: Status: Noted: Resolved: Last update: Updated by: Occupational Therapy R RF osteotomy Active 03/08/2023 05/04/2023 3:42 PM Emely Magallanes OT Comments: Visit number: 14 Supervised time:53 Total time: :23-03:16 Precautions: Subjective Pain: Reports Everything is good. [...] Training: Assessment: Short Term Goals: I with [facility] for ROM, strengthening, and scar/edema management at discharge. Mathematical Scientist Goals: PRWHE Pain Score < 5/50 (IE: 14/50) GOAL MET: 0/50. PRWHE Functional Score < 5/100 (IE: 12/100) GOAL MET 0/100. Improve 4th digit PINEDA to at least 90% pain free at discharge. ( IE: 50%). GOAL MET: IP joint flexion increasing to 80 degrees. PINEDA: 97% Increase R hand hack driver strength by at least 10# in order to complete work related tasks at discharge. (IE: 90#). GOAL MET: R hack driver 130# no pain. Pt tolerated session well. Has met all goals. Maximum progress made. No pain reported. Full composite hack driver present. No concerns/ issues with work related tasks. Plan Discharge to [facility]. Pt in agreement. documented in this encounter [facility] 05-02-2023 Note HNO ID: [id number] Author: JESSICA MEADOWS MD Service: ? Author Type: Physician Type: Progress Notes Filed: 05/02/2023 16:17 Note Text: [address] [address] AMBULATORY PROCEDURE NOTE NAME: Vince Luciano AGE: [id number] year old CLINIC #: [id number] DATE: May 02, 2023 SURGEON: Jessica Meadows [...] during this patient's care. Jessica Meadows MD [facility] 05-02-2023 Note HNO ID: [id number] Author: AMITA CHOU RN Service: ? Author [...] specimen containers correctly labeled. Amita Chou RN [facility] 05-02-2023 Note HNO ID: [id number] Author: JESSICA MEADOWS MD Service: ? Author Type: Physician Type: Progress Notes Filed: 05/03/2023 06:10 Note Text: [facility] NEW PATIENT HISTORY [...] Prostate: symmetrical, nontender, w/o nodules. Fiona Alvarez APRN.MAIL PROCESSING ASSOCIATE ASSESSMENT AND PLAN: Chronic obstructive voiding symptoms [...] which included preparing to see the patient, gunj-cv-wjzr patient care, completing clinical documentation, obtaining and/or reviewing separately obtained history, counseling and educating the patient/family/caregiver, and care coordination (not separately reported). By signing my name below, I, Angelito Bennett, attest that this documentation has been prepared under the direction and in the presence of Dr. Meadows Electronically signed, (more content not included)... [facility] 05-02-2023 Note Patient Outreach (UR OLMN) VINCE LUCIANO ([id number]) 1980 M Date Time Provider Department 05/02/23 JESSICA MEADOWS During your visit today, we recorded the following information about you: Allergies As of Date: 05/02/2023 Noted Allergy Reaction CINNAMON 08/02/2011 7 - Swelling COCONUT 08/02/2011 7 - Swelling Date Reviewed: 05/02/2023 Reviewed by: Amita Chou RN - Fully Assessed Visit Diagnosis:Screening for genitourinary condition [Z13.89] Order(s):URINALYSIS, REFLEX MICROSCOPIC [XYP2655] Order #: [id number]. #:[id number] Prescriptions as of 05/07/2023 - buPROPion XL [...] Encounter Status:Closed by EPIC, PRODUSER on 05/07/23 [facility] 04-11-2023 Note Orthopedic Surgery 02/19/2023 Ring Finger [...] using the hand as tolerated for activities. [facility] 04-09-2023 Hospital Discharge instructions Patient Education 04/09/2023 19:45:42 Shortness of Breath, Adult, Bkpo-ej-Qmmc Shortness of Breath, Adult Shortness of breath [...] for any changes in your symptoms. Take ixml-jtk-kbkfqdk and prescription medicines only as told by [...] provider. Document Revised: 11/05/2021 Document Reviewed: 11/05/2021 [employer] Patient Education 2022 [employer] Follow Up Care 04/09/2023 17:52:18 With:Roxy Driver Address: [address] [place] [phone]- Business (1) When:04/12/2023 19:34:33 Comments:Keep a log of when you get short of breath and follow-up with your doctor. Continue taking your medications as prescribed. Please return to the ED for any new or worsening symptoms. [facility] 04-09-2023 Evaluation + Plan note [...] Reflex XR Chest Single View Addendum by Zaiar Smith DO on April 09, 2023 19:37:22 EST Patient signed out to me pending CT imaging. Patient CT imaging unremarkable. Discussed findings with patient with recommendation to follow-up with his primary care doctor. He is understanding with this is comfortable with this plan. He is to return to the ED for any new or worsening symptoms. [facility]12-06-2023 NoteOrthopedic Surgery 02/19/2023 Ring Finger [...] weeks with x-rays of his right ring finger..[facility]11-20-2023 Note Patient: Vince Luciano Procedure Summary Date: 02/19/23 Room / Location: [address] OR Anesthesia Start: 0800 Anesthesia Stop: 917 Procedure: RING FINGER MIDDLE PHALANX OSTEOTOMY (Right: Ring Finger) Diagnosis: Finger pain, right (Finger pain, right [M79.644]) Surgeons: Rafael Weeks MD Responsible Provider: Joaquim Hu MD Anesthesia Type: MAC, regional ASA Status: 2 Anesthesia Type: MAC, regional Vitals Value Taken Time BP 139/80 02/19/2345 Temp 36 ???C (96.8 ???F) 02/19/23915 Pulse 72 02/19/23944 Resp 16 02/19/23944 SpO2 100 % 02/19/23944 Anesthesia Post Evaluation Patient location during evaluation: PACU Patient participation: complete - patient participated Level of consciousness: awake Pain management: adequate Cardiovascular status: acceptable Respiratory status: acceptable Hydration status: acceptable Comments: Patient was evaluated for PACU discharge prior to leaving. Note was inputted later. Patient is hemodynamically stable and is able to be discharged from PACU per anesthesia protocol. No notable events documented.[facility]11-20-2023 Note Patient: Vince Luciano Procedure Summary Date: 02/19/23 Room / Location: [address] OR Anesthesia Start: 0800 Anesthesia Stop: Procedure: RING FINGER MIDDLE PHALANX OSTEOTOMY (Right: Ring Finger) Diagnosis: Finger pain, right (Finger pain, right [M79.644]) Surgeons: Rafael Weeks MD Responsible Provider: Joaquim Hu MD Anesthesia Type: MAC, regional ASA Status: 2 Anesthesia Post [facility] Patient Monitor: direct observation Transport: uneventful [facility] Note Peripheral Block Patient location during procedure: pre-op Start time: 02/19/2023 7:50 AM End time: 02/19/2023 7:55 AM Reason for block: primary anesthetic and at surgeon's request Staffing Performed: resident/CONCRETE STONE FINISHING SUPERVISOR/CAA Anesthesiologist: Joaquim Hu MD Resident/CONCRETE STONE FINISHING SUPERVISOR: Ivan Martinez MD Preanesthetic Checklist Completed: patient [...] Heart rate change: no Slow fractionated injection: [facility]Un[facility]-20-2023 NotePatient: Vince Luciano Procedure Information Date/Time: 02/19/23814 Procedure: RING FINGER MIDDLE PHALANX OSTEOTOMY (Right: Ring Finger) - C-Arm, MEDARTIS NOTIFIED 02/12 NAYLA, DO NOT MOVE Location: [facility] OR [address] [place] [address] OR Surgeons: Rafael Weeks MD Relevant Problems [...] products. Plan discussed with attending. [facility] [place] Note Chief Complaint consultation for nevus HPI [...] vaccine, live, trivalent - Not Given Patient RefusesSt. 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 Do not wear perfume, make-up, nail mongolian, or lotions on the day of your [...] need to make any changes, please call [phone]. Notify your surgeon if you develop any illness such as a cold, cough, fever, sore throat or vomiting between now and your surgery. Thank you for entrusting us with your care. [facility] [place] Note Orthopedic Surgery Subjective 05/17/2022 Ring Finger Irrigation and Debridement - Right and Open reduction percutaneous fixation of proximal phalanx, ring finger - Right 01/30/23 Since his last visit patient's been participating in physical therapy and feels his range of motion has not improved. 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 due to the [...] MD Orthopedic Surgery Resident Orthopedic Surgery Pager: [phone] 01/30/23 3:29 PM By using the attestations [...] may be an additional personal documentation from me.[facility]02-03-2023 Note PROCEDURE: XR HAND RT MIN 3V [...] Electronically authenticated by: IAN ROMAN Date: 2022-05-05 15:36[facility] Future Appointments Appointment Date:03/07/2023 03:00:00 PM Scheduled Provider:Riley RODRIGEUZ MD Location:[facility] Appointment Type: Procedure 30 General Surgery [place] Evaluation note* Diagnosis Laceration of extensor muscle, fascia and tendon of right ring finger at wrist and hand level, initial encounter- Primary Open displaced fracture of middle phalanx of right ring finger, initial encounter [facility] Diagnosis Screening for genitourinary condition Screening for other and unspecified genitourinary condition [facility] Diagnosis Weak urinary stream- Primary Slowing of urinary stream [facility]* Diagnosis BPH with urinary obstruction- Primary Hypertrophy of prostate with urinary obstruction and other lower urinary tract symptoms (LUTS) documented in this encounter [facility] Diagnosis Weak urinary stream- Primary Slowing of urinary stream BPH with obstruction/lower urinary tract symptoms Hypertrophy of prostate with urinary obstruction and other lower urinary tract symptoms (LUTS) Urinary frequency Voiding dysfunction Unspecified disorder of urethra and urinary tract documented in this encounter [facility]* Diagnosis Preoperative examination- Primary Preoperative examination, [...] with Imitrex PRN. documented in this encounter [facility] course Narrative No data available for this section [facility] [place] [facility] Discharge instructions No data available for this section [facility] [place] Progress note No data available for this section [facility] [place] Reason for referral (narrative)* Outpatient Procedure (Routine) - Pending Review Specialty Diagnoses / Procedures Referred By Contac t Referred To Contact [facility] Diagnoses Weak urinary stream Procedures FLUROURODYNAMICS WITH EMG EMG STDS ANAL/URTL SPHNCTR OTH/THN NDL Nando Parker MD [address] [place] [address] [place] [address] Referral ID Status Reason Start Date Expiration Date Visits Requested Visits Authorized [id number] Pending Review Auto-Generat ed Referral 05/18/2023 05/18/2024 1 1 [facility] for referral (narrative)* Outpatient Procedure (Routine) - Pending Review Specialty Diagnoses / Procedures Referred By Contac t Referred To Contact [facility] Diagnoses Preoperative examination Procedures ECG COMPLETE ECG ROUTINE ECG W/LEAST 12 LDS W/I&R Amita Gee PA-C [address] [address] [place] [address] Referral ID Status Reason Start Date Expiration Date Visits Requested Visits Authorized [id number] Pending Review Auto-Generat ed Referral 08/01/2023 07/31/2024 1 1 [facility] Summary Purpose Family History No [...] and content) DATE CREATED AUTHOR 11/23/2018 [facility] DATE CREATED AUTHOR AUTHOR'S ORGANIZ ATION 06/12/2020 [facility] DATE CREATED AUTHOR AUTHOR'S ORGANIZ ATION 07/29/2022 [facility] DATE CREATED AUTHOR AUTHOR'S ORGANIZ ATION 05/08/2023 [facility] EPIC DATE CREATED AUTHOR AUTHOR'S ORGANIZ ATION 08/14/2023 [facility] DATE CREATED AUTHOR AUTHOR'S ORGANIZ ATION 08/16/2023 [facility] DATE CREATED AUTHOR AUTHOR'S ORGANIZ ATION 11/21/2023 [facility] DATE CREATED AUTHOR AUTHOR'S ORGANIZ ATION 12/18/2023 [facility] Patient Care team informatio n (unrecognized section and content) Elementary Secretary Relationship Specialty Start Date End Date Unallocated, [place] Provider [place] [address] PCP - General 01/09/23 Elementary Secretary Relationship Specialty Start Date End Date Roxy Driver MD PCP - General 02/03/05 Elementary Secretary Relationship Specialty Start Date End Date Roxy Driver MD PCP - General 02/03/05 Elementary Secretary Relationship Specialty Start Date End Date Roxy Driver MD PCP - General 02/03/05 Elementary Secretary Relationship Specialty Start Date End Date Roxy Driver MD PCP General 02/03/05 Elementary Secretary Relationship Specialty Start Date End Date Roxy Driver MD PCP [facility] 02/03/05 Elementary Secretary Relationship Specialty Start Date End Date Roxy Driver MD PCP [facility] 02/03/05 Elementary Secretary Relationship Specialty Start Date End Date Roxy Driver MD PCP [facility] 02/03/05 Reason for Visit (unrecogniz ed section and content) Specialty Diagnoses / Procedures Referred By Yeny bowden Referred To Contact Occupational Therapy / Physical Therapy Diagnoses Displaced fracture of middle phalanx of right ring finger, initial encounter for open fracture Laceration of extensor muscle, fascia and tendon of right ring finger at wrist and hand level, initial encounter Procedures IA OCCUPATIONAL THERAPY EVALUATION Rafael Weeks MD [address] [place] [address] Emely Magallanes, OT [address] [place] [address] Referral ID Status Reason Start Date Expiration Date V isits Requested Visits Authorized [id number] Authorized 02/01/2023 05/04/2023 1 27 Reason Comments [...] or prosecute any alcohol or drug abuse patient.[facility] HospitalIn the event this information is protected by the Federal Confidentiality of Alcohol and Drug Abuse Patient Records regulations: The Federal rules restrict any use of the information to criminally investigate or prosecute any alcohol or drug abuse patient.[facility] HospitalIn the event this information is protected by the Federal Confidentiality of Alcohol and Drug Abuse Patient Records regulations: The Federal rules restrict any use of the information to criminally investigate or prosecute any alcohol or drug abuse patient.[facility] HospitalIn the event this information is protected by the Federal Confidentiality of Alcohol and Drug Abuse Patient Records regulations: The Federal rules restrict any use of the information to criminally investigate or prosecute any alcohol or drug abuse patient.[facility] HospitalIn the event this information is protected by the Federal Confidentiality of Alcohol and Drug Abuse Patient Records regulations: The Federal rules restrict any use of the information to criminally investigate or prosecute any alcohol or drug abuse patient.[facility] HospitalIn the event this information is protected by the Federal Confidentiality of Alcohol and Drug Abuse Patient Records regulations: The Federal rules restrict any use of the information to criminally investigate or prosecute any alcohol or drug abuse patient.[facility] HospitalIn the event this information is protected by the Federal Confidentiality of Alcohol and Drug Abuse Patient Records regulations: The Federal rules restrict any use of the information to criminally investigate or prosecute any alcohol or drug abuse patient.[facility] HospitalIn the event this information is protected by the Federal Confidentiality of Alcohol and Drug Abuse Patient Records regulations: The Federal rules restrict any use of the information to criminally investigate or prosecute any alcohol or drug abuse patient.[facility] Administered Medications - up to 3 most [...] BE BASED ON THE PRIMARY CLINICAL RECORDS. [employer] [facility]. provides no warranty or guarantee of the accuracy or completeness of information in this document.
--- NOTE | 2024-03-27 07:12 | US_ITS ---
The [address] [address] Patient Name: VINCE LUCIANO MRN: [id number] date: 1980 Sex: M Assigned Patient Location: [place] Current Patient Location: [place] Accession/Order Number: [id number] Exam Date: 03/27/2024 07:15 Report Date: 03/27/2024 07:53 At the request of: ROXY DRIVER Procedure: US venous doppler LE RT EXAMINATION: US venous doppler LE RT HISTORY: DVT , follow-up COMPARISON: Ultrasound venous Doppler lower extremity right 12/07/2023 FINDINGS: REGION: Right lower extremity THROMBI: None. COMPRESSIBILITY: Normal compressibility. FLOW: Normal waveform and antegrade flow between 5 and 20 cm/s. OTHER: None. US/US venous doppler LE RT IMPRESSION: 1. No deep vein thrombus within right lower extremity; clearing of previously seen deep vein thrombus. Electronically authenticated by: IAN ROMAN Date: 03/27/2024 07:53
== END 2024-03-27 07:10 | disposition home or self-care (01) ==
LOC: US 07:09
PROVIDERS: PCP Family Medicine; Visit Provider Family Medicine
DX: I82.401 Acute embolism and thrombosis of unspecified deep veins of right lower extremity (principal)
CPT/HCPCS: 93971

== ENCOUNTER 2024-09-30 09:54 | Emergency (ER) | payer OTHER, SELFPAY ==
--- OUTSIDE RECORDS SUMMARY | 2020-07-21 12:15 | XMS_ITS | Continuity of Care Document ---
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 [address], [place], [id number], [place]. tel:[phone] [facility], [address], [place], [id number], tel:[phone] COVID [facility] No Information Visci DO Thompson. [address], [place], [id number], [place]. tel:[phone] Family History Family Member Type Diagnosis Age At Onset No Information Immunizations Vaccine Date Status Comments Moderna COVID administered Source: New Im munization Record Moderna COVID administered Source: New Im munization Record Payers Payer name Insurance type Covered democrat ID Authoriza tion(s) [facility] [id number] [facility] [place] [id number] [facility] [place] [id number] Social History Type Description Quantity Date Captured Comments Alcohol Use Details Unknown Caffeine Use Details Unknown Tobacco Use Status No Information Smoking Status No Information Sex Male Sexual Orientation Straight or heterosexual Gender Identity Male Chief Complaint And Reason For Visit No Information Reason For Referral Reason For Referral No Information History Of Present Illness Encounter Date Complaint History Of Prese nt Illness No Information Functional Status Date Functional Assessmen t No Information Instructions Date Instruction Additional Infor mation No Information Assessments Type Assessment Date No Information Patient Care Teams Name Effective Dates (start - stop) Status Members No Information
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
[2024-09-30] VITALS (17 sets, daily range): BP systolic 113–140; BP diastolic 77–87; PULSE 72–87; TEMP 36.9; O2SAT 98–100; BMI 25.6
--- OUTSIDE RECORDS SUMMARY | 2024-09-30 10:04 | XMS_ITS | Clinical Summary ---
Author Organization [facility] Address [address] [place] [address] Care Team Providers Care Voyage Management System Operator Name Role Phone Aman Campbell MD Primary Care Provider [phone] Allergies Active Allergy Reactions Criticality Noted Date Comments Cinnamon Swelling High 08/02/2011 Coconut Swelling High 08/02/2011 Medications Cetirizine 10 mg cap Take 10 mg by mouth once daily. Active ergocalciferol, vitamin D2, (DRISDOL) 50,000 unit capsule Take 1 capsule by mouth once each week. 4 capsule 3 07/04/19 17 Active cyanocobalamin (VITAMIN B-12) 500 mcg tab Take 1 tablet by mouth once daily. 30 tablet 5 07/04/19 17 Active buPROPion XL (WELLBUTRIN XL) 300 mg 24 hr tablet Take 300 mg by mouth once daily. 02/25/20 23 Active doxycycline monohydrate (MONODOX) 100 mg capsule Take 100 mg by mouth once daily. 02/25/20 23 Active tamsulosin (FLOMAX) 0.4 mg Take 0.4 mg by mouth once daily. 02/25/20 23 Active buPROPion XL (WELLBUTRIN XL) 150 mg 24 hr tablet Take 150 mg by mouth once daily. 02/25/20 23 Active SUMAtriptan (IMITREX) 100 mg tablet TAKE 1 TABLET BY MOUTH AT LEAST 2 HOURS BETWEEN DOSES NEEDED 07/16/19 24 Active naproxen (NAPROSYN) 500 mg tablet Take 500 mg by mouth. 08/20/19 23 Active semaglutide 0.25 mg/0.05 mL syringe 0.63 mL Subcutaneous Once weekly for 30 days 02/18/20 24 Active topiramate XR (TROKENDI XR) 100 mg capsule Take 50 mg by mouth two times a day. 025 Discontinu ed(Course of therapy completed) Active Problems Problem Noted Date Diagnosed Date BPH with obstruction/lower urinary tract symptom s 08/10/2023 Migraines 08/01/2023 Assessment & Plan (08/01/2023 11:55 AM EDT): Assessment: Stable, managed with Imitrex PRN. Alcohol use 08/01/2023 Assessment & Plan (08/01/2023 11:56 AM EDT): Assessment: Drink daily, 3-6 beers/day. Denies withdrawal sx. CMP pending. Anxiety and depression 08/01/2023 Assessment & Plan (08/01/2023 11:56 AM EDT): Assessment: Stable, on Wellbutrin and Topamax. BPH (benign prostatic hyperplasia) 08/01/2023 Symptomatic spider varicose vein 06/07/2015 Varicose veins of leg with pain 06/07/2015 Elevated partial thromboplastin time (PTT) 05/25 Hematoma 05/25/2014 Varicose veins of lower extr emities with other complications 06/11/2013 Encounters Date Type Department Care Team Description 09/29/2024 Patient Msg Neurology [address] [place] [address] Provider, Ccf HSAT QUESTIONNAIRE 09/24/2024 Patient Msg Neurology [address] [place] [address] Provider, Ccf Your [facility] Sleep Study 09/16/2024 3:30 PM EDT Office Visit Neurology [address] [place] [address] Marilyn Antunez MD Other polyneuropathy 09/16/2024 Patient Msg Neurology [address] [place] [address] Marilyn Antunez MD Connecting 09/16/2024 Abstract Neurology [address] [place] [address] [facility] 09/04/2024 7:30 AM EDT Office Visit Neurology [address] [place] [id number] Miah Rios MD Other polyneuropathy (Primary Dx); Mild cognitive impairment 09/04/2024 Travel 07/23/2024 Patient Msg Neurology [address] [place] [id number] Provider, Ccf Know Your Triggers, Own Your Day: Taking Control of Migraine from Last 3 Months Family History Medical History Relation Comments pancreatic cancer [Other] Maternal Grandmother d eceased Colon Cancer Paternal Grandmother Anesthesia Problems No Family History Dementia No Family History Multiple Sclerosis No Family History Relation Status Comments Maternal Grandmother Paternal Grandmother Social History Tobacco Use Types Packs/Day Years [...] is lower risk 4 05/02/2023 Data from: https://www.neighborhoodatlas.[facility].edu/. Last address used for calculation [address] 05/02/2023 Sex and Gender Information Value Date Recorded Sex Assigned at Not on file Legal Sex Male 9:44 AM EST Gender Identity Not on file Sexual Orientation Not on file Last Filed Vital Signs Vital Sign Reading Time Taken Comments Blood Pressure 115/79 09/16/2024 2:51 PM EDT Pulse 92 09/16/2024 2:51 PM EDT Temperature 36.5 C (97.7 F) 08/13/2023 4:50 PM EDT Respiratory Rate 16 08/13/2023 4:50 PM EDT Oxygen Saturation 99% 09/16/2024 2:51 PM EDT Inhaled Oxygen Concentration - - Weight 96.7 kg (213 lb 3 oz) 09/16/2024 2:51 PM EDT Height 190.5 cm (6' 3 ) 09/16/2024 2:51 PM EDT Body Mass Index 26.65 09/16/2024 2:51 PM EDT Plan of Treatment Upcoming Encounters Date Type Department Care Team (Latest Contact Info) Description 09/30/2024 2:00 PM EDT Office Visit Neurology [address] [place] [address] Mild cognitive impairment 10/27/2024 8:50 AM EDT Procedure Neurology [address] [place] [address] Other polyneuropathy [G62.89] 12/30/2024 3:30 PM EDT Office Visit Neurology [address] [place] [address] Marilyn Antunez MD [address] [place] [address] Follow up after EMG Health Maintenance Due Date Last Done Comments Hepatitis C Screening 06/30/1997 Hepatitis B Vaccine (1 of 3 - 19+ 3-dose series) 06/30/1998 Lipid Screening 06/30/2014 Covid-19 Vaccine (2023-2 5 season) 2023 03/24/2021, 07/21/2020, 06/23/2020 CT Colonography 06/30/2024 Cologuard (FIT-DNA) 06/30/2024 Colonoscopy 06/30/2024 Colorectal Cancer Screening 06/30/2024 Fecal Occult Blood 06/30/2024 Sigmoidoscopy 06/30/2024 Diabetes Screening 09/05/2027 09/04/2024, 0 04/18/2024, 08/01/2023, Additional history exists DTaP,Tdap,Td Vaccine (2 - Tdap) 05/05/2032 Influenza Vaccine Completed 02/04/2024, , 02/16/2021 HIV Screening Completed 05/23/2024 Procedures Procedure Name Priority Date/Time Associated Diagnosis Comments HEMOGLOBIN A1C Routine 09/04/2024 9:38 AM EDT Mild cognitive impairment Other polyneuropathy SYPHILIS TREPONEMAL W/REFLEX Routine 09/04/2024 9:38 AM EDT Mild cognitive impairment METHYLMALONIC ACID Routine 09/04/2024 9: 38 AM EDT Mild cognitive impairment VITAMIN B12 BLOOD Routine 09/04/2024 9:3 8 AM EDT Mild cognitive impairment SED RATE WESTERGREN Routine 09/04/2024 9 :38 AM EDT Mild cognitive impairment FOLATE SERUM Routine 09/04/2024 9:38 AM EDT Mild cognitive impairment TSH BLD Routine 09/04/2024 9:38 AM EDT Mild cognitive impairment HIV 1/2 COMBO WITH REFLEX TO DIFFERENTIATION Routine 05/23/2024 2:15 PM EST Mild cognitive impairment from Last 3 Months or Most Recently Relevant to Health Maintenance Results * SYPHILIS TREPONEMAL W/REFLEX (09/04/2024 9:38 AM EDT) Syphilis Treponemal Screen Nonreactive Nonreactive 09/04/2024 2:46 PM EDT [facility] Syphilis Interpretation Cannot exclude recent Treponemal infection if specimen collected within 7-10 days after appearance of suspect lesions or 2-3 weeks after an exposure. Clinical correlation is required. 09/04/2024 2:46 PM EDT [facility] Blood BLOOD SPECIMEN / Unknown Venipuncture / Unknown 09/04/2024 9:38 AM EDT 09/04/2024 9:39 AM EDT us Miah Rios MD LABORATORY Final Result [facility] [address] [facility] [address] * VITAMIN B12 (09/04/2024 9:38 AM EDT) Vitamin B12 463 232 - 1,245 pg/mL 09/04/2024 12:10 PM EDT [facility] Blood BLOOD SPECIMEN / Unknown Venipuncture / Unknown 09/04/2024 9:38 AM EDT 09/04/2024 9:39 AM EDT us Miah Rios MD LABORATORY Final Result Performing Organization Address City/[facility]/ZIP Co de Phone Number [facility] [address] [place] [address], [place] * THYROID STIMULATING HORMONE (09/04/2024 9:38 AM EDT) TSH 1.010 0.270 - 4.200 mIU/L 09/04/2024 12:10 PM EDT [facility] Blood BLOOD SPECIMEN / Unknown Venipuncture / Unknown 09/04/2024 9:38 AM EDT 09/04/2024 9:39 AM EDT us Miah Rios MD LABORATORY Final Result Performing Organization Address City/[facility]/ZIP Co de Phone Number [facility] [address] [place] [address], [place] * SEDIMENTATION RATE, WESTERGREN (09/04/2024 9:38 AM EDT) Sed Rate, Westergren 2 0 - 15 mm/hr 09/04/2024 11:16 AM EDT [facility] Blood BLOOD SPECIMEN / Unknown Venipuncture / Unknown 09/04/2024 9:38 AM EDT 09/04/2024 9:39 AM EDT us Miah Rois MD LABORATORY Final Result Performing Organization Address City/[facility]/ZIP Co de Phone Number [facility] [address] [place] [phone], [place] * METHYLMALONIC ACID (09/04/2024 9:38 AM EDT) Methylmalonic Acid 0.24 <=0.40 umol/L 09/05/2024 3:14 PM EDT [facility] Comment:This test was develo ped, and its performance characteristics determined by the [facility] Department of Pathology and Laboratory Medicine. It has not been cleared or approved by the FDA. The [facility] Department of Pathology and Laboratory Medicine is regulated under CLIA as qualified to perform high- complexity testing. This test is used for clinical purposes. It should not be regarded as investigational or for research. Blood BLOOD SPECIMEN / Unknown Venipuncture / Unknown 09/04/2024 9:38 AM EDT 09/04/2024 9:39 AM EDT us Miah Rios MD LABORATORY Final Result Performing Organization Address [facility] Co de Phone Number [facility] [place] [address], [place] * HEMOGLOBIN A1C (09/04/2024 9:38 AM EDT) Hemoglobin A1C 4.9 4.3 - 5.6 % 09/04/2024 1:30 PM EDT [facility] Comment:[place] Diabetes As sociation guidelines indicate that patients with HgbA1c in the range 5.7-6.4% are at increased risk for development of diabetes, and intervention by lifestyle modification may be beneficial. HgbA1c greater or equal to 6.5% is considered diagnostic of diabetes. Estimated Average Glucose 94 mg/dL 09/04/2024 1:30 PM EDT [facility] Comment:eAG: (Estimated aver age glucose) is a calculated value from HgbA1c and is resources representative of the average blood glucose level in the last 2-3 month period. Blood BLOOD SPECIMEN / Unknown Venipuncture / Unknown 09/04/2024 9:38 AM EDT 09/04/2024 9:39 AM EDT us Miah Rios MD LABORATORY Final Result Performing Organization Address [facility]/ZIP Co de Phone Number [facility] [address] [place] [phone], [place] * (ABNORMAL) FOLATE, SERUM (09/04/2024 9:38 AM EDT) Folate 4.2(L) >4.7 ng/mL 09/04/2024 12:10 PM EDT [facility] Blood BLOOD SPECIMEN / Unknown Venipuncture / Unknown 09/04/2024 9:38 AM EDT 09/04/2024 9:39 AM EDT Miah Rios MD LABORATORY Final Result [facility] [address] [facility] [address] [place] [phone], * HIV 1/2 COMBO WITH REFLEX TO DIFFERENTIATION (05/23/2024 2:15 PM EST) HIV 12 Combo (Ag/Ab) Nonreactive Nonreactive 05/23/2024 6:43 PM EST [facility] HIV-1/2 AB (Confirmatory) 05/23/2024 6:43 PM EST [facility] Comment:Test not indicated. HIV Interpretation 05/23/2024 6:43 PM EST [facility] Comment: No evidence of HIV-1 or HIV-2 infection. Should recent infection be suspected, repeat testing may be considered 2-3 weeks after this draw. [place] Rev. Code 3701.243(E): This information has been disclosed to you from confidential records protected from disclosure by state law. You shall make no further disclosure of this information without the specific, written, and informed release of the individual to whom it pertains or as otherwise permitted by state law. A general authorization for the release of medical or other information is not sufficient for the purpose of the release of HIV test results or diagnoses. Blood BLOOD SPECIMEN / Unknown Venipuncture / Unknown 05/23/2024 2:15 PM EST 05/23/2024 2:15 PM EST Pooja Villanueva DO LABORATORY Final Result [facility] [address] [facility] [address] [place] [address], from Last 3 Months or Most Recently Relevant to Health Maintenance Insurance [employer] PPO Care Teams Voyage Management System Operator Relationship Specialty Start Date End Date Aman Campbell MD PCP - General 02/03/05
--- OUTSIDE RECORDS SUMMARY | 2024-09-30 10:04 | XMS_ITS | Encounter Summary ---
Author Organization [facility] Address [facility] [place] [address] Care Team Providers Care Cold Storage Superintendent Name Role Phone Aman Campbell MD Primary Care Provider [phone] Source Comments In the event this information is protected by the Federal Confidentiality of Alcohol and Drug AbusePatient Records regulations: The Federal rules restrict any use of the information to criminally investigate or prosecute any alcohol or drug abuse patient.[facility] Encounter Details Date Type Department Care Team (Late st Contact Info) Description 07/03/2023 Patient [facility] [address] [place] [address] Provider, Ccf Schedule Surgery Social History Tobacco Use Types Packs/Day Years Used Date Smoking Tobacco: Former Cigarettes 1 3 0 04/02/2001 - 04/02/2004 Smokeless Tobacco: Former Chew Quit: 04/02/2004 Alcohol Use Standard Drinks/Week Comments Yes 2 (1 standard drink = 0.6 oz pur e alcohol) occasional Area Deprivation Index Answer Date Kevin rded National Score (1-100), lower number is lower ri sk 60 05/02/2023 State Score (1-10), lower number is lower risk 4 05/02/2023 Data from: https://www.neighborhoodatlas.[facility]/. Last address used for calculation [address] 05/02/2023 Sex and Gender Information Value Date Recorded Sex Assigned at Not on file Legal Sex Male 9:44 AM EST Gender Identity Not on file Sexual Orientation Not on file documented as of this encounter Functional Status * Are you deaf or do you have serious difficulty hearing? Answer Date of Assessment Author No 09/24/2014 10:29 AM EDT Katlin Longo (Hist), APPLIANCE SALES ASSOCIATE * Are you blind or do you have serious difficulty seeing, even when wearing glasses? Answer Date of Assessment Author No 09/24/2014 10:29 AM EDT Katlin Longo (Hist), APPLIANCE SALES ASSOCIATE * Do you have serious difficulty walking or climbing stairs? Answer Date of Assessment Author No 09/24/2014 10:29 AM EDT Katlin Longo (Hist), APPLIANCE SALES ASSOCIATE * Do you have difficulty dressing or bathing? Answer Date of Assessment Author No 09/24/2014 10:29 AM EDT Katlin Longo (Hist), APPLIANCE SALES ASSOCIATE * Because of a physical, mental, or emotional condition, do you have difficulty doing errands alone such as visiting a doctor's office or shopping? Answer Date of Assessment Author No 09/24/2014 10:29 AM EDT Katlin Longo (Hist), APPLIANCE SALES ASSOCIATE documented as of this encounter Mental Status * Because of a physical, mental, or emotional condition, do you have serious difficulty concentrating, remembering, or making decisions? Answer Entry Date Author No 09/24/2014 10:29 AM EDT Katlin Longo (Hist), APPLIANCE SALES ASSOCIATE documented in this encounter Plan of Treatment Upcoming Encounters Date Type Department Care Team (Latest Contact Info) Description 09/30/2024 2:00 PM EDT Office Visit Neurology [address] [place] [address] Mild cognitive impairment 10/27/2024 8:50 AM EDT Procedure Neurology [address] [place] [address] Other polyneuropathy [G62.89] 12/30/2024 3:30 PM EDT Office Visit Neurology [address] [place] [address] [place] [address] [place], [place] [id number] Follow up after EMG documented as of this encounter Visit Diagnoses Not on filedocumented in this encounter Care Teams Cold Storage Superintendent Relationship Specialty Start Date End Date Aman Campbell MD PCP - General 02/03/05 documented as of this encounter
--- OUTSIDE RECORDS SUMMARY | 2024-09-30 10:04 | XMS_ITS | Encounter Summary ---
Author Organization [facility] Address [address] [place] [address] Care Team Providers Care Clerical And Office Support Workers Name Role Phone Aman Campbell MD Primary Care Provider [phone] Source Comments In the event this information is protected by the Federal Confidentiality of Alcohol and Drug AbusePatient Records regulations: The Federal rules restrict any use of the information to criminally investigate or prosecute any alcohol or drug abuse patient.[facility] Encounter Details Date Type Department Care Team (Late st Contact Info) Description 06/10/2024 [place] [address] Provider, Ccf MRI Screening Questionnaire Completion Required Social History Tobacco Use Types Packs/Day Years Used Date Smoking Tobacco: Former Cigarettes 1 3 0 04/02/2001 - 04/02/2004 Smokeless Tobacco: Former Chew Quit: 04/02/2004 Alcohol Use Standard Drinks/Week Comments Not Currently 0 (1 standard drink = 0.6 oz pur e alcohol) daily - 3-6 beers/night Area Deprivation Index Answer Date Kevin rded National Score (1-100), lower number is lower ri sk 60 05/02/2023 State Score (1-10), lower number is lower risk 4 05/02/2023 Data from: https://www.neighborhoodatlas.[facility]/. Last address used for calculation [address] 05/02/2023 Sex and Gender [...] 09/24/2014 10:29 AM EDT Katlin Longo (Hist), CLINICAL PROFESSOR * Are you blind or do you have serious difficulty seeing, even when wearing glasses? Answer Date of Assessment Author No 09/24/2014 10:29 AM EDT Katlin Longo (Hist), CLINICAL PROFESSOR * Do you have serious difficulty walking or climbing stairs? Answer Date of Assessment Author No 09/24/2014 10:29 AM EDT Katlin Longo (Hist), CLINICAL PROFESSOR * Do you have difficulty dressing or bathing? Answer Date of Assessment Author No 09/24/2014 10:29 AM EDT Katlin Longo (Hist), CLINICAL PROFESSOR * Because of a physical, mental, or emotional condition, do you have difficulty doing errands alone such as visiting a doctor's office or shopping? Answer Date of Assessment Author No 09/24/2014 10:29 AM EDT Katlin Longo (Hist), CLINICAL PROFESSOR documented as of this encounter Mental Status * Because of a physical, mental, or emotional condition, do you have serious difficulty concentrating, remembering, or making decisions? Answer Entry Date Author No 09/24/2014 10:29 AM EDT Katlin Longo (Hist), CLINICAL PROFESSOR documented in this encounter Plan of Treatment Upcoming Encounters Date Type Department Care Team (Latest Contact Info) Description 09/30/2024 2:00 PM EDT Office Visit Neurology [address] [place] [address] Mild cognitive impairment 10/27/2024 8:50 AM EDT Procedure Neurology [address] [place] [address] Other polyneuropathy [G62.89] 12/30/2024 3:30 PM EDT Office Visit Neurology [address] [place] [address] [place] [address] [place] [address] Follow up after EMG documented as of this encounter Visit Diagnoses Not on filedocumented in this encounter Care Teams Clerical And Office Support Workers Relationship Specialty Start Date End Date Aman Campbell MD PCP - General 02/03/05 documented as of this encounter
--- OUTSIDE RECORDS SUMMARY | 2024-09-30 10:04 | XMS_ITS | Clinical Summary ---
Author Organization [facility] Address [address] [place] [address] Care Team Providers Care Form Setter Helper Name Role Phone Aman Campbell MD Primary Care Provider [phone] Allergies Active Allergy Reactions Criticality Noted Date Comments Coconut Fatty Acid Hives High 01/06/2019 Morphine Rash Low 01/06/2019 Medications cyanocobalamin (V-R VITAMIN B-12) 500 MCG tablet Take 500 mcg by mouth 07/03/2016 Active vitamin D-3 (CHOLECALCIFEROL ) 5000 units TABS Take 50,000 Units by mouth 07/03/2016 Active desvenlafaxine succinate (PRISTIQ) 100 MG TB24 extended release tablet 12/10/2018 Acti ve topiramate ER (TROKENDI XR) 100 MG CP24 Take by mouth Active Active Problems Problem Noted Date Diagnosed Date Closed displaced fracture of distal phalanx of right ring finger 01/06/2019 Social History Tobacco Use Types Packs/Day Years Used Date Smoking Tobacco: Never Smokeless Tobacco: Never Alcohol Use Standard Drinks/Week Comments Yes 0 (1 standard drink = 0.6 oz pur e alcohol) Sex and Gender Information Value Date Recorded Sex Assigned at Not on file Legal Sex Male 2:20 PM EST Gender Identity Not on file Sexual Orientation Not on file Last Filed Vital Signs Vital Sign Reading Time Taken Comments Blood Pressure 116/76 01/06/2019 9:34 AM EDT Pulse 80 01/06/2019 9:34 AM EDT Temperature - - Respiratory Rate 18 01/06/2019 9:34 AM EDT Oxygen Saturation - - Inhaled Oxygen Concentration - - Weight 104.8 kg (231 lb) 01/06/2019 9:34 AM EDT stated Height 193 cm (6' 4 ) 01/06/2019 9:34 AM EDT sta gu[facility]ako Body Mass Index 28.12 01/06/2019 9:34 AM EDT Plan of Treatment Not on file Insurance [employer] Care Teams Form Setter Helper Relationship Specialty Start Date End Date Aman Campbell MD [address] [place] [address] PCP - General Family Medicine 01/06/19
--- OUTSIDE RECORDS SUMMARY | 2024-09-30 10:04 | XMS_ITS | Encounter Summary ---
Author Organization [facility] Address [address] [place] [address] Care Team Providers Care Gelatin Maker Utility Name Role Phone Aman Campbell MD Primary Care Provider [phone] Source Comments In the event this information is protected by the Federal Confidentiality of Alcohol and Drug AbusePatient Records regulations: The Federal rules restrict any use of the information to criminally investigate or prosecute any alcohol or drug abuse patient.[facility] Encounter Details Date Type Department Care Team (Late st Contact Info) Description 09/24/2024 Patient Msg Neurology [address] [id number] Provider, [facility] Social History Tobacco Use Types Packs/Day Years Used Date Smoking Tobacco: Former Cigarettes 1 3 0 04/02/2001 - 04/02/2004 Smokeless Tobacco: Former Chew Quit: 04/02/2004 Alcohol Use Standard Drinks/Week Comments Yes 0 (1 standard drink = 0.6 oz pur e alcohol) occasionally PHQ-2 Answer Date Recorded PHQ-2 score 0 06/17/2024 Area Deprivation Index Answer Date Kevin rded National Score (1-100), lower number is lower ri sk 60 05/02/2023 State Score (1-10), lower number is lower risk 4 05/02/2023 Data from: https://www.neighborhoodatlas.[facility].edu/. Last address used for calculation [address] 05/02/2023 Sex and [...] 09/24/2014 10:29 AM EDT Katlin Longo (Hist), LUBRICATION TECHNICIAN * Are you blind or do you have serious difficulty seeing, even when wearing glasses? Answer Date of Assessment Author No 09/24/2014 10:29 AM EDT Katlin Longo (Hist), LUBRICATION TECHNICIAN * Do you have serious difficulty walking or climbing stairs? Answer Date of Assessment Author No 09/24/2014 10:29 AM EDT Katlin Longo (Hist), LUBRICATION TECHNICIAN * Do you have difficulty dressing or bathing? Answer Date of Assessment Author No 09/24/2014 10:29 AM EDT Katlin Longo (Hist), LUBRICATION TECHNICIAN * Because of a physical, mental, or emotional condition, do you have difficulty doing errands alone such as visiting a doctor's office or shopping? Answer Date of Assessment Author No 09/24/2014 10:29 AM EDT Katlin Longo (Hist), LUBRICATION TECHNICIAN documented as of this encounter Mental Status * Because of a physical, mental, or emotional condition, do you have serious difficulty concentrating, remembering, or making decisions? Answer Entry Date Author No 09/24/2014 10:29 AM EDT Katlin Longo (Hist), LUBRICATION TECHNICIAN documented in this encounter Plan of Treatment Upcoming Encounters Date Type Department Care Team (Latest Contact Info) Description 09/30/2024 2:00 PM EDT Office Visit Neurology [address] [place] [address] Mild cognitive impairment 10/27/2024 8:50 AM EDT Procedure Neurology [address] [place] [address] Other polyneuropathy [G62.89] 12/30/2024 3:30 PM EDT Office Visit Neurology [address] [place] [address] Marilyn Antunez MD [address] [place] [address] Follow up after EMG documented as of this encounter Visit Diagnoses Not on filedocumented in this encounter Care Teams Gelatin Maker Utility Relationship Specialty Start Date End Date Aman Campbell MD PCP - General 02/03/05 documented as of this encounter
--- OUTSIDE RECORDS SUMMARY | 2024-09-30 10:04 | XMS_ITS | Encounter Summary ---
Author Organization [facility] Address [address] [place] [address] Care Team Providers Care Smelter Operator Name Role Phone Aman Campbell MD Primary Care Provider [phone] Source Comments In the event this information is protected by the Federal Confidentiality of Alcohol and Drug AbusePatient Records regulations: The Federal rules restrict any use of the information to criminally investigate or prosecute any alcohol or drug abuse patient.[facility] Encounter Details Date Type Department Care Team (Late st Contact Info) Description 09/16/2024 Abstract Neurology [address] [phone] [facility] [address] [phone] Social History Tobacco Use Types Packs/Day Years [...] is lower risk 4 05/02/2023 Data from: https://www.neighborhoodatlas.medicine.[facility].edu/. Last address used for calculation [address] 05/02/2023 Sex and Gender Information Value Date Recorded Sex Assigned at Not on file Legal Sex Male 9:44 AM EST Gender Identity Not on file Sexual Orientation Not on file documented as of this encounter Functional Status * Are you deaf or do you have serious difficulty hearing? Answer Date of Assessment Author No 09/24/2014 10:29 AM EDT Katlin Longo (Hist), PRACTICING UROLOGIST * Are you blind or do you have serious difficulty seeing, even when wearing glasses? Answer Date of Assessment Author No 09/24/2014 10:29 AM EDT Katlin Longo (Hist), PRACTICING UROLOGIST * Do you have serious difficulty walking or climbing stairs? Answer Date of Assessment Author No 09/24/2014 10:29 AM EDT Katlin Longo (Hist), PRACTICING UROLOGIST * Do you have difficulty dressing or bathing? Answer Date of Assessment Author No 09/24/2014 10:29 AM EDT Katlin Longo (Hist), PRACTICING UROLOGIST * Because of a physical, mental, or emotional condition, do you have difficulty doing errands alone such as visiting a doctor's office or shopping? Answer Date of Assessment Author No 09/24/2014 10:29 AM EDT Katlin Longo (Hist), PRACTICING UROLOGIST documented as of this encounter Mental Status * Because of a physical, mental, or emotional condition, do you have serious difficulty concentrating, remembering, or making decisions? 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
--- OUTSIDE RECORDS SUMMARY | 2024-09-30 10:04 | XMS_ITS | Encounter Summary ---
Author Organization [facility] Address [address] [place] [address] Care Team Providers Care Machine Boss Name Role Phone Aman Campbell MD Primary Care Provider [phone] Source Comments In the event this information is protected by the Federal Confidentiality of Alcohol and Drug AbusePatient Records regulations: The Federal rules restrict any use of the information to criminally investigate or prosecute any alcohol or drug abuse patient.[facility] Encounter Details Date Type Department Care Team (Late st Contact Info) Description 09/16/2024 Patient Msg Neurology [address] [place] [address] Marilyn Antunez MD [address] [place] [address] Connecting Social History Tobacco Use Types Packs/Day Years [...] is lower risk 4 05/02/2023 Data from: https://www.neighborhoodatlas.medicine.[facility]/. Last address used for calculation [address] 05/02/2023 Sex and Gender Information Value Date Recorded Sex Assigned at Not on file Legal Sex Male 9:44 AM EST Gender Identity Not on file Sexual Orientation Not on file documented as of this encounter Functional Status * Are you deaf or do you have serious difficulty hearing? Answer Date of Assessment Author No 09/24/2014 10:29 AM EDT Katlin Longo (Hist) ECOLOGY TEACHER * Are you blind or do you have serious difficulty seeing, even when wearing glasses? Answer Date of Assessment Author No 09/24/2014 10:29 AM EDT Katlin Longo (Hist), ECOLOGY TEACHER * Do you have serious difficulty walking or climbing stairs? Answer Date of Assessment Author No 09/24/2014 10:29 AM EDT Katlin Longo (Hist), ECOLOGY TEACHER * Do you have difficulty dressing or bathing? Answer Date of Assessment Author No 09/24/2014 10:29 AM EDT Katlin Longo (Hist), ECOLOGY TEACHER * Because of a physical, mental, or emotional condition, do you have difficulty doing errands alone such as visiting a doctor's office or shopping? Answer Date of Assessment Author No 09/24/2014 10:29 AM EDT Katlin LongoHist)JOSHN documented as of this encounter Mental Status * Because of a physical, mental, or emotional condition, do you have serious difficulty concentrating, remembering, or making decisions? 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
--- OUTSIDE RECORDS SUMMARY | 2024-09-30 10:04 | XMS_ITS | Encounter Summary ---
Author Organization [facility] Address [facility] [place] [address] Care Team Providers Care Metal Wire Coating Operator Name Role Phone Aman Campbell MD Primary Care Provider [phone] Source Comments In the event this information is protected by the Federal Confidentiality of Alcohol and Drug AbusePatient Records regulations: The Federal rules restrict any use of the information to criminally investigate or prosecute any alcohol or drug abuse patient.[facility] Encounter Details Date Type Department Care Team (Late st Contact Info) Description 07/04/2023 Patient Msg [facility] [address] [place] [id number] Provider, [facility] Surgery Instructions Social History Tobacco Use Types Packs/Day Years [...] is lower risk 4 05/02/2023 Data from: https://www.neighborhoodatlas.[facility]/. Last address used for calculation [address] [...] 09/24/2014 10:29 AM EDT Katlin Longo (Hist), TRAVEL ACCOMMODATION INSPECTOR * Are you blind or do you have serious difficulty seeing, even when wearing glasses? Answer Date of Assessment Author No 09/24/2014 10:29 AM EDT Katlin Longo (Hist), TRAVEL ACCOMMODATION INSPECTOR * Do you have serious difficulty walking or climbing stairs? Answer Date of Assessment Author No 09/24/2014 10:29 AM EDT Katlin Longo (Hist), TRAVEL ACCOMMODATION INSPECTOR * Do you have difficulty dressing or bathing? Answer Date of Assessment Author No 09/24/2014 10:29 AM EDT Katlin Longo (Hist), TRAVEL ACCOMMODATION INSPECTOR * Because of a physical, mental, or emotional condition, do you have difficulty doing errands alone such as visiting a doctor's office or shopping? Answer Date of Assessment Author No 09/24/2014 10:29 AM EDT Katlin Longo (Hist), TRAVEL ACCOMMODATION INSPECTOR documented as of this encounter Mental Status * Because of a physical, mental, or emotional condition, do you have serious difficulty concentrating, remembering, or making decisions? 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
--- OUTSIDE RECORDS SUMMARY | 2024-09-30 10:04 | XMS_ITS | Clinical Summary ---
Author Organization [facility] Address [address] [place] [address] Care Team Providers Care Superintendent Operations Division Name Role Phone Aman Campbell MD Primary Care Provider [phone] Allergies Active Allergy Reactions Criticality Noted Date Comments Cinnamon Swelling High 08/02/2011 Coconut Hives,Swelling High 08/02/2011 Medications buPROPion XL (Wellbutrin XL) 300 mg 24 hr tablet Take 300 mg by mouth in the morning. 05/26/2022 Active cholecalciferol (D3-5) 5,000 Units tablet Take 50,000 Units by mouth in the morning. 07/03/2016 Active cyanocobalamin (Vitamin B-12) 500 mcg tablet Take 500 mcg by mouth in the morning. 07/03/2016 Active doxycycline (Monodox) 100 mg capsule Take 100 mg by mouth in the morning and at bedtime. 05/26/2022 Active tamsulosin (Flomax) 0.4 mg 24 hr capsule Take 0.4 mg by mouth in the morning. 05/26/2022 Active topiramate (Topamax) 100 mg tablet Take 100 mg by mouth in the morning. Active apixaban (Eliquis) 5 mg tablet Take 2 tablets by mouth two times daily. Active Active Problems Problem Noted Date Diagnosed Date Painful orthopaedic hardware 11/19/2023 Primary hypertension 02/19/2023 Finger pain, right 02/05/2023 Open displaced fracture of m iddle phalanx of right ring finger with malunion 05/16/2022 Overview (05/16/2022): Added automatically from request for surgery [id number] Closed displaced fracture of distal phalanx of right ring finger 01/06/2019 Open fracture of tuft of distal phalanx of finge r 09/09/2018 Elevated partial thromboplastin time (PTT) 05/25 Hematoma 05/25/2014 Varicose veins of bilateral lower extremities with other complications 06/11/2013 Encounters Date Type Department Care Team Description 07/16/2024 3:20 PM EDT Office Visit [address] [place] [address] Rafael Weeks MD Postoperative visit (Primary Dx); Open displaced fracture of middle phalanx of right ring finger with malunion, subsequent encounter 07/07/[address] [place] [address] Sofía Garcia MA Post-op Problem 07/04/2024 7:30 AM EDT - 07/04/2024 8:30 AM EDT Surgery [facility] Invasive Surgery [address] [place] [address] Rafael Weeks MD RING FINGER HARDWARE REMOVAL [[id number] (CPT )] 07/04/2024 7:25 AM EDT Anesthesia Event [facility] Invasive Surgery [address] [place] [address] Ihsan Kidd MD Stimes, Nicholas, MD 07/04/2024 5:53 AM EDT - 07/04/2024 9:20 AM EDT Hospital Encounter [facility] Invasive Surgery [address] [place] [address] Rafael Weeks MD Encounter for pre-operative laboratory testing (Primary Dx); Painful orthopaedic hardware Discharge Disposition: Home or Self Care () 07/04/2024 Travel from Last 3 Months Family History Medical History Relation Name Comments Hypertension Mother Relation Name Status Comments Mother Social History Tobacco Use Types Packs/Day Years Used Date Smoking Tobacco: Never Smokeless Tobacco: Never Tobacco Cessation:Counseling Given: Not Answered Alcohol Use Standard Drinks/Week Comments Yes 0 (1 standard drink = 0.6 oz pur e alcohol) daily Humiliation, Afraid, Rape, and Kick questionnair e Answer Date Recorded Within the last year, have y ou been afraid of your partner or ex-partner? No 11/07/2023 Emotionally Abused Not on file 11/07/2023 Physically Abused Not on file 11/07/2023 Sexually Abused Not on file 11/07/2023 AUDIT-C Answer Date Recorded Q1: How often do you have a drink containing alcohol? Never 07/03/2023 Q2: How many drinks containi ng alcohol do you have on a typical day when you are drinking? Patient does not drink Q3: How often do you have si x or more drinks on one occasion? Never 07/03/2023 Overall Financial Resource Strain (CARDIA) Answe r Date Recorded How hard is it for you to pa y for the very basics like food, housing, medical care, and heating? Not hard at all 07/03/2023 PHQ-2 Answer Date Recorded Patient Health Questionnaire-2 Score 0 11/07/2023 [facility] - Occupational Stress Questionnaire Answer Date Recorded Do you feel stress - tense, restless, nervous, or anxious, or unable to sleep at night because your mind is troubled all the time - these days? Not at all 07/03/2023 Transportation Answer Date Recorded In the past 12 months, has l ack of transportation kept you from medical appointments or from getting medications? No 05/2023 In the past 12 months, has l ack of transportation kept you from meetings, work, or from getting things needed for daily living? No 07/03/2023 Housing Stability Vital Sign Answer Won e Recorded In the last 12 months, was t here a time when you were not able to pay the mortgage or rent on time? No 07/03/2023 Number of Times Moved in the Last Year Not on fi le 07/03/2023 Homeless in the Last Year Not on file 2023 Hunger Vital Sign Answer Date Recorded Within the past 12 months, y ou worried that your food would run out before you got the money to buy more. Never true 07/03/19 24 Within the past 12 months, t he food you bought just didn't last and you didn't have money to get more. Never true 07/03/2023 Sex and Gender Information Value Date Recorded Sex Assigned at Not on file Legal Sex Male 12:15 AM EDT Gender Identity Not on file Sexual Orientation Not on file Last Filed Vital Signs Vital Sign Reading Time Taken Comments Blood Pressure 108/76 07/04/2024 9:00 AM EDT Pulse 81 07/04/2024 9:00 AM EDT Temperature 36.2 C (97.2 F) 07/04/2024 9:00 AM EDT Respiratory Rate 18 07/04/2024 9:00 AM EDT Oxygen Saturation 99% 07/04/2024 9:00 AM EDT Inhaled Oxygen Concentration - - Weight 98 kg (216 lb) 07/16/2024 3:03 PM EDT Height 190.5 cm (6' 3 ) 07/04/2024 6:26 AM EDT Body Mass Index 27 07/04/2024 6:26 AM EDT Plan of Treatment Upcoming Encounters Date Type Department Care Team (Late st Contact Info) Description 10/14/2024 2:00 PM EDT Office Visit [facility] [address] [place] [address] [place] [phone] Rafael Weeks MD [address] [place] [address] Health Maintenance Due Date Last Done Comments CT Colonography 1979 FIT-DNA 1979 FIT 1979 FOBT 1979 Sigmoidoscopy 1979 Hepatitis B Vaccines (1 of 3 - 19+ 3-dose series) 06/30/1998 Adult Tetanus 06/30/2001 COVID-19 Vaccine (2023-2 5 season) 2023 03/24/2021, 07/21/2020, 06/23/2020 Depression Screening 11/06/2024 11/07/2023 Colonoscopy 04/30/2029 04/30/2019 Colorectal Cancer Screening 04/30/2029 Zoster Vaccines (1 of 2) 06/30/2029 Influenza Vaccine Completed 02/04/2024, 01/04/2022, 02/16/2021 HIB Vaccines Aged Out No longer eligi ble based on patient's age to complete this topic HPV Vaccines Aged Out No longer eligi ble based on patient's age to complete this topic IPV Vaccines Aged Out No longer eligi ble based on patient's age to complete this topic Meningococcal B Vaccine Aged Out No l onger eligible based on patient's age to complete this topic Meningococcal Vaccine Aged Out No josie estuardo eligible based on patient's age to complete this topic Pneumococcal Vaccine: Pediatrics (0 to 5 Years) and At-Risk Patients (6 to 64 Years) Aged Out No longer eligible b ased on patient's age to complete this topic Rotavirus Vaccines Aged Out No longer eligible based on patient's age to complete this topic Medical Devices Implanted Type Area Machine Feeder Raw Stock Device Identifier Shelf Expiration Date Model / Serial / Lot K-Wire,#1,1.1x2 29mm - [id number] Implanted:Qty: 2 on 05/17/2022 by Rafael Weeks MD at [facility] Pin Right: Ring Finger BRASSELER [id number] / / K-Wire,#1,0.9x2 29mm - [id number] Implanted:Qty: 1 on 05/17/2022 by Rafael Weeks MD at [facility] Pin Right: Ring Finger BRASSELER [id number] / / Explanted Type Area Machine Feeder Raw Stock Device Identifier Shelf Expiration Date Model / Serial / Lot 1.2/1.5 Trilock Rotation Plate Implanted:Qty: 1 on 02/19/2023 by Rafael Weeks MD at [facility] Explanted:Qty: 1 on 07/04/2024 by Rafael Weeks MD at [facility] Right: Ring Finger MEDARTIS [id number] / / 1.5x7mm Cortical Screw Implanted:Qty: 2 on 02/19/2023 by Rafael Weeks MD at [facility] Explanted:Qty: 2 on 07/04/2024 by Rafael Weeks MD at [facility] Right: Ring Finger MEDARTIS [id number]/ / / 1.3tl89cu Coertical Screw Implanted:Qty: 1 on 02/19/2023 by Rafael Weeks MD at [facility] Explanted:Qty: 1 on 07/04/2024 by Rafael Weeks MD at [facility] Right: Ring Finger MEDARTIS [id number]/31 1.5x11mm Locking Screw Implanted:Qty: 2 on 02/19/2023 by Rafael Weeks MD at [facility] Explanted:Qty: 2 on 07/04/2024 by Rafael Weeks MD at [facility] Right: Ring Finger MEDARTIS [id number]/31 1.5x12mm Locking Screw Implanted:Qty: 1 on 02/19/2023 by Rafael Weeks MD at [facility] Explanted:Qty: 1 on 07/04/2024 by Rafael Weeks MD at [facility] Right: Ring Finger MEDARTIS A. [id number]/ / / Procedures Procedure Name Priority Date/Time Associated Diagnosis Comments [place] REMOVAL IMPLANT FROM FINGER/HAND 07/04/2024 7:28 AM EDT Finger pain, right POCT GLUCOSE METER UNSOLICITED RESULTS Routine 07/04/2024 6:32 AM EDT from Last 3 Months Results * POCT glucose meter (07/04/2024 6:32 AM EDT) [facility] Signature Glucose POC 80 70 - 105 mg/dL 07/04/2024 6:51 AM EDT [facility] Comment:ltolles Blood Capillary blood specimen / Unknown 07/04/2024 6:32 AM EDT 07/04/2024 6:51 AM EDT Narrative [facility] - 07/04/2024 6:51 AM EDT Waived Testing in the ED is performed under the ED CLIA certificate #[id number]. us Rafael Weeks MD LAB BLOOD ORDERABLES Final Resul t [facility] [address] [place] [address] from Last 3 Months Insurance [employer] Care Teams Superintendent Operations Division Relationship Specialty Start Date End Date Aman Campbell MD [address] [facility] [facility] [address] [address] PCP - General 05/05/22
--- OUTSIDE RECORDS SUMMARY | 2024-09-30 10:04 | XMS_ITS | Encounter Summary ---
Author Organization [facility] Address [address] [place] [address] Care Team Providers Care Software Design Manager Name Role Phone Unallocated, Noms Provider Primary Care [facility] Encounter Details Date Type Department Care Team (Late st Contact Info) Description 12/21/2022 Abstract [facility] [address] [place] [phone] Emely Linda, OT [address] [place] [address] Social History Tobacco Use Types Packs/Day Years Used Date Smoking Tobacco: Never Tobacco Cessation:Counseling Given: Not Answered Alcohol Use Standard Drinks/Week Comments Yes 1 (1 standard drink = 0.6 oz pur e alcohol) caffeine: 2-3 cups per day Sex and Gender Information Value Date Recorded Sex Assigned at Male 12/19/2022 4:56 PM EDT Legal Sex Male 6:42 PM EDT Gender Identity Male 12/19/2022 4:56 PM EDT Sexual Orientation Straight 12/19/2022 4: 56 PM EDT documented as of this encounter Plan of Treatment Not on file documented as of this encounter Visit Diagnoses Not on filedocumented in this encounter Care Teams Software Design Manager Relationship Specialty Start Date End Date Unallocated, Noms Provider, [place] [address] PCP - General 01/09/23 documented as of this encounter
--- OUTSIDE RECORDS SUMMARY | 2024-09-30 10:04 | XMS_ITS | Encounter Summary ---
Author Organization [facility] Address [address] [place] [address] Care Team Providers Care Kelp Cutter Name Role Phone Aman Campbell MD Primary Care Provider [phone] Source Comments In the event this information is protected by the Federal Confidentiality of Alcohol and Drug AbusePatient Records regulations: The Federal rules restrict any use of the information to criminally investigate or prosecute any alcohol or drug abuse patient.[facility] Encounter Details Date Type Department Care Team (Late st Contact Info) Description 09/29/2024 Patient Msg Neurology [address] [place] [address] Provider, Ccf HSAT QUESTIONNAIRE Social History Tobacco Use Types Packs/Day Years [...] is lower risk 4 05/02/2023 Data from: https://www.neighborhoodatlas.[facility].edu/. Last address used for calculation [address] 05/02/2023 Sex and Gender [...] 09/24/2014 10:29 AM EDT Katlin Longo (Hist), SUPERVISOR CLEANING AND ANNEALING * Are you blind or do you have serious difficulty seeing, even when wearing glasses? Answer Date of Assessment Author No 09/24/2014 10:29 AM EDT Katlin Longo (Hist), SUPERVISOR CLEANING AND ANNEALING * Do you have serious difficulty walking or climbing stairs? Answer Date of Assessment Author No 09/24/2014 10:29 AM EDT Katlin Longo (Hist), SUPERVISOR CLEANING AND ANNEALING * Do you have difficulty dressing or bathing? Answer Date of Assessment Author No 09/24/2014 10:29 AM EDT Katlin Longo (Hist), SUPERVISOR CLEANING AND ANNEALING * Because of a physical, mental, or emotional condition, do you have difficulty doing errands alone such as visiting a doctor's office or shopping? Answer Date of Assessment Author No 09/24/2014 10:29 AM EDT Katlin Longo (Hist), SUPERVISOR CLEANING AND ANNEALING documented as of this encounter Mental Status * Because of a physical, mental, or emotional condition, do you have serious difficulty concentrating, remembering, or making decisions? 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
--- OUTSIDE RECORDS SUMMARY | 2024-09-30 10:04 | XMS_ITS | Referral Summary ---
Author Organization [facility] Address [address] [place] [address] Care Team Providers Care Faucets Assembler Name Role Phone Aman Campbell MD Primary Care Provider [phone] Encounters Date Type Department Care Team Description 07/16/2024 3:20 PM EDT Office Visit [address] [place] [address] Rafael Weeks MD Postoperative visit (Primary Dx); Open displaced fracture of middle phalanx of right ring finger with malunion, subsequent encounter 07/07/[address] [place] [phone] Sofía Garcia MA Post-op Problem 07/04/2024 Travel 07/04/2024 7:30 AM EDT - 07/04/2024 8:30 AM EDT [facility] [address] [place] [address] Rafael Weeks MD RING FINGER HARDWARE REMOVAL [01747 (CPT )] 07/04/2024 7:25 AM EDT Anesthesia [facility] [address] [place] [address] Ihsan Kidd MD Stimes, Nicholas, MD 07/04/2024 5:53 AM EDT - 07/04/2024 9:20 AM EDT Hospital [facility] [address] [place] [address] Rafael Weeks MD Encounter for pre-operative laboratory testing (Primary Dx); Painful orthopaedic hardware Discharge Disposition: Home or Self Care () from Last 3 Months Allergies Active Allergy Reactions Criticality Noted Date [...] (05/16/2022): Added automatically from request for surgery [id number] Closed displaced fracture of distal phalanx of right ring finger 01/06/2019 Open fracture of tuft of distal phalanx of finge r 09/09/2018 Elevated partial thromboplastin time (PTT) 05/25 Hematoma 05/25/2014 Varicose veins of bilateral lower extremities with other complications 06/11/2013 Social History Tobacco Use Types Packs/Day Years [...] Recorded Patient Health Questionnaire-2 Score 0 11/07/2023 [facility] - Occupational Stress [...] Description 10/14/2024 2:00 PM EDT Office Visit [facility] [address] [place] [address] [place] [phone] Rafael Weeks MD [address] [place] [phone] Medical Devices Implanted Type Area Fixed Assets Accountant Device Identifier Shelf Expiration Date Model / Serial / Lot K-Wire,#1,1.1x2 29mm - [id number] Implanted:Qty: 2 on 05/17/2022 by Rafael Weeks MD at [facility] Pin Right: Ring Finger BRASSELER [id number] / / K-Wire,#1,0.9x2 29mm - [id number] Implanted:Qty: 1 on 05/17/2022 by Rafael Weeks MD at [facility] Pin Right: Ring Finger BRASSELER [id number] / / Explanted Type Area Fixed Assets Accountant Device Identifier Shelf Expiration Date Model / Serial / Lot 1.2/1.5 Trilock Rotation Plate Implanted:Qty: 1 on 02/19/2023 by Rafael Weeks MD at [facility] Explanted:Qty: 1 on 07/04/2024 by Rafael Weeks MD at [facility] Right: Ring Finger MEDARTIS [id number] / / 1.5x7mm Cortical Screw Implanted:Qty: 2 on 02/19/2023 by Rafael Weeks MD at [facility] Explanted:Qty: 2 on 07/04/2024 by Rafael Weeks MD at [facility] Right: Ring Finger MEDARTIS [id number]/30 1.7dh36yd Coertical Screw Implanted:Qty: 1 on 02/19/2023 by Rafael Weeks MD at [facility] Explanted:Qty: 1 on 07/04/2024 by Rafael Weeks MD at [facility] Right: Ring Finger MEDARTIS A.[id number]/31 1.5x11mm Locking Screw Implanted:Qty: 2 on 02/19/2023 by Rafael Weeks MD at [facility] Explanted:Qty: 2 on 07/04/2024 by Rafael Weeks MD at [facility] Right: Ring Finger MEDARTIS [id number]/31 1.5x12mm Locking Screw Implanted:Qty: 1 on 02/19/2023 by Rafael Weeks MD at [facility] Explanted:Qty: 1 on 07/04/2024 by Rafael Weeks MD at [facility] Right: Ring Finger MEDARTIS A. [id number] / / Procedures Procedure Name Priority Date/Time Associated Diagnosis Comments DC REMOVAL IMPLANT FROM FINGER/HAND 07/04/2024 7:28 AM EDT Finger pain, right POCT GLUCOSE METER UNSOLICITED RESULTS Routine 07/04/2024 6:32 AM EDT from Last 3 Months Results * POCT glucose meter (07/04/2024 6:32 AM EDT) Glucose POC 80 70 - 105 mg/dL 07/04/2024 6:51 AM EDT [facility] Comment:ltolles Blood Capillary blood specimen / Unknown 07/04/2024 6:32 AM EDT 07/04/2024 6:51 AM EDT Narrative [facility] - 07/04/2024 6:51 AM EDT Waived Testing in the ED is performed under the ED CLIA certificate #[id number]. us Rafael Weeks MD LAB BLOOD ORDERABLES Final Resul t [facility] [address] [place] [address] from Last 3 Months Insurance [employer] Care Teams Faucets Assembler Relationship Specialty Start Date End Date Amna Campbell MD [address] [address] PCP - General 05/05/22
--- OUTSIDE RECORDS SUMMARY | 2024-09-30 10:04 | XMS_ITS | Clinical Summary ---
Author Organization [facility] Address [address] [place] [address] Phone Care Team Providers Care Chainstitch Seat Joiner Name Role Phone Unavailable Primary Care Provider Unavailabl e Social History Tobacco Use Types Packs/Day Years Used Date Smoking Tobacco: Never Assessed Sex and Gender Information Value Date Recorded Sex Assigned at Not on file Legal Sex Male 11:18 AM EST Gender Identity Not on file Sexual Orientation Not on file Plan of Treatment Not on file
--- OUTSIDE RECORDS SUMMARY | 2024-09-30 10:04 | XMS_ITS | Encounter Summary ---
Author Organization [facility] Address [address] [place] [address] Care Team Providers Care Legal Practice Manager Name Role Phone Aman Campbell MD Primary Care Provider [phone] Source Comments In the event this information is protected by the Federal Confidentiality of Alcohol and Drug AbusePatient Records regulations: The Federal rules restrict any use of the information to criminally investigate or prosecute any alcohol or drug abuse patient.[facility] Encounter Details Date Type Department Care Team (Late st Contact Info) Description 07/03/2016 Patient Msg Neurology [address] [phone] Maureen Trujillo(Hist) [address] [phone] RE:results Social History Tobacco Use Types Packs/Day Years Used Date Smoking Tobacco: Former Cigarettes 1 3 0 04/02/2001 - 04/02/2004 Smokeless Tobacco: Former Chew Quit: 04/02/2004 Alcohol Use Standard Drinks/Week Comments Yes 2 (1 standard drink = 0.6 oz pur e alcohol) occasional Sex and Gender Information Value Date Recorded Sex Assigned at Not on file Legal Sex Male 9:44 AM EST Gender Identity Not on file Sexual Orientation Not on file documented as of this encounter Functional Status * Are you deaf or do you have serious difficulty hearing? Answer Date of Assessment Author No 09/24/2014 10:29 AM EDT Katlin Longo (Hist), MAGAZINE DESIGNER * Are you blind or do you have serious difficulty seeing, even when wearing glasses? Answer Date of Assessment Author No 09/24/2014 10:29 AM EDT Katlin Longo (Hist), MAGAZINE DESIGNER * Do you have serious difficulty walking or climbing stairs? Answer Date of Assessment Author No 09/24/2014 10:29 AM EDT Katlin Longo (Hist), MAGAZINE DESIGNER * Do you have difficulty dressing or bathing? Answer Date of Assessment Author No 09/24/2014 10:29 AM EDT Katlin Longo (Hist), MAGAZINE DESIGNER * Because of a physical, mental, or emotional condition, do you have difficulty doing errands alone such as visiting a doctor's office or shopping? Answer Date of Assessment Author No 09/24/2014 10:29 AM EDT Katlin Longo (Hist), MAGAZINE DESIGNER documented as of this encounter Mental Status * Because of a physical, mental, or emotional condition, do you have serious difficulty concentrating, remembering, or making decisions? 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
--- OUTSIDE RECORDS SUMMARY | 2024-09-30 10:04 | XMS_ITS | Encounter Summary ---
Author Organization [facility] Address [address] [place] [address] Care Team Providers Care Steam Shovel Operator Name Role Phone Aman Campbell MD Primary Care Provider [phone] Source Comments In the event this information is protected by the Federal Confidentiality of Alcohol and Drug AbusePatient Records regulations: The Federal rules restrict any use of the information to criminally investigate or prosecute any alcohol or drug abuse patient.[facility] Encounter Details Date Type Department Care Team (Late st Contact Info) Description 07/23/2024 Patient Msg Neurology [address] [id number] Provider, Ccf Know Your Triggers, Own Your Day: Taking Control of Migraine Social History Tobacco Use Types Packs/Day Years Used Date Smoking Tobacco: Former Cigarettes 1 3 0 04/02/2001 - 04/02/2004 Smokeless Tobacco: Former Chew Quit: 04/02/2004 Alcohol Use Standard Drinks/Week Comments Not Currently 0 (1 standard drink = 0.6 oz pur e alcohol) daily - 3-6 beers/night PHQ-2 Answer Date Recorded PHQ-2 score 0 06/17/2024 Area Deprivation Index Answer Date Kevin rded National Score (1-100), lower number is lower ri sk 60 05/02/2023 State Score (1-10), lower number is lower risk 4 05/02/2023 Data from: https://www.neighborhoodatlas.medicine.[facility].edu/. Last address used for calculation [address] 05/02/2023 Sex and Gender [...] 09/24/2014 10:29 AM EDT Katlin Longo (Hist), PROVISIONING SPECIALIST * Are you blind or do you have serious difficulty seeing, even when wearing glasses? Answer Date of Assessment Author No 09/24/2014 10:29 AM EDT Katlin Longo (Hist), PROVISIONING SPECIALIST * Do you have serious difficulty walking or climbing stairs? Answer Date of Assessment Author No 09/24/2014 10:29 AM EDT Katlin Longo (Hist), PROVISIONING SPECIALIST * Do you have difficulty dressing or bathing? Answer Date of Assessment Author No 09/24/2014 10:29 AM EDT Katlin Longo (Hist), PROVISIONING SPECIALIST * Because of a physical, mental, or emotional condition, do you have difficulty doing errands alone such as visiting a doctor's office or shopping? Answer Date of Assessment Author No 09/24/2014 10:29 AM EDT Katlin Longo (Hist), PROVISIONING SPECIALIST documented as of this encounter Mental Status * Because of a physical, mental, or emotional condition, do you have serious difficulty concentrating, remembering, or making decisions? 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
--- NOTE | 2024-09-30 10:15 | ECG_ITS ---
[facility] Test Date: 2024-09-30 Pat Name: VINCE LUCIANO Department: Room: - Gender: Male Or Manager: : 1980 Requested By: [id number] Order Number: [id number] Reading MD: SAMIR EASTMAN M.D. Measurements Intervals [place] Rate: 66 P: 54 LA: 146 QRS: 71 QRSD: 94 T: 82 QT: 380 QTc: 394 Interpretive Statements 1100 Sinus rhythm 1102 Sinus arrhythmia 9110 normal ECG No previous ECG available for comparison Electronically Signed On 10-01-2024 6:34:59 EDT by SAMIR EASTMAN M.D.
--- NOTE | 2024-09-30 10:21 | CT_ITS ---
The [address] [address] Patient Name: VINCE LUCIANO MRN: [id number] date: 1980 Sex: M Assigned Patient Location: ER Current Patient Location: Accession/Order Number: [id number] Exam Date: 09/30/2024 11:39 Report Date: 09/30/2024 11:43 At the request of: LINDSAY RUIZ MD Procedure: CT angio chest CT ANGIOGRAM OF THE CHEST, PULMONARY EMBOLISM PROTOCOL: CLINICAL INFORMATION: Near syncope, rule out PE TECHNIQUE: Following intravenous injection of contrast CT scans of the chest were obtained using pulmonary embolism protocol. Coronal and sagittal reconstructed images, as well as volume rendered CT pulmonary angiographic images were also submitted.The CT exam was performed using one or more of the following dose reduction techniques: Automated exposure control, adjustment of the MA and/or Kv according to patient size, or use of the iterative reconstruction technique. FINDINGS: Pulmonary Vasculature: Contrast bolus is adequate for evaluation of pulmonary embolism. Pulmonary trunk appears nondilated. No filling defects are identified to suggest pulmonary embolism. Mediastinum : Thoracic aorta is normal in caliber. No pericardial effusion. No lymphadenopathy. The esophagus is grossly unremarkable. Lungs: Hypoventilatory changes.. No focal consolidation, pneumothorax or pleural effusion. Upper abdomen: Cholecystectomy. Soft tissue/bones: Soft tissues surrounding the chest wall demonstrate no acute findings. Osseous structures demonstrate degenerative change. CT/CT angio chest IMPRESSION: No CT evidence of pulmonary embolism or acute cardiopulmonary process. Impression dictated by: Jasen Phoenix M.D. 09/30/2024 11:43 AM Dictation Location: [employer] Electronically authenticated by: [id number] Y Date: 09/30/2024 11:43
--- NOTE | 2024-09-30 10:25 | ED.GENADUL1 ---
HPI HPI - General Adult General Chief complaint: Dizziness Stated complaint: LOWER EXTREMITY PAIN, DIZZY Time Seen by Provider: 09/30/24 10:03 Source: patient Mode of arrival: walk-in Limitations: no limitations History of Present Illness HPI narrative: 44-year-old male to the emergency department chief complaint of left leg pain and near syncope. Patient reports he has had some mild discomfort in his left leg for the last few days. He reports that he has incompetent veins and has had multiple blood clots in his legs. He had called his doctor to arrange for a duplex ultrasound which is still pending approval. Patient reports that today he was at work and began to feel lightheaded. He did not pass out. Did not have any chest pain, shortness of breath or palpitations. He denies any nausea vomiting, diarrhea, blood in the stool or dark tarry stools. He denies any fever, sweats, chills. No recent illness. He decided to come to the ER to get checked out given the constellation of symptoms. Related Data Home Medications ?Medication ?Instructions ?Recorded ?Confirmed bupropion HCl 150 mg 24 hr tablet, 150 mg PO DAILY 11/01/23 09/30/24 extended release bupropion HCl 300 mg 24 hr tablet, 300 mg PO DAILY 11/01/23 09/30/24 extended release calcium carb-ergocalciferol (vit 1 tab PO DAILY 11/01/23 09/30/24 D2) 600 mg calcium-200 unit tablet tamsulosin 0.4 mg capsule (Flomax) 0.4 mg PO Q24H 11/01/23 09/30/24 sumatriptan succinate 100 mg tablet 100 mg PO Q2H PRN migraine headache 09/30/24 09/30/24 tizanidine 4 mg tablet 4 mg PO HS PRN muscle spasticity 09/30/24 09/30/24 Previous Rx's ?Medication ?Instructions ?Recorded hydrocodone 5 mg-acetaminophen 325 1 tab PO Q6H PRN pain 3 days #12 09/30/24 mg tablet tabs Allergies Allergy/AdvReac Type Severity Reaction Status Date / Time No Known Drug Allergies Allergy Verified 09/30/24 10:10 Opioid HPI Opioid Management Most Recent Opioid Data: Last Pain Scale 8 Today, 10:59 Last ED Pain Assessment Today, 10:12 Last MAR Pain Assessment Today, 10:59 Review of Systems ROS Status of ROS 10 or more systems reviewed and unremarkable except as noted in history and below 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 ?I80.01 - Phlebitis and thrombophlebitis of superficial vessels of right lower extremity (ICD-10) Varicose veins of bilateral lower extremities with pain ?I83.813 - Varicose veins of bilateral lower extremities with pain (ICD-10) Right hand fracture ?S62.91XA - Unspecified fracture of right wrist and hand, initial encounter for closed fracture (ICD-10) Cervical vertebral fusion ?M43.22 - Fusion of spine, cervical region (ICD-10) Surgical History (Updated 11/01/23 @ 15:11 by Tex Moralez) History of bladder surgery ?Z98.890 - Other specified postprocedural states (ICD-10) H/O varicose vein ligation ?Z98.890 - Other specified postprocedural states (ICD-10) ?Z86.79 - Personal history of other diseases of the circulatory system (ICD-10) Status post phlebectomy ?Z98.890 - Other specified postprocedural states (ICD-10) Family History (Updated 11/01/23 @ 14:41 by Tex Moralez) Mother Varicose veins of bilateral lower extremities with pain Family history of cancer Family history of hypertension Social History Within the past year, how often did you have a drink containing alcohol: 2-4 times a month Smoking status: Never smoker Non-prescribed substance use: denies use Little interest or pleasure in doing things: not at all Feeling down, depressed, or hopeless: not at all Exam Narrative Exam Narrative: VITALS: I have reviewed the triage vital signs. GENERAL: Well developed, well appearing adult in no acute distress. NEURO: Alert and oriented. Moves all extremities. Face is symmetric and expressive. EYES: PERRL. No scleral icterus or conjunctival injection. No discharge. HENT: Normocephalic, atraumatic. Hearing is grossly intact. Nares grossly patent and without discharge. Mucous membranes moist. NECK: No JVD. Patient moves neck without restriction. CARDIO: Rhythm regular. Normal rate. No murmur, rub, or gallop. Pulses equal bilaterally in the upper and lower extremity. No lower extremity edema. PULM: Lungs clear to auscultation in all beltran. No wheezes, rales, or rhonchi. No conversational dyspnea. No splinting, stridor, or accessory muscle use. GI/: Abdomen is soft and non-tender. Normoactive bowel sounds. EXTREMITIES: Symmetric muscle bulk. No joint swelling. No clubbing, cyanosis, or deformity. SKIN: Warm and dry. Normal turgor. No rash or lesions appreciated. PSYCH: Mood, affect, and interaction is appropriate to the setting. Constitutional Vital Signs, click to edit/add: Last Vital Signs Temp 98.4 F 09/30/24 10:05 Pulse 72 09/30/24 10:05 Resp 18 09/30/24 10:05 BP 140/77 09/30/24 10:05 Pulse Ox 100 09/30/24 10:11 O2 Del Method Room Air 09/30/24 10:11 Course Vital Signs Vital signs: Vital Signs Temperature 98.4 F 09/30/24 10:05 Pulse Rate 72 09/30/24 10:05 Respiratory Rate 18 09/30/24 10:05 Blood Pressure 140/77 09/30/24 10:05 Pulse Oximetry 100 09/30/24 10:05 Oxygen Delivery Method Room Air 09/30/24 10:05 Temperature 98.4 F 09/30/24 10:05 Pulse Rate 72 09/30/24 10:05 Respiratory Rate 18 09/30/24 10:05 Blood Pressure 140/77 09/30/24 10:05 Pulse Oximetry 100 09/30/24 10:11 Oxygen Delivery Method Room Air 09/30/24 10:11 Medical Decision Making [facility] Narrative Medical decision making narrative: 44-year-old male to the emergency department with chief complaint of near syncope and left leg pain. Vital stable, the patient is afebrile. His left lower extremity is neurovascularly intact. No appreciable edema. Given the leg pain with question of DVT accompanied with near syncope will obtain a duplex ultrasound of the left lower extremity as well as a CT of the chest. Basic labs, troponin, EKG. Patient agrees with this plan. CBC and chemistry are unremarkable. Troponin negative. CTA without acute findings. Duplex is negative for DVT. Patient is able to ambulate without difficulty. No longer feels dizzy. [place] for pain. He will follow-up with his primary care doctor. Return precautions were discussed. All questions were answered. The patient was discharged home. Medical Records Medical records reviewed: Yes I reviewed the patient's medical records Lab Data Lab results reviewed: Yes I reviewed the patient's lab results Labs: Lab Results 09/30/24 09/30/24 Range/Units 10:12 11:05 WBC 7.1 (4.0-11.0) 10^3/uL RBC 4.75 (4.70-6.10) 10^6/uL Hgb 15.4 (14.0-18.0) g/dL Hct 44.7 (42.0-54.0) % MCV 94.1 H (80.0-94.0) fL MCH 32.4 (25.9-34.0) pg MCHC 34.5 (29.9-35.2) g/dL RDW 11.9 (11.0-15.0) % Plt Count 214 (150-450) 10^3/uL MPV 10.9 (9.5-13.5) fL Neut % (Auto) 73.9 (43.0-75.0) % Lymph % (Auto) 17.9 L (20.5-60.0) % [place] % (Auto) 7.2 (1.7-12.0) % Eos % (Auto) 0.6 L (0.9-7.0) % Baso % (Auto) 0.3 (0.2-2.0) % Neut # (Auto) 5.3 (1.4-6.5) 10^3/uL Lymph # (Auto) 1.3 (1.2-3.8) 10^3/uL [place] # (Auto) 0.5 (0.3-0.8) 10^3/uL Eos # (Auto) 0.0 (0.0-0.7) 10^3/uL Baso # (Auto) 0.0 (0.0-0.1) 10^3/uL Abs Immat Gran (auto) 0.01 (0.00-0.03) 10^3/uL Imm/Tot Granulo (auto) 0.1 (0.0-0.5) % Sodium 142 (136-145) mmol/L Potassium 3.6 (3.5-5.1) mmol/L Chloride 103 (98-107) mmol/L Carbon Dioxide 29.4 (21.0-32.0) mmol/L Anion Gap 13.2 BUN 16.0 (7.0-18.0) mg/dL Creatinine 1.12 (0.70-1.30) mg/dL Est GFR ( Amer) >60 (>=60 mL/min/1.73m^2) Est GFR (Non-Af Amer) >60 (>=60 mL/min/1.73m^2) BUN/Creatinine Ratio 14.3 Glucose 92 (74-106) mg/dL Calcium 9.9 (8.5-10.1) mg/dL Troponin I High Sens 5.0 (4.0-76.1) pg/mL Urine Color Lt. yellow (YELLOW) Urine Clarity Clear (CLEAR) Urine pH 6.0 (5.0-9.0) Ur Specific [place] <=1.005 A (1.005-1.025) Urine Protein Negative (NEG/TRACE) mg/dL Urine Glucose (UA) Negative (NEGATIVE) mg/dL Urine Ketones Negative (NEGATIVE) mg/dL Urine Occult Blood Negative (NEGATIVE) Urine Nitrite Negative (NEGATIVE) Urine Bilirubin Negative (NEGATIVE) Urine Urobilinogen 0.2 (0.2-1.0) EU/dL Ur Leukocyte Esterase Negative (NEGATIVE) Urine RBC None seen (0-2) #/HPF Urine WBC None seen (NONE SEEN) #/HPF Ur Squamous Epith Cells None seen (NONE/RARE) #/LPF Urine Crystals None seen (None Seen) #/HPF Urine Bacteria None seen (NONE SEEN) #/HPF Urine Casts None seen (NONE SEEN) #/LPF Urine Mucus None seen (NONE SEEN) Ur Culture Indicated? No Imaging Data CT scan - chest: Attestation: I have reviewed the pertinent imaging results. Radiologist's impression: ITS Impressions Chest CTA 09/30/24 10:21 IMPRESSION: No CT evidence of pulmonary embolism or acute cardiopulmonary process. Impression dictated by: Jasen Phoenix M.D. 09/30/2024 11:43 AM Dictation Location: [place] [address] Electronically authenticated by: [id number] Y Date: 09/30/2024 11:43 ECG Data Attestation: I personally reviewed and interpreted this ECG as follows: (Normal sinus rhythm at a rate of 66. No STEMI. Normal QTc at 394.) Discharge Plan Discharge Chief Complaint: Dizziness Clinical Impression: Leg pain, Dizziness Patient Disposition: Home, Self-Care Time of Disposition Decision: 12:56 Condition: Good Mode of Transportation: Private Vehicle Prescriptions / Home Meds: New hydrocodone-acetaminophen 5-325 mg tablet 1 tab PO Q6H PRN (Reason: pain) 3 Days Qty: 12 0RF No Action bupropion HCl 300 mg tablet extended release 24 hr 300 mg PO DAILY bupropion HCl 150 mg tablet extended release 24 hr 150 mg PO DAILY tamsulosin [Flomax] 0.4 mg capsule 0.4 mg PO Q24H calcium carbonate-vitamin D2 600 mg calcium- 200 unit tablet 1 tab PO DAILY sumatriptan succinate 100 mg tablet 100 mg PO Q2H PRN (Reason: migraine headache) tizanidine 4 mg tablet 4 mg PO HS PRN (Reason: muscle spasticity) Print Language: Gu[place]ian Instructions: Lightheadedness (ED), Leg Pain (ED) Additional Instructions: Call the office of your primary care doctor to arrange for follow-up within the above-stated timeframe. Your ED visit was focused on your acute issue and does not replace primary care. You should review your labs, imaging, and diagnoses from this ED visit with your primary care physician. There may be non-emergent/ incidental findings that need further evaluation. You should review your vital signs including blood pressure with your PCP. If you were prescribed medications you should discuss possible side-effects and drug interactions with your pharmacist. Call 911 or go to the nearest Emergency Department if you develop any new or worsening symptoms. Referrals: Aman Campbell MD [Primary Care Provider, Family Practice] - 1 week
[2024-09-30 10:26] LABS: Hematocrit 44.7 % (42.0-54.0); Hemoglobin 15.4 g/dL (14.0-18.0); Immature Granulocytes Abs Auto 0.01 10^3/uL (0.00-0.03); Immature Granulocytes Pct Auto 0.1 % (0.0-0.5); Lymphocytes Absolute Auto 1.3 10^3/uL (1.2-3.8); Mean Corpuscular HGB Conc 34.5 g/dL (29.9-35.2); Mean Corpuscular Hemoglobin 32.4 pg (25.9-34.0); Mean Corpuscular Volume 94.1 fL (80.0-94.0); Platelet Count 214 10^3/uL (150-450); Red Blood Count 4.75 10^6/uL (4.70-6.10); White Blood Count 7.1 10^3/uL (4.0-11.0)
[2024-09-30] MEDS: 0.9 % SODIUM CHLORIDE 1,000 ML 999 ML IV (10:29)
[2024-09-30 10:36] LABS: Anion Gap 13.2; Blood Urea Nitrogen 16.0 mg/dL (7.0-18.0); Calcium 9.9 mg/dL (8.5-10.1); Carbon Dioxide 29.4 mmol/L (21.0-32.0); Chloride 103 mmol/L (98-107); Estimated GFR (African America >60 (>=60 mL/min/1.73m^2); Estimated GFR (Non-African Ame >60 (>=60 mL/min/1.73m^2); Glucose 92 mg/dL (74-106); Potassium 3.6 mmol/L (3.5-5.1); Sodium 142 mmol/L (136-145)
[2024-09-30] MEDS: KETOROLAC TROMETHAMINE 30 MG/ML VIAL 15 MG IVP (10:59)
[2024-09-30 11:19] LABS: Glucose Urine UA NEGATIVE (NEGATIVE)
[2024-09-30 11:28] LABS: Cast Seen? NONE SEEN #/LPF (NONE SEEN); Crystals Seen? None Seen #/HPF (None Seen); Urine Culture Indicated NO
[2024-09-30] MEDS: HYDROCODONE/ACET 5-325 MG TABLET 1 TAB PO (13:08)
== END 2024-09-30 13:26 | disposition home or self-care (01) ==
PROVIDERS: Emergency Provider Student in an Organized Health Care Education/Training Program; PCP Family Medicine
DX: R42 Dizziness and giddiness (principal); M79.605 Pain in left leg
CPT/HCPCS: 36415; 71275; 80048; 81001; 84484; 85025; 93005; 93971; 96361; 96374; 99285; J1885; Q9967